=== PATIENT | female | born 1975 | race Caucasian/White ===

== ENCOUNTER 2021-08-24 11:58 | Emergency (ER) | payer SELFPAY ==
[2021-08-24 12:13] VITALS: PULSE 106; RESP 20; TEMP 36.4; O2SAT 98; BMI 31.3
--- NOTE | 2021-08-24 14:37 | XRR_ITS ---
PROCEDURE INFORMATION: Exam: XR Right Foot Exam date and time: 08/24/2021 3:10 PM Age: 45 years old Clinical indication: Pain; Foot; Right; Additional info: Eval for osteomyelitis TECHNIQUE: Imaging protocol: XR Right foot. Views: 1 or 2 views. COMPARISON: No relevant prior studies available. FINDINGS: Bones/joints: Negative for acute bony abnormality. Minimal distal Achilles tendon degenerative calcification. Small calcified heel spur. Soft tissues: Lateral view demonstrates an apparent soft tissue ulceration in the region of the metatarsal heads plantar surface perhaps the 1st digit, please correlate clinically. XR/XR foot RT 2V [id number] IMPRESSION: 1. Negative for acute bony abnormality 2. Lateral view demonstrates an apparent soft tissue ulceration in the region of the metatarsal heads plantar surface perhaps the 1st digit, please correlate clinically. 3. Minimal distal Achilles tendon degenerative calcification. 4. Small calcified heel spur.
--- NOTE | 2021-08-24 15:09 | ED_ITS ---
HPI - Extremity Problem General: Chief complaint: Extremity Injury, Lower Stated complaint: foot injury/diabetic Time Seen by Provider: 08/24/21 15:07 Source: patient Mode of arrival: ambulatory Limitations: no limitations History of Present Illness: Patient is a 45-year-old female who presents to ED today with a complaint of a right foot wound/ulcer that she has had for several weeks. Patient states she recently moved from [place] and was undergoing wound care management while there. She states she has yet to establish with a PCP or epic cadence specialists since moving to the area. Patient states she is a diabetic and states her sugars have been running in the 120s. She has noticed some mild swelling to the foot but states the ulcer itself seems to be like normal . She does not complain of any discharge, foul odor, increased pain, redness or warmth to the foot. No fevers MD Complaint: other (R foot ulcer) Onset (ago): week(s) Location: right and lower extremity (foot) Associated symptoms: Reports no associated symptoms; Deny fever(s) Review of Systems Const: Denies: fever(s), chills, body aches, fatigue or malaise Musc: Reports: extremity swelling (R foot); Denies: joint pain, joint swelling, joint redness or joint warmth Skin/Breast: Reports: other (R foot ulcer) Neuro: Denies: headache(s) or difficulty walking Physical Exam Const: COMMON NORMALS: no acute distress, patient oriented x3, no limitations and alert GENERAL APPEARANCE: cooperative NUTRITIONAL APPEARANCE: overweight ORIENTATION/CONSCIOUSNESS: Yes awake, Yes oriented to person, Yes oriented to place and Yes oriented to time Resp: COMMON NORMALS: normal respiratory effort and clear to auscultation bilaterally AUSCULTATION: clear to auscultation bilaterally Cardio: COMMON NORMALS: regular rate and regular rhythm RATE: regular rate RHYTHM: regular rhythm Extremity: COMMON NORMALS: full ROM, capillary refill normal and no calf tenderness GENERAL: Yes normal exam except as noted RIGHT LOWER EXTREMITY: Yes foot & digits OTHER: pt has some mild swelling to dorsal R foot w/o erythema/warmth; no lymphangitic streaking; she has a 1cm stage III proximal plantar surface ulcer present w/o odor, discharge, or surrounding redness Neuro: JOE COMA SCALE: document GCS findings Joe coma scale eye opening: Spontaneous Joe coma scale verbal response: Orientated [place] coma scale motor response: Obey commands Joe coma scale total score: 15 COMMON NORMALS: patient oriented x3, moves all extremities, no focal motor deficits and no sensory deficits noted SENSORIUM/ORIENTATION: Yes alert, Yes oriented to person, Yes oriented to place and Yes oriented to time Skin: NARRATIVE SKIN EXAM: see extremity assessment for pertinent skin findings Course Vital Signs: Vital signs: Vital Signs Temperature 97.6 F 08/24/21 12:13 Pulse Rate 106 H 08/24/21 12:13 Respiratory Rate 20 H 08/24/21 12:13 Pulse Oximetry 98 08/24/21 12:13 MDM - Extremity (Nontraumatic) Medical Decision Making Patient here with a right plantar foot ulcer that she has had for several weeks now. She states she was receiving wound care in [place] but recently moved to the area. Referral will be placed for her to get set up with a PCP as well a s a referral to wound care. Patient clinically appears in no acute distress. The ulcer itself does not have any drainage, surrounding redness, or odor. She states the ulcer appears at its baseline. She does have some mild concern regarding some swelling in her right foot. Extremity is not red or warm to the touch. She has a normal white count. Inflammatory markers are scantly elevated. Patient initially slightly tachycardic upon arrival but this resolved by my examination. XR showing soft tissue ulceration but no osteo/gas formation/etc. At this time we will go ahead and place patient on oral antibiotics and get her set up with wound care for further management. Strict return to ED precautions given. Lab Data : 08/24/21 15:25 08/24/21 15:25 Radiology Impressions Foot X-Ray 08/24/21 14:37 IMPRESSION: 1. Negative for acute bony abnormality 2. Lateral view demonstrates an apparent soft tissue ulceration in the region of the metatarsal heads plantar surface perhaps the 1st digit, please correlate clinically. 3. Minimal distal Achilles tendon degenerative calcification. 4. Small calcified heel spur. Laboratory Results WBC 7.4 10^3/uL (4.0-10.0) 08/24/21 15:25 RBC 5.22 10^6/uL (4.1-5.3) 08/24/21 15:25 Hgb 15.2 g/dL (11.5-15.3) 08/24/21 15:25 Hct 41.2 % (37.0-47.0) 08/24/21 15:25 MCV 78.9 fl (81-99) L 08/24/21 15:25 MCH 29.1 pg (28.0-34.0) 08/24/21 15:25 MCHC 36.9 g/dL (30.0-36.0) H 08/24/21 15:25 RDW 13.3 % (12.1-15.1) 08/24/21 15:25 Plt Count 243 10^3/cmm (130-400) 08/24/21 15:25 MPV 8.6 fL (7.4-10.4) 08/24/21 15:25 Neut % (Auto) 58.3 % 08/24/21 15:25 Lymph % (Auto) 29.9 % 08/24/21 15:25 [place] % (Auto) 9.8 % 08/24/21 15:25 Eos % (Auto) 0.8 % 08/24/21 15:25 Baso % (Auto) 0.8 % 08/24/21 15:25 Neut # (Auto) 4.30 10^3/uL (1.8-7.7) 08/24/21 15:25 Lymph # (Auto) 2.2 10^3/uL (0.8-4.8) 08/24/21 15:25 [place] # (Auto) 0.7 10^3/uL (0.2-0.9) 08/24/21 15:25 Eos # (Auto) 0.1 10^3/uL (0.0-0.8) 08/24/21 15:25 Baso # (Auto) 0.1 10^3/uL (0.0-0.1) 08/24/21 15:25 Nucleated RBC % (auto) 0 % 08/24/21 15: Nucleated RBCs # 0.0 /100WBC 08/24/21 15:25 ESR 16 mm/hr (0-15) H 08/24/21 15:25 Sodium 129 mmol/L (136-145) L 08/24/21 15:25 Potassium 3.6 mmol/L (3.5-5.1) 08/24/21 15:25 Chloride 90 mmol/L (98-107) L 08/24/21 15:25 Carbon Dioxide 25 mmol/L (22-29) 08/24/21 15:25 Anion Gap 17.6 (5-19) 08/24/21 15:25 BUN 11 mg/dL (6-20) 08/24/21 15:25 Creatinine 0.4 mg/dL (0.5-0.9) L 08/24/21 15:25 GFR Calculation 172.6 mL/min (90-130) H 08/24/21 15:25 Glucose 286 mg/dL (65-115) H 08/24/21 15:25 Calculated Osmolality 278 mOsm/kg (285-295) L 08/24/21 15:25 Calcium 10.6 mg/dL (8.5-10.5) H 08/24/21 15:25 C-Reactive Protein 7.6 mg/L (0.0-4.9) H 08/24/21 15:25 Discharge Plan Discharge Patient Disposition: Home Clinical Impression: Right foot ulcer Qualifiers: Non-pressure ulcer stage: with fat layer exposed Qualified Code(s): L97.512 - Non-pressure chronic ulcer of other part of right foot with fat layer exposed Condition: Stable Prescriptions: New cephalexin 500 mg capsule 500 mg PO Q6H 7 Days Qty: 28 0RF Discharge Orders: Discharge ED (Routine); Ordered 08/24/21 Ordered By: Remedios Castle Coding Level of Care Code ED Product Safety Technical Assistant for Chg Fwd Exam Detailed
[2021-08-24 15:40] LABS: Basophils # 0.1 10^3/uL (0.0-0.1); Basophils % 0.8 %; Eosinophils # 0.1 10^3/uL (0.0-0.8); Eosinophils % 0.8 %; Hematocrit 41.2 % (37.0-47.0); Hemoglobin 15.2 g/dL (11.5-15.3); Lymphocytes # 2.2 10^3/uL (0.8-4.8); Lymphocytes % 29.9 %; Mean Corpuscular HGB Conc 36.9 g/dL (30.0-36.0); Mean Corpuscular Hemoglobin 29.1 pg (28.0-34.0); Mean Corpuscular Volume 78.9 fl (81-99); Mean Platelet Volume 8.6 fL (7.4-10.4); Monocytes # 0.7 10^3/uL (0.2-0.9); Monocytes % 9.8 %; Neutrophils % 58.3 %; Nucleated Red Blood Cells % 0 %; Platelet Count 243 10^3/cmm (130-400); Red Blood Count 5.22 10^6/uL (4.1-5.3); Red Cell Distribution Width 13.3 % (12.1-15.1); White Blood Count 7.4 10^3/uL (4.0-10.0)
[2021-08-24 16:02] LABS: Anion Gap 17.6 (5-19); Blood Urea Nitrogen 11 mg/dL (6-20); C Reactive Protein 7.6 mg/L (0.0-4.9); Calcium 10.6 mg/dL (8.5-10.5); Carbon Dioxide 25 mmol/L (22-29); Chloride 90 mmol/L (98-107); Glomerular Filtration Rate 172.6 mL/min (90-130); Glucose 286 mg/dL (65-115); Osmolality Calculated 278 mOsm/kg (285-295); Potassium 3.6 mmol/L (3.5-5.1); Sodium 129 mmol/L (136-145)
[2021-08-24 16:12] LABS: Erythrocyte Sedimentation Rate 16 mm/hr (0-15)
--- NOTE | 2021-08-26 14:51 | DCPLANNER ---
Addendum entered by Flori Brown 09/06/21 09:14: Patient had a follow up appointment scheduled with wound care - patient did not attend appointment. Addendum entered by Flori Brown 08/27/21 15:12: Patient called case assistant back, case assistant gave patient the appointment information. Original Note: strategic marketing manager had message to speak with patient about getting a primary care physician and a referral to Wound Care. strategic marketing manager called patient, she stated that she did not want a primary care physician at this time, but would like the referral to Wound Care. strategic marketing manager called Wound Care, spoke with [place], gave clinic patients information. A follow up appointment was scheduled for Thursday, August 28, 2020 at 8:[address] Hickey. strategic marketing manager called phone number [phone] and [phone], was unable to speak with patient at time, to give her appointment information. strategic marketing manager left a voicemail for patient to return case assistant phone call.
== END 2021-08-24 16:30 | disposition home or self-care (01) ==
PROVIDERS: Emergency Medicine; Emergency Provider Physician Assistant
DX: L97.512 Non-pressure chronic ulcer of other part of right foot with fat layer exposed (principal)
CPT/HCPCS: 73620; 80048; 85025; 85651; 86140; 99282

== ENCOUNTER 2021-09-01 19:13 | Emergency (ER) | payer OTHER, SELFPAY ==
--- NOTE | 2021-09-01 19:14 | ED_ITS ---
Documented by User: Mundo Swann MD 09/08/21 01:20 HPI - Chest Pain General: Chief Complaint: Chest Pain Stated Complaint: cp Time Seen by Provider: 09/01/21 19:14 Physical Exam Neuro: JOE COMA SCALE: document GCS findings Joe coma scale total score: 15 Course Vital Signs: Vital signs: Vital Signs Temperature 98.0 F 09/01/21 19:18 Pulse Rate 104 H 09/01/21 23:25 Respiratory Rate 21 H 09/01/21 23:25 Blood Pressure 131/64 09/01/21 23:25 Pulse Oximetry 98 09/01/21 23:25 MDM - Chest Pain Lab Data : 09/01/21 18:55 09/01/21 18:55 Radiology Impressions Chest X-Ray 09/01/21 19:25 IMPRESSION: No acute infiltrate. Chest CTA 09/01/21 21:05 IMPRESSION: No evidence of pulmonary embolism. Laboratory Results WBC 6.6 10^3/uL (4.0-10.0) 09/01/21 18:55 RBC 4.95 10^6/uL (4.1-5.3) 09/01/21 18:55 Hgb 14.3 g/dL (11.5-15.3) 09/01/21 18:55 Hct 40.2 % (37.0-47.0) 09/01/21 18:55 MCV 81.2 fl (81-99) 09/01/21 18:55 MCH 28.9 pg (28.0-34.0) 09/01/21 18:55 MCHC 35.6 g/dL (30.0-36.0) 09/01/21 18:55 RDW 13.3 % (12.1-15.1) 09/01/21 18:55 Plt Count 168 10^3/cmm (130-400) 09/01/21 18:55 MPV 8.5 fL (7.4-10.4) 09/01/21 18:55 Neut % (Auto) 45.7 % 09/01/21 18:55 Lymph % (Auto) 42.0 % 09/01/21 18:55 [place] % (Auto) 8.2 % 09/01/21 18:55 Eos % (Auto) 1.5 % 09/01/21 18:55 Baso % (Auto) 1.1 % 04/03/22 18:55 Neut # (Auto) 3.01 10^3/uL (1.8-7.7) 09/01/21 18:55 Lymph # (Auto) 2.8 10^3/uL (0.8-4.8) 09/01/21 18:55 [place] # (Auto) 0.5 10^3/uL (0.2-0.9) 09/01/21 18:55 Eos # (Auto) 0.1 10^3/uL (0.0-0.8) 09/01/21 18:55 Baso # (Auto) 0.1 10^3/uL (0.0-0.1) 09/01/21 18:55 Nucleated RBC % (auto) 0 % 09/01/21 18:55 Nucleated RBCs # 0.0 /100WBC 09/01/21 18:55 D-Dimer 9.36 ug/mIFEU (0-0.59) H 09/01/21 18:55 Sodium 131 mmol/L (136-145) L 09/01/21 18:55 Potassium 3.8 mmol/L (3.5-5.1) 09/01/21 18:55 Chloride 94 mmol/L (98-107) L 09/01/21 18:55 Carbon Dioxide 25 mmol/L (22-29) 09/01/21 18:55 Anion Gap 15.8 (5-19) 09/01/21 18:55 BUN 7 mg/dL (6-20) 09/01/21 18:55 Creatinine 0.5 mg/dL (0.5-0.9) 09/01/21 18:55 GFR Calculation 133.4 mL/min (90-130) H 09/01/21 18:55 Glucose 268 mg/dL (65-115) H 09/01/21 18:55 Calculated Osmolality 279 mOsm/kg (285-295) L 09/01/21 18:55 Calcium 9.9 mg/dL (8.5-10.5) 09/01/21 18:55 Total Bilirubin 0.7 mg/dL (0.15-1.2) 09/01/21 18:55 AST 36 U/L (0-32) H 09/01/21 18:55 ALT 47 U/L (0-33) H 09/01/21 18:55 Alkaline Phosphatase 132 IU/L (35-105) H 09/01/21 18:55 Creatine Kinase 70 U/L (26-192) 09/01/21 18:55 Troponin T Baseline 25 ng/L (0-10) H 09/01/21 18:55 Troponin T 120 Minute 23.04 ng/L (0-10) H 09/01/21 20:55 Delta Troponin T -1.96 ABS# (0-10) L 09/01/21 20:55 NT-Pro-B Natriuret Pep 463 pg/mL (0-125) H 09/01/21 18:55 Total Protein 6.8 g/dL (6.6-8.7) 09/01/21 18:55 Albumin 4.3 g/dL (3.5-5.2) 09/01/21 18:55 Globulin 2.5 g/dL (1.3-4.6) 09/01/21 18:55 Coronavirus 229E (PCR) Not detected (NOT DETECT) 09/01/21 23:20 SARS-CoV-2 (PCR) Not detected (NOT DETECT) 09/01/21 23:20 Discharge Plan Discharge Patient Disposition: Home Clinical Impression: Chest pain Condition: Stable Discharge Orders: Discharge ED (Routine); Ordered 09/01/21 Ordered By: Jonatan Voss Discharge Diet: Advance as tolerated Discharge Activity: Increase activity as tolerated Patient Instructions: Chest Pain (ED) Activity Restrictions/Additional Instructions: Return immediately to the emergency department for return of chest pain, shortness of breath, cough, sputum production, fever greater than 100, any other concerning symptoms. A case management order has been placed for a referral to a primary care physician. You should get a call from them this week. Coding Level of Care Code ED Lay Midwife for Chg Fwd Exam Comprehensive Documented by User: Jonatan Voss DO 09/02/21 03:22 HPI - Chest Pain General: Chief Complaint: Chest Pain Stated Complaint: cp Time Seen by Provider: 09/01/21 19:14 Source: patient History of Present Illness: 45-year-old female who tells me she had a heart attack in May in [facility]. No stent was placed. She was put on lisinopril, furosemide, and nitroglycerin. She presents with chest pain radiating to both arms and her back. This started at rest. She is short of breath. Nitroglycerin both at home and in the ambulance helped to some degree, the pain has started to return. She has had aspirin in route as well. MD complaint: chest pain Pertinent past history: prior [place] Timing of current episode: constant Prior episodes: Yes Onset: during rest Pain location: substernal Pain radiation: right arm, left arm and back Severity: moderate Pain scale (0-10): 4 Quality: heaviness Relieving factors: nitroglycerin Exacerbating factors: nothing Associated symptoms: Reports dyspnea and nausea; Deny abdominal pain, diaphoresis, fever(s), leg edema, palpitations or vomiting Treatment prior to arrival: aspirin and nitroglycerin Review of Systems Const: Denies: fever(s) or diaphoresis Eyes: Denies: change in vision ENMT: Denies: throat pain Card: Reports: chest pain; Denies: palpitations Resp: Reports: dyspnea; Denies: productive cough or non-productive cough GI: Reports: nausea; Denies: abdominal pain or vomiting Musc: Reports: back pain Skin/Breast: Denies: rash Neuro: Reports: headache(s) Physical Exam Const: GENERAL APPEARANCE: cooperative HENMT: COMMON NORMALS: normocephalic, atraumatic and Normal external nose present HEAD & SCALP: normocephalic and atraumatic NOSE: Normal external nose present Eye: COMMON NORMALS: Equal, round and reactive pupils present and EOMs intact bilaterally PUPIL: Yes Equal, round and reactive pupils present Chest: COMMONS NORMALS: normal inspection of the chest Resp: COMMON NORMALS: normal respiratory effort, No use of accessory muscles and clear to auscultation bilaterally AUSCULTATION: clear to auscultation bilaterally Cardio: COMMON NORMALS: regular rate and regular rhythm RATE: regular rate RHYTHM: regular rhythm GI: COMMON NORMALS: Normal to inspection, nondistended, normoactive bowel sounds present, Soft to palpation and non-tender PALPATION: Yes Soft to palpation Extremity: COMMON NORMALS: normal to inspection Neuro: JOE COMA SCALE: document GCS findings [place] coma scale eye opening: Spontaneous [place] coma scale verbal response: Orientated [place] coma scale motor response: Obey commands Joe coma scale total score: 15 Course Vital Signs: Vital signs: Vital Signs Temperature 98.0 F 09/01/21 19:18 Pulse Rate 104 H 09/01/21 23:25 Respiratory Rate 21 H 09/01/21 23:25 Blood Pressure 131/64 09/01/21 23:25 Pulse Oximetry 98 09/01/21 23:25 [facility] - Chest Pain Medical Decision Making 45-year-old female with chest pain. CBC is normal. Sodium is 131, blood gluc ose is 268. BUN and creatinine are normal, potassium is normal. First troponin is 25 with a 2-hour of 23. EKG shows sinus tachycardia at a rate of 110. Left axis. Right fascicular block. No acute ST changes. BNP is minimally elevated. Chest x-ray is negative. Her D-dimer is quite high. CTA was ordered. It shows no evidence of pulmonary embolism, no infiltrate, no dissection. Her heart rate is somewhat improved. Her chest pain is resolved. She will be allowed home. Viral swabs will be sent on discharge. Outpatient follow-up. Case management has been consulted to find this patient a PCP. Lab Data : 09/01/21 18:55 09/01/21 18:55 Radiology Impressions Chest X-Ray 09/01/21 19:25 IMPRESSION: No acute infiltrate. Chest CTA 09/01/21 21:05 IMPRESSION: No evidence of pulmonary embolism. Laboratory Results WBC 6.6 10^3/uL (4.0-10.0) 09/01/21 18:55 RBC 4.95 10^6/uL (4.1-5.3) 09/01/21 18:55 Hgb 14.3 g/dL (11.5-15.3) 09/01/21 18:55 Hct 40.2 % (37.0-47.0) 09/01/21 18:55 MCV 81.2 fl (81-99) 09/01/21 18:55 MCH 28.9 pg (28.0-34.0) 09/01/21 18:55 MCHC 35.6 g/dL (30.0-36.0) 09/01/21 18:55 RDW 13.3 % (12.1-15.1) 09/01/21 18:55 Plt Count 168 10^3/cmm (130-400) 09/01/21 18:55 MPV 8.5 fL (7.4-10.4) 09/01/21 18:55 Neut % (Auto) 45.7 % 09/01/21 18:55 Lymph % (Auto) 42.0 % 09/01/21 18:55 [place] % (Auto) 8.2 % 09/01/21 18:55 Eos % (Auto) 1.5 % 09/01/21 18:55 Baso % (Auto) 1.1 % 09/01/21 18: Neut # (Auto) 3.01 10^3/uL (1.8-7.7) 09/01/21 18: Lymph # (Auto) 2.8 10^3/uL (0.8-4.8) 09/01/21 18:55 [place] # (Auto) 0.5 10^3/uL (0.2-0.9) 09/01/21 18:55 Eos # (Auto) 0.1 10^3/uL (0.0-0.8) 09/01/21 18:55 Baso # (Auto) 0.1 10^3/uL (0.0-0.1) 09/01/21 18: Nucleated RBC % (auto) 0 % 09/01/21 18: Nucleated RBCs # 0.0 /100WBC 09/01/21 18: D-Dimer 9.36 ug/mIFEU (0-0.59) H 09/01/21 18:55 Sodium 131 mmol/L (136-145) L 09/01/21 18:55 Potassium 3.8 mmol/L (3.5-5.1) 09/01/21 18: Chloride 94 mmol/L (98-107) L 09/01/21 18:55 Carbon Dioxide 25 mmol/L (22-29) 09/01/21 18:55 Anion Gap 15.8 (5-19) 09/01/21 18:55 BUN 7 mg/dL (6-20) 09/01/21 18:55 Creatinine 0.5 mg/dL (0.5-0.9) 09/01/21 18:55 GFR Calculation 133.4 mL/min (90-130) H 09/01/21 18:55 Glucose 268 mg/dL (65-115) H 09/01/21 18:55 Calculated Osmolality 279 mOsm/kg (285-295) L 09/01/21 18:55 Calcium 9.9 mg/dL (8.5-10.5) 09/01/21 18:55 Total Bilirubin 0.7 mg/dL (0.15-1.2) 09/01/21 18:55 AST 36 U/L (0-32) H 09/01/21 18:55 ALT 47 U/L (0-33) H 09/01/21 18:55 Alkaline Phosphatase 132 IU/L (35-105) H 09/01/21 18:55 Creatine Kinase 70 U/L (26-192) 09/01/21 18:55 Troponin T Baseline 25 ng/L (0-10) H 09/01/21 18:55 Troponin T 120 Minute 23.04 ng/L (0-10) H 09/01/21 20:55 Delta Troponin T -1.96 ABS# (0-10) L 09/01/21 20:55 NT-Pro-B Natriuret Pep 463 pg/mL (0-125) H 09/01/21 18:55 Total Protein 6.8 g/dL (6.6-8.7) 09/01/21 18:55 Albumin 4.3 g/dL (3.5-5.2) 09/01/21 18:55 Globulin 2.5 g/dL (1.3-4.6) 09/01/21 18:55 Coronavirus 229E (PCR) Not detected (NOT DETECT) 09/01/21 23:20 SARS-CoV-2 (PCR) Not detected (NOT DETECT) 09/01/21 23:20 Discharge Plan Discharge Patient Disposition: Home Clinical Impression: Chest pain Condition: Stable Discharge Orders: Discharge ED (Routine); Ordered 09/01/21 Ordered By: Jonatan Voss Discharge Diet: Advance as tolerated Discharge Activity: Increase activity as tolerated Patient Instructions: Chest Pain (ED) Activity Restrictions/Additional Instructions: Return immediately to the emergency department for return of chest pain, shortness of breath, cough, sputum production, fever greater than 100, any other concerning symptoms. A case management order has been placed for a referral to a primary care physician. You should get a call from them this week. Coding Level of Care Code ED Lay Midwife for Chg Fwd Exam Comprehensive
[2021-09-01 19:18] VITALS: BP 133/102; PULSE 114; RESP 20; TEMP 36.7; O2SAT 95; BMI 31.3
--- NOTE | 2021-09-01 19:25 | XRR_ITS ---
PROCEDURE INFORMATION: Exam: XR Chest Exam date and time: 09/01/2021 7:54 PM Age: 45 years old Clinical indication: Pain; Chest pressure; Prior surgery; Surgery date: 6+ months; Additional info: Chest pain TECHNIQUE: Imaging protocol: XR of the chest. Views: 1 view. COMPARISON: No relevant prior studies available. FINDINGS: Tubes, catheters and devices: There is an electronic device projected over the left chest. Lungs: Visualized portions of the lungs are clear. There is no pulmonary vascular congestion. Pleural spaces: Unremarkable. No pleural effusion. No pneumothorax. Heart/Mediastinum: Heart is within normal limits of size. Bones/joints: Unremarkable. XR/XR chest 1V portable [id number] IMPRESSION: No acute infiltrate.
--- NOTE | 2021-09-01 19:25 | ECG_ITS ---
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 Measurements Intervals [place]yer Rate: 111 P: 14 GA: 147 QRS: -19 QRSD: 104 T: 32 QT: 357 QTc: 487 Interpretive Statements SINUS TACHYCARDIA WITH OCCASIONAL SUPRAVENTRICULAR PREMATURE COMPLEXES POSSIBLE LEFT ATRIAL ENLARGEMENT [-0.1mV P-WAVE IN V1/V2] INCOMPLETE RIGHT BUNDLE BRANCH BLOCK [90+ ms QRS DURATION, TERMINAL R IN V1/V2, 40+ ms S IN I/aVL/V4/V5/V6] NONSPECIFIC T-WAVE ABNORMALITY ABNORMAL RHYTHM ECG No previous ECG available for comparison Electronically Signed On 09-03-2021 9:13:15 CDT by Malik Gr M.D. [id number] f
[2021-09-01 19:29] VITALS: BP 140/101; PULSE 120; RESP 22; O2SAT 96
[2021-09-01 19:32] LABS: Basophils # 0.1 10^3/uL (0.0-0.1); Basophils % 1.1 %; Eosinophils # 0.1 10^3/uL (0.0-0.8); Eosinophils % 1.5 %; Hematocrit 40.2 % (37.0-47.0); Hemoglobin 14.3 g/dL (11.5-15.3); Lymphocytes # 2.8 10^3/uL (0.8-4.8); Mean Corpuscular HGB Conc 35.6 g/dL (30.0-36.0); Mean Corpuscular Hemoglobin 28.9 pg (28.0-34.0); Mean Corpuscular Volume 81.2 fl (81-99); Mean Platelet Volume 8.5 fL (7.4-10.4); Monocytes # 0.5 10^3/uL (0.2-0.9); Monocytes % 8.2 %; Neutrophils # 3.01 10^3/uL (1.8-7.7); Neutrophils % 45.7 %; Nucleated Red Blood Cells % 0 %; Platelet Count 168 10^3/cmm (130-400); Red Blood Count 4.95 10^6/uL (4.1-5.3); Red Cell Distribution Width 13.3 % (12.1-15.1); White Blood Count 6.6 10^3/uL (4.0-10.0)
[2021-09-01] MEDS: nitroglycerin 0.4 mg sublingual Tablet SUBLINGUAL (19:50)
[2021-09-01 19:52] LABS: Troponin(5th) Baseline 25 ng/L (0-10)
[2021-09-01] MEDS: ondansetron 2 mg/ML SDV 2 mL 4 MG IVP (19:52)
[2021-09-01 19:54] VITALS: RESP 20; O2SAT 95
[2021-09-01 19:54] LABS: Slide Review Slide Review Perform
[2021-09-01] MEDS: morphine 4 mg/mL SDV 1 mL IVP (19:54)
[2021-09-01 19:55] VITALS: BP 124/84; PULSE 115; RESP 18; O2SAT 94
[2021-09-01 19:56] LABS: D Dimer 9.36 ug/mIFEU (0-0.59)
[2021-09-01 19:59] LABS: Alanine Aminotransferase 47 U/L (0-33); Albumin Level 4.3 g/dL (3.5-5.2); Alkaline Phosphatase 132 IU/L (35-105); Anion Gap 15.8 (5-19); Aspartate Amino Transferase 36 U/L (0-32); Blood Urea Nitrogen 7 mg/dL (6-20); Calcium 9.9 mg/dL (8.5-10.5); Carbon Dioxide 25 mmol/L (22-29); Chloride 94 mmol/L (98-107); Creatine Phosphokinase 70 U/L (26-192); Globulin 2.5 g/dL (1.3-4.6); Glomerular Filtration Rate 133.4 mL/min (90-130); Glucose 268 mg/dL (65-115); NT Pro B Type Natriuretic Pept 463 pg/mL (0-125); Osmolality Calculated 279 mOsm/kg (285-295); Potassium 3.8 mmol/L (3.5-5.1); Sodium 131 mmol/L (136-145); Total Bilirubin 0.7 mg/dL (0.15-1.2); Total Protein 6.8 g/dL (6.6-8.7)
[2021-09-01 20:05] VITALS: BP 150/93; PULSE 120; RESP 20; O2SAT 94
--- NOTE | 2021-09-01 21:05 | CTR_ITS ---
PROCEDURE INFORMATION: Exam: CTA Chest With Contrast Exam date and time: 09/01/2021 9:29 PM Age: 45 years old Clinical indication: Pain; Left-sided; Prior surgery; Surgery date: 1-6 months; Surgery type: Loop recorder; Patient HX: C/O cp radiating to back w elev d-dimer; Additional info: Chest pain TECHNIQUE: Imaging protocol: Computed tomographic angiography of the chest with contrast. 3D rendering (Not supervised by radiologist): MIP and/or 3D reconstructed images were created by the technologist. Radiation optimization: All CT scans at this facility use at least one of these dose optimization techniques: automated exposure control; mA and/or kV adjustment per patient size (includes targeted exams where dose is matched to clinical indication); or iterative reconstruction. Contrast material: OMNI 350; Contrast volume: 69 ml; Contrast route: INTRAVENOUS (IV); COMPARISON: CR (CHEST, ) 09/01/2021 7:54 PM RADIATION DOSE METRICS: Total DLP (mGy-cm): 542.69 FINDINGS: Tubes, catheters and devices: There is a loop recorder in the soft tissues of the left breast. Pulmonary arteries: There is no evidence of filling defects within the pulmonary arterial circulation to suggest pulmonary embolism. Aorta: There is no thoracic aortic aneurysm or dissection. Lungs: Unremarkable. No consolidation. No masses. Pleural spaces: Unremarkable. No pneumothorax. No pleural effusion. Heart: Mild cardiomegaly. No pericardial effusion. Lymph nodes: There are small prevascular and paratracheal lymph nodes but no adenopathy. Bones/joints: There are degenerative changes in the thoracic spine. Soft tissues: Unremarkable. CT/CT angio chest PE protcl [id number] IMPRESSION: No evidence of pulmonary embolism.
[2021-09-01 21:29] LABS: Troponin 5 2HR 23.04 ng/L (0-10)
[2021-09-01 21:30] LABS: Troponin 5 2HR Delta -1.96 ABS# (0-10)
[2021-09-01] MEDS: iohexol 350 mg/mL 100 mL Btl IV (21:36)
[2021-09-01 23:25] VITALS: BP 131/64; PULSE 104; RESP 21; O2SAT 98
[2021-09-02 01:12] LABS: Adenovirus Not Detected (NOT DETECT); Chlamydia Pneumoniae Not Detected (NOT DETECT); Coronavirus 229E,HKU1,NL63,OC4 Not Detected (NOT DETECT); Human Metapneumovirus Not Detected (NOT DETECT); Human Rhinovirus/Enterovirus Not Detected (NOT DETECT); Influenza A Not Detected (NOT DETECT); Influenza A H1 Not Detected (NOT DETECT); Influenza A H1-2009 Not Detected (NOT DETECT); Influenza A H3 Not Detected (NOT DETECT); Influenza B Not Detected (NOT DETECT); Mycoplasma Pneumoniae Not Detected (NOT DETECT); Parainfluenza Virus Type 1 Not Detected (NOT DETECT); Parainfluenza Virus Type 2 Not Detected (NOT DETECT); Parainfluenza Virus Type 3 Not Detected (NOT DETECT); Parainfluenza Virus Type 4 Not Detected (NOT DETECT); Respiratory Syncytial Virus A Not Detected (NOT DETECT); Respiratory Syncytial Virus B Not Detected (NOT DETECT); SARS-COV-2 Not Detected (NOT DETECT)
--- NOTE | 2021-09-03 14:16 | DCPLANNER ---
manager wind had message to speak with patient about getting established with a primary care physician. manager wind unable to speak with patient at this time.
== END 2021-09-01 23:27 | disposition home or self-care (01) ==
PROVIDERS: Emergency Provider Emergency Medicine
DX: R07.9 Chest pain, unspecified (principal); R00.0 Tachycardia, unspecified; R79.1 Abnormal coagulation profile; I25.2 Old myocardial infarction
CPT/HCPCS: 71045; 71275; 80053; 82550; 83880; 84484; 85025; 85378; 87635; 93005; 96374; 96375; 99284; J2270; J2405; Q9967

== ENCOUNTER 2021-10-07 14:35 | Emergency (ER) | payer MEDICAID, SELFPAY ==
[2021-10-07 14:47] VITALS: BP 146/73; PULSE 98; RESP 15; TEMP 36.4; O2SAT 96; BMI 31.3
--- NOTE | 2021-10-07 15:03 | W.ED.EXTPRO ---
HPI - Extremity Problem General: Chief complaint: Extremity Problem,Nontraumatic Stated complaint: right foot sore/diabetic Time Seen by Provider: 10/07/21 14:55 Source: patient Mode of arrival: ambulatory Limitations: no limitations History of Present Illness: Patient is a 45-year-old female presents to ED today with a complaint of a chronic right diabetic foot ulcer. Patient was seen here 2 months ago for same complaint and referred to wound care. Patient states she just moved to the area and was busy and never showed up for her appointments. Patient tells me the ulcer has not changed much since the last visit. She states she is having a little bit of swelling to the foot. She has not noticed any drainage or odor. No fevers or chills. Patient moved here from [place] several months ago-she states she was receiving wound care while there. Sugars running in the 120s. Complaint: other (diabetic foot ulcer) Onset (ago): month(s) Location: right Relieving factors: nothing Exacerbating factors: nothing Associated symptoms: Reports no associated symptoms; Deny chest pain or fever(s) Review of Systems Const: Denies: fever(s), chills, body aches, fatigue or malaise Card: Denies: chest pain Resp: Denies: dyspnea Musc: Reports: extremity swelling; Denies: neck pain, back pain, extremity pain, joint pain, joint swelling, joint redness, joint warmth or limited range of motion Skin/Breast: Reports: other (R foot ulcer) Neuro: Reports: sensory changes (chronic bilateral LE neuropathy) Physical Exam Const: COMMON NORMALS: no acute distress, patient oriented x3, no limitations and alert NUTRITIONAL APPEARANCE: overweight ORIENTATION/CONSCIOUSNESS: Yes awake, Yes oriented to person, Yes oriented to place and Yes oriented to time Resp: COMMON NORMALS: normal respiratory effort and clear to auscultation bilaterally AUSCULTATION: clear to auscultation bilaterally Cardio: COMMON NORMALS: regular rate and regular rhythm RATE: regular rate RHYTHM: regular rhythm Extremity: COMMON NORMALS: full ROM, capillary refill normal and no calf tenderness GENERAL: Yes normal exam except as noted RIGHT LOWER EXTREMITY: Yes foot & digits OTHER: pt has a 1cm stage III-IV ulcer to the proximal plantar aspect of R foot; wound probed and I do not probe bone at this time; I personally saw patient on her last visit two months ago and I do not distinguish any significant changes since that last visit; she has no redness surrounding ulcer site, no drainage or foul odor; she has some mild non-specific swelling to her R foot-maybe some scant erythema/warmth present but extremely minimal Neuro: COMMON NORMALS: patient oriented x3 SENSORIUM/ORIENTATION: Yes alert, Yes oriented to person, Yes oriented to place and Yes oriented to time Course Vital Signs: Vital signs: Vital Signs Temperature 97.6 F 10/07/21 14:47 Pulse Rate 98 10/07/21 14:47 Respiratory Rate 15 10/07/21 14:47 Blood Pressure 146/73 10/07/21 14:47 Pulse Oximetry 96 10/07/21 14:47 MDM - Extremity (Nontraumatic) Medical Decision Making Patient here for chronic right foot diabetic ulcer. I personally saw patient 2 months ago and I do not appreciate any significant changes to her ulcer today. Her vital signs are stable. She has no systemic complaints. Ulcer is not draining or odorous. XR today looks stable from 2 months ago. No osteomyelitis noted. At this time I do not think emergent labs and further work-up from our end is necessary as it would be unlikely to overall military exchange wireless manager. Patient needs a referral back to wound care. Discussed the importance of following up with them. We will go ahead and place on Clindamycin. Return to ED precautions were verbally discussed with patient. Discharge Plan Discharge Patient Disposition: Home Clinical Impression: Chronic ulcer of right foot Qualifiers: Non-pressure ulcer stage: with fat layer exposed Qualified Code(s): L97.512 - Non-pressure chronic ulcer of other part of right foot with fat layer exposed Condition: Stable Prescriptions: New clindamycin HCl 300 mg capsule 300 mg PO Q6H 7 Days Qty: 28 0RF Discharge Orders: Discharge ED (Routine); Ordered 10/07/21 Ordered By: Remedios Castle Coding Level of Care Code ED Toolroom Machinist for Ramírez Rausch
--- NOTE | 2021-10-07 15:14 | XR_ITS ---
WS: [id number] RIGHT FOOT: 3 VIEW(S) TECHNIQUE: AP, oblique and lateral. HISTORY: diabetic plantar sore COMPARISON: 08/24/2021 No acute fracture or dislocation. Normal tarsal/metatarsal alignment. Soft tissue ulceration measures 1.5 cm along the plantar surface of the foot at the level of the meta tarsals. On the PA projection this appears to be associated with the fourth metatarsal head. There is a large amount of adjacent soft tissue edema. No osteomyelitis. XR/XR foot RT min 3V* [id number] IMPRESSION: 1. Plantar surface soft tissue ulceration measures 1.5 cm. 2. No osteomyelitis.
--- NOTE | 2021-10-09 19:24 | DCPLANNER ---
agile project manager had message to schedule a follow up appointment for patient with Wound Care. agile project manager sent patients information to the front office staff at Wound Care. Patients information will be printed and reviewed. Clinic will call patient with appointment information.
== END 2021-10-07 16:03 | disposition home or self-care (01) ==
PROVIDERS: Emergency Provider Physician Assistant
DX: E11.621 Type 2 diabetes mellitus with foot ulcer (principal); L97.512 Non-pressure chronic ulcer of other part of right foot with fat layer exposed
CPT/HCPCS: 73630; 99283

== ENCOUNTER 2021-10-10 00:54 | Emergency (ER) | payer OTHER, SELFPAY ==
[2021-10-10] VITALS (10 sets, daily range): BP systolic 107–138; BP diastolic 69–89; PULSE 83–117; RESP 16–20; TEMP 36.9; O2SAT 91–97; BMI 29.2
--- NOTE | 2021-10-10 01:19 | XRR_ITS ---
PROCEDURE INFORMATION: Exam: XR Right Foot Exam date and time: 10/10/2021 1:25 AM Age: 46 years old Clinical indication: Right; Patient HX: C/O worsening pain to RT foot. Diabetic ulcer to plantar surface at distal metatarsal level. ; Additional info: Foot ulcer TECHNIQUE: Imaging protocol: XR Right foot. Views: 3 or more views. COMPARISON: No relevant prior studies available. FINDINGS: Bones/joints: Normal. Soft tissues: 1.7 x 0.9 cm aerated ulcer in the plantar soft tissues well seen only on the lateral view at the level of the metatarsal heads. Possibly over the 4th metatarsal head on image 1001. XR/XR foot RT min 3V* [id number] IMPRESSION: 1.7 x 0.9 cm aerated ulcer in the plantar soft tissues well seen only on the lateral view at the level of the metatarsal heads. Possibly over the 4th metatarsal head on image 1001.
--- NOTE | 2021-10-10 01:26 | ED_ITS ---
HPI - Extremity Problem General: Chief complaint: Extremity Injury, Lower Stated complaint: R foot pain Time Seen by Provider: 10/10/21 01:00 History of Present Illness: Patient is a 46-year-old female comes to the ED with right foot ulcer. Patient was seen here in the ED on October 07 for same complaint. She was discharged from the ED on October 07 and given a prescription for clindamycin. She has not gotten prescription filled and has not been taking any antibiotics recently. She has a chronic ulcer on the bottom of her right foot now for the past 2 months and it started after she steeped on a staple. She states the ulcer has gotten worse over the past couple days. She is having increased redness warmth and swelling in her right foot. Pain has gotten worse as well and she rates pain a 8 out of 10. She has been rinsing out the ulcer with hydrogen peroxide daily. Patient was supposed to be referred to wound care clinic but says she has not received a call to get appointment set up yet. Associated symptoms: Deny chest pain, fever(s) or rash Review of Systems Const: Denies: fever(s), chills or fatigue Eyes: Denies: change in vision or eye discomfort ENMT: Denies: throat pain, odynophagia, nasal discharge or nasal congestion Card: Denies: chest pain, palpitations, edema, swelling of feet/ankles, dyspnea on exertion or orthopnea Resp: Denies: dyspnea, productive cough or non-productive cough GI: Denies: abdominal pain, nausea, vomiting, diarrhea, constipation or hematochezia : Denies: flank pain, dysuria or hematuria Musc: Denies: neck pain, back pain or extremity swelling Skin/Breast: Reports: non-healing lesions (Diabetic foot ulcer on pad of right foot.); Denies: rash or new lesions Neuro: Denies: headache(s), numbness in extremities or weakness in extremities PFS ED PFSH: Medical History Chronic ulcer of right foot Diabetes Hypertension No pertinent family history Physical Exam Const: COMMON NORMALS: patient oriented x3 and alert GENERAL APPEARANCE: cooperative HENMT: COMMON NORMALS: normocephalic HEAD & SCALP: normocephalic MOUTH: Normal oral and palatal mucosa present THROAT: posterior oropharynx normal and uvula midline Neck/C-Spine: COMMON NORMALS: supple GENERAL: Yes normal visual inspection Resp: COMMON NORMALS: normal respiratory effort, No retractions, No use of accessory muscles and clear to auscultation bilaterally AUSCULTATION: clear to auscultation bilaterally Cardio: COMMON NORMALS: regular rate, regular rhythm, S1 normal heart sound present, S2 normal heart sound present, No gallops present (Cardio), No clicks present (Cardio), No murmurs present (Cardio) and Peripheral pulses 2+ throughout RATE: regular rate RHYTHM: regular rhythm HEART SOUNDS: S1 normal heart sound present and S2 normal heart sound present PERIPHERAL PULSES: Peripheral pulses 2+ throughout GI: COMMON NORMALS: Normal to inspection, nondistended, normoactive bowel sounds present, Soft to palpation, non-tender and no masses PALPATION: Yes Soft to palpation : COMMON NORMALS: Yes no CVA tenderness BLADDER/KIDNEY EXAM: Yes no CVA tenderness Back/Pelvis: COMMON NORMALS: no CVA tenderness Extremity: NARRATIVE EXTREMITY EXAM: 1 cm stage III-IV ulcer to the proximal plantar aspect of right foot. No visible drainage noted. right foot now has swelling, tenderness, erythema and warmth to palpation. GENERAL: Yes normal exam except as noted Neuro: COMMON NORMALS: patient oriented x3 and moves all extremities SENSORIUM/ORIENTATION: Yes alert Skin: GENERAL SKIN EXAM: dry skin Course Vital Signs: Vital signs: Vital Signs Temperature 98.4 F 10/10/21 01:13 Pulse Rate 117 H 10/10/21 01:13 Respiratory Rate 20 H 10/10/21 01:43 Blood Pressure 110/73 10/10/21 01:13 Pulse Oximetry 97 10/10/21 01:43 MDM - Extremity (Nontraumatic) Medical Decision Making Patient is a 46-year-old female comes to the ED with right foot ulcer. Past medical history of diabetes and hypertension. She has had this ulcer now for over 2 months. She was seen here in the ED for right foot ulcer a couple days ago on October 06 and was discharged home with a prescription for clindamycin which she did not get filled due to not having money. She states over the last couple days the pain swelling and redness of her foot have gotten worse. Vitals are stable. 1 cm stage III-IV ulcer to the proximal plantar aspect of right foot. No visible drainage noted. Right foot now has swelling, tenderness, erythema and warmth to palpation. Wound culture and blood cultures pending. CBC unremarkable. Glucose 312 and sodium 127. Corrected sodium level for hyperglycemia is anywhere from 130-132. ESR 12. CRP 19.5. X-ray of right foot showed no signs of osteomyelitis but it did note ulcerated soft tissue over fourth metatarsal region. pt was given IV 1 L of fluids and vancomycin while here in the ED. I placed an order with case management for patient be referred to wound care clinic for follow-up. She was instructed to get her prescription for clindamycin filled tomorrow to make sure she starts taking it. I told her to follow-up with her PCP in the next week and that case management will call her to set up an appoint with wound care clinic for further management of foot ulcer. Return to ED precautions given. Patient understood and agreed with plan. Lab Data I reviewed the patient's lab results. : 10/10/21 01:35 10/10/21 01:35 Radiology Impressions Foot X-Ray 10/10/21 01:19 IMPRESSION: 1.7 x 0.9 cm aerated ulcer in the plantar soft tissues well seen only on the lateral view at the level of the metatarsal heads. Possibly over the 4th metatarsal head on image 1001. Laboratory Results WBC 7.1 10^3/uL (4.0-10.0) 10/10/21 01:35 RBC 4.22 10^6/uL (4.1-5.3) 10/10/21 01:35 Hgb 12.1 g/dL (11.5-15.3) 10/10/21 01:35 Hct 34.3 % (37.0-47.0) L 10/10/21 01:35 MCV 81.3 fl (81-99) 10/10/21 01:35 MCH 28.7 pg (28.0-34.0) 10/10/21 01:35 MCHC 35.3 g/dL (30.0-36.0) 10/10/21 01:35 RDW 14.7 % (12.1-15.1) 10/10/21 01:35 Plt Count 230 10^3/cmm (130-400) 10/10/21 01:35 MPV 7.7 fL (7.4-10.4) 10/10/21 01:35 Neut % (Auto) 58.9 % 10/10/21 01:35 Lymph % (Auto) 31.4 % 10/10/21 01:35 [place] % (Auto) 7.1 % 10/10/21 01:35 Eos % (Auto) 1.4 % 10/10/21 01:35 Baso % (Auto) 0.8 % 10/10/21 01:35 Neut # (Auto) 4.17 10^3/uL (1.8-7.7) 10/10/21 01:35 Lymph # (Auto) 2.2 10^3/uL (0.8-4.8) 10/10/21 01:35 [place] # (Auto) 0.5 10^3/uL (0.2-0.9) 10/10/21 01:35 Eos # (Auto) 0.1 10^3/uL (0.0-0.8) 10/10/21 01:35 Baso # (Auto) 0.1 10^3/uL (0.0-0.1) 10/10/21 01:35 Nucleated RBC % (auto) 0 % 10/10/21 01:35 Nucleated RBCs # 0.0 /100WBC 10/10/21 01:35 ESR 12 mm/hr (0-15) 10/10/21 01:35 Sodium 127 mmol/L (136-145) L 10/10/21 01:35 Potassium 3.8 mmol/L (3.5-5.1) 10/10/21 01:35 Chloride 91 mmol/L (98-107) L 10/10/21 01:35 Carbon Dioxide 24 mmol/L (22-29) 10/10/21 01:35 Anion Gap 15.8 (5-19) 10/10/21 01:35 BUN 8 mg/dL (6-20) 10/10/21 01:35 Creatinine 0.5 mg/dL (0.5-0.9) 10/10/21 01:35 GFR Calculation 132.8 mL/min (90-130) H 10/10/21 01:35 Glucose 312 mg/dL (65-115) H 10/10/21 01:35 Calculated Osmolality 274 mOsm/kg (285-295) L 10/10/21 01:35 Calcium 8.8 mg/dL (8.5-10.5) 10/10/21 01:35 Total Bilirubin 0.5 mg/dL (0.15-1.2) 10/10/21 01:35 AST 13 U/L (0-32) 10/10/21 01:35 ALT 12 U/L (0-33) 10/10/21 01:35 Alkaline Phosphatase 96 IU/L (35-105) 10/10/21 01:35 C-Reactive Protein 19.5 mg/L (0.0-4.9) H 10/10/21 01:35 Total Protein 7.1 g/dL (6.6-8.7) 10/10/21 01:35 Albumin 3.8 g/dL (3.5-5.2) 10/10/21 01:35 Globulin 3.3 g/dL (1.3-4.6) 10/10/21 01:35 Discharge Plan Discharge Patient Disposition: Home Clinical Impression: Chronic ulcer of right foot, Cellulitis of right foot, Hyperglycemia Condition: Stable Prescriptions: No Action clindamycin HCl 300 mg capsule 300 mg PO Q6H 7 Days Qty: 28 0RF Discharge Orders: Discharge ED (Routine); Ordered 10/10/21 Ordered By: Finn King Discharge Diet: Regular Discharge Activity: Increase activity as tolerated Activity Restrictions/Additional Instructions: Follow-up with medical provider as directed. Case management should be contacting you next several days set up an appointment with wound care clinic. Take medications as prescribed. Return to the ER or your medical provider if condition worsens. Please read and understand discharge instructions. Thank you for choosing [facility] for your healthcare needs today. Please realize this is an emergency room and that we are providing you with a medical screening exam and this may not be complete and all inclusive of all the testing and or work up that you may need to determine your ailment or severity of your illness. It is very important that you follow up as instructed or that you return to the Emergency Department should you have concerns or if your condition changes or worsens in any way. Coding Level of Care Code ED Teletype Installer for Ramírez Rausch Exam Comprehensive
[2021-10-10] MEDS: ondansetron 2 mg/ML SDV 2 mL 4 MG IVP (01:43)
[2021-10-10] MEDS: morphine 4 mg/mL SDV 1 mL IVP (01:43)
[2021-10-10] MEDS: vancomycin 1,500 MG/300 ML PIGGYBACK 200 MG IV (01:45)
[2021-10-10 01:54] LABS: Basophils # 0.1 10^3/uL (0.0-0.1); Basophils % 0.8 %; Eosinophils # 0.1 10^3/uL (0.0-0.8); Eosinophils % 1.4 %; Hematocrit 34.3 % (37.0-47.0); Hemoglobin 12.1 g/dL (11.5-15.3); Lymphocytes # 2.2 10^3/uL (0.8-4.8); Lymphocytes % 31.4 %; Mean Corpuscular HGB Conc 35.3 g/dL (30.0-36.0); Mean Corpuscular Hemoglobin 28.7 pg (28.0-34.0); Mean Corpuscular Volume 81.3 fl (81-99); Mean Platelet Volume 7.7 fL (7.4-10.4); Monocytes # 0.5 10^3/uL (0.2-0.9); Monocytes % 7.1 %; Neutrophils # 4.17 10^3/uL (1.8-7.7); Neutrophils % 58.9 %; Nucleated Red Blood Cells % 0 %; Platelet Count 230 10^3/cmm (130-400); Red Blood Count 4.22 10^6/uL (4.1-5.3); Red Cell Distribution Width 14.7 % (12.1-15.1); White Blood Count 7.1 10^3/uL (4.0-10.0)
[2021-10-10 02:02] LABS: Erythrocyte Sedimentation Rate 12 mm/hr (0-15)
[2021-10-10 02:17] LABS: Alanine Aminotransferase 12 U/L (0-33); Albumin Level 3.8 g/dL (3.5-5.2); Alkaline Phosphatase 96 IU/L (35-105); Anion Gap 15.8 (5-19); Aspartate Amino Transferase 13 U/L (0-32); Blood Urea Nitrogen 8 mg/dL (6-20); C Reactive Protein 19.5 mg/L (0.0-4.9); Calcium 8.8 mg/dL (8.5-10.5); Carbon Dioxide 24 mmol/L (22-29); Chloride 91 mmol/L (98-107); Globulin 3.3 g/dL (1.3-4.6); Glomerular Filtration Rate 132.8 mL/min (90-130); Glucose 312 mg/dL (65-115); Osmolality Calculated 274 mOsm/kg (285-295); Potassium 3.8 mmol/L (3.5-5.1); Sodium 127 mmol/L (136-145); Total Bilirubin 0.5 mg/dL (0.15-1.2); Total Protein 7.1 g/dL (6.6-8.7)
[2021-10-10] MEDS: sodium chloride 0.9% 1,000 ML 999 ML IV (03:24)
[2021-10-10] MEDS: insulin regular-human 100 units/1 mL 5 UNIT IVP (03:25)
[2021-10-10] MEDS: HYDROcodone-acetaminophen 5-325 mg Tablet 1 TAB PO (04:25)
--- NOTE | 2021-10-10 05:37 | PC.NURSE ---
0510 Dressing applied to right foot planter aspect
--- NOTE | 2021-10-10 15:33 | DCPLANNER ---
Addendum entered by Flori Brown 10/17/21 14:49: Patient had a follow up appointment scheduled for 10.15.21 with Wound Care - patient did attend appointment. Original Note: manager non profit had message to schedule a follow up appointment for patient with Wound Care. manager non profit sent patients information to the front office staff at [facility]. Patients information will be printed and reviewed. Clinic will call patient with appointment information.
== END 2021-10-10 05:16 | disposition home or self-care (01) ==
PROVIDERS: Emergency Provider Physician Assistant
DX: E11.621 Type 2 diabetes mellitus with foot ulcer (principal); L97.518 Non-pressure chronic ulcer of other part of right foot with other specified severity; L03.115 Cellulitis of right lower limb; E11.65 Type 2 diabetes mellitus with hyperglycemia
CPT/HCPCS: 73630; 80053; 85025; 85651; 86140; 87040; 87070; 87075; 87077; 87186; 87205; 96365; 96366; 96375; 99284; J1815; J2270; J2405; J3370; J7030

== ENCOUNTER → 2021-10-15 09:35 | Outpatient (BNVA) | payer OTHER, SELFPAY | PROVIDERS: Visit Provider Emergency Medicine | DX: E11.621 Type 2 diabetes mellitus with foot ulcer (principal); L97.509 Non-pressure chronic ulcer of other part of unspecified foot with unspecified severity; M79.671 Pain in right foot | CPT/HCPCS: 87070; 87077; 87176; 87186; 87205 ==

== ENCOUNTER 2021-10-17 14:42 | Outpatient (CLI) | payer OTHER, SELFPAY | END 2021-10-17 14:43 | disposition home or self-care (01) | LOC: SPT 14:42 | PROVIDERS: Visit Provider Emergency Medicine | DX: Z46.89 Encounter for fitting and adjustment of other specified devices (principal); R26.89 Other abnormalities of gait and mobility | CPT/HCPCS: 80048; 80061; 81003; 82043; 83036; 83721; 97760 ==

== ENCOUNTER 2021-10-22 16:05 | Emergency (ER) | payer MEDICAID, SELFPAY ==
[2021-10-22 16:10] VITALS: BP 165/99; PULSE 116; RESP 18; TEMP 36.4; O2SAT 99; BMI 28.5
--- NOTE | 2021-10-22 16:34 | USR_ITS ---
PROCEDURE INFORMATION: Exam: US Pelvis, Transvaginal Exam date and time: 10/22/2021 5:04 PM Age: 46 years old Clinical indication: Other: Bleeding; Prior surgery; Surgery date: 6+ months; Surgery type: C sections, tubal ligation; Additional info: Pelvic pain/bleeding, HX fibroid, uterine ablation TECHNIQUE: Imaging protocol: Real-time transvaginal pelvic ultrasound with image documentation. Transvaginal imaging was used for better evaluation of the endometrium, adnexa, and/or cervix. COMPARISON: No relevant prior studies available. FINDINGS: Uterus: Uterus measures 8.4 x 5.0 x 4.8 cm. There is fibroid in the fundus of the uterus measuring 2.5 x 3.2 x 2.1 cm. There is a scar seen in the anterior aspect of the uterus. Endometrium is 3 mm in thickness. Right ovary/adnexa: Right ovary measures 3.3 x 3.4 x 1.9 cm. There are some calcifications within the right ovary of uncertain significance. These could be incidental benign calcifications or could represent neoplasia such as a mature teratoma or mucinous cystadenoma. Further evaluation such as with non urgent CT scan, or follow-up suggested. There is normal Doppler flow in the right ovary. Left ovary/adnexa: Left ovary measures 3.3 x 1.4 x 3.1 cm. There is a small simple cyst or follicle in the left ovary. There is normal Doppler flow in the left ovary. Intraperitoneal space: No free fluid. US/US transvaginal [id number] IMPRESSION: 1. Right ovarian calcifications of uncertain significance. 2. Uterus with fibroid and Cesarian section scar.
--- NOTE | 2021-10-22 16:35 | W.ED.FEMALGU ---
Documented by User: JIGAR Dickinson 10/23/21 07:05 HPI - Female Genitourinary General: Chief complaint: Vaginal Bleeding Stated complaint: abnormal heavy vaginal bleeding Time Seen by Provider: 10/22/21 16:06 Source: patient Mode of arrival: ambulatory Limitations: no limitations History of Present Illness: Patient is a 46-year-old female presents to ED today for evaluation of vaginal bleeding. Patient tells me she has had intermittent spotting over the past 2 to 3 weeks but began bleeding heavily approximately 3 hours ago. She states she has soaked 3 pads in that time period. She is complaining of some lower cramping. Patient states she had a uterine ablation 6 years ago and has not had any vaginal bleeding or a period over the past 6 years. She was told at one point she had a large uterine fibroid. Patient is not having any vaginal discharge or odor. She monogamous with her boyfriend of 5 years. Denies painful intercourse. She has no urinary symptoms. Last Pap unknown. MD elicited complaint: vaginal bleeding Onset (ago): day(s) Quality of pain: cramping Vaginal discharge: none Vaginal bleeding: moderate and # pads per hour (3 pads in the last 3 hours) Exacerbating factors: none Relieving factors: none Associated symptoms: Reports abdominal pain (pelvic cramping ); Deny headache(s), nausea or vaginal discharge Treatment prior to arrival: none Sexual activity: Yes (monogamous with boyfriend of 5 years) Patient : No Review of Systems Const: Denies: fever(s), chills, body aches, fatigue or malaise Card: Denies: chest pain Resp: Denies: dyspnea GI: Reports: abdominal pain (pelvic cramping ); Denies: nausea, vomiting or diarrhea : Reports: vaginal bleeding, amenorrhea and pelvic pain; Denies: flank pain, difficulty voiding, dysuria, urinary frequency, urinary urgency, hematuria, genital lesions, genital pruritis, vaginal odor, vaginal discharge or dyspareunia Musc: Denies: back pain Skin/Breast: Denies: rash Neuro: Denies: headache(s), numbness in extremities, weakness in extremities, sensory changes or dizziness [facility] PFSH: Medical History Chronic ulcer of right foot Diabetes Hypertension No pertinent family history Social History Smoking and tobacco status: never smoked Alcohol intake: current Alcohol intake frequency: holidays/special occasions only Physical Exam Const: COMMON NORMALS: no acute distress, patient oriented x3, no limitations and alert GENERAL APPEARANCE: cooperative NUTRITIONAL APPEARANCE: overweight ORIENTATION/CONSCIOUSNESS: Yes awake, Yes oriented to person, Yes oriented to place and Yes oriented to time Resp: COMMON NORMALS: normal respiratory effort and clear to auscultation bilaterally AUSCULTATION: clear to auscultation bilaterally Cardio: COMMON NORMALS: regular rate and regular rhythm RATE: regular rate RHYTHM: regular rhythm GI: COMMON NORMALS: Normal to inspection, nondistended, normoactive bowel sounds present, Soft to palpation, No hepatosplenomegaly present and no masses INSPECTION: Yes normal to inspection AUSCULTATION: Yes normoactive bowel sounds PALPATION: Yes Soft to palpation, Yes Tenderness to palpation present (GI) (lower abdomen/pelvis) and Yes No hepatosplenomegaly present : COMMON NORMALS: Yes no CVA tenderness, Yes normal external appearance, Yes normal appearance of the vagina, Yes normal bimanual exam and Yes no masses BLADDER/KIDNEY EXAM: Yes no CVA tenderness EXTERNAL FEMALE EXAM: Yes normal appearance of the urethra SPECULUM EXAM - VAGINA: Yes other (small amount of brown mucous/old blood appearing discharge) SPECULUM EXAM - CERVIX: Yes Cervical os closed and Yes Cervical lesion present (at 12 oclock position; lesion is not bleeding) BIMANUAL EXAM - VAGINA & UTERUS: Yes normal bimanual exam BIMANUAL EXAM - ADNEXA, OTHER: Yes normal adnexae OTHER: no brisk bleeding Back/Pelvis: COMMON NORMALS: no CVA tenderness Neuro: COMMON NORMALS: patient oriented x3 SENSORIUM/ORIENTATION: Yes alert, Yes oriented to person, Yes oriented to place and Yes oriented to time Course ED course: Care transferred to CLAUDIA Amor pending labs/urine/US. Pelvic performed by myself prior to shift change and showed minimal/old blood. She does have a cervical lesion present. G/C/wet prep obtained. Referral will be made to [facility] for further evaluation. She states her last PAP is unknown. Vital Signs: Vital signs: Vital Signs Temperature 98.4 F 10/22/21 18:09 Pulse Rate 81 10/22/21 18:09 Respiratory Rate 18 10/22/21 18:09 Blood Pressure 151/79 10/22/21 18:09 Pulse Oximetry 99 10/22/21 18:09 MDM - Female Lab Data : 10/22/21 16:40 10/22/21 16:40 Radiology Impressions Transvaginal US 10/22/21 16:34 IMPRESSION: 1. Right ovarian calcifications of uncertain significance. 2. Uterus with fibroid and Cesarian section scar. Laboratory Results WBC 6.0 10^3/uL (4.0-10.0) 10/22/21 16:40 RBC 5.12 10^6/uL (4.1-5.3) 10/22/21 16:40 Hgb 14.3 g/dL (11.5-15.3) 10/22/21 16:40 Hct 42.0 % (37.0-47.0) 10/22/21 16:40 MCV 82.0 fl (81-99) 10/22/21 16:40 MCH 27.9 pg (28.0-34.0) L 10/22/21 16:40 MCHC 34.0 g/dL (30.0-36.0) 10/22/21 16:40 RDW 13.9 % (12.1-15.1) 10/22/21 16:40 Plt Count 304 10^3/cmm (130-400) 10/22/21 16:40 MPV 8.2 fL (7.4-10.4) 10/22/21 16:40 Neut % (Auto) 52.1 % 10/22/21 16:40 Lymph % (Auto) 38.8 % 10/22/21 16:40 Jennings % (Auto) 5.9 % 10/22/21 16:40 Eos % (Auto) 1.7 % 10/22/21 16:40 Baso % (Auto) 1.0 % 10/22/21 16:40 Neut # (Auto) 3.11 10^3/uL (1.8-7.7) 10/22/21 16:40 Lymph # (Auto) 2.3 10^3/uL (0.8-4.8) 10/22/21 16:40 Jennings # (Auto) 0.4 10^3/uL (0.2-0.9) 10/22/21 16:40 Eos # (Auto) 0.1 10^3/uL (0.0-0.8) 10/22/21 16:40 Baso # (Auto) 0.1 10^3/uL (0.0-0.1) 10/22/21 16:40 Nucleated RBC % (auto) 0 % 10/22/21 16:40 Nucleated RBCs # 0.0 /100WBC 10/22/21 16:40 PT 14.20 SECONDS (12.1-14.9) 10/22/21 17:20 INR 1.06 (0.8-1.2) 10/22/21 17:20 APTT 28.8 SECONDS (23.9-36.7) 10/22/21 17:20 Sodium 136 mmol/L (136-145) 10/22/21 16:40 Potassium 3.8 mmol/L (3.5-5.1) 10/22/21 16:40 Chloride 98 mmol/L (98-107) 10/22/21 16:40 Carbon Dioxide 23 mmol/L (22-29) 10/22/21 16:40 Anion Gap 18.8 (5-19) 10/22/21 16:40 BUN 10 mg/dL (6-20) 10/22/21 16:40 Creatinine 0.4 mg/dL (0.5-0.9) L 10/22/21 16:40 GFR Calculation 171.8 mL/min (90-130) H 10/22/21 16:40 Glucose 292 mg/dL (65-115) H 10/22/21 16:40 Calculated Osmolality 292 mOsm/kg (285-295) 10/22/21 16:40 Calcium 9.5 mg/dL (8.5-10.5) 10/22/21 16:40 Total Bilirubin 0.4 mg/dL (0.15-1.2) 10/22/21 16:40 AST 18 U/L (0-32) 10/22/21 16:40 ALT 19 U/L (0-33) 10/22/21 16:40 Alkaline Phosphatase 111 IU/L (35-105) H 10/22/21 16:40 Total Protein 7.7 g/dL (6.6-8.7) 10/22/21 16:40 Albumin 4.5 g/dL (3.5-5.2) 10/22/21 16:40 Globulin 3.2 g/dL (1.3-4.6) 10/22/21 16:40 HCG, Qual Negative (Negative) 10/22/21 17:20 Discharge Plan Discharge Patient Disposition: Home Clinical Impression: Lesion of cervix, Abnormal uterine bleeding Uterine fibroid Qualifiers: Uterine leiomyoma location: unspecified location Qualified Code(s): D25.9 - Leiomyoma of uterus, unspecified Condition: Stable Prescriptions: No Action metformin 1,000 mg tablet 1,000 mg PO BID 0RF atorvastatin 10 mg tablet 10 mg PO DAILY 0RF levofloxacin 750 mg tablet 750 mg PO DAILY 10 Days Qty: 10 0RF Discharge Orders: Discharge ED (Routine); Ordered 10/22/21 Ordered By: Lincoln Benitez Discharge Diet: Usual diet Discharge Activity: Increase activity as tolerated Patient Instructions: Abnormal (Dysfunctional) Uterine Bleeding (ED) Activity Restrictions/Additional Instructions: Home and rest. Drink plenty of fluids. Healthy diet and activity. Follow-up with [facility] for further treatment and evaluation. Return to ER for worsening symptoms. Sign Out Sign Out Data: Patient Sign Out occurred on 10/22/21 at 17:07. Patient's care was discussed, and care was transferred from to Lincoln Benitez. Coding Level of Care Code ED Eating Disorder Specialist for Chg Fwd Exam Detailed Documented by User: CLAUDIA Ortez 10/22/21 18:00 HPI - Female Genitourinary General: Chief complaint: Vaginal Bleeding Stated complaint: abnormal heavy vaginal bleeding Time Seen by Provider: 10/22/21 16:06 [facility] PFSH: Medical History Chronic ulcer of right foot Diabetes Hypertension No pertinent family history Social History Smoking and tobacco status: never smoked Alcohol intake: current Alcohol intake frequency: holidays/special occasions only Course Vital Signs: Vital signs: Vital Signs Temperature 98.4 F 10/22/21 18:09 Pulse Rate 81 10/22/21 18:09 Respiratory Rate 18 10/22/21 18:09 Blood Pressure 151/79 10/22/21 18:09 Pulse Oximetry 99 10/22/21 18:09 MDM - Female Medical Decision Making 46-year-old female comes in for some abnormal uterine bleeding. Patient reported intermittent bleeding for the last 2 to 3 weeks with worsening bleeding today. Patient has a history of prior dysfunctional uterine bleeding in which she had a ablation. Patient reports that occurred about 6 years ago and had not had significant vaginal bleeding up until the last month or 2. Patient appears well. Pelvic exam did not note any brisk bleeding. Respirations were even lungs were clear to auscultation. Vital signs were normal except for some mild increase in pulse rate of 116. Differential diagnosis includes ovarian cyst, dysfunctional uterine bleeding, uterine cancer, uterine fibroid, premenopause dysfunctional bleeding. CBC and CMP were unremarkable. Ultrasound noted a fibroid but no other significant abnormalities. Patient was given 500 mL for concerns of volume deficit. Patient had no significant bleeding in the emergency department. Reviewed exam with patient with recommendations for follow-up with [facility] for further evaluation and treatment. Patient reported understanding and agreed. Case management referral was placed for assistance with follow-up appointment. Lab Data : 10/22/21 16:40 10/22/21 16:40 Radiology Impressions Transvaginal US 10/22/21 16:34 IMPRESSION: 1. Right ovarian calcifications of uncertain significance. 2. Uterus with fibroid and Cesarian section scar. Laboratory Results WBC 6.0 10^3/uL (4.0-10.0) 10/22/21 16:40 RBC 5.12 10^6/uL (4.1-5.3) 10/22/21 16:40 Hgb 14.3 g/dL (11.5-15.3) 10/22/21 16:40 Hct 42.0 % (37.0-47.0) 10/22/21 16:40 MCV 82.0 fl (81-99) 10/22/21 16:40 MCH 27.9 pg (28.0-34.0) L 10/22/21 16:40 MCHC 34.0 g/dL (30.0-36.0) 10/22/21 16:40 RDW 13.9 % (12.1-15.1) 10/22/21 16:40 Plt Count 304 10^3/cmm (130-400) 10/22/21 16:40 MPV 8.2 fL (7.4-10.4) 10/22/21 16:40 Neut % (Auto) 52.1 % 10/22/21 16:40 Lymph % (Auto) 38.8 % 10/22/21 16:40 Jennings % (Auto) 5.9 % 10/22/21 16:40 Eos % (Auto) 1.7 % 10/22/21 16:40 Baso % (Auto) 1.0 % 10/22/21 16:40 Neut # (Auto) 3.11 10^3/uL (1.8-7.7) 10/22/21 16:40 Lymph # (Auto) 2.3 10^3/uL (0.8-4.8) 10/22/21 16:40 Jennings # (Auto) 0.4 10^3/uL (0.2-0.9) 10/22/21 16:40 Eos # (Auto) 0.1 10^3/uL (0.0-0.8) 10/22/21 16:40 Baso # (Auto) 0.1 10^3/uL (0.0-0.1) 10/22/21 16:40 Nucleated RBC % (auto) 0 % 10/22/21 16:40 Nucleated RBCs # 0.0 /100WBC 10/22/21 16:40 PT 14.20 SECONDS (12.1-14.9) 10/22/21 17:20 INR 1.06 (0.8-1.2) 10/22/21 17:20 APTT 28.8 SECONDS (23.9-36.7) 10/22/21 17:20 Sodium 136 mmol/L (136-145) 10/22/21 16:40 Potassium 3.8 mmol/L (3.5-5.1) 10/22/21 16:40 Chloride 98 mmol/L (98-107) 10/22/21 16:40 Carbon Dioxide 23 mmol/L (22-29) 10/22/21 16:40 Anion Gap 18.8 (5-19) 10/22/21 16:40 BUN 10 mg/dL (6-20) 10/22/21 16:40 Creatinine 0.4 mg/dL (0.5-0.9) L 10/22/21 16:40 GFR Calculation 171.8 mL/min (90-130) H 10/22/21 16:40 Glucose 292 mg/dL (65-115) H 10/22/21 16:40 Calculated Osmolality 292 mOsm/kg (285-295) 10/22/21 16:40 Calcium 9.5 mg/dL (8.5-10.5) 10/22/21 16:40 Total Bilirubin 0.4 mg/dL (0.15-1.2) 10/22/21 16:40 AST 18 U/L (0-32) 10/22/21 16:40 ALT 19 U/L (0-33) 10/22/21 16:40 Alkaline Phosphatase 111 IU/L (35-105) H 10/22/21 16:40 Total Protein 7.7 g/dL (6.6-8.7) 10/22/21 16:40 Albumin 4.5 g/dL (3.5-5.2) 10/22/21 16:40 Globulin 3.2 g/dL (1.3-4.6) 10/22/21 16:40 HCG, Qual Negative (Negative) 10/22/21 17:20 Discharge Plan Discharge Patient Disposition: Home Clinical Impression: Lesion of cervix, Abnormal uterine bleeding Uterine fibroid Qualifiers: Uterine leiomyoma location: unspecified location Qualified Code(s): D25.9 - Leiomyoma of uterus, unspecified Condition: Stable Prescriptions: No Action metformin 1,000 mg tablet 1,000 mg PO BID 0RF atorvastatin 10 mg tablet 10 mg PO DAILY 0RF levofloxacin 750 mg tablet 750 mg PO DAILY 10 Days Qty: 10 0RF Discharge Orders: Discharge ED (Routine); Ordered 10/22/21 Ordered By: Lincoln Benitez Discharge Diet: Usual diet Discharge Activity: Increase activity as tolerated Patient Instructions: Abnormal (Dysfunctional) Uterine Bleeding (ED) Activity Restrictions/Additional Instructions: Home and rest. Drink plenty of fluids. Healthy diet and activity. Follow-up with [facility] for further treatment and evaluation. Return to ER for worsening symptoms. Sign Out Sign Out Data: Patient Sign Out occurred on 10/22/21 at 17:07. Patient's care was discussed, and care was transferred from to Lincoln Benitez. Coding Level of Care Code ED Eating Disorder Specialist for Ramírez Fwd Exam Detailed
[2021-10-22] MEDS: sodium chloride 0.9% 1,000 ML 999 ML IV (16:41)
[2021-10-22 16:44] VITALS: BP 161/69; PULSE 81; RESP 18; O2SAT 98
[2021-10-22 17:14] VITALS: BP 159/61; PULSE 88; RESP 18; TEMP 36.7; O2SAT 98
[2021-10-22 17:20] LABS: Basophils # 0.1 10^3/uL (0.0-0.1); Eosinophils # 0.1 10^3/uL (0.0-0.8); Eosinophils % 1.7 %; Hemoglobin 14.3 g/dL (11.5-15.3); Lymphocytes # 2.3 10^3/uL (0.8-4.8); Lymphocytes % 38.8 %; Mean Corpuscular Hemoglobin 27.9 pg (28.0-34.0); Mean Platelet Volume 8.2 fL (7.4-10.4); Monocytes # 0.4 10^3/uL (0.2-0.9); Monocytes % 5.9 %; Neutrophils # 3.11 10^3/uL (1.8-7.7); Neutrophils % 52.1 %; Nucleated Red Blood Cells % 0 %; Platelet Count 304 10^3/cmm (130-400); Red Blood Count 5.12 10^6/uL (4.1-5.3); Red Cell Distribution Width 13.9 % (12.1-15.1)
[2021-10-22 17:41] LABS: INR 1.06 (0.8-1.2)
[2021-10-22 17:42] LABS: Partial Thromboplastin Time 28.8 SECONDS (23.9-36.7)
[2021-10-22 17:43] LABS: HCG, Serum Qual Negative (Negative)
[2021-10-22 17:48] LABS: Alanine Aminotransferase 19 U/L (0-33); Albumin Level 4.5 g/dL (3.5-5.2); Alkaline Phosphatase 111 IU/L (35-105); Anion Gap 18.8 (5-19); Aspartate Amino Transferase 18 U/L (0-32); Blood Urea Nitrogen 10 mg/dL (6-20); Calcium 9.5 mg/dL (8.5-10.5); Carbon Dioxide 23 mmol/L (22-29); Chloride 98 mmol/L (98-107); Globulin 3.2 g/dL (1.3-4.6); Glomerular Filtration Rate 171.8 mL/min (90-130); Glucose 292 mg/dL (65-115); Osmolality Calculated 292 mOsm/kg (285-295); Potassium 3.8 mmol/L (3.5-5.1); Sodium 136 mmol/L (136-145); Total Bilirubin 0.4 mg/dL (0.15-1.2); Total Protein 7.7 g/dL (6.6-8.7)
[2021-10-22 17:50] VITALS: BP 151/69; PULSE 79; RESP 18; O2SAT 99
[2021-10-22 18:00] LABS: Creatinine Clr Calc Pharmacy 194.1503
[2021-10-22 18:09] VITALS: BP 151/79; PULSE 81; RESP 18; TEMP 36.9; O2SAT 99
--- NOTE | 2021-10-24 09:51 | DCPLANNER ---
Addendum entered by Flori Brown 01/02/22 09:58: Patient had a follow up appointment scheduled with [facility] - patient did not attend appointment. Addendum entered by Flori Brown 10/27/21 10:08: Patient has a follow up appointment scheduled for Thursday, November 29, 2021 at 3:[address] Painter at [facility]. Clinic will call patient with appointment information. Original Note: player development manager had message to schedule a follow up appointment for patient with [facility]. player development manager sent patients information to the front office staff at [facility]. Patients information will be printed and reviewed. Clinic will call patient with appointment information.
== END 2021-10-22 18:10 | disposition home or self-care (01) ==
PROVIDERS: Physician Assistant; Emergency Provider Nurse Practitioner Family
DX: D25.9 Leiomyoma of uterus, unspecified (principal); N93.9 Abnormal uterine and vaginal bleeding, unspecified
CPT/HCPCS: 76830; 80053; 84703; 85025; 85610; 85730; 87210; 87491; 87591; 96360; 99284; E0352; J7030

== ENCOUNTER → 2021-11-05 08:27 | Outpatient (BNVA) | payer MEDICAID, SELFPAY | PROVIDERS: Visit Provider Nurse Practitioner Family | DX: E11.621 Type 2 diabetes mellitus with foot ulcer (principal); L97.512 Non-pressure chronic ulcer of other part of right foot with fat layer exposed | CPT/HCPCS: 87070; 87176; 87205 ==

== ENCOUNTER 2021-11-11 22:33 | Emergency (ER) | payer MEDICAID, SELFPAY ==
[2021-11-11 22:41] VITALS: BP 116/83; PULSE 97; RESP 17; TEMP 36.9; O2SAT 96; BMI 28.1
--- NOTE | 2021-11-12 00:33 | XRR_ITS ---
PROCEDURE INFORMATION: Exam: XR Thoracic Spine Exam date and time: 11/12/2021 1:24 AM Age: 46 years old Clinical indication: Injury or trauma; Fall; Blunt trauma (contusions or hematomas) TECHNIQUE: Imaging protocol: XR of the thoracic spine. Views: 3 views. COMPARISON: CR (CHEST, ) 09/01/2021 7:54 PM FINDINGS: Bones/joints: The pedicles are intact. There is normal vertebral body alignment. There are normal vertebral body heights. No fracture. Soft tissues: Unremarkable. Heart/Mediastinum: Event recorder overlies the heart. XR/XR thoracic spine 3V* [id number] IMPRESSION: No fracture.
--- NOTE | 2021-11-12 00:33 | XRR_ITS ---
PROCEDURE INFORMATION: Exam: XR Lumbosacral Spine Exam date and time: 11/12/2021 1:24 AM Age: 46 years old Clinical indication: Injury or trauma; Fall; Blunt trauma (contusions or hematomas) TECHNIQUE: Imaging protocol: XR of the lumbosacral spine. Views: 2 or 3 views. COMPARISON: US transvaginal [id number] 10/22/2021 5:04 PM FINDINGS: Bones/joints: There is normal vertebral body alignment. There are normal vertebral body heights. The pedicles are intact. No fracture. Soft tissues: Unremarkable. XR/XR lumbar spine 2-3V* [id number] IMPRESSION: No fracture.
--- NOTE | 2021-11-12 01:13 | W.ED.BACK ---
HPI - Back Pain/Injury General: Chief Complaint: Back Pain/Injury Stated Complaint: Fall/back pain Time Seen by Provider: 11/12/21 00:33 Source: patient Mode of arrival: ambulatory Limitations: no limitations History of Present Illness: 46-year-old female states that she is walking upstairs yesterday morning and her dog ran around her and she tripped on the leash and fell backwards and hit her back. States that since then she has been having some mid and low back pain states that was not too bad at first but is progressively worsened since yesterday states pain is currently 6 out of 10 and she is having difficulty sleeping due to her pain. She denies head injury denies any neck pain. Associated symptoms: Deny abdominal pain, chills, dysuria, fever(s), nausea or vomiting Review of Systems Const: Denies: fever(s), chills, body aches or change in appetite Eyes: Denies: blurry vision or eye discomfort ENMT: Denies: throat pain or dental pain Card: Denies: chest pain Resp: Denies: dyspnea GI: Denies: abdominal pain, nausea, vomiting or diarrhea : Denies: dysuria Musc: Reports: back pain Skin/Breast: Denies: rash Neuro: Denies: headache(s) Psych: Denies: depression Paul/Lymph: Denies: easy bruising All/Imm: Denies: urticaria PFSH ED PFSH: Medical History Chronic ulcer of right foot Diabetes Hypertension No pertinent family history Social History Smoking and tobacco status: never smoked Alcohol intake: current Alcohol intake frequency: holidays/special occasions only Physical Exam Const: COMMON NORMALS: no acute distress, patient oriented x3 and healthy appearing HENMT: COMMON NORMALS: normocephalic and atraumatic HEAD & SCALP: normocephalic and atraumatic Eye: COMMON NORMALS: EOMs intact bilaterally Neck/C-Spine: COMMON NORMALS: full ROM and supple Chest: COMMONS NORMALS: normal inspection of the chest Resp: COMMON NORMALS: normal respiratory effort Cardio: COMMON NORMALS: regular rate and No murmurs present (Cardio) RATE: regular rate GI: COMMON NORMALS: Normal to inspection, nondistended, normoactive bowel sounds present, Soft to palpation, non-tender and no masses PALPATION: Yes Soft to palpation Back/Pelvis: OTHER: Some tenderness along thoracic and lumbar spine mainly paraspinal no midline tenderness. Extremity: COMMON NORMALS: normal to inspection and full ROM Neuro: COMMON NORMALS: patient oriented x3, moves all extremities and no focal motor deficits Psych: COMMON NORMALS: mental status grossly normal, Normal thought process present and cooperative THOUGHT PROCESS: Normal thought process present Skin: COMMON NORMALS: no rashes or lesions noted and no wounds GENERAL SKIN EXAM: no rashes or lesions noted Course Vital Signs: Vital signs: Vital Signs Temperature 98.5 F 11/11/21 22:41 Pulse Rate 97 11/11/21 22:41 Respiratory Rate 17 11/11/21 22:41 Blood Pressure 116/83 11/11/21 22:41 Pulse Oximetry 96 11/11/21 22:41 MDM - Back Pain/Injury Medical Decision Making Patient presents here with low back contusion from a fall her x-ray here shows no fracture she is well-appearing we will place her on Naprosyn she is stable for discharge she is to follow-up with PCP and return if worsening she understands and agrees to plan. Discharge Plan Discharge Patient Disposition: Home Clinical Impression: Lumbar contusion Qualifiers: Encounter type: initial encounter Qualified Code(s): S30.0XXA - Contusion of lower back and pelvis, initial encounter Fall Qualifiers: Encounter type: initial encounter Qualified Code(s): W19.XXXA - Unspecified fall, initial encounter Condition: Stable Prescriptions: New Naprosyn 500 mg tablet 500 mg PO BID PRN (Reason: pain) Qty: 20 0RF No Action atorvastatin 40 mg tablet 40 mg PO DAILY Qty: 30 2RF glipizide 10 mg tablet 10 mg PO BID Qty: 60 2RF Rx Instructions: Start 5mg two times a day x 2 weeks, then increase to 10mg two times a day. lisinopril 20 mg tablet 20 mg PO DAILY Qty: 30 2RF metformin 1,000 mg tablet 1,000 mg PO BID Qty: 60 2RF Discharge Orders: Discharge ED (Routine); Ordered 11/12/21 Ordered By: Rajani Chacon Discharge Diet: Advance as tolerated Discharge Activity: Resume usual activity Patient Instructions: Back Pain (ED) Coding Level of Care Code ED Caisson Worker for Chg Fwd Exam Comprehensive
[2021-11-12] MEDS: HYDROcodone-acetaminophen 5-325 mg Tablet 1 TAB PO (01:19)
[2021-11-12 01:53] VITALS: BP 148/88; PULSE 80; RESP 18; O2SAT 98
== END 2021-11-12 01:54 | disposition home or self-care (01) ==
PROVIDERS: Emergency Provider Emergency Medicine
DX: S30.0XXA Contusion of lower back and pelvis, initial encounter (principal); W01.10XA Fall on same level from slipping, tripping and stumbling with subsequent striking against unspecified object, initial encounter
CPT/HCPCS: 72072; 72100; 99283

== ENCOUNTER → 2021-11-12 08:05 | Outpatient (BNVA) | payer MEDICAID, SELFPAY | PROVIDERS: Visit Provider Nurse Practitioner Family | DX: E11.621 Type 2 diabetes mellitus with foot ulcer (principal); L97.512 Non-pressure chronic ulcer of other part of right foot with fat layer exposed; I96 Gangrene, not elsewhere classified | CPT/HCPCS: 11042; A6197 ==

== ENCOUNTER 2021-11-12 08:55 | Outpatient (CLI) | payer MEDICAID, SELFPAY ==
--- NOTE | 2021-11-12 09:01 | XRR_ITS ---
PROCEDURE INFORMATION: Exam: XR Right Foot Exam date and time: 11/12/2021 9:01 AM Age: 46 years old Clinical indication: Pain and condition or disease; Patient HX: Non-healing sore on right foot, wears a brace, possible migration of great toe due to brace; Additional info: R foot pain TECHNIQUE: Imaging protocol: XR Right foot. Views: 3 or more views. COMPARISON: CR (LOW EXM, ) 10/10/2021 1:25 AM FINDINGS: Bones/joints: Small plantar calcaneal spur. No acute fracture dislocation. Soft tissues: Normal. Other findings: Three nonweightbearing views submitted. XR/XR foot RT min 3V* [id number] IMPRESSION: No acute findings. If there is a strong clinical concern for osteomyelitis, follow-up exam or MRI correlation may also be considered.
== END 2021-11-12 08:56 | disposition home or self-care (01) ==
LOC: RAD 08:56
PROVIDERS: Visit Provider Nurse Practitioner Family
DX: M79.671 Pain in right foot (principal)
CPT/HCPCS: 11042; 73630

== ENCOUNTER → 2021-12-05 09:13 | Outpatient (BNVA) | payer MEDICAID, SELFPAY | PROVIDERS: Visit Provider Emergency Medicine | DX: E11.621 Type 2 diabetes mellitus with foot ulcer (principal); L97.512 Non-pressure chronic ulcer of other part of right foot with fat layer exposed; I96 Gangrene, not elsewhere classified | CPT/HCPCS: 11043 ==

== ENCOUNTER 2021-12-05 12:35 | Outpatient (CLI) | payer MEDICAID, SELFPAY ==
--- NOTE | 2021-12-05 12:46 | XR_ITS ---
WS: [id number] Right foot, 3 views, 12/05/2021 Clinical Data: E11.621 - Type 2 diabetes mellitus with foot ulcer Comparison: Right foot, 11/12/2021. Findings: No fractures or dislocations are seen. No bone destruction or erosion is noted. The joint spaces are normal. There is soft tissue swelling over the plantar surface and dorsum of the distal foot. There is no evidence of osteomyelitis. There is a small plantar spur and Achilles spur. XR/XR foot RT min 3V* [id number] Impression: 1. No bony changes of osteomyelitis. 2. Soft tissue swelling over the plantar and dorsal surfaces of the distal righ t foot.
== END 2021-12-05 12:36 | disposition home or self-care (01) ==
PROVIDERS: Visit Provider Emergency Medicine
DX: E11.621 Type 2 diabetes mellitus with foot ulcer (principal); L97.509 Non-pressure chronic ulcer of other part of unspecified foot with unspecified severity
CPT/HCPCS: 11043; 73630; 87070; 87077; 87176; 87186; 87205

== ENCOUNTER → 2021-12-10 08:57 | Outpatient (BNVA) | payer MEDICAID, SELFPAY | PROVIDERS: Visit Provider Nurse Practitioner Family | DX: E11.621 Type 2 diabetes mellitus with foot ulcer (principal); L97.512 Non-pressure chronic ulcer of other part of right foot with fat layer exposed; I96 Gangrene, not elsewhere classified | CPT/HCPCS: 11042 ==

== ENCOUNTER 2021-12-16 08:14 | Outpatient (CLI) | payer MEDICAID, SELFPAY ==
--- NOTE | 2021-12-16 08:00 | MR_ITS ---
WS: [id number] MRI RIGHT FOOT with and without CONTRAST. COMPARISON: RIGHT foot radiograph 12/05/2021 Multiplanar, multisequence imaging is performed with and without contrast. Sagittal and axial T1 fat sat sequences post-MultiHance 18 cc IV. Large amount of signal abnormality involving the lateral RIGHT foot centered around the fourth and fi fth metatarsal heads. Low signal on the T1 sequences begins between the soft tissues of the third and fourth metatarsals and extends distally to the proximal phalanges. This abnormal signal extends late rally encasing the mid to distal metatarsals and the toes. This signal abnormality does enhance on th e postcontrast images consistent with cellulitis. Soft tissue edema without enhancement along the mary kate ntar surface of the fifth metatarsal head. There is enhancement involving the fourth metatarsal head measuring 9 x 10 mm. There is significant s oft tissue enhancement encasing the fifth metatarsal head and proximal fifth toe. Suspicious for very small focal area of osteomyelitis involving the lateral fifth metatarsal head. Signal changes noted most significant on the axial T1 sequence without contrast of the fifth metatarsal head. Additional f ocal area of enhancement measures 10 x 5 mm is probably a small subcutaneous abscess extending to the dorsal surface between the fourth and fifth metatarsal heads. Focal ulceration along the plantar jordan face of foot extends over a width of 19 mm. MR/MR foot RT wo/w con [id number] IMPRESSION: 1. Significant cellulitis involving the soft tissues of the RIGHT foot centere d around the fourth metatarsal head. Cellulitis extends to the dorsal and plant ar surface of foot and extends to the intertarsal region between the third and fourth metatarsals and lateral to the fifth metatarsal and including the proxim al fourth and fifth toes. 2. Osteomyelitis measuring 9 x 10 mm involving the fourth metatarsal head with additional 4 mm area of osteomyelitis suspected involving the lateral fifth me tatarsal head. 3. 10 x 5 mm suggest abscess along the dorsal surface of the foot between the fourth and fifth metatarsal heads.
[2021-12-16] MEDS: gadobenate dimeglumine 20 mL vial IV (09:18)
== END 2021-12-16 08:15 | disposition home or self-care (01) ==
LOC: RAD 08:15
PROVIDERS: PCP Family Medicine; Visit Provider Emergency Medicine
DX: M79.671 Pain in right foot (principal); E11.621 Type 2 diabetes mellitus with foot ulcer; L97.509 Non-pressure chronic ulcer of other part of unspecified foot with unspecified severity
CPT/HCPCS: 73720

== ENCOUNTER → 2021-12-17 08:15 | Outpatient (BNVA) | payer MEDICAID, SELFPAY | PROVIDERS: PCP Family Medicine; Visit Provider Nurse Practitioner Family | DX: E11.621 Type 2 diabetes mellitus with foot ulcer (principal); L97.513 Non-pressure chronic ulcer of other part of right foot with necrosis of muscle; I96 Gangrene, not elsewhere classified | CPT/HCPCS: 11042 ==

== ENCOUNTER 2021-12-17 09:52 | Outpatient (CLI) | payer MEDICAID, SELFPAY ==
--- NOTE | 2021-12-17 10:05 | XR_ITS ---
WS: [id number] XR chest 2V* [id number] REASON FOR EXAM: I10 - Essential (primary) hypertension FINDINGS: Chest is unchanged compared to 09/01/2021. Small implanted monumental stonemason left chest wall. Mild tortuosity the thoracic aorta. Heart at the upper limits of normal. Calcified granulomatous disease in both hemithoraces. No acute pulmonary parenchymal or pleural abnormality. Moderate degenerative spondylosis in the mid and lower thoracic spine. XR/XR chest 2V* [id number] IMPRESSION: No acute chest abnormality.
[2021-12-17 10:46] LABS: Basophils # 0.1 10^3/uL (0.0-0.1); Basophils % 0.9 %; Eosinophils # 0.1 10^3/uL (0.0-0.8); Eosinophils % 1.1 %; Hematocrit 40.2 % (37.0-47.0); Hemoglobin 14.3 g/dL (11.5-15.3); Lymphocytes # 1.9 10^3/uL (0.8-4.8); Lymphocytes % 34.3 %; Mean Corpuscular HGB Conc 35.6 g/dL (30.0-36.0); Mean Corpuscular Hemoglobin 27.9 pg (28.0-34.0); Mean Corpuscular Volume 78.4 fl (81-99); Mean Platelet Volume 8.1 fL (7.4-10.4); Monocytes # 0.3 10^3/uL (0.2-0.9); Monocytes % 6.1 %; Neutrophils # 3.08 10^3/uL (1.8-7.7); Neutrophils % 57.2 %; Nucleated Red Blood Cells % 0 %; Platelet Count 227 10^3/cmm (130-400); Red Blood Count 5.13 10^6/uL (4.1-5.3); Red Cell Distribution Width 14.7 % (12.1-15.1); White Blood Count 5.4 10^3/uL (4.0-10.0)
[2021-12-17 10:52] LABS: Erythrocyte Sedimentation Rate 2 mm/hr (0-15)
--- NOTE | 2021-12-17 10:55 | ECG_ITS ---
[facility] Test Date: 2021-12-17 Pat Name: Carolyn Alaniz Department: Room: Gender: Female Stamping Operator: : 1975 Requested By: Emre Dhaliwal Order Number: [id number] Salvador MD: Khadijah Schaffer M.D. Measurements Intervals [place] Rate: P: OR: QRS: QRSD: T: QT: QTc: Interpretive Statements Multifocal atrial rhythm Nonspecific T wave changes WARNING: DATA QUALITY MAY AFFECT INTERPRETATION Compared to ECG 09/01/2021 19:22:38 Sinus tachycardia no longer present Incomplete right bundle-branch block no longer present T-wave abnormality no longer present Electronically Signed On 12-17-2021 21:03:10 CDT by Khadijah Schaffer M.D. [id number] f
[2021-12-17 10:58] LABS: Estmated Average Glucose 214; Hemoglobin A1C 9.1 % (4.0-6.0)
[2021-12-17 11:11] LABS: Alanine Aminotransferase 15 U/L (0-33); Albumin Level 4.4 g/dL (3.5-5.2); Alkaline Phosphatase 97 IU/L (35-105); Anion Gap 15.5 (5-19); Aspartate Amino Transferase 13 U/L (0-32); Blood Urea Nitrogen 8 mg/dL (6-20); C Reactive Protein 5.5 mg/L (0.0-4.9); Calcium 9.1 mg/dL (8.5-10.5); Carbon Dioxide 28 mmol/L (22-29); Chloride 93 mmol/L (98-107); Globulin 2.7 g/dL (1.3-4.6); Glomerular Filtration Rate 132.8 mL/min (90-130); Glucose 321 mg/dL (65-115); Osmolality Calculated 285 mOsm/kg (285-295); Potassium 4.5 mmol/L (3.5-5.1); Prealbumin 24.5 mg/dL (20-40); Sodium 132 mmol/L (136-145); Total Bilirubin 0.5 mg/dL (0.15-1.2); Total Protein 7.1 g/dL (6.6-8.7)
== END 2021-12-17 09:53 | disposition home or self-care (01) ==
LOC: LAB 09:55
PROVIDERS: PCP Family Medicine; Visit Provider Nurse Practitioner Family
DX: E11.621 Type 2 diabetes mellitus with foot ulcer (principal); L97.509 Non-pressure chronic ulcer of other part of unspecified foot with unspecified severity; I10 Essential (primary) hypertension
CPT/HCPCS: 36415; 71046; 80053; 83036; 84134; 85025; 85651; 86140; 93005

== ENCOUNTER → 2021-12-24 08:01 | Outpatient (BNVA) | payer MEDICAID, SELFPAY | PROVIDERS: PCP Family Medicine; Visit Provider Nurse Practitioner Family | DX: E11.621 Type 2 diabetes mellitus with foot ulcer (principal); L97.513 Non-pressure chronic ulcer of other part of right foot with necrosis of muscle; I96 Gangrene, not elsewhere classified | CPT/HCPCS: 11042 ==

== ENCOUNTER → 2021-12-31 08:00 | Outpatient (BNVA) | payer MEDICAID, SELFPAY | PROVIDERS: PCP Family Medicine; Visit Provider Nurse Practitioner Family | DX: E11.621 Type 2 diabetes mellitus with foot ulcer (principal); L97.513 Non-pressure chronic ulcer of other part of right foot with necrosis of muscle; I96 Gangrene, not elsewhere classified | CPT/HCPCS: 11042; 15271; A6206 ==

== ENCOUNTER 2022-01-06 15:45 | Outpatient (CLI) | payer MEDICAID, SELFPAY ==
[2022-01-06 16:26] LABS: Basophils # 0.1 10^3/uL (0.0-0.1); Basophils % 0.8 %; Eosinophils # 0.1 10^3/uL (0.0-0.8); Eosinophils % 0.9 %; Hematocrit 40.5 % (37.0-47.0); Hemoglobin 14.2 g/dL (11.5-15.3); Lymphocytes # 2.6 10^3/uL (0.8-4.8); Lymphocytes % 39.8 %; Mean Corpuscular HGB Conc 35.1 g/dL (30.0-36.0); Mean Corpuscular Volume 82.7 fl (81-99); Mean Platelet Volume 8.2 fL (7.4-10.4); Monocytes # 0.4 10^3/uL (0.2-0.9); Monocytes % 6.5 %; Neutrophils # 3.38 10^3/uL (1.8-7.7); Neutrophils % 51.4 %; Nucleated Red Blood Cells % 0 %; Platelet Count 181 10^3/cmm (130-400); Red Cell Distribution Width 14.7 % (12.1-15.1); White Blood Count 6.6 10^3/uL (4.0-10.0)
[2022-01-06 16:39] LABS: Erythrocyte Sedimentation Rate 3 mm/hr (0-15)
[2022-01-06 17:37] LABS: Alanine Aminotransferase 17 U/L (0-33); Albumin Level 3.8 g/dL (3.5-5.2); Alkaline Phosphatase 101 IU/L (35-105); Aspartate Amino Transferase 16 U/L (0-32); Blood Urea Nitrogen 13 mg/dL (6-20); Calcium 9.3 mg/dL (8.5-10.5); Carbon Dioxide 22 mmol/L (22-29); Chloride 99 mmol/L (98-107); Globulin 2.6 g/dL (1.3-4.6); Glomerular Filtration Rate 132.8 mL/min (90-130); Glucose 268 mg/dL (65-115); Osmolality Calculated 296 mOsm/kg (285-295); Sodium 138 mmol/L (136-145); Total Bilirubin 0.2 mg/dL (0.15-1.2); Total Protein 6.4 g/dL (6.6-8.7)
[2022-01-06 17:45] LABS: Anion Gap 20.8 (5-19)
[2022-01-06 17:46] LABS: Potassium 3.8 mmol/L (3.5-5.1)
== END 2022-01-06 15:46 | disposition home or self-care (01) ==
PROVIDERS: PCP Family Medicine; Visit Provider Nurse Practitioner Family
DX: L97.519 Non-pressure chronic ulcer of other part of right foot with unspecified severity (principal); E11.621 Type 2 diabetes mellitus with foot ulcer; L97.513 Non-pressure chronic ulcer of other part of right foot with necrosis of muscle; I96 Gangrene, not elsewhere classified
CPT/HCPCS: 11042; 36415; 80053; 85025; 85651; 86140

== ENCOUNTER 2022-01-07 05:46 | Day surgery (SDC) | payer MEDICAID, SELFPAY ==
[2022-01-07] VITALS (7 sets, daily range): BP systolic 120–166; BP diastolic 73–96; PULSE 86–97; RESP 14–18; TEMP 36.2–36.8; O2SAT 93–97
--- NOTE | 2022-01-07 06:18 | ANES.PREANE2 ---
Pre-Anesthetic Assessment Height/Weight: Height 1.7 m Weight 87.09 kg O2 Del Method 01/07/22 06:04 Preop Diagnosis: Loop recorder removal Operation Date: 01/07/22 07:00 Proposed Procedures p Loop Recorder Removal(Not Applicable) - Lincoln Alex MD Familial anesthetic complications: none Was Beta Brian taken within 24 hours: N/A Was Clonidine taken within 24 hours: N/A Last intake: Intake Last Liquid Date 01/06/22 Last Liquid Time 20:30 Last Solid Date 01/06/22 Last Solid Time 19:00 Social No alcohol and No tobacco Exam alert, oriented x 3, clear to auscultation bilaterally and regular rate & rhythm Airway Submandibular: within normal limits Cervical ROM: within normal limits Mallampati: Class II Dentition: chipped Pulmonary Asthma and Chronic Obstructive Pulmonary Disease CV/HEM Arrythmia (Multifocal arrythmia ) and Hypertension Hx of NSTEMI due to stress, denies CAD/Stents Denies hx of syncope, stroke, LOC, pre syncope None reported Hepatic None reported GI None reported Metabolic Diabetes Mellitus [facility] [place] Lower Back Pain Neuropsych Neuropathy Anesthetic Plan ASA status: 3 Anesthesia: Anesthesia Evaluation, General and MAC Other: We discussed risk and benefits of general anesthesia including PONV, sore throat (sometimes severe), corneal abrasion, positioning and peripheral nerve injuries, life threatening allergic reaction, post operative ICU admission requiring prolonged intubation, aspiration, stroke, heart attack, , and rare incidences of recall. I discussed with the patient risks, goals, and benefits of MAC and general anesthesia. We discussed spectrum of MAC anesthesia including conversion to general as well as possibility of recall of intraoperative stimuli including discomfort/pain. Patient consents to MAC or General pending further discussion with surgeon. Risk of > 500 ml blood loss (7ml/kg in children): No Medications/Allergies Home Medications Medication Instructions Recorded Confirmed Last Taken Type atorvastatin 40 mg tablet 40 mg PO DAILY #30 tabs 11/05/21 01/07/22 01/05/22 Rx lisinopril 20 mg tablet 20 mg PO DAILY #30 tabs 11/05/21 01/07/22 01/05/22 Rx metformin 1,000 mg tablet 1,000 mg PO BID #60 tabs 11/05/21 01/07/22 01/05/22 Rx levofloxacin 750 mg tablet 750 mg PO DAILY 7 days #7 tabs 12/09/21 01/07/22 01/06/22 Rx linezolid 600 mg tablet (Zyvox) 600 mg PO BID #42 tabs 12/17/21 01/07/22 01/06/22 Rx tramadol 50 mg tablet 50 mg PO Q8H PRN pain #20 tabs 01/02/22 01/07/22 01/05/22 Rx Allergies Allergy/AdvReac Type Severity Reaction Status Date / Time bee venom protein (honey bee) Allergy Unknown Verified 01/07/22 06:00 clindamycin Allergy ADR-Nausea Verified 01/07/22 06:00 diphenhydramine Allergy Unknown Verified 01/07/22 06:00 [From Benadryl] erythromycin base Allergy Unknown Verified 01/07/22 06:00 nitroglycerin Allergy Unknown Verified 01/07/22 06:00 [From Nitro-Bid] Penicillins Allergy Unknown Verified 01/07/22 06:00 Sulfa (Sulfonamide Allergy Unknown Verified 01/07/22 06:00 Antibiotics) PFSH Anesthesia Medical History Chronic ulcer of right foot Diabetes Hypertension No pertinent family history Social History Smoking and tobacco status: former smoker Alcohol intake: current Alcohol intake frequency: holidays/special occasions only Data Anesthesia Cardiac Studies: No Data to Display
--- NOTE | 2022-01-07 06:24 | W.PM.OPSUD ---
Surgery/Procedure H&P Update DATE OF PROCEDURE: January 07, 2022 DATE H&P PERFORMED: 01/06/22 H&P UPDATE INFORMATION: I have reviewed H&P completed within last 30 days, I have examined patient prior to procedure and No changes to prior documentation PREOP DIAGNOSIS: Loop recorder removal PRIMARY INDICATION FOR PROCEDURE: Preparation for HBO therapy PLANNED PROCEDURE: Operation Date: 01/07/22 07:00 Proposed Procedures p Loop Recorder Removal(Not Applicable) - Lincoln Alex MD
[2022-01-07 06:31] LABS: OR HCG Qualitative Urine Negative (Negative)
[2022-01-07 06:50] LABS: Glucose Point of Care 204 mg/dL (70-110)
[2022-01-07] MEDS: sodium chloride 0.9% 1,000 ML 30 ML IV (06:51)
[2022-01-07] MEDS: vancomycin 1,500 MG/300 ML PIGGYBACK 200 MG IV (06:52)
[2022-01-07] MEDS: midazolam 1 mg/mL INJ 2 mL 2 MG IVP (06:55)
[2022-01-07] MEDS: lidocaine 2% INJ 20 mL 4 ML INJECTION (07:11)
--- NOTE | 2022-01-07 07:32 | P.OP_ITS ---
Operative Report Date of procedure: January 07, 2022 Pre-op diagnosis: Preop Diagnosis Loop recorder removal Post-op diagnosis: same Procedure done: Removal of Biotronik's loop recorder Specimens removed/disposition: Loop recorder removed intact Pathology: none sent Surgeon: Lincoln Alex Anesthesia: MAC and Local (4 cc of 2% lidocaine infiltrated locally) Complications: None Findings: Loop recorder removed intact Condition: stable Disposition: same day Brief History: Ms. Alaniz is a 46-year-old female with osteomyelitis involving the fourth metatarsal of her right foot. She has been cared for in wound care services and is currently being prepared for hyperbaric therapy. She has a Biotronik loop recorder in place which was implanted in [place] due to concerns for arrhythmia,, though she states no substantial protracted arrhythmias were identified. Her current device is not compatible with HBO, therefore explantation has been recommended. Details of risk the procedure were carefully discussed. Appropriate consents have been reviewed and signed. Procedure: Ms. Alaniz was taken to the operating room theater And positioned on the OR table over protective padding and secured. She underwent IV conscious sedation anesthesia monitoring. Her entire upper chest was sterilely prepped and draped. The loop recorder could be palpated beneath her skin. 1% lidocaine was infiltrated over the medial aspect of this recorder. #15 scalpel blade was utilized to incise the skin and then with blunt dissection utilizing a small hemostat we were able to reach the recorder which was secured with a hemostat and then removed through this incision and intact. There was no appreciable bleeding. Wound was irrigated and closed with 3-0 Vicryl suture the subcutaneous layer and skin was reapproximated in a subcuticular manner with 4-0 Monocryl suture. Sterile dressings were applied. Ms. Alaniz tolerated procedur e well and was awakened from IV conscious sedation. She is transported back to the Outpatient Surgery department in stable condition.
--- NOTE | 2022-01-07 09:10 | ANE.PACU2 ---
Inpatient post-anesthesia follow up: Airway intact: Yes Vital signs: Temperature 98.2 F Pulse Rate 88 Respiratory Rate 16 Blood Pressure 132/76 Pulse Oximetry 96 Oxygen Delivery Me thod Room Air Oxygen Flow Rate Fraction of Inspir ed Oxygen Hydration adequate: Yes Nausea and vomiting: No Pain level: 1 Mental status: Baseline
== END 2022-01-07 08:45 | disposition home or self-care (01) ==
PROVIDERS: Anesthesiology; PCP Family Medicine; Visit Provider Thoracic Surgery (Cardiothoracic Vascular Surgery)
PROC: (CPT 33285; principal; 2022-01-07 07:00)
DX: Z45.09 Encounter for adjustment and management of other cardiac device (principal); I10 Essential (primary) hypertension; I25.10 Atherosclerotic heart disease of native coronary artery without angina pectoris; Z95.5 Presence of coronary angioplasty implant and graft; E11.9 Type 2 diabetes mellitus without complications; Z79.84 Long term (current) use of oral hypoglycemic drugs; Z87.891 Personal history of nicotine dependence; E11.21 Type 2 diabetes mellitus with diabetic nephropathy; E78.2 Mixed hyperlipidemia; M54.9 Dorsalgia, unspecified
CPT/HCPCS: 33286; 36416; 81025; 82962; 84703; 99204; J2250; J2704; J3370; J7030

== ENCOUNTER 2022-01-07 21:30 | Emergency (ER) | payer MEDICAID, SELFPAY ==
[2022-01-07 21:31] VITALS: BP 175/99; PULSE 100; RESP 18; TEMP 36.6; O2SAT 97; BMI 29.7
--- NOTE | 2022-01-07 21:43 | W.ED.BACK ---
HPI - Back Pain/Injury General: Chief Complaint: Back Pain/Injury Stated Complaint: Lower Back Pain Time Seen by Provider: 01/07/22 21:43 History of Present Illness: 46-year-old female comes in today with complaints of low back pain. Patient routinely wears a walking boot to the right foot for protection of a chronic diabetic foot ulcer. On Thursday she reported slipping on a rock causing her to strain her low back. Patient has a history of chronic back problems. Since then patient has had increased difficulty with her low back pain. Patient denies fever or loss of bowel or bladder control. Patient appears nontoxic. Patient appears in mild to moderate pain. Review of Systems Musc: Reports: back pain PFSH ED PFSH: Medical History Chronic ulcer of right foot Diabetes Hypertension No pertinent family history Social History Smoking and tobacco status: former smoker Alcohol intake: current Alcohol intake frequency: holidays/special occasions only Physical Exam Const: COMMON NORMALS: alert HENMT: COMMON NORMALS: normocephalic HEAD & SCALP: normocephalic Neck/C-Spine: COMMON NORMALS: full ROM Resp: COMMON NORMALS: normal respiratory effort Cardio: COMMON NORMALS: regular rate RATE: regular rate Back/Pelvis: THORACIC SPINE/UPPER BACK: No thoracic spinal tenderness LUMBAR SPINE/LOWER BACK: Yes lumbar spinal tenderness and Yes paraspinal muscle tenderness Extremity: COMMON NORMALS: full ROM Neuro: SENSORIUM/ORIENTATION: Yes alert Skin: COMMON NORMALS: no rashes or lesions noted GENERAL SKIN EXAM: no rashes or lesions noted Course Vital Signs: Vital signs: Vital Signs Temperature 97.9 F 01/07/22 21:31 Pulse Rate 100 01/07/22 21:31 Respiratory Rate 18 01/07/22 21:31 Blood Pressure 175/99 01/07/22 21:31 Pulse Oximetry 97 01/07/22 21:31 Oxygen Delivery Me thod 01/07/22 21:31 MDM - Back Pain/Injury Medical Decision Making 46-year-old female comes in today for complaints of low back pain. Patient reports slipping on the gravel causing her to aggravate her chronic back pain. On exam patient has muscle tenderness There are some spinal tenderness of the lumbar spine. Vital signs are unremarkable except for some elevated blood pressure of 175 systolic. Differential diagnosis includes but not limited to lumbar strain, intervertebral disc disease, facet arthropathy. Exam indicated no cauda equina syndrome. Patient was given 1 hydrocodone tablet for her acute pain. Patient is not a good candidate for NSAIDs due to her diabetes and coronary artery disease. Patient will be given a short course of hydrocodone with acetaminophen 1 tablet 3 times a day as needed for severe pain. Patient was otherwise was recommended to use ice/heat and acetaminophen to control pain. Patient reports understanding of care plan need for follow-up or return to the ER. Discharge Plan Discharge Patient Disposition: Home Clinical Impression: Back pain Qualifiers: Back pain location: low back pain Chronicity: unspecified Back pain laterality: unspecified Sciatica presence: without sciatica Qualified Code(s): M54.50 - Low back pain, unspecified Condition: Stable Prescriptions: New hydrocodone-acetaminophen 5-325 mg tablet 1 tab PO Q8H PRN (Reason: pain) Qty: 10 0RF No Action metformin 1,000 mg tablet 1,000 mg PO BID Qty: 60 2RF lisinopril 20 mg tablet 20 mg PO DAILY PRN atorvastatin 40 mg tablet 40 mg PO DAILY PRN multivitamin Tablet 1 tab PO DAILY levofloxacin 750 mg tablet 750 mg PO DAILY 7 Days Qty: 7 0RF Discharge Orders: Discharge ED (Routine); Ordered 01/07/22 Ordered By: Lincoln Benitez Referrals: Jorge Prakash DO [Primary Care Provider] - Discharge Diet: Usual diet Discharge Activity: Increase activity as tolerated Patient Instructions: Back Pain (ED), Opioid Safety Activity Restrictions/Additional Instructions: Activity as tolerated. Use ice or heat to help control pain. Use Tylenol for further pain relief. Take hydrocodone for severe pain. Follow-up with primary care for further instruction. Return to ER for new concerns or worsening symptoms like loss of bowel or bladder control, fever greater than 100.4. Coding Level of Care Code ED Power Systems Engineer for Ramírez Rausch
[2022-01-07] MEDS: HYDROcodone-acetaminophen 5-325 mg Tablet 1 TAB PO (21:57)
== END 2022-01-07 22:00 | disposition home or self-care (01) ==
PROVIDERS: Emergency Provider Nurse Practitioner Family; PCP Family Medicine
DX: M54.50 Low back pain, unspecified (principal); Z79.84 Long term (current) use of oral hypoglycemic drugs; E11.9 Type 2 diabetes mellitus without complications; I10 Essential (primary) hypertension; Z87.891 Personal history of nicotine dependence
CPT/HCPCS: 99283

== ENCOUNTER → 2022-01-13 08:02 | Outpatient (BNVA) | payer MEDICAID, SELFPAY | PROVIDERS: PCP Family Medicine; Visit Provider Thoracic Surgery (Cardiothoracic Vascular Surgery) | DX: E11.622 Type 2 diabetes mellitus with other skin ulcer (principal); L97.906 Non-pressure chronic ulcer of unspecified part of unspecified lower leg with bone involvement without evidence of necrosis | CPT/HCPCS: G0277 ==

== ENCOUNTER → 2022-01-14 08:32 | Outpatient (BNVA) | payer MEDICAID, SELFPAY | PROVIDERS: PCP Family Medicine; Visit Provider Nurse Practitioner Family | DX: E11.621 Type 2 diabetes mellitus with foot ulcer (principal); L97.513 Non-pressure chronic ulcer of other part of right foot with necrosis of muscle; I96 Gangrene, not elsewhere classified; L97.806 Non-pressure chronic ulcer of other part of unspecified lower leg with bone involvement without evidence of necrosis | CPT/HCPCS: 11042; G0277 ==

== ENCOUNTER → 2022-01-15 07:53 | Outpatient (BNVA) | payer MEDICAID, SELFPAY | PROVIDERS: PCP Family Medicine; Visit Provider Thoracic Surgery (Cardiothoracic Vascular Surgery) | DX: L97.806 Non-pressure chronic ulcer of other part of unspecified lower leg with bone involvement without evidence of necrosis (principal) | CPT/HCPCS: G0277 ==

== ENCOUNTER → 2022-01-16 08:08 | Outpatient (BNVA) | payer MEDICAID, SELFPAY | PROVIDERS: PCP Family Medicine; Visit Provider Nurse Practitioner Family | DX: E11.622 Type 2 diabetes mellitus with other skin ulcer (principal); L97.809 Non-pressure chronic ulcer of other part of unspecified lower leg with unspecified severity | CPT/HCPCS: G0277 ==

== ENCOUNTER → 2022-01-20 07:58 | Outpatient (BNVA) | payer MEDICAID, SELFPAY | PROVIDERS: PCP Family Medicine; Visit Provider Thoracic Surgery (Cardiothoracic Vascular Surgery) | DX: E11.621 Type 2 diabetes mellitus with foot ulcer (principal); L97.516 Non-pressure chronic ulcer of other part of right foot with bone involvement without evidence of necrosis | CPT/HCPCS: G0277 ==

== ENCOUNTER → 2022-01-21 10:17 | Outpatient (BNVA) | payer MEDICAID, SELFPAY | PROVIDERS: PCP Family Medicine; Visit Provider Nurse Practitioner Family | DX: I96 Gangrene, not elsewhere classified (principal); L97.513 Non-pressure chronic ulcer of other part of right foot with necrosis of muscle; E11.621 Type 2 diabetes mellitus with foot ulcer; L97.516 Non-pressure chronic ulcer of other part of right foot with bone involvement without evidence of necrosis | CPT/HCPCS: 11042; G0277 ==

== ENCOUNTER → 2022-01-22 13:11 | Outpatient (BNVA) | payer MEDICAID, SELFPAY | PROVIDERS: PCP Family Medicine; Visit Provider Thoracic Surgery (Cardiothoracic Vascular Surgery) | DX: E11.621 Type 2 diabetes mellitus with foot ulcer (principal); L97.516 Non-pressure chronic ulcer of other part of right foot with bone involvement without evidence of necrosis | CPT/HCPCS: G0277 ==

== ENCOUNTER → 2022-01-23 08:15 | Outpatient (BNVA) | payer MEDICAID, SELFPAY | PROVIDERS: PCP Family Medicine; Visit Provider Nurse Practitioner Family | DX: E11.621 Type 2 diabetes mellitus with foot ulcer (principal); L97.516 Non-pressure chronic ulcer of other part of right foot with bone involvement without evidence of necrosis | CPT/HCPCS: G0277 ==

== ENCOUNTER 2022-01-24 01:20 | Emergency (ER) | payer MEDICAID, SELFPAY ==
[2022-01-24 01:21] VITALS: BP 154/76; PULSE 101; RESP 18; TEMP 36.9; O2SAT 96; BMI 30.5
--- NOTE | 2022-01-24 01:30 | ECG_ITS ---
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 Measurements Intervals [place] Rate: 99 P: 73 HI: 141 QRS: 23 QRSD: 117 T: 75 QT: 371 QTc: 477 Interpretive Statements SINUS RHYTHM WITH OCCASIONAL SUPRAVENTRICULAR PREMATURE COMPLEXES INCOMPLETE RIGHT BUNDLE BRANCH BLOCK [90+ ms QRS DURATION, TERMINAL R IN V1/V2, 40+ ms S IN I/aVL/V4/V5/V6] Compared to ECG 12/17/2021 10:33:05 Incomplete right bundle-branch block now present T-wave abnormality no longer present Electronically Signed On 01-25-2022 9:18:22 CDT by Malik Gr M.D. [id number]
--- NOTE | 2022-01-24 01:30 | ED_ITS ---
HPI - Chest Pain General: Chief Complaint: Chest Pain Stated Complaint: N/V Time Seen by Provider: 01/24/22 01:22 History of Present Illness: 46-year-old female comes in today for complaints of nausea vomiting diarrhea after eating some dirty rice. Patient also reports some epigastric discomfort. Patient appears mildly unwell but not toxic. Patient appears in no pain. Patient appears anxious. Patient does have a history of diabetes type 2, arrhythmia, and history of myocardial infarction. Associated symptoms: Reports nausea and vomiting; Deny dyspnea or fever(s) Review of Systems Const: Denies: fever(s) Card: Denies: chest pain Resp: Denies: dyspnea GI: Reports: nausea, vomiting and diarrhea PFS ED PFSH: Medical History (Updated 01/24/22 @ 02:30 by CLAUDIA Ortez) Chronic ulcer of right foot Diabetes Hypertension No pertinent family history Surgical History (Updated 01/11/22 @ 15:48 by Daina Arellano MD) S/P section S/P coronary angiogram S/P tubal ligation Social History Smoking and tobacco status: former smoker Alcohol intake: current Alcohol intake frequency: holidays/special occasions only Physical Exam Const: COMMON NORMALS: alert HENMT: COMMON NORMALS: atraumatic HEAD & SCALP: atraumatic Neck/C-Spine: COMMON NORMALS: full ROM Resp: COMMON NORMALS: normal respiratory effort and clear to auscultation bilaterally AUSCULTATION: clear to auscultation bilaterally Cardio: COMMON NORMALS: regular rate RATE: regular rate RHYTHM: abnormal rhythm irregularly irregular GI: COMMON NORMALS: Soft to palpation AUSCULTATION: Yes Hyperactive bowel sounds present PALPATION: Yes Soft to palpation : COMMON NORMALS: Yes no CVA tenderness BLADDER/KIDNEY EXAM: Yes no CVA tenderness Back/Pelvis: COMMON NORMALS: no CVA tenderness Extremity: COMMON NORMALS: normal to inspection Neuro: SENSORIUM/ORIENTATION: Yes alert Skin: COMMON NORMALS: turgor normal GENERAL SKIN EXAM: turgor normal Course Vital Signs: Vital signs: Vital Signs Temperature 98.4 F 01/24/22 01:21 Pulse Rate 94 01/24/22 01:42 Respiratory Rate 22 H 01/24/22 01:42 Blood Pressure 125/83 01/24/22 01:42 Pulse Oximetry 96 01/24/22 01:42 Oxygen Delivery Me thod 01/24/22 01:42 MDM - Chest Pain Medical Decision Making [id number] female comes in today for complaints of diarrhea. Patient reports feeling ill and not like her normal bout of irritable bowel syndrome. On exam abdomen soft with some mild epigastric tenderness. Bowel sounds are hyperactive. Vital signs are normal except for some elevation of blood pressure. Differential diagnosis includes ACS, cholecystitis, pancreatitis, gastroenteritis, irritable bowel syndrome. Troponin was negative. EKG showed no ST P elevations but occasional PACs. Patient was given 4 mg of Zofran and 0.5 mg of Ativan with relief of symptoms along with 1 L of IV fluids. Remainder of lab work was unremarkable. Recommended patient follow-up with primary care for further instruction. Continue with routine medications as directed. Patient was written for a short prescription of what Zofran tablets to help with any breakthrough nausea. Lab Data : 01/24/22 01:40 01/24/22 01:40 Laboratory Results WBC 6.8 10^3/uL (4.0-10.0) 01/24/22 01:40 RBC 4.81 10^6/uL (4.1-5.3) 01/24/22 01:40 Hgb 13.8 g/dL (11.5-15.3) 01/24/22 01:40 Hct 39.0 % (37.0-47.0) 01/24/22 01:40 MCV 81.1 fl (81-99) 01/24/22 01:40 MCH 28.7 pg (28.0-34.0) 01/24/22 01:40 MCHC 35.4 g/dL (30.0-36.0) 01/24/22 01:40 RDW 13.3 % (12.1-15.1) 01/24/22 01:40 Plt Count 191 10^3/cmm (130-400) 01/24/22 01:40 MPV 8.0 fL (7.4-10.4) 01/24/22 01:40 Neut % (Auto) 49.1 % 01/24/22 01:40 Lymph % (Auto) 41.8 % 01/24/22 01:40 [place] % (Auto) 7.1 % 01/24/22 01:40 Eos % (Auto) 0.9 % 01/24/22 01:40 Baso % (Auto) 0.7 % 01/24/22 01:40 Neut # (Auto) 3.34 10^3/uL (1.8-7.7) 01/24/22 01:40 Lymph # (Auto) 2.8 10^3/uL (0.8-4.8) 01/24/22 01:40 [place] # (Auto) 0.5 10^3/uL (0.2-0.9) 01/24/22 01:40 Eos # (Auto) 0.1 10^3/uL (0.0-0.8) 01/24/22 01:40 Baso # (Auto) 0.1 10^3/uL (0.0-0.1) 01/24/22 01:40 Nucleated RBC % (auto) 0 % 01/24/22 01:40 Nucleated RBCs # 0.0 /100WBC 01/24/22 01:40 Sodium 136 mmol/L (136-145) 01/24/22 01:40 Potassium 3.8 mmol/L (3.5-5.1) 01/24/22 01:40 Chloride 99 mmol/L (98-107) 01/24/22 01:40 Carbon Dioxide 23 mmol/L (22-29) 01/24/22 01:40 Anion Gap 17.8 (5-19) 01/24/22 01:40 BUN 11 mg/dL (6-20) 01/24/22 01:40 Creatinine 0.5 mg/dL (0.5-0.9) 01/24/22 01:40 GFR Calculation 132.8 mL/min (90-130) H 01/24/22 01:40 Glucose 190 mg/dL (65-115) H 01/24/22 01:40 Calculated Osmolality 286 mOsm/kg (285-295) 01/24/22 01:40 Calcium 8.6 mg/dL (8.5-10.5) 01/24/22 01:40 Total Bilirubin 0.5 mg/dL (0.15-1.2) 01/24/22 01:40 AST 27 U/L (0-32) 01/24/22 01:40 ALT 37 U/L (0-33) H 01/24/22 01:40 Alkaline Phosphatase 92 U/L (35-105) 01/24/22 01:40 Troponin T Gen 5 ng/L 10 ng/L (0-10) 01/24/22 01:40 Total Protein 6.8 g/dL (6.6-8.7) 01/24/22 01:40 Albumin 4.0 g/dL (3.5-5.2) 01/24/22 01:40 Globulin 2.8 g/dL (1.3-4.6) 01/24/22 01:40 Lipase 29 U/L (13-60) 01/24/22 01:40 Urine Color Yellow (Yellow) 01/24/22 01:48 Urine Appearance Clear (CLEAR) 01/24/22 01:48 Urine pH 5 (5-7) 01/24/22 01:48 Ur Specific [place] 1.020 (1.005-1.030) 01/24/22 01:48 Urine Protein Neg (Negative) 01/24/22 01:48 Urine Glucose (UA) 2+ (Normal) H 01/24/22 01:48 Urine Ketones 1+ (Negative) H 01/24/22 01:48 Urine Blood 2+ (Negative) H 01/24/22 01:48 Urine Nitrate Negative (Negative) 01/24/22 01:48 Urine Bilirubin Neg (Negative) 01/24/22 01:48 Urine Urobilinogen Norm mg/dL (Negative) 01/24/22 01:48 Ur Leukocyte Esterase Negative (Negative) 01/24/22 01:48 Urine HCG, Qual Negative (Negative) 01/24/22 01:48 EKG Data EKG 1: EKG interpretation date: 01/24/22 EKG interpretation time: 01:38 Interpretation: EKG shows a sinus rhythm with occasional PACs. No ST elevation or ectopy is not ed. Patient has a rate of 99 bpm and slightly irregular due to the PACs. No prior exam was available for comparison at this time. Discharge Plan Discharge Patient Disposition: Home Clinical Impression: Gastroenteritis Condition: Stable Prescriptions: New ondansetron 4 mg tablet,disintegrating 4 mg PO Q8H PRN (Reason: nausea and vomiting) Qty: 7 0RF No Action metformin 1,000 mg tablet 1,000 mg PO BID Qty: 60 2RF lisinopril 20 mg tablet 20 mg PO DAILY PRN atorvastatin 40 mg tablet 40 mg PO DAILY PRN multivitamin Tablet 1 tab PO DAILY levofloxacin 750 mg tablet 750 mg PO DAILY 7 Days Qty: 7 0RF hydrocodone-acetaminophen 5-325 mg tablet 1 tab PO Q8H PRN (Reason: pain) Qty: 10 0RF Discharge Orders: Discharge ED (Routine); Ordered 01/24/22 Ordered By: Lincoln Benitez Referrals: Jorge Prakash DO [Primary Care Provider] - Discharge Diet: Advance as tolerated Discharge Activity: Increase activity as tolerated Patient Instructions: Gastroenteritis (ED) Activity Restrictions/Additional Instructions: Home and rest. Drink plenty of fluids. Start with sips of water until you can tolerate a bland diet. Follow-up with primary care for further instruction. Return to ER for fever greater than 100.4, continued inability to hold fluids down, blood in vomit or stool. Coding Level of Care Code ED Parts And Service Manager for Chg Fwd Exam Comprehensive
[2022-01-24] MEDS: sodium chloride 0.9% 1,000 ML 999 ML IV (01:40)
[2022-01-24] MEDS: LORazepam 0.5 mg Tablet PO (01:40)
[2022-01-24 01:42] VITALS: BP 125/83; PULSE 94; RESP 22; O2SAT 96
[2022-01-24 01:45] LABS: Basophils # 0.1 10^3/uL (0.0-0.1); Basophils % 0.7 %; Eosinophils # 0.1 10^3/uL (0.0-0.8); Eosinophils % 0.9 %; Hemoglobin 13.8 g/dL (11.5-15.3); Lymphocytes # 2.8 10^3/uL (0.8-4.8); Lymphocytes % 41.8 %; Mean Corpuscular HGB Conc 35.4 g/dL (30.0-36.0); Mean Corpuscular Hemoglobin 28.7 pg (28.0-34.0); Mean Corpuscular Volume 81.1 fl (81-99); Monocytes # 0.5 10^3/uL (0.2-0.9); Monocytes % 7.1 %; Neutrophils # 3.34 10^3/uL (1.8-7.7); Neutrophils % 49.1 %; Nucleated Red Blood Cells % 0 %; Platelet Count 191 10^3/cmm (130-400); Red Blood Count 4.81 10^6/uL (4.1-5.3); Red Cell Distribution Width 13.3 % (12.1-15.1); White Blood Count 6.8 10^3/uL (4.0-10.0)
[2022-01-24 02:03] LABS: Alanine Aminotransferase 37 U/L (0-33); Alkaline Phosphatase 92 U/L (35-105); Anion Gap 17.8 (5-19); Aspartate Amino Transferase 27 U/L (0-32); Blood Urea Nitrogen 11 mg/dL (6-20); Calcium 8.6 mg/dL (8.5-10.5); Carbon Dioxide 23 mmol/L (22-29); Chloride 99 mmol/L (98-107); Globulin 2.8 g/dL (1.3-4.6); Glomerular Filtration Rate 132.8 mL/min (90-130); Glucose 190 mg/dL (65-115); Lipase 29 U/L (13-60); Osmolality Calculated 286 mOsm/kg (285-295); Potassium 3.8 mmol/L (3.5-5.1); Sodium 136 mmol/L (136-145); Total Bilirubin 0.5 mg/dL (0.15-1.2); Total Protein 6.8 g/dL (6.6-8.7)
[2022-01-24] MEDS: ondansetron 2 mg/ML SDV 2 mL 4 MG IVP (02:03)
[2022-01-24 02:04] LABS: Troponin T (5th) Once 10 ng/L (0-10)
[2022-01-24 02:27] LABS: Add Urine Microscopic? YES; Bilirubin Urine Neg (Negative); Blood Urine 2+ (Negative); Glucose Urine UA 2+ (Normal); Ketones Urine 1+ (Negative); Leukocyte Esterase Urine Negative (Negative); Nitrate Urine Negative (Negative); Protein Urine Neg (Negative); Urine Appearance Clear (CLEAR); Urine Color Yellow (Yellow); Urobilinogen Urine Norm (Negative); pH Urine 5 (5-7)
[2022-01-24 02:31] LABS: Bacteria Urine 1+ /hpf; Squamous Epithelial Cell Urine 15-25 /hpf (0-5); WBC Urine 0-4 /hpf (0-5)
[2022-01-24 02:32] LABS: Add Urine Culture? Yes; Calcium Oxalate Crystals Urine 15-25 /hpf
[2022-01-24 02:42] VITALS: BP 140/82; PULSE 91; RESP 14
[2022-01-24 02:46] VITALS: BP 140/82; PULSE 91; RESP 14
== END 2022-01-24 02:49 | disposition home or self-care (01) ==
PROVIDERS: Emergency Provider Nurse Practitioner Family; PCP Family Medicine
DX: K52.9 Noninfective gastroenteritis and colitis, unspecified (principal); Z79.84 Long term (current) use of oral hypoglycemic drugs; E11.9 Type 2 diabetes mellitus without complications; I10 Essential (primary) hypertension
CPT/HCPCS: 80053; 81001; 81025; 83690; 84484; 85025; 87086; 93005; 96374; 99284; J2405; J7030

== ENCOUNTER → 2022-01-27 07:58 | Outpatient (BNVA) | payer MEDICAID, SELFPAY | PROVIDERS: PCP Family Medicine; Visit Provider Thoracic Surgery (Cardiothoracic Vascular Surgery) | DX: E11.621 Type 2 diabetes mellitus with foot ulcer (principal); L97.516 Non-pressure chronic ulcer of other part of right foot with bone involvement without evidence of necrosis | CPT/HCPCS: G0277 ==

== ENCOUNTER → 2022-01-28 08:00 | Outpatient (BNVA) | payer MEDICAID, SELFPAY | PROVIDERS: PCP Family Medicine; Visit Provider Thoracic Surgery (Cardiothoracic Vascular Surgery) | DX: E11.621 Type 2 diabetes mellitus with foot ulcer (principal); L97.516 Non-pressure chronic ulcer of other part of right foot with bone involvement without evidence of necrosis; L97.513 Non-pressure chronic ulcer of other part of right foot with necrosis of muscle; I96 Gangrene, not elsewhere classified | CPT/HCPCS: 15275; A6206; A6250; G0277 ==

== ENCOUNTER → 2022-01-29 08:25 | Outpatient (BNVA) | payer MEDICAID, SELFPAY | PROVIDERS: PCP Family Medicine; Visit Provider Nurse Practitioner Family | DX: E11.621 Type 2 diabetes mellitus with foot ulcer (principal); L97.516 Non-pressure chronic ulcer of other part of right foot with bone involvement without evidence of necrosis | CPT/HCPCS: G0277 ==

== ENCOUNTER → 2022-01-31 07:46 | Outpatient (BNVA) | payer MEDICAID, SELFPAY | PROVIDERS: PCP Family Medicine; Visit Provider Surgery | DX: E11.621 Type 2 diabetes mellitus with foot ulcer (principal); L97.512 Non-pressure chronic ulcer of other part of right foot with fat layer exposed | CPT/HCPCS: G0277 ==

== ENCOUNTER 2022-02-17 15:35 | Emergency (ER) | payer MEDICAID, SELFPAY ==
--- NOTE | 2022-02-17 | XRR_ITS ---
PROCEDURE INFORMATION: Exam: XR Right Hand Exam date and time: 02/17/2022 7:49 PM Age: 46 years old Clinical indication: Injury or trauma; Other: Punched a wall; Blunt trauma (contusions or hematomas); Hand; Right; Additional info: Pain TECHNIQUE: Imaging protocol: Radiologic exam of the Right hand. Views: 3 or more views. COMPARISON: No relevant prior studies available. FINDINGS: Bones/joints: Normal. Soft tissues: Normal. XR/XR hand RT min 3V* [id number] IMPRESSION: No acute findings.
[2022-02-17 15:57] VITALS: BP 166/84; PULSE 89; RESP 16; TEMP 36.7; O2SAT 97
--- NOTE | 2022-02-17 16:27 | XRR_ITS ---
PROCEDURE INFORMATION: Exam: XR Chest Exam date and time: 02/17/2022 4:56 PM Age: 46 years old Clinical indication: Shortness of breath; Additional info: SOB TECHNIQUE: Imaging protocol: Radiologic exam of the chest. Views: 1 view. COMPARISON: CR XR chest 2V* [id number] 12/17/2021 10:11 AM FINDINGS: Lungs: Unremarkable. No consolidation. Pleural spaces: Unremarkable. No pleural effusion. No pneumothorax. Heart/Mediastinum: Unremarkable. No cardiomegaly. Bones/joints: Unremarkable. XR/XR chest 1V portable [id number] IMPRESSION: No acute findings.
[2022-02-17 17:48] LABS: Basophils % 0.7 %; Eosinophils # 0.1 10^3/uL (0.0-0.8); Eosinophils % 0.9 %; Hematocrit 40.4 % (37.0-47.0); Hemoglobin 14.5 g/dL (11.5-15.3); Lymphocytes # 2.7 10^3/uL (0.8-4.8); Lymphocytes % 46.8 %; Mean Corpuscular HGB Conc 35.9 g/dL (30.0-36.0); Mean Corpuscular Hemoglobin 30.1 pg (28.0-34.0); Mean Corpuscular Volume 83.8 fl (81-99); Mean Platelet Volume 8.3 fL (7.4-10.4); Monocytes # 0.5 10^3/uL (0.2-0.9); Monocytes % 7.8 %; Neutrophils # 2.47 10^3/uL (1.8-7.7); Neutrophils % 42.9 %; Nucleated Red Blood Cells % 0 %; Platelet Count 205 10^3/cmm (130-400); Red Blood Count 4.82 10^6/uL (4.1-5.3); Red Cell Distribution Width 14.9 % (12.1-15.1); White Blood Count 5.8 10^3/uL (4.0-10.0)
--- NOTE | 2022-02-17 18:09 | ECG_ITS ---
[facility] Test Date: 2022-02-17 Pat Name: Carolyn Alaniz Department: Room: Gender: Female Core Sucker: : 1975 Requested By: Rajani Chacon Order Number: [id number] Salvador MD: Allen Lopez M.D. Measurements Intervals [place] Rate: 86 P: 55 NH: 143 QRS: -16 QRSD: 118 T: 4 QT: 391 QTc: 468 Interpretive Statements SINUS RHYTHM WITH OCCASIONAL SUPRAVENTRICULAR PREMATURE COMPLEXES POSSIBLE LEFT ATRIAL ENLARGEMENT [-0.1mV P-WAVE IN V1/V2] INCOMPLETE RIGHT BUNDLE BRANCH BLOCK [90+ ms QRS DURATION, TERMINAL R IN V1/V2, 40+ ms S IN I/aVL/V4/V5/V6] Compared to ECG 01/24/2022 01:31:53 No significant changes Electronically Signed On 02-17-2022 18:32:56 CDT by Allen Lopez M.D. [id number]
[2022-02-17 18:23] LABS: Alanine Aminotransferase 26 U/L (0-33); Albumin Level 3.9 g/dL (3.5-5.2); Alkaline Phosphatase 103 U/L (35-105); Anion Gap 16.1 (5-19); Aspartate Amino Transferase 22 U/L (0-32); Blood Urea Nitrogen 12 mg/dL (6-20); Calcium 9.2 mg/dL (8.5-10.5); Carbon Dioxide 25 mmol/L (22-29); Chloride 94 mmol/L (98-107); Globulin 2.9 g/dL (1.3-4.6); Glomerular Filtration Rate 171.8 mL/min (90-130); Glucose 321 mg/dL (65-115); NT Pro B Type Natriuretic Pept 522 pg/mL (0-125); Osmolality Calculated 284 mOsm/kg (285-295); Potassium 4.1 mmol/L (3.5-5.1); Sodium 131 mmol/L (136-145); Total Bilirubin 0.5 mg/dL (0.15-1.2); Total Protein 6.8 g/dL (6.6-8.7)
[2022-02-17 18:44] VITALS: BP 175/91; PULSE 91; RESP 17; TEMP 36.7
[2022-02-17 19:02] LABS: D Dimer 0.29 ug/mIFEU (0-0.59)
--- NOTE | 2022-02-17 19:42 | XRR_ITS ---
PROCEDURE INFORMATION: Exam: XR Right Wrist Exam date and time: 02/17/2022 7:57 PM Age: 46 years old Clinical indication: Pain; Wrist; Right; Patient HX: PT punched wall TECHNIQUE: Imaging protocol: Radiologic exam of the Right wrist. Views: 1 or 2 views. COMPARISON: No relevant prior studies available. FINDINGS: Bones/joints: Normal. Soft tissues: Normal. XR/XR wrist RT 2V [id number] IMPRESSION: No acute findings.
--- NOTE | 2022-02-17 20:28 | ED_ITS ---
HPI - SOB/Dyspnea General: Chief Complaint: Shortness of Breath/Dyspnea Stated Complaint: SOB Time Seen by Provider: 02/17/22 18:16 History of Present Illness: HPI Narrative: 46-year-old female presents because she has CHF and feels like she is more short of breath. Patient reports that she just thinks has been getting worse. Patient states has been over the last few days that she feels like it is a little worse and thinks that she is having a CHF flare. Patient also complains of pain in her right wrist because she got mad and punched a wall because she was upset at her fianc?. Has full range of motion no obvious deformity to the wrist. She would however like it x-rayed to be checked out. Patient denies any chest pain, nausea, vomiting or other systemic complaints. Associated symptoms: Deny abdominal pain, chest pain, dizziness, fever(s), nausea, palpitations or vomiting Review of Systems Const: Denies: fever(s), chills or body aches Card: Reports: dyspnea on exertion; Denies: chest pain or palpitations Resp: Reports: dyspnea; Denies: productive cough, non-productive cough or wheezing GI: Denies: abdominal pain, nausea or vomiting : Denies: dysuria or urinary urgency Musc: Reports: joint pain (Right wrist) Skin/Breast: Denies: rash or pruritus Neuro: Denies: headache(s) or dizziness PFS ED PFSH: Medical History (Updated 02/17/22 @ 20:29 by Donny Oliveira DO) Chronic ulcer of right foot Diabetes Hypertension No pertinent family history Surgical History (Updated 01/11/22 @ 15:48 by Daina Arellano MD) S/P section S/P coronary angiogram S/P tubal ligation Social History Smoking and tobacco status: former smoker Alcohol intake: current Alcohol intake frequency: holidays/special occasions only Physical Exam Const: COMMON NORMALS: no acute distress, patient oriented x3 and alert HENMT: COMMON NORMALS: normocephalic, hearing grossly normal bilaterally and moist oral mucous membranes HEAD & SCALP: normocephalic Resp: COMMON NORMALS: normal respiratory effort, No use of accessory muscles and clear to auscultation bilaterally AUSCULTATION: clear to auscultation bilaterally Cardio: COMMON NORMALS: regular rate and regular rhythm RATE: regular rate RHYTHM: regular rhythm GI: COMMON NORMALS: Soft to palpation and non-tender PALPATION: Yes Soft to palpation Extremity: COMMON NORMALS: full ROM and capillary refill normal RIGHT UPPER EXTREMITY: Yes wrist (Complains of tenderness on palpation) Right wrist: Yes ROM (Normal) OTHER: Walking boot right lower leg Neuro: COMMON NORMALS: patient oriented x3, moves all extremities and no focal motor deficits SENSORIUM/ORIENTATION: Yes alert Psych: COMMON NORMALS: mental status grossly normal, cooperative and speech no rmal SPEECH: Yes normal speech Course Vital Signs: Vital signs: Vital Signs Temperature 98.1 F 02/17/22 18:44 Pulse Rate 91 02/17/22 18:44 Respiratory Rate 17 02/17/22 18:44 Blood Pressure 175/91 02/17/22 18:44 Pulse Oximetry 97 02/17/22 15:57 Oxygen Delivery Me thod 02/17/22 18:44 MDM - SOB/Dyspnea Medical Decision Making Patient O2 saturations are in the upper 90s. Patient with no acute findings on chest x-ray. Patient with negative D-dimer. Discussed with patient that she would need to follow with her primary care provider and recommend she gets a repeat echo and further testing outpatient. Patient also has no acute findings on her wrist on x-ray. She is stable and discharged home Lab Data : 02/17/22 17:25 02/17/22 17:25 Labs/Radiology: Radiology Impressions Chest X-Ray 02/17/22 16:27 IMPRESSION: No acute findings. Wrist X-Ray 02/17/22 19:42 IMPRESSION: No acute findings. Laboratory Results WBC 5.8 10^3/uL (4.0-10.0) 02/17/22 17:25 RBC 4.82 10^6/uL (4.1-5.3) 02/17/22 17:25 Hgb 14.5 g/dL (11.5-15.3) 02/17/22 17:25 Hct 40.4 % (37.0-47.0) 02/17/22 17:25 MCV 83.8 fl (81-99) 02/17/22 17:25 MCH 30.1 pg (28.0-34.0) 02/17/22 17:25 MCHC 35.9 g/dL (30.0-36.0) 02/17/22 17:25 RDW 14.9 % (12.1-15.1) 02/17/22 17:25 Plt Count 205 10^3/cmm (130-400) 02/17/22 17:25 MPV 8.3 fL (7.4-10.4) 02/17/22 17:25 Neut % (Auto) 42.9 % 02/17/22 17:25 Lymph % (Auto) 46.8 % 02/17/22 17:25 [place] % (Auto) 7.8 % 02/17/22 17:25 Eos % (Auto) 0.9 % 02/17/22 17:25 Baso % (Auto) 0.7 % 02/17/22 17:25 Neut # (Auto) 2.47 10^3/uL (1.8-7.7) 02/17/22 17:25 Lymph # (Auto) 2.7 10^3/uL (0.8-4.8) 02/17/22 17:25 [place] # (Auto) 0.5 10^3/uL (0.2-0.9) 02/17/22 17:25 Eos # (Auto) 0.1 10^3/uL (0.0-0.8) 02/17/22 17:25 Baso # (Auto) 0.0 10^3/uL (0.0-0.1) 02/17/22 17:25 Nucleated RBC % (auto) 0 % 02/17/22 17: Nucleated RBCs # 0.0 /100WBC 02/17/22 17:25 D-Dimer 0.29 ug/mIFEU (0-0.59) 02/17/22 17:25 Sodium 131 mmol/L (136-145) L 02/17/22 17:25 Potassium 4.1 mmol/L (3.5-5.1) 02/17/22 17:25 Chloride 94 mmol/L (98-107) L 02/17/22 17:25 Carbon Dioxide 25 mmol/L (22-29) 02/17/22 17:25 Anion Gap 16.1 (5-19) 02/17/22 17:25 BUN 12 mg/dL (6-20) 02/17/22 17:25 Creatinine 0.4 mg/dL (0.5-0.9) L 02/17/22 17:25 GFR Calculation 171.8 mL/min (90-130) H 02/17/22 17:25 Glucose 321 mg/dL (65-115) H 02/17/22 17:25 Calculated Osmolality 284 mOsm/kg (285-295) L 02/17/22 17:25 Calcium 9.2 mg/dL (8.5-10.5) 02/17/22 17:25 Total Bilirubin 0.5 mg/dL (0.15-1.2) 02/17/22 17:25 AST 22 U/L (0-32) 02/17/22 17:25 ALT 26 U/L (0-33) 02/17/22 17:25 Alkaline Phosphatase 103 U/L (35-105) 02/17/22 17:25 NT-Pro-B Natriuret Pep 522 pg/mL (0-125) H 02/17/22 17:25 Total Protein 6.8 g/dL (6.6-8.7) 02/17/22 17:25 Albumin 3.9 g/dL (3.5-5.2) 02/17/22 17:25 Globulin 2.9 g/dL (1.3-4.6) 02/17/22 17:25 EKG Data EKG 1: I personally reviewed and interpreted this EKG as follows: EKG Interpretation Date: 02/17/22 EKG interpretation time: 18:09 Interpretation: Heart rate 86, sinus rhythm, occasional PVC. No acute ST elevation or T wave changes. [place] 143 QRS 118 Discharge Plan Discharge Patient Disposition: Home Clinical Impression: Chronic dyspnea, Pain in right wrist Condition: Stable Prescriptions: No Action metformin 1,000 mg tablet 1,000 mg PO BID Qty: 60 2RF atorvastatin 40 mg tablet 40 mg PO DAILY multivitamin Tablet 1 tab PO DAILY hydrocodone-acetaminophen 5-325 mg tablet 1 tab PO Q8H PRN (Reason: pain) Qty: 10 0RF lisinopril 10 mg tablet 10 mg PO DAILY Discharge Orders: Discharge ED (Routine); Ordered 02/17/22 Ordered By: Donny Oliveira Referrals: Jorge Prakash DO [Primary Care Provider] - Discharge Diet: Advance as tolerated Discharge Activity: Resume usual activity Patient Instructions: Heart Failure (ED), Dyspnea (ED), Wrist Sprain (ED), Opioid Safety, Pain Management Activity Restrictions/Additional Instructions: Follow-up with your primary care provider to arrange for further outpatient evaluation and work-up for your shortness of breath Coding Level of Care Code ED Hacksaw Inspector for Ramírez Fwd Exam Comprehensive
[2022-02-17 20:42] VITALS: BP 149/96; PULSE 94; RESP 18; O2SAT 98
[2022-02-17 20:51] VITALS: BP 149/96; PULSE 94; RESP 18; O2SAT 98
== END 2022-02-17 20:53 | disposition home or self-care (01) ==
PROVIDERS: Emergency Medicine; Emergency Provider Student in an Organized Health Care Education/Training Program; PCP Family Medicine
DX: R06.09 Other forms of dyspnea (principal); M25.531 Pain in right wrist; Z79.84 Long term (current) use of oral hypoglycemic drugs; E11.9 Type 2 diabetes mellitus without complications; I10 Essential (primary) hypertension; Z87.891 Personal history of nicotine dependence
CPT/HCPCS: 36415; 71045; 73100; 73130; 80053; 83880; 85025; 85378; 93005; 99285

== ENCOUNTER → 2022-02-18 15:17 | Outpatient (BNVA) | payer MEDICAID, SELFPAY | PROVIDERS: PCP Family Medicine; Visit Provider Nurse Practitioner Family | DX: Z09 Encounter for follow-up examination after completed treatment for conditions other than malignant neoplasm (principal) | CPT/HCPCS: 99212 ==

== ENCOUNTER 2022-02-23 14:19 | Emergency (ER) | payer MEDICAID, SELFPAY ==
[2022-02-23 14:21] VITALS: BP 160/77; PULSE 87; RESP 16; TEMP 36.4; O2SAT 96; BMI 30.8
--- NOTE | 2022-02-23 14:33 | ED_ITS ---
HPI - SOB/Dyspnea General: Chief Complaint: Shortness of Breath/Dyspnea Stated Complaint: Hard to breath Time Seen by Provider: 02/23/22 14:32 History of Present Illness: HPI Narrative: Ms. Alaniz is a 46-year-old lady with history of chronic dyspnea, diabetes, degenerative disc disease presenting to the emergency department due to back pain. Onset of symptoms was approximately 5 days ago without known specific provoking event or trauma. Since that time she has sharp pain in her back without other associated neurologic symptoms. Symptoms are worse with movement including deep inspiration. No anterior chest pain. Intensity is moderate to severe not relieved by OTC medications at home. No other specific changes in health, exacerbating, or alleviating factors identified. Onset (ago): day(s) Timing: constant Severity: severe Exacerbating factors: movement and inspiration Review of Systems General: Reports: 10 or more systems reviewed and unremarkable except in HPI and below PFSH ED PFSH: Medical History Chronic ulcer of right foot Diabetes Hypertension No pertinent family history Surgical History S/P section S/P coronary angiogram S/P tubal ligation Social History Smoking and tobacco status: never smoked Alcohol intake: current Alcohol intake frequency: holidays/special occasions only Physical Exam Const: COMMON NORMALS: alert GENERAL APPEARANCE: cooperative and well developed HENMT: COMMON NORMALS: normocephalic and atraumatic HEAD & SCALP: normocephalic and atraumatic Eye: COMMON NORMALS: conjunctivae normal CONJUNCTIVA: Yes conjunctivae normal SCLERA: sclerae normal Neck/C-Spine: COMMON NORMALS: supple GENERAL: Yes trachea midline Resp: EFFORT & INSPECTION: Yes able to speak in complete sentences AUSCULTATION: diminished lung sounds Cardio: COMMON NORMALS: regular rate and regular rhythm RATE: regular rate RHYTHM: regular rhythm GI: COMMON NORMALS: Soft to palpation PALPATION: Yes Soft to palpation and No Tenderness to palpation present (GI) Extremity: GENERAL: Yes normal exam except as noted and No edema Neuro: COMMON NORMALS: moves all extremities SENSORIUM/ORIENTATION: Yes alert and No Orientation impaired Psych: COMMON NORMALS: mental status grossly normal and Normal thought process present THOUGHT PROCESS: Normal thought process present Course Vital Signs: Vital signs: Vital Signs Temperature 97.5 F L 02/23/22 14:21 Pulse Rate 88 02/23/22 16:26 Respiratory Rate 18 02/23/22 16:26 Blood Pressure 160/91 02/23/22 16:26 Pulse Oximetry 97 02/23/22 16:26 Oxygen Delivery Me thod 02/23/22 16:08 MDM - SOB/Dyspnea Medical Decision Making 46-year-old lady presenting with back pain and shortness of breath. Exam as above. EKG shows sinus rhythm with occasional PACs, nonspecific ST segment abnormalities. No STEMI. CT without acute finding. Upon clarification of history pain is the cause of shortness of breath and patient does not have associated other respiratory symptoms. Prior imaging reviewed. Patient markedly improved with symptom treatment. Satisfactory for outpatient management with return precautions given. Medical Records I reviewed the patient's medical records. Lab Data I reviewed the patient's lab results. Labs/Radiology: Radiology Impressions Thoracic Spine CT 02/23/22 14:46 IMPRESSION: No acute findings. Discharge Plan Discharge Patient Disposition: Home Clinical Impression: Thoracic back pain Condition: Stable Prescriptions: New ondansetron 4 mg tablet,disintegrating 4 mg PO Q8H PRN (Reason: nausea and vomiting) Qty: 15 0RF oxycodone 5 mg tablet 5 mg PO Q4H PRN (Reason: pain) Qty: 10 0RF No Action multivitamin Tablet 1 tab PO DAILY Jardiance 25 mg tablet 25 mg PO DAILY Qty: 90 0RF metformin 1,000 mg tablet 1,000 mg PO BID Qty: 60 2RF (DME) blood-glucose meter [FreeStyle Lite Meter] Kit See Rx Instructions .Route Qty: 1 0RF Rx Instructions: As directed (DME) FreeStyle Lite Strips Strip See Rx Instructions .Route Qty: 100 3RF Rx Instructions: once daily check lisinopril 10 mg tablet 10 mg PO DAILY Qty: 90 1RF atorvastatin 40 mg tablet 40 mg PO DAILY Qty: 90 1RF hydrocodone-acetaminophen 5-325 mg tablet 1 tab PO Q8H PRN (Reason: pain) Qty: 10 0RF Discharge Orders: Discharge ED (Routine); Ordered 02/23/22 Ordered By: Mundo Swann Referrals: [place],Jorge W, DO [Primary Care Provider] - Discharge Diet: Usual diet Discharge Activity: Increase activity as tolerated Patient Instructions: Back Pain (ED), Opioid Safety, Pain Management Activity Restrictions/Additional Instructions: Thank you for visiting the emergency department. You were seen evaluated for back pain. The exact cause of your symptoms is unclear though does not appear to need hospitalization or further ED evaluation at this time. Please follow-up with your primary care provider. Return to the emergency department for uncontrolled symptoms, new weakness or sensory changes in 1 extremity, numbness in the groin area, loss of control of bowel or bladder, or anything else that you are concerned about and feel needs emergency department evaluation. Print Language: Polish Coding Level of Care Code ED Motor Teacher for Ramírez Rausch
--- NOTE | 2022-02-23 14:46 | CTR_ITS ---
PROCEDURE INFORMATION: Exam: CT Thoracic Spine Without Contrast Exam date and time: 02/23/2022 2:56 PM Age: 46 years old Clinical indication: Pain in thoracic spine; Additional info: Back pain, nontraumatic TECHNIQUE: Imaging protocol: Computed tomography of the thoracic spine without contrast. Radiation optimization: All CT scans at this facility use at least one of these dose optimization techniques: automated exposure control; mA and/or kV adjustment per patient size (includes targeted exams where dose is matched to clinical indication); or iterative reconstruction. COMPARISON: CR XR thoracic spine 3V* [id number] 11/12/2021 1:24 AM RADIATION DOSE METRICS: Total DLP (mGy-cm): 840.21 FINDINGS: Bones/joints: No acute fracture. Normal alignment. No significant disc protrusion. No severe spinal canal stenosis. Multilevel prominent anterior endplate osteophytes of the mid and lower thoracic spine. Soft tissues: Unremarkable. CT/CT thoracic spin wo con* [id number] IMPRESSION: No acute findings.
[2022-02-23] MEDS: lidocaine 5% Patch 1 PATCH TOPICAL (14:51)
[2022-02-23] MEDS: ketorolac 30 mg/mL INJ IM (14:51)
[2022-02-23] MEDS: oxyCODONE 5 mg IR Tab/Cap PO (14:52)
[2022-02-23] MEDS: acetaminophen 500 mg Tablet 1000 MG PO (14:52)
--- NOTE | 2022-02-23 16:05 | ECG_ITS ---
[facility] Test Date: 2022-02-23 Pat Name: Carolyn Alaniz Department: Room: Gender: Female Ham Clerk: : 1975 Requested By: Mundo Swann Order Number: [id number] Reading MD: Measurements Intervals [place] Rate: 91 P: 47 FL: 145 QRS: -21 QRSD: 117 T: 12 QT: 394 QTc: 487 Interpretive Statements SINUS RHYTHM WITH OCCASIONAL SUPRAVENTRICULAR PREMATURE COMPLEXES POSSIBLE LEFT ATRIAL ENLARGEMENT [-0.1mV P-WAVE IN V1/V2] BORDERLINE LEFT AXIS DEVIATION [QRS AXIS < -20] INCOMPLETE RIGHT BUNDLE BRANCH BLOCK [90+ ms QRS DURATION, TERMINAL R IN V1/V2, 40+ ms S IN I/aVL/V4/V5/V6] Compared to ECG 02/17/2022 18:09:12 No significant changes [email or web address]
[2022-02-23 16:08] VITALS: PULSE 90; RESP 18; O2SAT 98
[2022-02-23 16:26] VITALS: BP 160/91; PULSE 88; RESP 18; O2SAT 97
== END 2022-02-23 16:27 | disposition home or self-care (01) ==
PROVIDERS: Emergency Provider Emergency Medicine; PCP Family Medicine
DX: M54.6 Pain in thoracic spine (principal); Z79.84 Long term (current) use of oral hypoglycemic drugs; E11.9 Type 2 diabetes mellitus without complications; I10 Essential (primary) hypertension
CPT/HCPCS: 72128; 93005; 96372; 99284; J1885

== ENCOUNTER → 2022-02-24 07:44 | Outpatient (BNVA) | payer MEDICAID, SELFPAY | PROVIDERS: PCP Family Medicine; Referring Provider Nurse Practitioner Family; Visit Provider Internal Medicine | DX: E11.40 Type 2 diabetes mellitus with diabetic neuropathy, unspecified (principal); E11.59 Type 2 diabetes mellitus with other circulatory complications; E78.2 Mixed hyperlipidemia; I11.0 Hypertensive heart disease with heart failure; I50.9 Heart failure, unspecified; Z79.84 Long term (current) use of oral hypoglycemic drugs; Z87.891 Personal history of nicotine dependence | CPT/HCPCS: 99204 ==

== ENCOUNTER → 2022-03-25 09:52 | Outpatient (BNVA) | payer MEDICAID, SELFPAY | PROVIDERS: PCP Family Medicine; Visit Provider Nurse Practitioner Family | DX: E11.621 Type 2 diabetes mellitus with foot ulcer (principal); L89.892 Pressure ulcer of other site, stage 2; E11.40 Type 2 diabetes mellitus with diabetic neuropathy, unspecified; Z79.84 Long term (current) use of oral hypoglycemic drugs | CPT/HCPCS: 11042; 99213; A6212; A6252 ==

== ENCOUNTER → 2022-04-01 09:30 | Outpatient (BNVA) | payer MEDICAID, SELFPAY | PROVIDERS: PCP Family Medicine; Visit Provider Nurse Practitioner Family | DX: I96 Gangrene, not elsewhere classified (principal); E11.621 Type 2 diabetes mellitus with foot ulcer; L97.412 Non-pressure chronic ulcer of right heel and midfoot with fat layer exposed | CPT/HCPCS: 11042; A6250; A6251 ==

== ENCOUNTER 2022-04-05 22:15 | Emergency (ER) | payer MEDICAID, SELFPAY ==
[2022-04-05 22:20] VITALS: BP 157/100; PULSE 100; RESP 18; TEMP 36.6; O2SAT 98; BMI 31.1
--- NOTE | 2022-04-05 22:30 | ED_ITS ---
HPI - Dental/Oral General: Chief complaint: Dental/Oral Stated complaint: dental pain Time Seen by Provider: 04/05/22 22:23 History of Present Illness: 46 old female who presents with a 3 to 4-day history of pain in her right lower first molar. She has a feeling that it fallen out. She denies swelling in this area or foul tasting discharge. She has tried [id number] pain medications without improvement. No difficulty opening or closing her jaw or difficulty swallowing. She does have a history of diabetes. MD Complaint: tooth pain Onset (ago): day(s) Review of Systems General: Reports: Other (Negative except for HPI) PFS ED PFSH: Medical History Chronic ulcer of right foot Diabetes Hypertension No pertinent family history Surgical History S/P section S/P coronary angiogram S/P tubal ligation Social History (Updated 03/17/22 @ 08:45 by Svetlana Broussard LPN) Smoking and tobacco status: never smoked Alcohol intake: current Alcohol intake frequency: holidays/special occasions only Female Reproductive History: Spontaneous abortions: No Physical Exam Narrative: EXAM NARRATIVE: Well-developed well-nourished female no acute distress. Const: COMMON NORMALS: no acute distress and patient oriented x3 HENMT: TEETH & GINGIVA: Yes poor dentition and Yes other (Broken off tooth in the right lower first molar with a portion of the filli) Neck/C-Spine: COMMON NORMALS: full ROM and no lymphadenopathy Resp: COMMON NORMALS: normal respiratory effort Cardio: COMMON NORMALS: regular rate RATE: regular rate Extremity: COMMON NORMALS: normal to inspection Neuro: COMMON NORMALS: patient oriented x3 Course Vital Signs: Vital signs: Vital Signs Temperature 97.9 F 04/05/22 22:20 Pulse Rate 100 04/05/22 22:20 Respiratory Rate 18 04/05/22 22:20 Blood Pressure 157/100 04/05/22 22:20 Pulse Oximetry 98 04/05/22 22:20 Oxygen Delivery Me thod 04/05/22 22:20 MDM - Dental/Oral Medical Decision Making Patient presents with a tooth in the right lower mandible. There is no associated periapical abscess. We will treat her with doxycycline twice daily x10 days. Have also given her tramadol to take every 4-6 hours as needed for pain. She is stable for discharge home Discharge Plan Discharge Patient Disposition: Home Clinical Impression: Toothache, Dental caries Condition: Stable Prescriptions: New tramadol 50 mg tablet 25 mg PO Q4H PRN (Reason: pain) Qty: 14 0RF doxycycline hyclate 100 mg tablet 100 mg PO BID 10 Days Qty: 20 0RF No Action multivitamin Tablet 1 tab PO DAILY Jardiance 25 mg tablet 25 mg PO DAILY Qty: 90 0RF metformin 1,000 mg tablet 1,000 mg PO BID Qty: 60 2RF (DME) blood-glucose meter [FreeStyle Lite Meter] Kit See Rx Instructions .Route Qty: 1 0RF Rx Instructions: As directed (DME) FreeStyle Lite Strips Strip See Rx Instructions .Route Qty: 100 3RF Rx Instructions: once daily check lisinopril 10 mg tablet 10 mg PO DAILY Qty: 90 1RF atorvastatin 40 mg tablet 40 mg PO DAILY Qty: 90 1RF doxycycline hyclate 100 mg tablet 100 mg PO BID 5 Days Qty: 10 0RF cefdinir 300 mg capsule 300 mg PO BID 5 Days Qty: 10 0RF miscellaneous medical supply Misc See Rx Instructions .ROUTE .COMPLEX Qty: 1 2RF Rx Instructions: Evaluation for diabetic foot wear with possible orthotics for off-loading on the insole. ondansetron 4 mg tablet,disintegrating 4 mg PO Q8H PRN (Reason: nausea and vomiting) Qty: 15 0RF Discharge Orders: Discharge ED (Routine); Ordered 04/05/22 Ordered By: Paola Jones Referrals: Jorge Prakash DO [Primary Care Provider] - Patient Instructions: Opioid Safety, Pain Management, Dental Caries (Cavities) Activity Restrictions/Additional Instructions: soft diet; cover the broken tooth with dental wax. He can take the tramadol kena ry 4-6 hours as needed for pain. Take the doxycycline twice daily until gone. Call your primary care doctor Thursday to get referred to a dentist. Coding Level of Care Code ED Warehouse Record Clerk for Ramírez Rausch History Problem Focused Exam Problem Focused Medical Decision Making Low Complexity
[2022-04-05] MEDS: TRAMadol 50 mg Tablet PO (22:35)
[2022-04-05] MEDS: doxycycline 100 mg Tablet PO (22:35)
== END 2022-04-05 22:46 | disposition home or self-care (01) ==
PROVIDERS: Emergency Provider Emergency Medicine; PCP Family Medicine
DX: K02.9 Dental caries, unspecified (principal)
CPT/HCPCS: 99283

== ENCOUNTER → 2022-04-22 08:16 | Outpatient (BNVA) | payer MEDICAID, SELFPAY | PROVIDERS: PCP Family Medicine; Visit Provider Nurse Practitioner Family | DX: I96 Gangrene, not elsewhere classified (principal); E11.621 Type 2 diabetes mellitus with foot ulcer; L89.892 Pressure ulcer of other site, stage 2 | CPT/HCPCS: 97597; A6252 ==

== ENCOUNTER 2022-04-26 22:44 | Emergency (ER) | payer MEDICAID, SELFPAY ==
[2022-04-26 22:49] VITALS: BP 163/98; PULSE 105; RESP 18; TEMP 37.1; O2SAT 98; BMI 31.3
--- NOTE | 2022-04-26 23:44 | W.ED.GENADLT ---
Documented by User: AILYN Verma 04/27/22 01:05 HPI - General Adult General: Chief complaint: General Medical Stated complaint: possible allergic rxn Time Seen by Provider: 04/26/22 23:07 History of Present Illness: Patient is a 46-year-old female that presents to the emergency department with complaints of hive-like rash. Onset of symptoms today. Patient was started on Zyvox on Thursday. Patient reports sensation of feeling scratchy in her mouth this evening. Patient has not taken any [id number] remedies. She reports allergies to Benadryl. Associated symptoms: Deny chest pain, confusion, dyspnea, headache(s), malaise, nausea, rash, palpitations or vomiting Review of Systems General: Reports: 10 or more systems reviewed and unremarkable except in HPI and below Const: Denies: fever(s), chills, change in appetite, change in weight, fatigue or malaise Eyes: Denies: change in vision, eye discomfort, eye discharge or eye redness ENMT: Denies: throat pain, enlarged tonsils, odynophagia, hoarseness, ear or mastoid pain, ear discharge, change in hearing, tinnitus, nasal discharge, nasal congestion, post nasal drip or sinus pain Card: Denies: chest pain, palpitations, irregular heart rhythm, edema, dyspnea on exertion, orthopnea or leg pain with exertion Resp: Denies: dyspnea, productive cough, non-productive cough, wheezing, stridor or chest congestion GI: Denies: abdominal pain, nausea, vomiting, dysphagia, diarrhea, constipation, bloating, GI cramping or hematochezia : Denies: flank pain, difficulty voiding, dysuria, urinary frequency, urinary urgency, urinary hesitancy, oliguria or hematuria Musc: Denies: neck pain, back pain, extremity pain, joint pain, joint swelling, joint redness, joint warmth or muscle weakness Skin/Breast: Denies: rash, pruritus, erythema, photosensitivity or new lesions Neuro: Denies: headache(s), numbness in extremities, weakness in extremities, sensory changes, lack of coordination, difficulty walking, frequent falls, dizziness, confusion, Slurred speech present, difficulty communicating thoughts, seizure-like activity or involuntary movements Endo: Denies: polyuria, polydipsia or tired all the time Paul/Lymph: Denies: easy bruising or easy bleeding All/Imm: Reports: urticaria PFSH ED PFSH: Medical History Chronic ulcer of right foot Diabetes Hypertension No pertinent family history Surgical History S/P section S/P coronary angiogram S/P tubal ligation Social History Smoking and tobacco status: never smoked Alcohol intake: current Alcohol intake frequency: holidays/special occasions only Female Reproductive History: Spontaneous abortions: No Physical Exam Const: COMMON NORMALS: no acute distress, average body habitus, patient oriented x3, no limitations, healthy appearing, alert and well nourished GENERAL APPEARANCE: cooperative, comfortable and well developed; not in distress and not anxious ORIENTATION/CONSCIOUSNESS: Yes awake, Yes oriented to person, Yes oriented to place and Yes oriented to time HENMT: COMMON NORMALS: normocephalic, atraumatic, hearing grossly normal bilaterally, external ears normal, EAC's normal, TM's normal bilaterally, Normal external nose present and Normal nasal mucous membranes and turbinates present HEAD & SCALP: normal to inspection, normocephalic and atraumatic FACE & SINUS: normal facial exam and face symmetric NOSE: Normal external nose present, Normal nares present and Normal nasal mucous membranes and turbinates present GENERAL EAR: hearing not grossly impaired EXTERNAL EAR: Yes external ears normal and Yes no periauricular adenopathy EXTERNAL AUDITORY CANAL: EAC's normal TYMPANIC MEMBRANE: TM's normal bilaterally MOUTH: Normal oral and palatal mucosa present, lip normal, tongue normal and Normal salivary glands and ducts present THROAT: posterior oropharynx normal, tonsils normal and uvula midline Eye: COMMON NORMALS: Equal, round and reactive pupils present, EOMs intact bilaterally, conjunctivae normal, no scleral icterus and no papilledema GENERAL EYE: appearance normal, both eyes and all related structures ALIGNMENT: Yes alignment normal PERIORBITAL: periorbital findings normal EYELID: eyelids normal CONJUNCTIVA: Yes conjunctivae normal PUPIL: Yes Equal, round and reactive pupils present DIRECT OPHTHALMOSCOPY: Yes no papilledema Neck/C-Spine: COMMON NORMALS: full ROM, supple, no meningeal signs and no JVD GENERAL: Yes normal visual inspection CERVICAL SPINE: Yes cervical ROM normal Lymph: LYMPHATIC: no lymphadenopathy noted Chest: COMMONS NORMALS: normal inspection of the chest Breast/axilla inspection: Yes no chest deformity, asymmetry, normal contours, no nodules, masses, tenderness Resp: COMMON NORMALS: normal respiratory effort, No retractions, No use of accessory muscles and clear to auscultation bilaterally EFFORT & INSPECTION: Yes able to speak in complete sentences, Yes symmetric chest movement, No abnormal respiratory pattern, No tachypneic and No respiratory distress AUSCULTATION: clear to auscultation bilaterally Cardio: COMMON NORMALS: no JVD, regular rate, regular rhythm and Peripheral pulses 2+ throughout RATE: regular rate RHYTHM: regular rhythm PERIPHERAL PULSES: Peripheral pulses 2+ throughout GI: COMMON NORMALS: Normal to inspection, nondistended, normoactive bowel sounds present, Soft to palpation and non-tender INSPECTION: Yes normal to inspection PALPATION: Yes Soft to palpation : COMMON NORMALS: Yes no CVA tenderness BLADDER/KIDNEY EXAM: Yes no CVA tenderness and Yes CVA tenderness Back/Pelvis: COMMON NORMALS: no CVA tenderness, thoracic and lumbar spine normal to inspection, no thoracic nor lumbar tenderness, thoraco-lumbar ROM normal and straight leg raise negative bilaterally GENERAL BACK: Yes CVA tenderness and No ecchymosis THORACIC SPINE/UPPER BACK: Yes normal to inspection LUMBAR SPINE/LOWER BACK: Yes normal to inspection and Yes straight leg raise negative bilaterally Extremity: COMMON NORMALS: normal to inspection, full ROM and capillary refill normal GENERAL: Yes normal exam except as noted Neuro: COMMON NORMALS: patient oriented x3 SENSORIUM/ORIENTATION: Yes alert, Yes oriented to person, Yes oriented to place and Yes oriented to time MENINGEAL SIGNS: Yes no meningeal signs Psych: COMMON NORMALS: mental status grossly normal, Normal thought process present, cooperative, normal affect, speech normal and activity/motor behavior normal SPEECH: Yes normal speech THOUGHT PROCESS: Normal thought process present Skin: COMMON NORMALS: no wounds, turgor normal, no jaundice, no petechiae and no mottling; negative for no rashes or lesions noted (Urticarial lesions to abdomen, extremities, face) GENERAL SKIN EXAM: rashes and/or lesions noted (Urticarial lesions to abdomen, extremities, face) and turgor normal Course ED course: Patient was evaluated in the emergency department for possible allergic reaction to Zyvox. Patient was started on Zyvox due to a diabetic foot ulcer. In the emergency department she was treated with methylprednisolone and Pepcid. She has an allergy to Benadryl. Patient I discussed expected responses from these medications. She does have a history of diabetes and is concerned about her blood sugars. We advised the patient to monitor closely. Going to advised that she withhold any further Zyvox and follow-up with her wound care management provider on Thursday. Reevaluation(s): Reevaluation #1: Patient was reevaluated. She reports that she has had improvement in her symptoms. Time: 00:59 Vital Signs: Vital signs: Vital Signs Temperature 98.8 F 04/26/22 22:49 Pulse Rate 105 H 04/26/22 22:49 Respiratory Rate 18 04/26/22 22:49 Blood Pressure 163/98 04/26/22 22:49 Pulse Oximetry 98 04/26/22 22:49 Oxygen Delivery Me thod 04/26/22 22:49 MDM - General Adult Medical Decision Making Allergic reaction, urticaria Patient was evaluated for allergy type response that may be secondary to Zyvox administration. It was a drug that was started on Thursday. I treated her in the emergency department with Pepcid and methylprednisolone Patient had improvement in her symptoms. I have advised her to discontinue Zyvox use until she follows up with her wound management provider and discusses her symptoms this weekend. At this time no further diagnostics are warranted. Discharge Plan Discharge Patient Disposition: Home Clinical Impression: Allergy, Urticaria Condition: Stable Prescriptions: New Pepcid 40 mg tablet 40 mg PO DAILY 7 Days Qty: 7 0RF No Action multivitamin Tablet 1 tab PO DAILY Jardiance 25 mg tablet 25 mg PO DAILY Qty: 90 0RF metformin 1,000 mg tablet 1,000 mg PO BID Qty: 60 2RF (DME) blood-glucose meter [FreeStyle Lite Meter] Kit See Rx Instructions .Route Qty: 1 0RF Rx Instructions: As directed (DME) FreeStyle Lite Strips Strip See Rx Instructions .Route Qty: 100 3RF Rx Instructions: once daily check lisinopril 10 mg tablet 10 mg PO DAILY Qty: 90 1RF atorvastatin 40 mg tablet 40 mg PO DAILY Qty: 90 1RF doxycycline hyclate 100 mg tablet 100 mg PO BID 5 Days Qty: 10 0RF cefdinir 300 mg capsule 300 mg PO BID 5 Days Qty: 10 0RF miscellaneous medical supply Misc See Rx Instructions .ROUTE .COMPLEX Qty: 1 2RF Rx Instructions: Evaluation for diabetic foot wear with possible orthotics for off-loading on the insole. ondansetron 4 mg tablet,disintegrating 4 mg PO Q8H PRN (Reason: nausea and vomiting) Qty: 15 0RF tramadol 50 mg tablet 25 mg PO Q4H PRN (Reason: pain) Qty: 14 0RF Discharge Orders: Discharge ED (Routine); Ordered 04/27/22 Ordered By: Joe Pierre Referrals: Jorge Prakash DO [Primary Care Provider] - Discharge Diet: Advance as tolerated Discharge Activity: Resume usual activity Patient Instructions: Anaphylaxis (ED), Antibiotic Medication Allergy (ED), Opioid Safety, Pain Management Coding Level of Care Code ED Microstrategy Architect Developer for Chg Fwd Exam Comprehensive Medical Decision Making Straight Forward Documented by User: Lamine Hannah DO 04/27/22 06:21 HPI - General Adult General: Chief complaint: General Medical Stated complaint: possible allergic rxn Time Seen by Provider: 04/26/22 23:07 PFSH ED PFSH: Medical History Chronic ulcer of right foot Diabetes Hypertension No pertinent family history Surgical History S/P section S/P coronary angiogram S/P tubal ligation Social History Smoking and tobacco status: never smoked Alcohol intake: current Alcohol intake frequency: holidays/special occasions only Course Vital Signs: Vital signs: Vital Signs Temperature 98.8 F 04/26/22 22:49 Pulse Rate 105 H 04/26/22 22:49 Respiratory Rate 18 04/26/22 22:49 Blood Pressure 163/98 04/26/22 22:49 Pulse Oximetry 98 04/26/22 22:49 Oxygen Delivery Me thod 04/26/22 22:49 MDM - General Adult Medical Decision Making Allergic reaction, urticaria Patient was evaluated for allergy type response that may be secondary to Zyvox administration. It was a drug that was started on Thursday. I treated her in the emergency department with Pepcid and methylprednisolone Patient had improvement in her symptoms. I have advised her to discontinue Zyvox use until she follows up with her wound management provider and discusses her symptoms this weekend. At this time no further diagnostics are warranted. Chart reviewed and patient discussed with midlevel. Agree with assessment and plan. Discharge Plan Discharge Patient Disposition: Home Clinical Impression: Allergy, Urticaria Condition: Stable Prescriptions: New Pepcid 40 mg tablet 40 mg PO DAILY 7 Days Qty: 7 0RF No Action multivitamin Tablet 1 tab PO DAILY Jardiance 25 mg tablet 25 mg PO DAILY Qty: 90 0RF metformin 1,000 mg tablet 1,000 mg PO BID Qty: 60 2RF (DME) blood-glucose meter [FreeStyle Lite Meter] Kit See Rx Instructions .Route Qty: 1 0RF Rx Instructions: As directed (DME) FreeStyle Lite Strips Strip See Rx Instructions .Route Qty: 100 3RF Rx Instructions: once daily check lisinopril 10 mg tablet 10 mg PO DAILY Qty: 90 1RF atorvastatin 40 mg tablet 40 mg PO DAILY Qty: 90 1RF doxycycline hyclate 100 mg tablet 100 mg PO BID 5 Days Qty: 10 0RF cefdinir 300 mg capsule 300 mg PO BID 5 Days Qty: 10 0RF miscellaneous medical supply Misc See Rx Instructions .ROUTE .COMPLEX Qty: 1 2RF Rx Instructions: Evaluation for diabetic foot wear with possible orthotics for off-loading on the insole. ondansetron 4 mg tablet,disintegrating 4 mg PO Q8H PRN (Reason: nausea and vomiting) Qty: 15 0RF tramadol 50 mg tablet 25 mg PO Q4H PRN (Reason: pain) Qty: 14 0RF Discharge Orders: Discharge ED (Routine); Ordered 04/27/22 Ordered By: Joe Pierre Referrals: Jorge Prakash, [Primary Care Provider] - Discharge Diet: Advance as tolerated Discharge Activity: Resume usual activity Patient Instructions: Anaphylaxis (ED), Antibiotic Medication Allergy (ED), Opioid Safety, Pain Management Coding Level of Care Code ED Microstrategy Architect Developer for Chg Fwd Exam Comprehensive Medical Decision Making Straight Forward
[2022-04-27] MEDS: famotidine 20 mg Tablet 40 MG PO (00:13)
[2022-04-27] MEDS: methylPREDNISolone (DEPO) 80 MG/ML INJ 1 mL IM (00:13)
== END 2022-04-27 01:09 | disposition home or self-care (01) ==
PROVIDERS: Emergency Provider Nurse Practitioner; PCP Family Medicine
DX: L50.0 Allergic urticaria (principal); Z79.84 Long term (current) use of oral hypoglycemic drugs; E11.9 Type 2 diabetes mellitus without complications; I10 Essential (primary) hypertension
CPT/HCPCS: 96372; 99284; J1040

== ENCOUNTER → 2022-04-29 08:39 | Outpatient (BNVA) | payer MEDICAID, SELFPAY | PROVIDERS: PCP Family Medicine; Visit Provider Nurse Practitioner Family | DX: I96 Gangrene, not elsewhere classified (principal); E11.621 Type 2 diabetes mellitus with foot ulcer; L89.892 Pressure ulcer of other site, stage 2 | CPT/HCPCS: 11042; A6252 ==

== ENCOUNTER → 2022-04-30 15:07 | Outpatient (BNVA) | payer MEDICAID, SELFPAY | PROVIDERS: PCP Family Medicine; Visit Provider Family Medicine | DX: E11.21 Type 2 diabetes mellitus with diabetic nephropathy (principal); E78.2 Mixed hyperlipidemia; I10 Essential (primary) hypertension | CPT/HCPCS: 80053; 80061; 83036; 83721 ==

== ENCOUNTER → 2022-05-06 08:34 | Outpatient (BNVA) | payer MEDICAID, SELFPAY | PROVIDERS: PCP Family Medicine; Visit Provider Nurse Practitioner Family | DX: I96 Gangrene, not elsewhere classified (principal); E11.621 Type 2 diabetes mellitus with foot ulcer; L89.892 Pressure ulcer of other site, stage 2; L97.511 Non-pressure chronic ulcer of other part of right foot limited to breakdown of skin; L08.9 Local infection of the skin and subcutaneous tissue, unspecified; E11.21 Type 2 diabetes mellitus with diabetic nephropathy; M86.9 Osteomyelitis, unspecified; Z79.84 Long term (current) use of oral hypoglycemic drugs | CPT/HCPCS: 11042; 87070; 87075; 87077; 87186; 87205; 99204; A6219 ==

== ENCOUNTER → 2022-05-13 12:48 | Outpatient (BNVA) | payer MEDICAID, SELFPAY | PROVIDERS: PCP Family Medicine; Visit Provider Podiatrist Foot & Ankle Surgery | DX: E11.621 Type 2 diabetes mellitus with foot ulcer (principal); L97.511 Non-pressure chronic ulcer of other part of right foot limited to breakdown of skin; M86.9 Osteomyelitis, unspecified; L02.611 Cutaneous abscess of right foot; L03.115 Cellulitis of right lower limb; E11.628 Type 2 diabetes mellitus with other skin complications; L08.9 Local infection of the skin and subcutaneous tissue, unspecified; E11.21 Type 2 diabetes mellitus with diabetic nephropathy; Z79.84 Long term (current) use of oral hypoglycemic drugs | CPT/HCPCS: 99214 ==

== ENCOUNTER 2022-05-15 13:35 | Day surgery (SDC) | payer MEDICAID, SELFPAY ==
[2022-05-14 15:41] VITALS: BMI 29.7
[2022-05-15 13:42] VITALS: BP 127/99; PULSE 99; RESP 16; TEMP 36.9; O2SAT 94
[2022-05-15] MEDS: sodium chloride 0.9% 1,000 ML 30 ML IV (14:15)
[2022-05-15 14:17] LABS: Glucose Point of Care 153 mg/dL (70-110)
[2022-05-15] MEDS: gabapentin 300 mg Capsule PO (14:32)
[2022-05-15] MEDS: acetaminophen 1,000 MG/100 ML PIGGYBACK 400 MG IV (14:32)
--- NOTE | 2022-05-15 14:51 | W.PM.OPSUD ---
Surgery/Procedure H&P Update DATE OF PROCEDURE: May 15, 2022 DATE H&P PERFORMED: 05/13/22 CHANGES TO PREVIOUS DOCUMENTATION: no changes PREOP DIAGNOSIS: Right foot osteomyelitis PLANNED PROCEDURE: Operation Date: 05/15/22 15:40 Proposed Procedures p Right foot 4th metatarsal head resection CPT 83487,M86.9(Right) - Fredi Goldman DPM
--- NOTE | 2022-05-15 14:52 | ANES.PREANE2 ---
Pre-Anesthetic Assessment Height/Weight: Height 1.7 m Weight 86.183 kg Temp Pulse Resp BP Pulse Ox O2 Del Method 98.4 F 99 16 127/99 94 05/15/22 13:42 05/15/22 13:42 05/15/22 13:42 05/15/22 13:42 05/15/22 13:42 05/15/22 14:06 Preop Diagnosis: Right foot osteomyelitis Operation Date: 05/15/22 15:40 Proposed Procedures p Right foot 4th metatarsal head resection CPT 32764,M86.9(Right) - Fredi Goldman DPM Familial anesthetic complications: None Was Beta Brian taken within 24 hours: N/A Was Clonidine taken within 24 hours: N/A Last intake: Intake Last Liquid Date 05/15/22 Last Liquid Time 09:00 Last Solid Date 05/14/22 Last Solid Time 20:00 Social No alcohol and No tobacco Exam alert, oriented x 3, clear to auscultation bilaterally and regular rate & rhythm Airway Mallampati: Class II Dentition: full CV/HEM Coronary Artery Disease, Congestive Heart Failure, Hypertension and Myocardial Infarction Metabolic Diabetes Mellitus Anesthetic Plan ASA status: 3 Anesthesia: MAC Risk of > 500 ml blood loss (7ml/kg in children): No Medications/Allergies Home Medications Medication Instructions Recorded Confirmed Last Taken Type multivitamin 1 tab PO DAILY 01/07/22 05/14/22 05/13/22 History ondansetron 4 mg disintegrating 4 mg PO Q8H PRN nausea and 02/23/22 05/14/22 Unknown Rx tablet vomiting #15 tabs blood sugar diagnostic (FreeStyle #100 ea 02/24/22 05/06/22 Unknown Rx Lite Strips) blood-glucose meter (FreeStyle #1 ea 02/24/22 05/06/22 Unknown Rx Lite Meter kit) empagliflozin 25 mg tablet 25 mg PO DAILY #90 tabs 02/24/22 05/14/22 Unknown Rx (Jardiance) metformin 1,000 mg tablet 1,000 mg PO BID #60 tabs 02/24/22 05/14/22 05/01/22 Rx atorvastatin 40 mg tablet 40 mg PO DAILY #90 tabs 02/25/22 05/15/22 05/01/22 Rx lisinopril 10 mg tablet 10 mg PO DAILY #90 tabs 0905/15/22 05/01/22 Rx miscellaneous medical supply See Rx Instructions .Route 03/17/22 05/14/22 Unknown Rx .COMPLEX #1 ea ciprofloxacin HCl 500 mg tablet 500 mg PO Q12H #20 tabs 05/09/22 05/14/22 05/15/22 Rx ibuprofen 800 mg tablet 800 mg PO TID PRN pain 7 days #21 05/09/22 05/14/22 05/14/22 Rx tabs hydrocodone 5 mg-acetaminophen 325 1 tab PO Q6H PRN pain 3 days #12 05/15/22 Unknown Rx mg tablet tabs Allergies Allergy/AdvReac Type Severity Reaction Status Date / Time clindamycin Allergy Severe ADR-Nausea Verified 05/15/22 13:55 diphenhydramine Allergy Severe Unknown Verified 05/15/22 13:55 [From Benadryl] linezolid [From Zyvox] Allergy Severe ALGY-Anaphy Verified 05/15/22 13:45 laxis nitrofurantoin Allergy Severe ALGY-Rash Verified 05/15/22 13:55 [From Macrobid] Penicillins Allergy Severe Unknown Verified 05/15/22 13:55 Sulfa (Sulfonamide Allergy Severe Unknown Verified 05/15/22 13:55 Antibiotics) sulfamethoxazole Allergy Severe ALGY-Anaphy Verified 05/15/22 13:55 [From Bactrim] laxis bee venom protein (honey bee) Allergy Unknown Verified 05/14/22 15:37 erythromycin base Allergy Unknown Verified 05/14/22 15:37 trimethoprim [From Bactrim] Allergy ALGY-Anaphy Verified 05/14/22 15:37 laxis Current Medications Generic Name Dose Route Start Last Admin Trade Name Freq PRN Reason Stop Dose Admin Sodium Chloride 1,000 mls @ 30 mls/hr 05/15/22 14:00 05/15/22 14:15 Sodium Chloride 0.9% IV 05/16/22 13:59 30 mls/hr .Q24H KATHLEEN Administration PFSH Anesthesia Medical History Chronic ulcer of right foot Diabetes Hypertension No pertinent family history Surgical History S/P section S/P coronary angiogram S/P tubal ligation Social History Smoking and tobacco status: never smoked Alcohol intake: current Alcohol intake frequency: holidays/special occasions only Female Reproductive History Date of last menstrual period: 05/11/22 Spontaneous abortions: No Data Anesthesia Cardiac Studies: No Data to Display
[2022-05-15] MEDS: vancomycin 1,000 MG in sodium chloride 0.9% 250 ML 250 MG IV (14:54)
[2022-05-15 16:05] VITALS: BP 136/76; PULSE 80; RESP 12; TEMP 36.9; O2SAT 100
[2022-05-15 16:11] VITALS: BP 122/70; PULSE 77; RESP 14; TEMP 36.9; O2SAT 96
[2022-05-15 16:15] VITALS: BP 113/69; PULSE 84; RESP 16; TEMP 36.9; O2SAT 94
[2022-05-15 16:30] VITALS: BP 118/73; PULSE 79; RESP 16; TEMP 36.8; O2SAT 96
--- NOTE | 2022-05-16 06:23 | P.OP_ITS ---
Operative Report Date of procedure: May 16, 2022 Pre-op diagnosis: Preop Diagnosis Right foot osteomyelitis Post-op diagnosis: Same Post-op findings: Osteomyelitis of fourth metatarsal head and base of proximal phalanx of fourth digit with septic fourth MTPJ. Abscess present at the level of the fourth MTPJ. Procedure done: Right foot partial fourth ray resection CPT 85687 Specimens removed/disposition: -Right foot fourth digit and right foot fourth metatarsal head and neck sent to pathology -Aerobic and anaerobic swabs sent to micro for ID and sensitivity Pathology: -Right foot fourth digit -Right foot fourth metatarsal head and neck Surgeon: Dr. Fredi Goldman, D.P.M. 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 The patient has had the aforementioned chief complaint for some time. Conservative treatment measures have been attempted. The patient has failed antibiotics and the infection has progressed to the point that surgical intervention is emergent to preserve limb and ultimately life. Without the procedure to clear the infection the patient is at risk of losing her limb. A lengthy discussion regarding the procedure, including risks and complications has been had with the patient and is noted in the recent clinic note. Written and verbal consent have been obtained. All patient questions have been answered to the patient?s satisfaction. No written or verbal guarantees have been given or implied. The patient has been NPO since midnight. The history has been reviewed and the history and physical is current. The signed consent was confirmed and placed in the patient chart. Patient imaging has been reviewed and is consistent with the diagnosis. Under mild sedation, the patient was brought into the operating room and placed on the table in the supine position. IV antibiotics were given by the anesthesia team as preoperative surgical prophylaxis. IV sedation was then performed by the anesthesiateam. A local field block using 0.5% Marcaine plain was then performed. A pneumatic tourniquet was then placed about the right ankle. The operative extremity was then prepped and draped in the usual fashion. The extremity was then elevated and exsanguinated before the tourniquet was inflated to 250 mmHg. After inflation, the following procedure was then performed. Attention was directed to the right foot where a full-thickness ulceration was noted to the plantar aspect of the right foot with positive probe to bone with active serous drainage. A #15 blade was used to make a 6 cm incision over the fourth metatarsal phalangeal joint. Dissection was carried down to the level of the fourth metatarsal phalangeal joint to examine the base the proximal phalanx and head of the fourth metatarsal. Upon incising the capsule there was immediate extravasation of purulence from the joint. Both aerobic and anaerobic cultures were taken of the purulence at this level. The base the proximal phalanx was noted to be completely eroded with discoloration and loss of integrity of bone. The fourth metatarsal head showed similar signs of cortical erosion and destructive changes secondary to infection. The surrounding tissues were noted to be torres and discolored. At this point it was decided that the fourth digit as well as the fourth metatarsal head would need to be resected. A penetrating towel clamp was used to puncture the fourth digit before a circumferential incision was made around the fourth digit. Dissection was carried down to the level of the fourth metatarsal phalangeal joint and the digit was disarticulated and passed from the operative field to be sent to pathology as specimen. Dissection was carried out around the fourth metatarsal head to expose the shaft of the fourth metatarsal. Next a sagittal bone saw was used to perform a bone resection of the distal aspect of the fourth metatarsal. This was then grasped with pickups and shelled out using a 15 blade and passed from the operative field. The bone was noted to be soft and discolored in nature. The remaining metatarsal appeared hard and viable. A rongeur was used to remove surrounding devitalized tissue. The foot was expressed for any further purulence which there was none. The site was irrigated with 3 L of ster ile saline via cystoscopy tubing. The tourniquet was let down at this point and any bleeders were cauterized as necessary. The remaining tissues appeared healthy in nature. Attention was then directed to closure. The amputation site and dorsal incision were closed with commendation of 2-0 and 3-0 Prolene in simple interrupted fashion. The plantar right foot wound was then packed with Betadine soaked 4 x 4 gauze. The incision was covered with Betadine soaked Adaptic. Foot was then wrapped with 4 x 4 gauze Kerlix and Jayy wrap. The patient tolerated the procedure and anesthesia well and without complication. The patient was transported from the operating room to the recovery room with vital signs stable and vascular status intact to all digits of the right foot. The patient was given both written and verbal instructions to remain minimally weightbearing to the operative extremity, to keep dressings/splint clean, dry and intact and to take pain medication as directed. The patient will follow-up in the outpatient setting at their scheduled appointment. The patient was discharged with my personal number and was instructed to call if any questions or issues should arise. They were discharged home once anesthesia criteria was met.
== END 2022-05-15 16:50 | disposition home or self-care (01) ==
PROVIDERS: PCP Family Medicine; Visit Provider Podiatrist Foot & Ankle Surgery
PROC: (CPT 28820; principal; 2022-05-15 15:30)
DX: M86.8X7 Other osteomyelitis, ankle and foot (principal); I25.10 Atherosclerotic heart disease of native coronary artery without angina pectoris; I11.0 Hypertensive heart disease with heart failure; I50.9 Heart failure, unspecified; I25.2 Old myocardial infarction; E11.9 Type 2 diabetes mellitus without complications; Z79.84 Long term (current) use of oral hypoglycemic drugs
CPT/HCPCS: 28820; 36416; 82962; 87070; 88305; 88311; J0131; J2250; J2704; J3010; J3370; J3490; J7030; J7050

== ENCOUNTER → 2022-05-21 09:31 | Outpatient (BNVA) | payer MEDICAID, SELFPAY | PROVIDERS: PCP Family Medicine; Visit Provider Podiatrist Foot & Ankle Surgery | DX: M86.9 Osteomyelitis, unspecified (principal); L02.611 Cutaneous abscess of right foot; L03.115 Cellulitis of right lower limb; L97.511 Non-pressure chronic ulcer of other part of right foot limited to breakdown of skin; E11.628 Type 2 diabetes mellitus with other skin complications; L08.9 Local infection of the skin and subcutaneous tissue, unspecified; E11.21 Type 2 diabetes mellitus with diabetic nephropathy; E11.621 Type 2 diabetes mellitus with foot ulcer; Z79.84 Long term (current) use of oral hypoglycemic drugs | CPT/HCPCS: 99024 ==

== ENCOUNTER 2022-05-29 20:23 | Emergency (ER) | payer MEDICAID, SELFPAY ==
[2022-05-29 20:52] VITALS: BP 162/92; PULSE 104; RESP 18; TEMP 35.6; O2SAT 97; BMI 30.5
--- NOTE | 2022-05-29 21:35 | W.ED.WOUNDLC ---
HPI - Wound/Laceration General: Chief Complaint: Wound/Laceration Stated Complaint: right toe amputation sent by DR Lal Seen by Provider: 05/29/22 21:04 History of Present Illness: Patient is a 46-year-old female comes to the ED for a dressing change. Patient had her right 4th toe surgically amputated 2 weeks ago and was told if her bandage gets wet she needs to have dressing change. Today she took a shower and her bandage got wet. She came here to the ED to have dressing removed and to have new dressing applied. She denies any other complaints. Denies fevers or any purulent drainage. She has an appointment with doctor tomorrow to evaluate surgical wound. Associated symptoms: Denies chills, fever(s), nausea or vomiting Review of Systems Const: Denies: fever(s), chills or fatigue Eyes: Denies: change in vision or eye discomfort ENMT: Denies: throat pain, odynophagia, nasal discharge or nasal congestion Card: Denies: chest pain, palpitations, edema, swelling of feet/ankles, dyspnea on exertion or orthopnea Resp: Denies: dyspnea, productive cough or non-productive cough GI: Denies: abdominal pain, nausea, vomiting, diarrhea, constipation or hematochezia : Denies: flank pain, dysuria or hematuria Musc: Denies: neck pain, back pain or extremity swelling Skin/Breast: Reports: surgical incision (Surgical wound-amputation of right fourth toe); Denies: rash or new lesions Neuro: Denies: headache(s), numbness in extremities or weakness in extremities [facility] ED PFSH: Medical History Chronic ulcer of right foot Diabetes Hypertension No pertinent family history Surgical History S/P section S/P coronary angiogram S/P tubal ligation Social History Smoking and tobacco status: never smoked Alcohol intake: current Alcohol intake frequency: holidays/special occasions only Female Reproductive History: Date of last menstrual period: 05/11/22 Spontaneous abortions: No Physical Exam Const: COMMON NORMALS: no acute distress, patient oriented x3 and alert GENERAL APPEARANCE: cooperative and comfortable HENMT: COMMON NORMALS: normocephalic HEAD & SCALP: normocephalic MOUTH: Normal oral and palatal mucosa present THROAT: posterior oropharynx normal and uvula midline Neck/C-Spine: COMMON NORMALS: supple GENERAL: Yes normal visual inspection Resp: COMMON NORMALS: normal respiratory effort, No retractions, No use of accessory muscles and clear to auscultation bilaterally AUSCULTATION: clear to auscultation bilaterally Cardio: COMMON NORMALS: regular rate, regular rhythm, S1 normal heart sound present, S2 normal heart sound present, No gallops present (Cardio), No clicks present (Cardio), No murmurs present (Cardio) and Peripheral pulses 2+ throughout RATE: regular rate RHYTHM: regular rhythm HEART SOUNDS: S1 normal heart sound present and S2 normal heart sound present PERIPHERAL PULSES: Peripheral pulses 2+ throughout GI: COMMON NORMALS: Normal to inspection, nondistended, normoactive bowel sounds present, Soft to palpation, non-tender and no masses PALPATION: Yes Soft to palpation : COMMON NORMALS: Yes no CVA tenderness BLADDER/KIDNEY EXAM: Yes no CVA tenderness Back/Pelvis: COMMON NORMALS: no CVA tenderness Extremity: NARRATIVE EXTREMITY EXAM: Right foot fourth toe?surgical amputation site is healing well. No purulent drainage noted. No erythema or warmth noted as well. Bandage was wet when I removed it. Neuro: COMMON NORMALS: patient oriented x3 SENSORIUM/ORIENTATION: Yes alert GAIT: Yes Normal gait present Skin: GENERAL SKIN EXAM: dry skin Course Vital Signs: Vital signs: Vital Signs Temperature 96.0 F L 05/29/22 20:52 Pulse Rate 104 H 05/29/22 20:52 Respiratory Rate 18 05/29/22 20:52 Blood Pressure 162/92 05/29/22 20:52 Pulse Oximetry 97 05/29/22 20:52 Oxygen Delivery Me thod 05/29/22 20:52 MDM - Wound/Laceration Medical Decision Making Patient is a 46-year-old female who comes the ED for dressing change. Patient had her fourth toe on right foot surgically amputated 2 weeks ago. She had surgical bandage applied and was told to have bandage changed if she gets wet. Tonight she was taking a shower and got wet. She denies any other complaints and says she is not having any purulent drainage or fevers. Vitals are stable. Exam shows surgical amputation of her right foot fourth toe that is healing well and no signs of any infection noted. When bandage was removed and nurse applied a bandage. She has a follow-up appointment with her doctor tomorrow to evaluate surgical wound. Return ED precautions given. Patient understood agree with plan. Discharge Plan Discharge Patient Disposition: Home Clinical Impression: Encounter for surgical wound dressing change Condition: Stable Prescriptions: No Action multivitamin Tablet 1 tab PO DAILY Jardiance 25 mg tablet 25 mg PO DAILY Qty: 90 0RF metformin 1,000 mg tablet 1,000 mg PO BID Qty: 60 2RF (DME) blood-glucose meter [FreeStyle Lite Meter] Kit See Rx Instructions .Route Qty: 1 0RF Rx Instructions: As directed (DME) FreeStyle Lite Strips Strip See Rx Instructions .Route Qty: 100 3RF Rx Instructions: once daily check lisinopril 10 mg tablet 10 mg PO DAILY Qty: 90 1RF atorvastatin 40 mg tablet 40 mg PO DAILY Qty: 90 1RF ciprofloxacin HCl 500 mg tablet 500 mg PO Q12H Qty: 20 0RF Rx Instructions: Take one tablet by mouth every 12 hours until gone tramadol 50 mg tablet 50 mg PO Q8H PRN (Reason: pain) Qty: 15 0RF Rx Instructions: Take one tablet by mouth every 8 hours as needed for pain miscellaneous medical supply Misc See Rx Instructions .ROUTE .COMPLEX Qty: 1 2RF Rx Instructions: Evaluation for diabetic foot wear with possible orthotics for off-loading on the insole. ibuprofen 800 mg tablet 800 mg PO TID PRN (Reason: pain) 7 Days Qty: 21 0RF Rx Instructions: Take one tablet by mouth every 8 hours as needed for pain ondansetron 4 mg tablet,disintegrating 4 mg PO Q8H PRN (Reason: nausea and vomiting) Qty: 15 0RF Discharge Orders: Discharge ED (Routine); Ordered 05/29/22 Ordered By: Finn King Referrals: Jorge Prakash DO [Primary Care Provider] - Discharge Diet: Regular Discharge Activity: Increase activity as tolerated Activity Restrictions/Additional Instructions: Follow-up with doctor at your scheduled appointment tomorrow. Continue taking all home medications as previously prescribed. Return to the ER or your medical provider if condition worsens. Please read and understand discharge instructions. Thank you for choosing [facility] for your healthcare needs today. Please realize this is an emergency room and that we are providing you with a medical screening exam and this may not be complete and all inclusive of all the testing and or work up that you may need to determine your ailment or severity of your illness. It is very important that you follow up as instructed or that you return to the Emergency Department should you have concerns or if your condition changes or worsens in any way. 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
[2022-05-29 22:29] VITALS: BP 139/64; PULSE 93; RESP 18; O2SAT 95
== END 2022-05-29 22:30 | disposition home or self-care (01) ==
PROVIDERS: Emergency Provider Physician Assistant; PCP Family Medicine
DX: Z48.01 Encounter for change or removal of surgical wound dressing (principal); Z79.84 Long term (current) use of oral hypoglycemic drugs; E11.9 Type 2 diabetes mellitus without complications; I10 Essential (primary) hypertension
CPT/HCPCS: 99283

== ENCOUNTER → 2022-05-30 09:01 | Outpatient (BNVA) | payer MEDICAID, SELFPAY | PROVIDERS: PCP Family Medicine; Visit Provider Podiatrist Foot & Ankle Surgery | DX: E11.621 Type 2 diabetes mellitus with foot ulcer (principal); L97.512 Non-pressure chronic ulcer of other part of right foot with fat layer exposed; Z98.890 Other specified postprocedural states; L03.115 Cellulitis of right lower limb; L08.9 Local infection of the skin and subcutaneous tissue, unspecified; E11.21 Type 2 diabetes mellitus with diabetic nephropathy; Z79.84 Long term (current) use of oral hypoglycemic drugs; M86.9 Osteomyelitis, unspecified; L02.611 Cutaneous abscess of right foot | CPT/HCPCS: 11042; 73630 ==

== ENCOUNTER → 2022-06-06 12:48 | Outpatient (BNVA) | payer MEDICAID, SELFPAY | PROVIDERS: PCP Family Medicine; Visit Provider Podiatrist Foot & Ankle Surgery | DX: E11.621 Type 2 diabetes mellitus with foot ulcer (principal); Z79.84 Long term (current) use of oral hypoglycemic drugs; Z98.890 Other specified postprocedural states; L97.511 Non-pressure chronic ulcer of other part of right foot limited to breakdown of skin; L03.115 Cellulitis of right lower limb; M86.9 Osteomyelitis, unspecified; L02.611 Cutaneous abscess of right foot; L08.9 Local infection of the skin and subcutaneous tissue, unspecified; E11.21 Type 2 diabetes mellitus with diabetic nephropathy | CPT/HCPCS: 11042 ==

== ENCOUNTER 2022-06-09 14:52 | Emergency (ER) | payer MEDICAID, SELFPAY ==
[2022-06-09 15:32] VITALS: BP 144/84; PULSE 98; RESP 16; TEMP 36.1; O2SAT 98
--- NOTE | 2022-06-09 15:32 | XRR_ITS ---
PROCEDURE INFORMATION: Exam: XR Cervical Spine Exam date and time: 06/09/2022 3:34 PM Age: 46 years old Clinical indication: Injury or trauma; Fall; Blunt trauma; Additional info: Fall, neck pain TECHNIQUE: Imaging protocol: Radiologic exam of the cervical spine. Views: 2 or 3 views. COMPARISON: CT thoracic spin wo con* [id number] 02/23/2022 2:56 PM FINDINGS: Bones/joints: No acute finding. No acute fracture. Normal alignment. C3-6 osteophytes are seen anteriorly with slight DDD. Soft tissues: Unremarkable. XR/XR cervical spine 3V* [id number] IMPRESSION: 1. No acute findings. 2. Mild C3-6 degenerative change. This is age-appropriate.
--- NOTE | 2022-06-09 15:32 | XRR_ITS ---
PROCEDURE INFORMATION: Exam: XR Lumbosacral Spine Exam date and time: 06/09/2022 3:34 PM Age: 46 years old Clinical indication: Pain and injury or trauma; Fall; Blunt trauma (contusions or hematomas); Low back pain; Additional info: Fall, back pain TECHNIQUE: Imaging protocol: Radiologic exam of the lumbosacral spine. Views: 2 or 3 views. COMPARISON: CR XR lumbar spine 2-3V* [id number] 11/12/2021 1:24 AM FINDINGS: Bones/joints: Mild age-appropriate L3-S1 degenerative change. No acute fracture. Normal alignment. Soft tissues: Unremarkable. XR/XR lumbar spine 2-3V* [id number] IMPRESSION: No acute findings.
--- NOTE | 2022-06-09 15:32 | XRR_ITS ---
PROCEDURE INFORMATION: Exam: XR Thoracic Spine Exam date and time: 06/09/2022 3:34 PM Age: 46 years old Clinical indication: Pain and injury or trauma; Fall; Blunt trauma (contusions or hematomas); Other: Neck pain; Additional info: Fall, back pain TECHNIQUE: Imaging protocol: Radiologic exam of the thoracic spine. Views: 3 views. COMPARISON: CT thoracic spin wo con* [id number] 02/23/2022 2:56 PM FINDINGS: Bones/joints: No acute fracture or subluxation. 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 Soft tissues: Unremarkable. XR/XR thoracic spine 3V* [id number] IMPRESSION: 1. No acute findings. 2. Pronounced lower thoracic degenerative change. No significant change from 02/23/2022 CT.
--- NOTE | 2022-06-09 15:32 | W.ED.FALL ---
HPI - Fall General: Chief Complaint: Back Pain/Injury Stated Complaint: back pain Time Seen by Provider: 06/09/22 15:00 Source: patient Mode of arrival: ambulatory Limitations: no limitations History of Present Illness: Patient is a 46-year-old female who presents to ED today with a complaint of diffuse back pain after she stepped out of a travel trailer wrong and fell. She tells me she thinks she yimi her back and is complaining of neck pain, mid back pain, and lower back pain. She does have a longstanding history of back pains. Patient is ambulatory without difficulty. She apparently was seen at urgent care and referred to the ED for evaluation. After review of this note patient mentioned 2 episodes of fecal incontinence following the fall however patient declines this to me. She does not endorse numbness, tingling, loss of sensation to her lower legs or pelvis. She is not having any urinary/bowel retention and/or incontinence. Denies any other injury sustained during the fall. MD complaint: fall Onset (ago): day(s) (yesterday) Fall witnessed: no Place fall occurred: home Loss of consciousness: None Prolonged down time: no Symptoms prior to fall: none Location of injury: neck and back Associated symptoms-after fall: Reports no associated symptoms and neck pain; Denies abdominal pain, chest pain, difficulty walking or headache(s) Review of Systems Const: Denies: fever(s), chills, body aches, fatigue or malaise Card: Denies: chest pain Resp: Denies: dyspnea GI: Denies: abdominal pain Musc: Reports: neck pain and back pain; Denies: extremity pain or joint pain Skin/Breast: Denies: rash Neuro: Denies: headache(s), numbness in extremities, weakness in extremities, sensory changes or difficulty walking [facility] ED PFSH: Medical History Chronic ulcer of right foot Diabetes Hypertension No pertinent family history Surgical History S/P section S/P coronary angiogram S/P tubal ligation Social History Smoking and tobacco status: never smoked Alcohol intake: current Alcohol intake frequency: holidays/special occasions only Female Reproductive History: Date of last menstrual period: 05/11/22 Spontaneous abortions: No Physical Exam Const: COMMON NORMALS: no acute distress, patient oriented x3, no limitations, alert and well nourished GENERAL APPEARANCE: cooperative ORIENTATION/CONSCIOUSNESS: Yes awake, Yes oriented to person, Yes oriented to place and Yes oriented to time OTHER: ambulatory without difficulty HENMT: COMMON NORMALS: normocephalic and atraumatic HEAD & SCALP: normal to inspection, normocephalic and atraumatic Neck/C-Spine: COMMON NORMALS: full ROM GENERAL: Yes normal visual inspection CERVICAL SPINE: Yes pain with cervical ROM, Yes Cervical spine tenderness (mild diffusely), No step off deformity and No Paracervical muscle tenderness Chest: COMMONS NORMALS: normal inspection of the chest and normal palpation of entire chest wall Resp: COMMON NORMALS: normal respiratory effort and clear to auscultation bilaterally AUSCULTATION: clear to auscultation bilaterally Cardio: COMMON NORMALS: regular rate and regular rhythm RATE: regular rate RHYTHM: regular rhythm GI: COMMON NORMALS: Normal to inspection, nondistended, normoactive bowel sounds present, Soft to palpation and no masses PALPATION: Yes Soft to palpation Back/Pelvis: THORACIC SPINE/UPPER BACK: Yes normal to inspection, Yes thoracic ROM normal, Yes thoracic spinal tenderness (diffusely-mild), No paraspinal muscle tenderness and No paraspinal muscle spasm LUMBAR SPINE/LOWER BACK: Yes normal to inspection, Yes lumbar ROM normal, Yes lumbar spinal tenderness (diffusely-mild), No paraspinal muscle tenderness, No paraspinal muscle spasm and Yes straight leg raise negative bilaterally PELVIS: Yes buttocks normal SACROILIAC JOINTS: Yes SI joints normal SACRUM: no tenderness COCCYX: no tenderness Extremity: COMMON NORMALS: normal to inspection GENERAL: Yes normal exam except as noted Neuro: VI COMA SCALE: document [facility] findings [place] coma scale eye opening: Spontaneous Vi coma scale verbal response: Orientated Vi coma scale motor response: Obey commands Vi coma scale total score: 15 COMMON NORMALS: patient oriented x3, moves all extremities, no focal motor deficits, no sensory deficits noted and gait normal SENSORIUM/ORIENTATION: Yes alert, Yes oriented to person, Yes oriented to place and Yes oriented to time GAIT: Yes Normal gait present MOTOR EXAM: 5/5 motor strength present throughout DEEP TENDON REFLEXES: Right patellar reflex intensity grade: 2+ and Left patellar reflex intensity grade: 2+ Skin: TRAUMA: no lacerations or abrasions Course Vital Signs: Vital signs: Vital Signs Temperature 97.0 F L 06/09/22 15:32 Pulse Rate 98 06/09/22 15:32 Respiratory Rate 16 06/09/22 15:32 Blood Pressure 144/84 06/09/22 15:32 Pulse Oximetry 98 06/09/22 15:32 Oxygen Delivery Me thod 06/09/22 15:32 MDM - Fall Medical Decision Making XRs negative. Patient has no red flags on her history or physical examination today. Recommend conservative therapies at home. She can follow-up with primary care later this week or early next week for continued discomfort. Return ED precautions given. Lab Data Radiology Impressions Cervical Spine X-Ray 06/09/22 15:32 IMPRESSION: 1. No acute findings. 2. Mild C3-6 degenerative change. This is age-appropriate. Lumbar Spine X-Ray 06/09/22 15:32 IMPRESSION: No acute findings. Thoracic Spine X-Ray 06/09/22 15:32 IMPRESSION: 1. No acute findings. 2. Pronounced lower thoracic degenerative change. No significant change from 02/23/2022 CT. Discharge Plan Discharge Patient Disposition: Home Clinical Impression: Back complaints Condition: Stable Prescriptions: No Action multivitamin Tablet 1 tab PO DAILY Jardiance 25 mg tablet 25 mg PO DAILY Qty: 90 0RF metformin 1,000 mg tablet 1,000 mg PO BID Qty: 60 2RF (DME) blood-glucose meter [FreeStyle Lite Meter] Kit See Rx Instructions .Route Qty: 1 0RF Rx Instructions: As directed (DME) FreeStyle Lite Strips Strip See Rx Instructions .Route Qty: 100 3RF Rx Instructions: once daily check lisinopril 10 mg tablet 10 mg PO DAILY Qty: 90 1RF atorvastatin 40 mg tablet 40 mg PO DAILY Qty: 90 1RF tramadol 50 mg tablet 50 mg PO Q8H PRN (Reason: pain) Qty: 15 0RF Rx Instructions: Take one tablet by mouth every 8 hours as needed for pain levofloxacin 500 mg tablet 500 mg PO DAILY Qty: 10 0RF Rx Instructions: Take one tablet by mouth once daily with food lidocaine HCl [Lidocaine Viscous] 2 % solution 1 applic topical ONCE Qty: 1 0RF cyclobenzaprine 10 mg tablet 10 mg PO TID PRN (Reason: muscle spasm) Qty: 21 0RF Rx Instructions: Take one tablet by mouth every 8 hours as needed for spasms (DME) Diabetic shoes See Rx Instructions .Route .MEDSUPPLY Qty: 1 0RF Rx Instructions: As directed HOME (DME) 3 Inserts See Rx Instructions .Route .MEDSUPPLY Qty: 1 0RF Rx Instructions: As directed HOME miscellaneous medical supply Misc See Rx Instructions .ROUTE .COMPLEX Qty: 1 2RF Rx Instructions: Evaluation for diabetic foot wear with possible orthotics for off-loading on the insole. ibuprofen 800 mg tablet 800 mg PO TID PRN (Reason: pain) 7 Days Qty: 21 0RF Rx Instructions: Take one tablet by mouth every 8 hours as needed for pain ondansetron 4 mg tablet,disintegrating 4 mg PO Q8H PRN (Reason: nausea and vomiting) Qty: 15 0RF Discharge Orders: Discharge ED (Routine); Ordered 06/09/22 Ordered By: Remedios Castle Referrals: Jorge Prakash DO [Primary Care Provider] - Coding Level of Care Code ED Switch Technician for Chg Fwd Exam Comprehensive
== END 2022-06-09 16:58 | disposition home or self-care (01) ==
PROVIDERS: Emergency Provider Physician Assistant; PCP Family Medicine
DX: M54.9 Dorsalgia, unspecified (principal); Z79.84 Long term (current) use of oral hypoglycemic drugs; E11.9 Type 2 diabetes mellitus without complications; I10 Essential (primary) hypertension
CPT/HCPCS: 72040; 72072; 72100; 99283

== ENCOUNTER → 2022-06-13 11:19 | Outpatient (BNVA) | payer MEDICAID, SELFPAY | PROVIDERS: PCP Family Medicine; Visit Provider Podiatrist Foot & Ankle Surgery | DX: Z98.890 Other specified postprocedural states (principal); M86.9 Osteomyelitis, unspecified; L02.611 Cutaneous abscess of right foot; L03.115 Cellulitis of right lower limb; E11.621 Type 2 diabetes mellitus with foot ulcer; Z79.84 Long term (current) use of oral hypoglycemic drugs; L97.511 Non-pressure chronic ulcer of other part of right foot limited to breakdown of skin; L08.9 Local infection of the skin and subcutaneous tissue, unspecified; E11.21 Type 2 diabetes mellitus with diabetic nephropathy | CPT/HCPCS: 99213 ==

== ENCOUNTER 2022-06-25 20:22 | Emergency (ER) | payer MEDICAID, SELFPAY ==
[2022-06-25 20:35] VITALS: BP 133/91; PULSE 113; RESP 16; TEMP 36.7; O2SAT 96
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
[2022-06-25] MEDS: pregabalin 25 mg Capsule PO (21:55)
== END 2022-06-25 22:09 | disposition home or self-care (01) ==
PROVIDERS: Emergency Provider Nurse Practitioner Family; PCP Family Medicine
DX: E11.40 Type 2 diabetes mellitus with diabetic neuropathy, unspecified (principal); Z79.84 Long term (current) use of oral hypoglycemic drugs; I10 Essential (primary) hypertension
CPT/HCPCS: 99283

== ENCOUNTER 2022-07-05 21:25 | Emergency (ER) | payer MEDICAID, SELFPAY ==
[2022-07-05 21:26] VITALS: BP 138/61; PULSE 107; RESP 19; TEMP 37.2; O2SAT 96
--- NOTE | 2022-07-05 23:52 | XRR_ITS ---
PROCEDURE INFORMATION: Exam: XR Thoracic Spine Exam date and time: 07/06/2022 12:01 AM Age: 46 years old Clinical indication: Injury or trauma; Fall; Blunt trauma (contusions or hematomas); Additional info: Fall mid back pain TECHNIQUE: Imaging protocol: Radiologic exam of the thoracic spine. Views: 3 views. COMPARISON: CR XR thoracic spine 3V* [id number] 06/09/2022 3:34 PM FINDINGS: Bones/joints: There are degenerative changes in the lower lumbar spine with anterior and right lateral osteophytes. No thoracic spine fracture is identified. Soft tissues: Soft tissues are unremarkable. XR/XR thoracic spine 2V [id number] IMPRESSION: Degenerative changes. No fracture is identified. No change compared with 06/09/2022.
--- NOTE | 2022-07-05 23:52 | XRR_ITS ---
PROCEDURE INFORMATION: Exam: XR Chest Exam date and time: 07/06/2022 12:00 AM Age: 46 years old Clinical indication: Cough and wheezing; Additional info: Cough, wheezing TECHNIQUE: Imaging protocol: Radiologic exam of the chest. Views: 1 view. COMPARISON: CR XR chest 1V portable [id number] 02/17/2022 4:56 PM FINDINGS: Lungs: Unremarkable. No consolidation. Pleural spaces: Unremarkable. No pleural effusion. No pneumothorax. Heart/Mediastinum: Unremarkable. No cardiomegaly. Bones/joints: Unremarkable. XR/XR chest 1V portable [id number] IMPRESSION: No acute findings.
[2022-07-06 00:03] VITALS: RESP 16
[2022-07-06] MEDS: oxyCODONE-APAP 5-325 mg Tablet 1 TAB PO (00:03)
[2022-07-06 00:34] LABS: Influenza A by IFA negative (Negative); Influenza B by IFA negative (Negative); SARS Covid-2 Antigen negative (Negative)
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
== END 2022-07-06 01:33 | disposition home or self-care (01) ==
PROVIDERS: Emergency Provider Emergency Medicine; PCP Family Medicine
DX: M47.814 Spondylosis without myelopathy or radiculopathy, thoracic region (principal); J20.9 Acute bronchitis, unspecified; Z79.84 Long term (current) use of oral hypoglycemic drugs; Z20.822 Contact with and (suspected) exposure to COVID-19; E11.9 Type 2 diabetes mellitus without complications; I10 Essential (primary) hypertension
CPT/HCPCS: 71045; 72070; 87426; 87804; 99283

== ENCOUNTER → 2022-07-08 13:54 | Outpatient (BNVA) | payer MEDICAID, SELFPAY | PROVIDERS: PCP Family Medicine; Visit Provider Internal Medicine Cardiovascular Disease | DX: R07.9 Chest pain, unspecified (principal); I10 Essential (primary) hypertension | CPT/HCPCS: 99214; Q3014 ==

== ENCOUNTER → 2022-07-18 13:02 | Outpatient (BNVA) | payer MEDICAID, SELFPAY | PROVIDERS: PCP Family Medicine; Visit Provider Podiatrist Foot & Ankle Surgery | DX: E11.621 Type 2 diabetes mellitus with foot ulcer (principal); M86.9 Osteomyelitis, unspecified; L02.611 Cutaneous abscess of right foot; E11.21 Type 2 diabetes mellitus with diabetic nephropathy; L03.115 Cellulitis of right lower limb; L08.9 Local infection of the skin and subcutaneous tissue, unspecified; L97.511 Non-pressure chronic ulcer of other part of right foot limited to breakdown of skin; Z79.84 Long term (current) use of oral hypoglycemic drugs | CPT/HCPCS: 99213 ==

== ENCOUNTER 2022-08-03 07:32 | Emergency (ER) | payer BC, MEDICAID, SELFPAY ==
--- NOTE | 2022-08-03 07:34 | W.ED.CHESTPA ---
HPI - Chest Pain General: Chief Complaint: Chest Pain Stated Complaint: chest pressure Time Seen by Provider: 08/03/22 07:34 History of Present Illness: Patient left prior to my evaluation. [facility] ED PFSH: Medical History Chronic ulcer of right foot Diabetes Hypertension No pertinent family history Surgical History S/P section S/P coronary angiogram S/P tubal ligation Social History Smoking and tobacco status: never smoked Alcohol intake: current Alcohol intake frequency: holidays/special occasions only Female Reproductive History: Spontaneous abortions: No Course Vital Signs: Vital signs: Vital Signs Temperature 97.6 F 08/03/22 07:40 Pulse Rate 95 08/03/22 07:40 Respiratory Rate 14 08/03/22 07:40 Blood Pressure 117/80 08/03/22 07:40 Pulse Oximetry 95 08/03/22 07:40 Oxygen Delivery Ar thod 08/03/22 07:40 MDM - Chest Pain Medical Decision Making Patient left prior to my evaluation. Lab Data 08/03/22 08:27 08/03/22 08:27 Radiology Impressions Chest X-Ray 08/03/22 07:42 IMPRESSION: No acute findings. Laboratory Results WBC 7.0 10^3/uL (4.0-10.0) 08/03/22 08:27 RBC 4.62 10^6/uL (4.1-5.3) 08/03/22 08:27 Hgb 13.4 g/dL (11.5-15.3) 08/03/22 08:27 Hct 38.6 % (37.0-47.0) 08/03/22 08:27 MCV 83.5 fl (81-99) 08/03/22 08:27 MCH 29.0 pg (28.0-34.0) 08/03/22 08:27 MCHC 34.7 g/dL (30.0-36.0) 08/03/22 08:27 RDW 14.6 % (12.1-15.1) 08/03/22 08:27 Plt Count 208 10^3/cmm (130-400) 08/03/22 08: MPV 8.3 fL (7.4-10.4) 08/03/22 08:27 Neut % (Auto) 63.0 % 08/03/22 08: Lymph % (Auto) 29.8 % 08/03/22 08:27 [place] % (Auto) 5.1 % 08/03/22 08:27 Eos % (Auto) 0.9 % 08/03/22 08:27 Baso % (Auto) 0.6 % 08/03/22 08:27 Neut # (Auto) 4.44 10^3/uL (1.8-7.7) 08/03/22 08: Lymph # (Auto) 2.1 10^3/uL (0.8-4.8) 08/03/22 08: [place] # (Auto) 0.4 10^3/uL (0.2-0.9) 08/03/22 08: Eos # (Auto) 0.1 10^3/uL (0.0-0.8) 08/03/22 08: Baso # (Auto) 0.0 10^3/uL (0.0-0.1) 08/03/22 08: Nucleated RBC % (auto) 0 % 08/03/22 08: Nucleated RBCs # 0.0 /100WBC 08/03/22 08:27 Sodium 135 mmol/L (136-145) L 08/03/22 08:27 Potassium 3.7 mmol/L (3.5-5.1) 08/03/22 08:27 Chloride 100 mmol/L (98-107) 08/03/22 08:27 Carbon Dioxide 21 mmol/L (22-29) L 08/03/22 08:27 Anion Gap 17.7 (5-19) 08/03/22 08:27 BUN 13 mg/dL (6-20) 08/03/22 08:27 Creatinine 0.6 mg/dL (0.5-0.9) 08/03/22 08:27 GFR Calculation 107.6 mL/min (90-130) 08/03/22 08:27 Glucose 305 mg/dL (65-115) H 08/03/22 08:27 Calculated Osmolality 292 mOsm/kg (285-295) 08/03/22 08:27 Calcium 8.1 mg/dL (8.5-10.5) L 08/03/22 08:27 Total Bilirubin 0.5 mg/dL (0.15-1.2) 08/03/22 08:27 AST 16 U/L (0-32) 08/03/22 08:27 ALT 16 U/L (0-33) 08/03/22 08:27 Alkaline Phosphatase 77 U/L (35-105) 08/03/22 08:27 Troponin T Baseline 14 ng/L (0-10) H 08/03/22 08:27 NT-Pro-B Natriuret Pep 87 pg/mL (0-125) 08/03/22 08:27 Total Protein 6.3 g/dL (6.6-8.7) L 08/03/22 08:27 Albumin 3.7 g/dL (3.5-5.2) 08/03/22 08:27 Globulin 2.6 g/dL (1.3-4.6) 08/03/22 08:27 Lipase 30 U/L (13-60) 08/03/22 08:27 Discharge Plan Discharge Patient Disposition: Left Without Being Seen Condition: Stable Coding Level of Care Code 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
--- NOTE | 2022-08-03 07:38 | ECG_ITS ---
[facility] Test Date: 2022-08-03 Pat Name: Carolyn Alaniz Department: Room: Gender: Female Padder Cushion: : 1975 Requested By: Mundo Swann Order Number: [id number] [place] MD: Allen Lopez M.D. Measurements Intervals [place] Rate: 108 P: 66 VT: 116 QRS: 49 QRSD: 108 T: 75 QT: 354 QTc: 475 Interpretive Statements SINUS TACHYCARDIA WITH SHORT VT INTERVAL WITH OCCASIONAL SUPRAVENTRICULAR PREMATURE COMPLEXES POSSIBLE RIGHT VENTRICULAR CONDUCTION DELAY [RSR (QR) IN V1/V2] NONSPECIFIC T-WAVE ABNORMALITY Compared to ECG 02/23/2022 16:05:12 Short VT interval now present T-wave abnormality now present Sinus rhythm no longer present Incomplete right bundle-branch block no longer present Electronically Signed On 08-03-2022 11:38:39 FLOORPERSON by Allen Lopez M.D. [id number]
[2022-08-03 07:40] VITALS: BP 117/80; PULSE 95; RESP 14; TEMP 36.4; O2SAT 95; BMI 31.6
--- NOTE | 2022-08-03 07:42 | XRR_ITS ---
PROCEDURE INFORMATION: Exam: XR Chest Exam date and time: 08/03/2022 8:20 AM Age: 46 years old Clinical indication: Shortness of breath; Additional info: Cp/sob TECHNIQUE: Imaging protocol: Radiologic exam of the chest. Views: 1 view. COMPARISON: CR (CHEST, ) 07/06/2022 12:00 AM FINDINGS: Lungs: Unremarkable. No consolidation. Pleural spaces: Unremarkable. No pleural effusion. No pneumothorax. Heart/Mediastinum: Unremarkable. No cardiomegaly. Bones/joints: Unremarkable. XR/XR chest 1V portable [id number] IMPRESSION: No acute findings.
[2022-08-03 08:50] LABS: Basophils % 0.6 %; Eosinophils # 0.1 10^3/uL (0.0-0.8); Eosinophils % 0.9 %; Hematocrit 38.6 % (37.0-47.0); Hemoglobin 13.4 g/dL (11.5-15.3); Lymphocytes # 2.1 10^3/uL (0.8-4.8); Lymphocytes % 29.8 %; Mean Corpuscular HGB Conc 34.7 g/dL (30.0-36.0); Mean Corpuscular Volume 83.5 fl (81-99); Mean Platelet Volume 8.3 fL (7.4-10.4); Monocytes # 0.4 10^3/uL (0.2-0.9); Monocytes % 5.1 %; Neutrophils # 4.44 10^3/uL (1.8-7.7); Nucleated Red Blood Cells % 0 %; Platelet Count 208 10^3/cmm (130-400); Red Blood Count 4.62 10^6/uL (4.1-5.3); Red Cell Distribution Width 14.6 % (12.1-15.1)
[2022-08-03 09:20] LABS: Troponin(5th) Baseline 14 ng/L (0-10)
[2022-08-03 09:26] LABS: Alanine Aminotransferase 16 U/L (0-33); Albumin Level 3.7 g/dL (3.5-5.2); Alkaline Phosphatase 77 U/L (35-105); Anion Gap 17.7 (5-19); Aspartate Amino Transferase 16 U/L (0-32); Blood Urea Nitrogen 13 mg/dL (6-20); Calcium 8.1 mg/dL (8.5-10.5); Carbon Dioxide 21 mmol/L (22-29); Chloride 100 mmol/L (98-107); Globulin 2.6 g/dL (1.3-4.6); Glomerular Filtration Rate 107.6 mL/min (90-130); Glucose 305 mg/dL (65-115); Lipase 30 U/L (13-60); NT Pro B Type Natriuretic Pept 87 pg/mL (0-125); Osmolality Calculated 292 mOsm/kg (285-295); Potassium 3.7 mmol/L (3.5-5.1); Sodium 135 mmol/L (136-145); Total Bilirubin 0.5 mg/dL (0.15-1.2); Total Protein 6.3 g/dL (6.6-8.7)
== END 2022-08-03 09:17 | disposition left against medical advice (07) ==
PROVIDERS: Emergency Provider Emergency Medicine; PCP Family Medicine
DX: R07.9 Chest pain, unspecified (principal); Z53.21 Procedure and treatment not carried out due to patient leaving prior to being seen by health care provider; E11.9 Type 2 diabetes mellitus without complications; I10 Essential (primary) hypertension
CPT/HCPCS: 36415; 71045; 80053; 83690; 83880; 84484; 85025; 93005; 99285

== ENCOUNTER 2022-08-05 17:30 | Inpatient (IN) | payer BC, SELFPAY ==
[2022-08-05 17:31] VITALS: BP 154/92; PULSE 100; RESP 14; TEMP 36.9; O2SAT 97; BMI 31.6
--- NOTE | 2022-08-05 17:33 | W.ED.CHESTPA ---
HPI - Chest Pain General: Chief Complaint: Chest Pain Stated Complaint: CHEST PAIN Time Seen by Provider: 08/05/22 17:33 History of Present Illness: Ms. Alaniz is a 46-year-old lady with significant past medical history of diabetes, STEMI presenting to the emergency department for 3-day history of chest pain. She reports intermittent episodes in the past 3 days and more constant over the past hour. She endorses left anterior pain with radiation of the neck. Heaviness in character. Moderate to severe in intensity. No other specific changes in health, exacerbating, or alleviating factors identified. Onset (ago): day(s) Timing of current episode: episodic and increasing Prior episodes: Yes Onset: during exertion Pain location: substernal and left chest Pain radiation: back Severity: moderate Quality: heaviness Exacerbating factors: exertion Review of Systems General: Reports: 10 or more systems reviewed and unremarkable except in HPI and below PFSH ED PFSH: Medical History Chronic ulcer of right foot Diabetes History of myocardial infarction Hypertension No pertinent family history Positive cardiac stress test Surgical History S/P section S/P coronary angiogram S/P tubal ligation Status post amputation of toe Social History Smoking and tobacco status: never smoked Alcohol intake: current Alcohol intake frequency: holidays/special occasions only Female Reproductive History: Spontaneous abortions: No Physical Exam Const: COMMON NORMALS: alert GENERAL APPEARANCE: cooperative and well developed HENMT: COMMON NORMALS: normocephalic and atraumatic HEAD & SCALP: normocephalic and atraumatic Eye: COMMON NORMALS: conjunctivae normal CONJUNCTIVA: Yes conjunctivae normal SCLERA: sclerae normal Neck/C-Spine: COMMON NORMALS: supple GENERAL: Yes trachea midline Resp: COMMON NORMALS: normal respiratory effort and clear to auscultation bilaterally EFFORT & INSPECTION: Yes able to speak in complete sentences AUSCULTATION: clear to auscultation bilaterally Cardio: COMMON NORMALS: regular rate and regular rhythm RATE: regular rate RHYTHM: regular rhythm GI: COMMON NORMALS: Soft to palpation PALPATION: Yes Soft to palpation and No Tenderness to palpation present (GI) Extremity: GENERAL: Yes normal exam except as noted and No edema Neuro: COMMON NORMALS: moves all extremities SENSORIUM/ORIENTATION: Yes alert and No Orientation impaired Psych: COMMON NORMALS: mental status grossly normal and Normal thought process present THOUGHT PROCESS: Normal thought process present Course Vital Signs: Vital signs: Vital Signs Temperature 98.0 F 08/08/22 04:00 Pulse Rate 93 08/08/22 11:13 Respiratory Rate 25 H 08/08/22 11:13 Blood Pressure 158/61 08/08/22 11:13 Pulse Oximetry 98 08/08/22 08:00 Oxygen Delivery Me thod 08/08/22 04:00 MDM - Chest Pain Medical Decision Making 46-year-old lady with complex history including cardiac history presenting due to chest pain. EMS noted diaphoresis. Improvement with nitro. EKG notable for sinus rhythm with normal axis and intervals, no STEMI, similar on repeat. Labs with no significant hematologic abnormality, glucose is elevated with no evidence of DKA. Mid range increase at 2 hours of troponin. Chest x-ray with no lobar consolidation or pneumothorax. During ED course patient treated with analgesia. She received prehospital aspirin and nitroglycerin. On reassessment mild pain persists. She is not low risk by heart score and requires inpatient cardiac evaluation. The results of ED evaluation were discussed with the patient including plan for admission due to requirement for level of care not available if discharged to prevent significant worsening/deterioration. Patient agreeable with plan. Discussed with hospitalist service who was agreeable to admit patient. Medical Records I reviewed the patient's medical records. Lab Data I reviewed the patient's lab results. 08/05/22 17:34 08/05/22 17:34 Radiology Impressions Chest X-Ray 08/05/22 17:36 IMPRESSION: No acute findings. Laboratory Results WBC 6.9 10^3/uL (4.0-10.0) 08/06/22 02:57 RBC 4.13 10^6/uL (4.1-5.3) 08/06/22 02:57 Hgb 12.2 g/dL (11.5-15.3) 08/06/22 02:57 Hct 35.1 % (37.0-47.0) L 08/06/22 02:57 MCV 85.0 fl (81-99) 08/06/22 02:57 MCH 29.5 pg (28.0-34.0) 08/06/22 02:57 MCHC 34.8 g/dL (30.0-36.0) 08/06/22 02:57 RDW 14.8 % (12.1-15.1) 08/06/22 02:57 Plt Count 203 10^3/cmm (130-400) 08/06/22 02:57 MPV 8.2 fL (7.4-10.4) 08/06/22 02:57 Neut % (Auto) 44.3 % 08/06/22 02:57 Lymph % (Auto) 46.2 % 08/06/22 02:57 Arroyo % (Auto) 6.6 % 08/06/22 02:57 Eos % (Auto) 1.3 % 08/06/22 02:57 Baso % (Auto) 0.9 % 08/06/22 02:57 Neut # (Auto) 3.07 10^3/uL (1.8-7.7) 08/06/22 02:57 Lymph # (Auto) 3.2 10^3/uL (0.8-4.8) 08/06/22 02:57 Arroyo # (Auto) 0.5 10^3/uL (0.2-0.9) 08/06/22 02:57 Eos # (Auto) 0.1 10^3/uL (0.0-0.8) 08/06/22 02:57 Baso # (Auto) 0.1 10^3/uL (0.0-0.1) 08/06/22 02:57 Nucleated RBC % (auto) 0 % 08/06/22 02:57 Nucleated RBCs # 0.0 /100WBC 08/06/22 02:57 Sodium 136 mmol/L (136-145) 08/06/22 02:57 Potassium 3.9 mmol/L (3.5-5.1) 08/06/22 02:57 Chloride 104 mmol/L (98-107) 08/06/22 02:57 Carbon Dioxide 21 mmol/L (22-29) L 08/06/22 02:57 Anion Gap 14.9 (5-19) 08/06/22 02:57 BUN 9 mg/dL (6-20) 08/06/22 02:57 Creatinine 0.4 mg/dL (0.5-0.9) L 08/06/22 02:57 GFR Calculation 171.8 mL/min (90-130) H 08/06/22 02:57 Glucose 205 mg/dL (65-115) H 08/06/22 02:57 POC Glucose 285 mg/dL (70-110) H 08/06/22 10:51 Estimat Average Glucose 186 08/06/22 02:57 Hemoglobin A1c 8.1 % (4.0-6.0) H 08/06/22 02:57 Calculated Osmolality 287 mOsm/kg (285-295) 08/06/22 02:57 Calcium 7.9 mg/dL (8.5-10.5) L 08/06/22 02:57 Magnesium 1.5 mg/dL (1.7-2.3) L 08/06/22 02:57 Iron 86 ug/dL (37-145) 08/06/22 02:57 TIBC 283 mcg/dl 08/06/22 02:57 % Saturation 30.3 % (20-50) 08/06/22 02:57 Unsat Iron Binding 197 ug/dL (112-347) 08/06/22 02:57 Total Bilirubin 0.3 mg/dL (0.15-1.2) 08/06/22 02:57 AST 15 U/L (0-32) 08/06/22 02:57 ALT 16 U/L (0-33) 08/06/22 02:57 Alkaline Phosphatase 67 U/L (35-105) 08/06/22 02:57 Troponin T Baseline 20 ng/L (0-10) H 08/05/22 17:34 Troponin T 120 Minute 25.14 ng/L (0-10) H 08/05/22 19:30 Delta Troponin T 5.14 ABS# (0-10) 08/05/22 19:30 Troponin T Hi Sens 6Hr 24.69 ng/L (0-10) H 08/05/22 23:23 Troponin T Hi Sens 6Hr Delta 4.69 ng/L (0-12) 08/05/22 23:23 NT-Pro-B Natriuret Pep 948 pg/mL (0-125) H 08/05/22 17:34 Total Protein 5.7 g/dL (6.6-8.7) L 08/06/22 02:57 Albumin 3.3 g/dL (3.5-5.2) L 08/06/22 02:57 Globulin 2.4 g/dL (1.3-4.6) 08/06/22 02:57 Triglycerides 236 mg/dL (0-150) H 08/06/22 02:57 Cholesterol 102 mg/dL (0-200) 08/06/22 02:57 LDL Cholesterol, Calc 25 mg/dL (50-129) L 08/06/22 02:57 Total VLDL Cholesterol 47 mg/dL (0-30) H 08/06/22 02:57 HDL Cholesterol 30 mg/dL (60-100) L 08/06/22 02:57 Cholesterol/HDL Ratio 3.40 mg/dL (0.0-4.40) 08/06/22 02:57 Lipase 35 U/L (13-60) 08/05/22 17:34 Vitamin B12 397 pg/mL (232-1245) 08/06/22 02:57 Folate 16.2 ng/mL (4.8-37.3) 08/06/22 02:57 TSH 2.28 uIU/mL (0.27-4.20) 08/06/22 02:57 HCG, Qual Negative (Negative) 08/05/22 18:16 Discharge Plan Discharge Patient Disposition: Placed in Observation Admit Provider: Devi Bustillo Clinical Impression: Chest pain Discharge Diet: Cardiac and Diabetic Discharge Activity: Resume usual activity and Increase activity as tolerated Coding Level of Care Code ED Administrative Assistant Data Entry for Chg Shalom
--- NOTE | 2022-08-05 17:36 | XRR_ITS ---
PROCEDURE INFORMATION: Exam: XR Chest Exam date and time: 08/05/2022 5:51 PM Age: 46 years old Clinical indication: Shortness of breath; Additional info: SLADE Garcia TECHNIQUE: Imaging protocol: Radiologic exam of the chest. Views: 1 view. COMPARISON: CR (CHEST, ) 08/03/2022 8:20 AM FINDINGS: Lungs: Mild atelectasis in the left lung base. The lungs are otherwise clear. Pleural spaces: Unremarkable. No pleural effusion. No pneumothorax. Heart/Mediastinum: Unremarkable. No cardiomegaly. Bones/joints: Unremarkable. XR/XR chest 1V portable [id number] IMPRESSION: No acute findings.
--- NOTE | 2022-08-05 17:46 | PC.NURSE ---
PT PLACED ON CONTINUOUS SPO2, NIBP, AND CM.
[2022-08-05 17:53] LABS: Basophils # 0.1 10^3/uL (0.0-0.1); Basophils % 0.8 %; Eosinophils # 0.1 10^3/uL (0.0-0.8); Eosinophils % 0.7 %; Hematocrit 38.3 % (37.0-47.0); Hemoglobin 13.6 g/dL (11.5-15.3); Lymphocytes # 3.3 10^3/uL (0.8-4.8); Lymphocytes % 45.5 %; Mean Corpuscular HGB Conc 35.5 g/dL (30.0-36.0); Mean Corpuscular Hemoglobin 29.6 pg (28.0-34.0); Mean Corpuscular Volume 83.3 fl (81-99); Mean Platelet Volume 8.5 fL (7.4-10.4); Monocytes # 0.5 10^3/uL (0.2-0.9); Monocytes % 6.8 %; Neutrophils # 3.26 10^3/uL (1.8-7.7); Neutrophils % 45.6 %; Nucleated Red Blood Cells % 0 %; Platelet Count 238 10^3/cmm (130-400); Red Cell Distribution Width 14.6 % (12.1-15.1); White Blood Count 7.2 10^3/uL (4.0-10.0)
--- NOTE | 2022-08-05 18:01 | ECG_ITS ---
[facility] Test Date: 2022-08-05 Pat Name: Carolyn Alaniz Department: Room: Gender: Female Counter Sales Person: : 1975 Requested By: Mundo Swann Order Number: [id number] Salvador MD: Malik Gr M.D. Measurements Intervals [place] Rate: 98 P: 61 DC: 151 QRS: 27 QRSD: 109 T: 62 QT: 368 QTc: 471 Interpretive Statements SINUS RHYTHM WITH OCCASIONAL SUPRAVENTRICULAR PREMATURE COMPLEXES NONSPECIFIC T-WAVE ABNORMALITY Compared to ECG 08/03/2022 07:38:20 Sinus tachycardia no longer present Short DC interval no longer present T-wave abnormality still present Electronically Signed On 08-05-2022 18:19:47 MERCHANDISE FLOW ASSOCIATE by Malik Gr M.D. [id number]
[2022-08-05 18:11] LABS: Troponin(5th) Baseline 20 ng/L (0-10)
[2022-08-05 18:19] LABS: Alanine Aminotransferase 17 U/L (0-33); Albumin Level 4.1 g/dL (3.5-5.2); Alkaline Phosphatase 115 U/L (35-105); Anion Gap 18.2 (5-19); Aspartate Amino Transferase 17 U/L (0-32); Blood Urea Nitrogen 13 mg/dL (6-20); Calcium 8.9 mg/dL (8.5-10.5); Carbon Dioxide 23 mmol/L (22-29); Chloride 99 mmol/L (98-107); Globulin 2.4 g/dL (1.3-4.6); Glomerular Filtration Rate 132.8 mL/min (90-130); Glucose 403 mg/dL (65-115); Lipase 35 U/L (13-60); NT Pro B Type Natriuretic Pept 948 pg/mL (0-125); Osmolality Calculated 299 mOsm/kg (285-295); Potassium 4.2 mmol/L (3.5-5.1); Sodium 136 mmol/L (136-145); Total Bilirubin 0.3 mg/dL (0.15-1.2); Total Protein 6.5 g/dL (6.6-8.7)
[2022-08-05 18:21] VITALS: RESP 16
[2022-08-05] MEDS: morphine 4 mg/mL SDV 1 mL IVP (18:21)
--- NOTE | 2022-08-05 19:36 | ECG_ITS ---
[facility] Test Date: 2022-08-05 Pat Name: Carolyn Alaniz Department: Room: Gender: Female Marketing Operations Consultant: : 1975 Requested By: Mundo Swann Order Number: [id number] Salvador MD: Malik Gr M.D. Measurements Intervals [place] Rate: 96 P: 71 [place]: 156 QRS: 9 QRSD: 115 T: 44 QT: 372 QTc: 471 Interpretive Statements SINUS RHYTHM INCOMPLETE RIGHT BUNDLE BRANCH BLOCK [90+ ms QRS DURATION, TERMINAL R IN V1/V2, 40+ ms S IN I/aVL/V4/V5/V6] Compared to ECG 08/05/2022 18:01:31 Incomplete right bundle-branch block now present T-wave abnormality no longer present Electronically Signed On 08-06-2022 15:11:16 SUCTION DRUM DRIER OPERATOR by Malik Gr M.D. [id number]
[2022-08-05 20:02] LABS: Troponin 5 2HR 25.14 ng/L (0-10)
[2022-08-05 20:10] LABS: Troponin 5 2HR Delta 5.14 ABS# (0-10)
[2022-08-05 21:24] VITALS: BP 148/83; PULSE 88; RESP 15; O2SAT 95
[2022-08-05 21:33] VITALS: BP 134/81; PULSE 90; RESP 14; TEMP 36.6; O2SAT 96
[2022-08-05 22:00] VITALS: PULSE 87
--- NOTE | 2022-08-05 22:30 | PM.HP ---
Providers/Chief Complaint Admitting Physician: Devi Bustillo MD Primary Care Provider: Jorge Prakash DO Chief Complaint: CHEST PAIN History of Present Illness Carolyn Alaniz is a 46 year old female with a past medical history of CAD, dyslipidemia, hypertension who is presenting to the hospital with 3 days of chest pain. States that the pain is located in the middle of the chest, rates 10 out of 10 in maximum intensity. Radiating into the left arm. Relieved by rest. Was made worse by exertion. States she had an TN in 2020 which was a STEMI, however states no stents were placed at that time. No fever chills cough dyspnea palpitations or syncope Review of Systems General: Reports: 10 or more systems reviewed and unremarkable except in HPI and below Const: Denies: fever(s), chills or body aches Eyes: Denies: change in vision, blurry vision or photophobia ENMT: Reports: hoarseness; Denies: throat pain, enlarged tonsils, odynophagia or nasal congestion Card: Denies: chest pain, palpitations, irregular heart rhythm, edema, swelling of feet/ankles, lightheadedness, pre-syncope, dyspnea on exertion or orthopnea Resp: Denies: dyspnea, productive cough, non-productive cough, wheezing, stridor, pain on inspiration, change in phlegm color, hemoptysis or chest congestion GI: Denies: abdominal pain, nausea, vomiting, hematemesis, coffee ground emesis, dysphagia, heartburn, diarrhea, constipation, GI cramping, change in stool character, hematochezia or melena : Denies: flank pain, difficulty voiding, dysuria, urinary frequency, urinary urgency, urinary hesitancy or hematuria Musc: Denies: neck pain, back pain, extremity pain, joint swelling, joint warmth or deformity Neuro: Denies: headache(s), numbness in extremities, weakness in extremities, sensory changes, difficulty walking, frequent falls, dizziness, vertigo, behavioral changes, Slurred speech present or seizure-like activity Psych: Denies: anxiety, depression, suicidal ideation or homicidal ideation Endo: Denies: polyuria, polydipsia, tired all the time, cold intolerance or hot flashes Paul/Lymph: Denies: easy bruising or easy bleeding Medications/Allergies Home Medications Medication Instructions Recorded Confirmed Last Taken Type ondansetron 4 mg disintegrating 4 mg PO Q8H PRN nausea and 02/23/22 07/18/22 Unknown Rx tablet vomiting #15 tabs blood sugar diagnostic (FreeStyle #100 ea 02/24/22 07/18/22 Unknown Rx Lite Strips) blood-glucose meter (FreeStyle #1 ea 02/24/22 07/18/22 Unknown Rx Lite Meter kit) empagliflozin 25 mg tablet 25 mg PO DAILY #90 tabs 02/24/22 07/18/22 Unknown Rx (Jardiance) metformin 1,000 mg tablet 1,000 mg PO BID #60 tabs 02/24/22 07/18/22 05/01/22 Rx miscellaneous medical supply See Rx Instructions .Route 03/17/22 07/18/22 Unknown Rx .COMPLEX #1 ea 3 Inserts #1 ea 06/06/22 07/18/22 Unknown Rx atorvastatin 40 mg tablet 40 mg PO DAILY #90 tabs 06/19/22 07/18/22 Unknown Rx lisinopril 10 mg tablet 10 mg PO DAILY #90 tabs 06/19/22 07/18/22 Unknown Rx pregabalin 25 mg capsule (Lyrica) 25 mg PO BID #60 caps 06/19/22 07/18/22 Unknown Rx ketorolac 10 mg tablet 10 mg PO TID PRN pain #10 tabs 07/06/22 07/18/22 Unknown Rx tramadol 50 mg tablet 50 mg PO Q8H PRN pain #10 tabs 07/06/22 07/18/22 Unknown Rx CBC gummies PO 07/08/22 07/18/22 Unknown History acetaminophen 325 mg tablet 325 mg PO QID PRN 07/08/22 07/18/22 Unknown History metoprolol succinate 25 mg 25 mg PO DAILY #30 tabs 07/08/22 07/18/22 Unknown Rx tablet,extended release 24 hr cyclobenzaprine 10 mg tablet See Rx Instructions .Route 07/15/22 07/18/22 Unknown Rx .COMPLEX #30 tabs Diabetic shoes #1 ea 08/05/22 Unknown Rx Allergies Allergy/AdvReac Type Severity Reaction Status Date / Time clindamycin Allergy Severe ADR-Nausea Verified 07/18/22 13:19 diphenhydramine Allergy Severe Unknown Verified 07/18/22 13:19 [From Benadryl] linezolid [From Zyvox] Allergy Severe ALGY-Anaphy Verified 07/18/22 13:19 laxis nitrofurantoin Allergy Severe ALGY-Rash Verified 07/18/22 13:19 [From Macrobid] Penicillins Allergy Severe Unknown Verified 07/18/22 13:19 Sulfa (Sulfonamide Allergy Severe Unknown Verified 07/18/22 13:19 Antibiotics) sulfamethoxazole Allergy Severe ALGY-Anaphy Verified 07/18/22 13:19 [From Bactrim] laxis bee venom protein (honey bee) Allergy Unknown Verified 07/18/22 13:19 erythromycin base Allergy Unknown Verified 07/18/22 13:19 trimethoprim [From Bactrim] Allergy ALGY-Anaphy Verified 07/18/22 13:19 laxis PFSH Acute PFSH: Medical History Chronic ulcer of right foot Diabetes Hypertension No pertinent family history Surgical History S/P section S/P coronary angiogram S/P tubal ligation Social History Smoking and tobacco status: never smoked Alcohol intake: current Alcohol intake frequency: holidays/special occasions only Female Reproductive History: Spontaneous abortions: No Vitals/I&O/Wt Last Vital Signs Temp 98 F 08/06/22 03:15 Pulse 102 H 08/06/22 06:00 Resp 21 H 08/06/22 03:25 BP 156/86 08/06/22 03:15 Pulse Ox 95 08/06/22 03:15 O2 Del Method 08/05/22 22:13 08/05/22 08/05/22 08/06/22 14:59 22:59 06:59 Intake Total 0 / 0 Output Total 0 / 0 Balance 0 / 0 Weight last 48 hrs Weight 94.256 kg Weight 91.626 kg Physical Exam Narrative: General: No acute distress, AO x3 HEENT: PERRLA, pupils bilaterally equal and reactive, pallors not present Chest: Normal vesicular breath sounds, no added sounds, equal good air entry bilaterally CVS: S1-S2 regular, no murmurs, no tachycardia, no gallops, no rubs Abdomen: Soft, nontender, no organomegaly, bowel sounds present Neuro: No focal deficits, no facial deformity, AO x3, power 5/5 in all limbs Data 08/06/22 02:57 08/06/22 02:57 A&P Assessment and plan (1) Chest pain: Patient with multiple risk factors including hypertension, diabetes mellitus, past history of CAD, presenting today with chest pain for the past 3 days which is radiating into the arm. EKG without acute ST-T wave changes. Troponin mildly elevated in the 20s range with no significant delta at 2 hours. Pending the 6-hour level. We will arrange for a stress test in the morning due to concern for unstable angina. Patient is saturating 95% on room air, low concern for PE at this time. Continue aspirin, statins, lisinopril, metoprolol Attestations Medical Necessity Statement*: Anticipate less than 2 midnight stay for above defined care Coding Level of Care Code Acute Code for Chg Fwd Diagnoses Chest pain R07.9
[2022-08-05 23:31] VITALS: BP 119/84; PULSE 85; RESP 15; TEMP 36.6; O2SAT 96
--- NOTE | 2022-08-05 23:36 | ECG_ITS ---
[facility] Test Date: 2022-08-06 Pat Name: Carolyn Alaniz Department: Room: 104 Gender: Female Global Mobility Specialist: : 1975 Requested By: Mundo Swann Order Number: [id number] Salvador MD: Malik Gr M.D. Measurements Intervals [place] Rate: 95 P: 67 [place]: 151 QRS: -10 QRSD: 125 T: 8 QT: 376 QTc: 473 Interpretive Statements SINUS RHYTHM WITH FREQUENT VENTRICULAR PREMATURE COMPLEXES WITH OCCASIONAL SUPRAVENTRICULAR PREMATURE COMPLEXES POSSIBLE RIGHT VENTRICULAR CONDUCTION DELAY [RSR (QR) IN V1/V2] NONSPECIFIC T-WAVE ABNORMALITY ABNORMAL RHYTHM ECG Compared to ECG 08/05/2022 20:23:16 Ventricular premature complex(es) now present T-wave abnormality now present Incomplete right bundle-branch block no longer present Electronically Signed On 08-06-2022 15:11:38 MACHINE SILVER STRIPPER by Malik Gr M.D. [id number]
[2022-08-05 23:55] LABS: Troponin 5 6HR 24.69 ng/L (0-10)
[2022-08-06] VITALS (142 sets, daily range): BP systolic 111–160; BP diastolic 62–105; PULSE 74–115; RESP 13–27; TEMP 36.6; O2SAT 93–100
[2022-08-06 00:17] LABS: Troponin 5 6HR Delta 4.69 ng/L (0-12)
[2022-08-06] MEDS: morphine 4 mg/mL SDV 1 mL 2 MG IVP (03:25)
[2022-08-06 03:32] LABS: Basophils # 0.1 10^3/uL (0.0-0.1); Basophils % 0.9 %; Eosinophils # 0.1 10^3/uL (0.0-0.8); Eosinophils % 1.3 %; Hematocrit 35.1 % (37.0-47.0); Hemoglobin 12.2 g/dL (11.5-15.3); Lymphocytes # 3.2 10^3/uL (0.8-4.8); Lymphocytes % 46.2 %; Mean Corpuscular HGB Conc 34.8 g/dL (30.0-36.0); Mean Corpuscular Hemoglobin 29.5 pg (28.0-34.0); Mean Platelet Volume 8.2 fL (7.4-10.4); Monocytes # 0.5 10^3/uL (0.2-0.9); Monocytes % 6.6 %; Neutrophils # 3.07 10^3/uL (1.8-7.7); Neutrophils % 44.3 %; Nucleated Red Blood Cells % 0 %; Platelet Count 203 10^3/cmm (130-400); Red Blood Count 4.13 10^6/uL (4.1-5.3); Red Cell Distribution Width 14.8 % (12.1-15.1); White Blood Count 6.9 10^3/uL (4.0-10.0)
[2022-08-06 03:54] LABS: Alanine Aminotransferase 16 U/L (0-33); Albumin Level 3.3 g/dL (3.5-5.2); Alkaline Phosphatase 67 U/L (35-105); Anion Gap 14.9 (5-19); Aspartate Amino Transferase 15 U/L (0-32); Blood Urea Nitrogen 9 mg/dL (6-20); Calcium 7.9 mg/dL (8.5-10.5); Carbon Dioxide 21 mmol/L (22-29); Chloride 104 mmol/L (98-107); Globulin 2.4 g/dL (1.3-4.6); Glomerular Filtration Rate 171.8 mL/min (90-130); Glucose 205 mg/dL (65-115); Magnesium 1.5 mg/dL (1.7-2.3); Osmolality Calculated 287 mOsm/kg (285-295); Potassium 3.9 mmol/L (3.5-5.1); Sodium 136 mmol/L (136-145); Total Bilirubin 0.3 mg/dL (0.15-1.2); Total Protein 5.7 g/dL (6.6-8.7)
[2022-08-06 05:09] LABS: HCG, Serum Qual Negative (Negative)
--- NOTE | 2022-08-06 07:08 | ECG_ITS ---
[facility] Test Date: 2022-08-06 Pat Name: Carolyn Alaniz Department: Room: 104 Gender: Female Auto Motor Mechanic: Farzana Le : 1975 Requested By: Devi Bustillo Order Number: [id number] Salvador MD: Khadijah Schaffer M.D. Interpretive Statements NAME OF STUDY: LEXISCAN SESTAMIBI STRESS TEST INDICATION: Chest Pain PROCEDURE: At the baseline, the EKG revealed sinus tachycardia with a diffuse nonspecific T wave changes. The baseline heart was 101 bpm with a blood pressue of 129/65 mm of Hg Lexiscan was infused over a period of 20 seconds. A total of 0.4 milligrams of Lexiscan was infused. The stress phase was continued for a total of 5 minutes. Heart rate at the end of the stress phase was 110 bpm with a blood pressure 163/84 mm of Hg. The EKG at the peak infusion revealed no significant changes. Sestamibi was injected 20 seconds after the Lexiscan infusion. Heart rate at the end of the recovery phase was 107 bpm with a blood pressure of 150/88 mm of Hg. CONCLUSION: 1. No significant EKG changes with the LexiScan infusion 2. No LexiScan induced chest pain or cardiac arrhythmia 3. Normal blood pressure and heart rate response 4. Sestamibi/sestamibi perfusion scan pending; see separate report. Electronically Signed On 08-10-2022 23:38:49 CDT by Khadijah Schaffer M.D. [id number]
[2022-08-06] MEDS: regadenoson 0.4 Mg/5 ml Syringe IVP (07:20)
--- NOTE | 2022-08-06 08:28 | PC.CHAP ---
Pastoral Care Encounter/Spiritual Assessment Type of Contact [] Declined baker chef visit [] Patient/Family/Request visit [] Outpatient visit [] Follow-up visit [] Physician referral [] Code/Alert [x] Routine visit [] Staff referral [] Actively dying [] Patient sleeping [] Family support [] [x] Out of room [] Palliative care [] [] Receiving care in room [] Pre-surgical visit [] Trauma [] Long length of stay [] ICU visit [] Other: Relational/Emotional Strength [] Patient feels connected with others/family/visitors/staff [] Distress [] Loneliness/isolation [] Abandonment Spirituality of Patient [] Person of Yoon [] Attends Pentecostal of their Yoon [] Believes in Prayer [] Reads Bible or Adventism materials [] There are Spiritual issues to be addressed Maintenance Mechanic Interventions [] Prayer [] Active listening [] Non-anxious presence [] Spiritual/emotional support [] Crisis/trauma care [] Spiritual counseling [] Bereavement support [] Provided bereavement packet [] Provided Bible/devotional materials [] Provided toy/stuffed animal, coloring book to patient or family member [] Provided Communion [] Anointing/Erin [] Salvation [] Completed spiritual assessment [] Other: Impact on Illness or Injury [] Angry [] Fearful [] Anxious [] Often cries [] Exhaustion [] Unable to work [] Unable to attend synagogue [] Unable to walk/stand [] Unable to read [] Unable to drive [] Unable to eat/drink [] Unable to sleep [] Unable to be with family [] Patient intubated [] Other: Summary Time spent with patient
[2022-08-06 09:04] LABS: Glucose Point of Care 178 mg/dL (70-110)
[2022-08-06] MEDS: insulin lispro 100 unit/1 mL SUBCUT ×4 (09:08→21:01)
[2022-08-06] MEDS: pregabalin 25 mg Capsule PO ×2 (09:21→17:49)
[2022-08-06] MEDS: pantoprazole DR 40 mg Tablet PO (09:21)
[2022-08-06] MEDS: lisinopril 10 mg Tablet PO (09:22)
[2022-08-06] MEDS: atorvastatin 40 mg Tablet PO (09:22)
[2022-08-06] MEDS: metoprolol succinate ER (24 HR) 25 mg Tablet PO (09:24)
[2022-08-06] MEDS: acetaminophen 325 mg Tablet 650 MG PO (10:30)
[2022-08-06 11:16] LABS: Glucose Point of Care 285 mg/dL (70-110)
[2022-08-06 11:47] LABS: Estmated Average Glucose 186; Hemoglobin A1C 8.1 % (4.0-6.0)
--- NOTE | 2022-08-06 12:14 | USCV_ITS ---
Carolyn Alaniz Age: 46 Gender: F : 1975 Exam Date: 08/06/2022 15:16 Ordering Phys: Geoff Soliman MD Technologist: KIMBERLY Exam Location: [facility] [place] Indication: HYPERTENSION BP: 124 / 73 HR: 88 Rhythm: Sinus Technical Quality: Adequate MEASUREMENTS (Male / Female) Normal Values 2D ECHO LVOT Diameter 2.0 cm LV Ejection Fraction MOD 2C 45.7 % LV Ejection Fraction 2C AL 48.0 % LA Diameter 3.2 cm LA Width 3.6 cm LA Height 4.8 cm RA Width 2.4 cm RA Height 3.5 cm Aorta at Sinotubular Diameter 2.7 cm IVC Diameter 1.5 cm M-MODE Aortic Annulus Diameter 2.6 cm LA Ao Ratio MM 1.2 MV E Point Septal Separation 1.4 cm DOPPLER AV Peak Velocity 128.0 cm/s LVOT Peak Velocity 81.0 cm/s AV Area Cont Eq vti 2.1 cm squared AV Area Cont Eq pk 2.0 cm squared MV Peak Velocity 102.0 cm/s MV Area PHT 5.0 cm squared Mitral E to A Ratio 1.1 MV E' Velocity 54.5 cm/s Mitral E to MV E' Ratio 14.3 Mitral E to LV E' Lateral Ratio 15.2 Mitral E to LV E' Septal Ratio 13.8 TR Peak Velocity 146.3 cm/s TR Peak Gradient 8.6 mmHg TR Mean Velocity 118.8 cm/s TR Mean Gradient 5.9 mmHg TR Velocity Time Integral 45.5 cm TV Peak E Velocity 53.0 cm/s Right Atrial Pressure 3.0 mmHg Pulmonary Artery Systolic Pressu 11.6 mmHg PV Peak Velocity 92.0 cm/s RV Acceleration Time 0.2 s RV Ejection Time 0.3 s RV AcT/ET 0.5 FINDINGS Left Ventricle Diffuse hypokinesia of the left ventricular, more so of the septum, inferior wall and inferolateral wall segment overall LV ejection fraction around 45% Right Ventricle Normal right ventricular size and systolic function. Right Atrium The right atrium is normal in size. Left Atrium Mildly increased left atrial size. Mitral Valve Mild mitral valve regurgitation. Aortic Valve No gross abnormalities noted Tricuspid Valve No gross abnormalities noted Pulmonic Valve No gross abnormalities noted Pericardium Normal pericardium without effusion. Aorta Normal ascending aorta dimension. IVC Normal inferior vena cava. CONCLUSIONS Diffuse hypokinesia of the left ventricular, more so of the septum, inferior wall and inferolateral wall segment overall LV ejection fraction around 45%. Mildly increased left atrial size. Mild mitral valve regurgitation. There is no pericardial effusion. There are no intracardiac masses. No similar previous studies are available for comparison Dr Khadijah Schaffer MD [facility] (Electronically Signed) Final Date: 07 August 2022 14:05 S
[2022-08-06 12:15] LABS: Cholesterol 102 mg/dL (0-200); Folate Level 16.2 ng/mL (4.8-37.3); HDL Cholesterol 30 mg/dL (60-100); Iron 86 ug/dL (37-145); LDL Cholesterol Calculated 25 mg/dL (50-129); Percent Saturation 30.3 % (20-50); Thyroid Stimulating Hormone 2.28 uIU/mL (0.27-4.20); Total Iron Binding Capacity 283 mcg/dl; Triglycerides 236 mg/dL (0-150); Unsaturated Iron Binding 197 ug/dL (112-347); VLDL Cholestrol Calculation 47 mg/dL (0-30); Vitamin B12 397 pg/mL (232-1245)
--- NOTE | 2022-08-06 12:15 | PM.PN ---
Subjective Subjective: Hospital course, labs appreciated. No acute events overnight. Patient still complaining of occasional chest pain. Denies any nausea vomiting, headache. Underwent stress test today. Awaiting results. Appreciate telemetry. Vitals/I&O/Wt Last Vital Signs Temp 98 F 08/06/22 03:15 Pulse 100 08/06/22 09:25 Resp 18 08/06/22 09:25 BP 160/101 08/06/22 09:25 Pulse Ox 97 08/06/22 09:25 O2 Del Method 08/05/22 22:13 08/05/22 08/06/22 08/06/22 22:59 06:59 14:59 Intake Total 0 / 0 360 / 360 Output Total 0 / 0 Balance 0 / 0 360 / 360 Weight last 48 hrs Weight 94.256 kg Weight 91.626 kg Physical Exam Narrative: General: No acute distress, AO x3 HEENT: PERRLA, pupils bilaterally equal and reactive, pallors not present Chest: Normal vesicular breath sounds, no added sounds, equal good air entry bilaterally CVS: S1-S2 regular, no murmurs, no tachycardia, no gallops, no rubs Abdomen: Soft, nontender, no organomegaly, bowel sounds present Neuro: No focal deficits, no facial deformity, AO x3, power 5/5 in all limbs Data 08/06/22 02:57 08/06/22 02:57 A&P Assessment and plan (1) Chest pain: Significant risk factors including a possible history of CAD in the past, current history of hypertension and diabetes mellitus which seems to be uncontrolled. Troponin cycled negative. Post stress test. Awaiting results. Check echocardiogram. Check A1c, lipid panel. Continue with aspirin, statin, beta-gen. Discussed in detail with the patient regarding possibility of need for cardiac angiogram if stress test is positive versus discharge as an outpatient on lifestyle modification if the cardiac stress test is negative. (2) Essential hypertension: Goal blood pressure less than 140/90 mmHg. Uptitrate both metoprolol and switch from lisinopril to losartan. Switch to metoprolol succinate 50 mg daily, losartan 50 mg daily. Will uptitrate as per goal blood pressures. (3) Diabetes mellitus type 2, uncontrolled, with complications: Check A1c. For now continue with insulin sliding scale at moderate dose protocol before meals and at bedtime. Patient takes metformin and Jardiance as an outpatient. Plan Full code. Start on carb consistent cardiac diet. Protonix for PUD prophylaxis Lovenox for DVT prophylaxis Attestations Medical Necessity Statement*: Requires continued hospitalization for further evaluation of chest pain in a patient with significant risk factors for CAD. Diagnoses Chest pain R07.9 Essential hypertension I10 Diabetes mellitus type 2, uncontrolled, with complications
--- NOTE | 2022-08-06 17:18 | PM.CONSULT ---
Providers/Reason For Consult Consulting Physician/Specialty*: AMALIA Schaffer MD/cardiology Reason for Consult*: Patient with chest pain and abnormal Myocardial perfusion imaging Attending Physician: Geoff Soliman MD Primary Care Provider: Jorge Prakash DO History of Present Illness History of Present Illness Carolyn Alaniz is a 46 year old female with a history of hypertension, type 2 diabetes, dyslipidemia and previous myocardial infarction, is admitted to hospital with a prolonged episode of chest pain. She had a Myocardial perfusion imaging today which was found to be abnormal. Cardiology consult is requested for further cardiac evaluation recommendations. This patient apparently has been at her baseline state of health up until 3 days ago when she started having chest pains off and on. She was in the emergency room 3 days ago with the chest pain. Apparently after waiting 3 hours in the waiting room, she decided to go home. Yesterday evening, she had a prolonged episode of chest pain. The pain with a started around 6:00. It was in the mid substernal area which was radiating to the left shoulder, to the upper part of the left arm and to the back. The intensity of the pain was moderate to severe. She has no associated shortness of breath and nausea. Because of the pain persisting for more than half an hour, she called 911 and was brought to the hospital. She had the pain persisting up until 12 midnight. Even at that time, she had some discomfort but most of the pain was gone. Her troponin T was negative for micral injury. She had the Myocardial perfusion imaging this morning. She was found to have moderate to large area of decreased tracer uptake in the distribution of the left and descending artery and circumflex artery with significant reversibility. In 2020, while she was in [place], she had AN ST relation myocardial infarction. She was taken to the hospital and was discharged home on the following day?. According the patient, she did not have any angiogram. She apparently had an echocardiogram. She had a an angiogram prior to the myocardial infarction, a month or so ago and was told to have some plaque buildup but no major blockages. The patient was under a lot of stress at that time taking care of her sick mother and also handicapped child. It is not clear whether she had a Takotsubo syndrome or not. Apparently she has been doing okay since then up until few days ago. Currently at the time of my examination, patient is almost pain-free. He has no fever, chills or cough. No other specific complaints. Review of Systems Narrative: GENERAL: The patient is alert and oriented times three. Not in any acute distress. HEENT: No significant pallor, icterus or lymphadenopathy.Oral cavity: There are no mucous membrane lesions. NECK: Trachea appears to be central. No masses noted. No JVD or thyromegaly appreciated. RESPIRATORY: Chest is symmetrical. No intercostals muscle retraction or any accessory muscle activation. There is no chest wall tenderness. Breath sounds are heard bilaterally. No rales or rhonchi heard. No evidence of any consolidation. BREASTS: Deferred. HEART: The heart sounds are normal. No S3 or S4. No significant murmurs. No pericardial rub ABDOMEN: No vessel pulsations or distention. No tenderness. No organomegaly appreciated. Bowel sounds are normally heard. : Deferred. RECTAL: Deferred. LYMPHATIC: No lymphadenopathy noted in the neck. EXTREMITIES: The radial pulse is weak bilaterally MUSCULOSKELETAL: No acute joint deformities or swelling SKIN: There are no significant rashes or ecchymosis NEUROPSYCHIATRIC: The patient is alert and oriented x3. Appears to be in a good mood. No tremors or rigidity noted. Medications/Allergies Home Medications Medication Instructions Recorded Confirmed Last Taken Type blood sugar diagnostic (FreeStyle #100 ea 02/24/22 08/06/22 Unknown Rx Lite Strips) blood-glucose meter (FreeStyle #1 ea 02/24/22 08/06/22 Unknown Rx Lite Meter kit) metformin 1,000 mg tablet 1,000 mg PO BID #60 tabs 02/24/22 08/06/22 05/01/22 Rx miscellaneous medical supply See Rx Instructions .Route 03/17/22 08/06/22 Unknown Rx .COMPLEX #1 ea 3 Inserts #1 ea 06/06/22 08/06/22 Unknown Rx atorvastatin 40 mg tablet 40 mg PO DAILY #90 tabs 06/19/22 08/06/22 Unknown Rx pregabalin 25 mg capsule (Lyrica) 25 mg PO BID #60 caps 06/19/22 08/06/22 Unknown Rx acetaminophen 325 mg tablet 325 mg PO QID PRN Pain 07/08/22 08/06/22 Unknown History metoprolol succinate 25 mg 25 mg PO DAILY #30 tabs 07/08/22 08/06/22 Unknown Rx tablet,extended release 24 hr Diabetic shoes #1 ea 08/05/22 08/06/22 Unknown Rx cyclobenzaprine 10 mg tablet 10 mg PO TID PRN Muscle Spasm 08/06/22 08/06/22 Unknown History epinephrine 0.3 mg/0.3 mL See Rx Instructions .Route .COMPLEX 08/06/22 08/06/22 Unknown History injection, auto-injector (EpiPen 2-Jonel) ketorolac 10 mg tablet 10 mg PO Q6H PRN Pain 08/06/22 08/06/22 Unknown History lisinopril 10 mg tablet 10 mg PO BEDTIME 08/06/22 08/06/22 Unknown History naloxone 4 mg/actuation nasal 4 mg intranasal Q2M PRN overdose 08/06/22 08/06/22 Unknown History spray (Narcan) Allergies Allergy/AdvReac Type Severity Reaction Status Date / Time clindamycin Allergy Severe ADR-Nausea Verified 07/18/22 13:19 diphenhydramine Allergy Severe Unknown Verified 07/18/22 13:19 [From Benadryl] linezolid [From Zyvox] Allergy Severe ALGY-Anaphy Verified 07/18/22 13:19 laxis nitrofurantoin Allergy Severe ALGY-Rash Verified 07/18/22 13:19 [From Macrobid] Penicillins Allergy Severe Unknown Verified 07/18/22 13:19 Sulfa (Sulfonamide Allergy Severe Unknown Verified 07/18/22 13:19 Antibiotics) sulfamethoxazole Allergy Severe ALGY-Anaphy Verified 07/18/22 13:19 [From Bactrim] laxis bee venom protein (honey bee) Allergy Unknown Verified 07/18/22 13:19 egg Allergy Unknown Verified 08/06/22 09:15 erythromycin base Allergy Unknown Verified 07/18/22 13:19 trimethoprim [From Bactrim] Allergy ALGY-Anaphy Verified 07/18/22 13:19 laxis Current Medications Generic Name Dose Route Start Last Admin Trade Name Freq PRN Reason Stop Dose Admin Acetaminophen 650 mg 08/05/22 21:33 08/06/22 10:30 Acetaminophen 325 Mg Tablet PO 650 mg Q6H PRN Administration Mild/Mod Pain Or Temp >/= 101 Insulin Human Lispro 0 unit 08/06/22 08:00 08/06/22 12:01 Insulin Lispro 100 Unit/1 Ml SUBCUT 10 unit WM&BEDTIME KATHLEEN Administration Protocol Morphine Sulfate 2 mg 08/05/22 21:33 08/06/22 03:25 Morphine 4 Mg/Ml Sdv 1 Ml IVP 2 mg Q4H PRN Administration SEVERE PAIN Pantoprazole Sodium 40 mg 08/06/22 09:00 08/06/22 09:[address] 40 Mg Tablet PO 40 mg DAILY KATHLEEN Administration Pregabalin 25 mg 08/06/22 09:00 08/06/22 09:21 Pregabalin 25 Mg Capsule PO 25 mg BID KATHLEEN Administration PFSH Acute PFSH: Medical History (Updated 08/06/22 @ 18:23 by Khadijah Schaffer MD) Chronic ulcer of right foot Diabetes History of myocardial infarction Hypertension No pertinent family history Surgical History S/P section S/P coronary angiogram S/P tubal ligation Status post amputation of toe Social History Smoking and tobacco status: never smoked Alcohol intake: current Alcohol intake frequency: holidays/special occasions only Female Reproductive History: Spontaneous abortions: No Vitals/I&O/Wt Last Vital Signs Temp 98 F 08/06/22 03:15 Pulse 97 08/06/22 17:15 Resp 27 H 08/06/22 17:15 BP 131/87 08/06/22 17:15 Pulse Ox 100 08/06/22 17:15 O2 Del Method 08/05/22 22:13 08/06/22 08/06/22 08/06/22 06:59 14:59 22:59 Intake Total 0 / 0 840 / 840 Output Total 0 / 0 Balance 0 / 0 840 / 840 Weight last 48 hrs Weight 207 lb 12.8 oz Weight 202 lb Physical Exam Narrative: GENERAL: The patient is alert and oriented times three. Not in any acute distress. HEENT: No significant pallor, icterus or lymphadenopathy.Oral cavity: There are no mucous membrane lesions. NECK: Trachea appears to be central. No masses noted. No JVD or thyromegaly appreciated. RESPIRATORY: Chest is symmetrical. No intercostals muscle retraction or any accessory muscle activation. There is no chest wall tenderness. Breath sounds are heard bilaterally. No rales or rhonchi heard. No evidence of any consolidation. BREASTS: Deferred. HEART: The heart sounds are normal. No S3 or S4. No significant murmurs. No pericardial rub ABDOMEN: No vessel pulsations or distention. No tenderness. No organomegaly appreciated. Bowel sounds are normally heard. : Deferred. RECTAL: Deferred. LYMPHATIC: No lymphadenopathy noted in the neck. EXTREMITIES: No edema or cyanosis. No clubbing. MUSCULOSKELETAL: No acute joint deformities or swelling SKIN: There are no significant rashes or ecchymosis NEUROPSYCHIATRIC: The patient is alert and oriented x3. Appears to be in a good mood. No tremors or rigidity noted. Data 08/06/22 02:57 08/06/22 02:57 Other Labs: Laboratory Last Values WBC 6.9 10^3/uL (4.0-10.0) 08/06/22 02:57 RBC 4.13 10^6/uL (4.1-5.3) 08/06/22 02:57 Hgb 12.2 g/dL (11.5-15.3) 08/06/22 02:57 Hct 35.1 % (37.0-47.0) L 08/06/22 02:57 MCV 85.0 fl (81-99) 08/06/22 02:57 MCH 29.5 pg (28.0-34.0) 08/06/22 02:57 MCHC 34.8 g/dL (30.0-36.0) 08/06/22 02:57 RDW 14.8 % (12.1-15.1) 08/06/22 02:57 Plt Count 203 10^3/cmm (130-400) 08/06/22 02:57 MPV 8.2 fL (7.4-10.4) 08/06/22 02:57 Neut % (Auto) 44.3 % 08/06/22 02:57 Lymph % (Auto) 46.2 % 08/06/22 02:57 [place] % (Auto) 6.6 % 08/06/22 02:57 Eos % (Auto) 1.3 % 08/06/22 02:57 Baso % (Auto) 0.9 % 08/06/22 02:57 Neut # (Auto) 3.07 10^3/uL (1.8-7.7) 08/06/22 02:57 Lymph # (Auto) 3.2 10^3/uL (0.8-4.8) 08/06/22 02:57 [place] # (Auto) 0.5 10^3/uL (0.2-0.9) 08/06/22 02:57 Eos # (Auto) 0.1 10^3/uL (0.0-0.8) 08/06/22 02:57 Baso # (Auto) 0.1 10^3/uL (0.0-0.1) 08/06/22 02:57 Nucleated RBC % (auto) 0 % 08/06/22 02:57 Nucleated RBCs # 0.0 /100WBC 08/06/22 02:57 Sodium 136 mmol/L (136-145) 08/06/22 02:57 Potassium 3.9 mmol/L (3.5-5.1) 08/06/22 02:57 Chloride 104 mmol/L (98-107) 08/06/22 02:57 Carbon Dioxide 21 mmol/L (22-29) L 08/06/22 02:57 Anion Gap 14.9 (5-19) 08/06/22 02:57 BUN 9 mg/dL (6-20) 08/06/22 02:57 Creatinine 0.4 mg/dL (0.5-0.9) L 08/06/22 02:57 GFR Calculation 171.8 mL/min (90-130) H 08/06/22 02:57 Glucose 205 mg/dL (65-115) H 08/06/22 02:57 POC Glucose 149 mg/dL (70-110) H 08/06/22 17:07 Estimat Average Glucose 186 08/06/22 02:57 Hemoglobin A1c 8.1 % (4.0-6.0) H 08/06/22 02:57 Calculated Osmolality 287 mOsm/kg (285-295) 08/06/22 02:57 Calcium 7.9 mg/dL (8.5-10.5) L 08/06/22 02:57 Magnesium 1.5 mg/dL (1.7-2.3) L 08/06/22 02:57 Iron 86 ug/dL (37-145) 08/06/22 02:57 TIBC 283 mcg/dl 08/06/22 02:57 % Saturation 30.3 % (20-50) 08/06/22 02:57 Unsat Iron Binding 197 ug/dL (112-347) 08/06/22 02:57 Total Bilirubin 0.3 mg/dL (0.15-1.2) 08/06/22 02:57 AST 15 U/L (0-32) 08/06/22 02:57 ALT 16 U/L (0-33) 08/06/22 02:57 Alkaline Phosphatase 67 U/L (35-105) 08/06/22 02:57 Troponin T Baseline 20 ng/L (0-10) H 08/05/22 17:34 Troponin T 120 Minute 25.14 ng/L (0-10) H 08/05/22 19:30 Delta Troponin T 5.14 ABS# (0-10) 08/05/22 19:30 Troponin T Hi Sens 6Hr 24.69 ng/L (0-10) H 08/05/22 23:23 Troponin T Hi Sens 6Hr Delta 4.69 ng/L (0-12) 08/05/22 23:23 NT-Pro-B Natriuret Pep 948 pg/mL (0-125) H 08/05/22 17:34 Total Protein 5.7 g/dL (6.6-8.7) L 08/06/22 02:57 Albumin 3.3 g/dL (3.5-5.2) L 08/06/22 02:57 Globulin 2.4 g/dL (1.3-4.6) 08/06/22 02:57 Triglycerides 236 mg/dL (0-150) H 08/06/22 02:57 Cholesterol 102 mg/dL (0-200) 08/06/22 02:57 LDL Cholesterol, Calc 25 mg/dL (50-129) L 08/06/22 02:57 Total VLDL Cholesterol 47 mg/dL (0-30) H 08/06/22 02:57 HDL Cholesterol 30 mg/dL (60-100) L 08/06/22 02:57 Cholesterol/HDL Ratio 3.40 mg/dL (0.0-4.40) 08/06/22 02:57 Lipase 35 U/L (13-60) 08/05/22 17:34 Vitamin B12 397 pg/mL (232-1245) 08/06/22 02:57 Folate 16.2 ng/mL (4.8-37.3) 08/06/22 02:57 TSH 2.28 uIU/mL (0.27-4.20) 08/06/22 02:57 HCG, Qual Negative (Negative) 08/05/22 18:16 Myocardial perfusion imaging: My impression: 1.? Myocardial perfusion imaging revealing moderate to large areas of decreased ?tracer uptake in the anterior, anteroseptal, anterolateral, inferolateral and ?apical regions with a significant reversibility suggesting myocardial ischemia ? in the distribution of the left anterior descending artery and ?circumflex artery.? The slightly elevated transient ischemic dilatation ratio ?may suggest endocardial ischemia ?2.? Markedly diminished LV ejection fraction of 25%. ?3.? Multiple wall motion abnormalities as mentioned above. ?4.? Moderately dilated LV cavity. ?No similar previous studies are available for comparison EKG 1: My Interpretation: The EKG showed a normal sinus rhythm with frequent ventricular and supraventricular ectopics. Diffuse nonspecific T wave changes. Possible right ventricular conduction delay. A&P Assessment and plan (1) Coronary artery disease with unstable angina pectoris: Patient's clinical features are suggesting an unstable angina. Currently she is stable hemodynamically. In view of her multiple risk factors for coronary disease and the abnormal Myocardial perfusion imaging, for further evaluation of her coronary status, a cardiac catheterization would be appropriate. The risks and benefits were discussed with the patient. The risk of bleeding, hematoma, vascular injury, myocardial infarction, myocardial perforation, malignant cardiac arrhythmias ,CVA, renal failure and other concomitant complications were explained in detail. Patient understood this well and consented to proceed. We may go ahead and do schedule this as early as possible in the hospital. (2) Diabetes mellitus type 2, uncontrolled, with complications: Importance of aggressive management of the diabetes, cardiovascular complications of uncontrolled diabetes and the need for compliance to treatment were discussed. Patient seems to understand these well. We will have the follow-up evaluations as scheduled (3) Dyslipidemia: May continue on the current medications. Follow-up evaluation by the primary care provider. (4) Hypertension: Currently the blood pressure is within the normal range. Advised to continue the same. Plan Based on the results of the above tests and the patient's clinical progress, further recommendations will be made. Thank you for the opportunity to evaluate this patient and make these recommendations Coding Level of Care Code 40400 Diagnoses Coronary artery disease with unstable angina pectoris I25.110 Diabetes mellitus type 2, uncontrolled, with complications Dyslipidemia E78.5 Hypertension I10
[2022-08-06 17:21] LABS: Glucose Point of Care 149 mg/dL (70-110)
--- NOTE | 2022-08-06 18:36 | PC.NURSE ---
New Orders Received Dr. Schaffer called the unit and gave orders over the phone to admin Lovenox 90 mg subcut once.
[2022-08-06] MEDS: aspirin 325 mg Tablet PO (19:21)
[2022-08-06] MEDS: enoxaparin 100 mg/mL Syringe 90 MG SUBCUT (19:21)
[2022-08-06] MEDS: sodium chloride 0.9% 1,000 ML 50 ML IV (19:22)
[2022-08-06 20:24] LABS: Glucose Point of Care 266 mg/dL (70-110)
[2022-08-06] MEDS: TRAMadol 50 mg Tablet PO (21:02)
--- NOTE | 2022-08-06 21:36 | NMCV_ITS ---
NM dl perf SPECT r/s* [id number] Carolyn Alaniz Age: 46 Gender: F : 1975 Exam Date: 08/06/2022 21:36 Ordering Phys: Devi Bustillo MD Technologist: MARY Huang Exam Location: [facility] Indications: CHEST PAIN STRESS TEST [facility] IMAGE PROTOCOL Rest/Stress 1 Lexiscan Day Radiopharmaceutical Dose (mCi) Administration Site Administered by Rest: Tc-99m 10.8 IV MARY Ayala Sestamibi Stress:Tc-99m 32.9 IV MARY Ayala Sestamibi Rest: 06-Aug-2022 60 Discovery 630 Stress: 06-Aug-2022 30 Discovery 630 0.4mg Lexiscan. Images obtained in supine and prone position. SPECT RESULTS Technical Quality: Excellent Raw Data Analysis: Normal Image Corrections: No attenuation or motion correction applied Summed Stress Score: 19 Summed Rest Score: 8 Summed Difference Score: 11 PERFUSION FINDINGS Multiple areas of moderate to severely decreased tracer uptake in the basal and mid anterior, mid anterolateral, inferolateral, anteroseptal and apical segments. Significant reversibility was noted in these regions. FUNCTIONAL RESULTS (calculated via Gated SPECT) Stress Image LV EF (%): 25 Stress EDV (mL):196 TID: 1.14 Stress ESV (mL):147 FUNCTIONAL FINDINGS: Segmental wall motion analysis revealing severe diffuse hypokinesia of the septum, inferior wall and apical regions. Slightly increased transient ischemic dilatation ratio and moderately dilated LV cavity IMPRESSIONS 1. Myocardial perfusion imaging revealing moderate to large areas of decreased tracer uptake in the anterior, anteroseptal, anterolateral, inferolateral and apical regions with a significant reversibility suggesting myocardial ischemia in the distribution of the left anterior descending artery and circumflex artery. The slightly elevated transient ischemic dilatation ratio may suggest endocardial ischemia 2. Markedly diminished LV ejection fraction of 25%. 3. Multiple wall motion abnormalities as mentioned above. 4. Moderately dilated LV cavity. No similar previous studies are available for comparison Dr Khadijah Schaffer MD [facility] (Electronically Signed) Final Date: 06 August 2022 13:38 S
--- NOTE | 2022-08-06 23:05 | PC.NURSE ---
called regarding patients scheduled cath for tomorrow. The patient will be schedule for late afternoon or evening so patient can have a light breakfast and made NPO after that.
[2022-08-07] VITALS (64 sets, daily range): BP systolic 96–155; BP diastolic 60–125; PULSE 79–108; RESP 13–25; TEMP 36.7–37; O2SAT 90–100
[2022-08-07 05:05] LABS: Basophils % 0.7 %; Eosinophils # 0.1 10^3/uL (0.0-0.8); Eosinophils % 1.1 %; Hematocrit 35.3 % (37.0-47.0); Hemoglobin 12.2 g/dL (11.5-15.3); Lymphocytes # 3.1 10^3/uL (0.8-4.8); Lymphocytes % 50.2 %; Mean Corpuscular HGB Conc 34.6 g/dL (30.0-36.0); Mean Corpuscular Hemoglobin 29.5 pg (28.0-34.0); Mean Corpuscular Volume 85.3 fl (81-99); Mean Platelet Volume 8.3 fL (7.4-10.4); Monocytes # 0.4 10^3/uL (0.2-0.9); Monocytes % 6.9 %; Neutrophils # 2.44 10^3/uL (1.8-7.7); Neutrophils % 40.1 %; Nucleated Red Blood Cells % 0 %; Platelet Count 204 10^3/cmm (130-400); Red Blood Count 4.14 10^6/uL (4.1-5.3); Red Cell Distribution Width 14.9 % (12.1-15.1); White Blood Count 6.1 10^3/uL (4.0-10.0)
[2022-08-07 05:40] LABS: Alanine Aminotransferase 21 U/L (0-33); Albumin Level 3.3 g/dL (3.5-5.2); Alkaline Phosphatase 69 U/L (35-105); Anion Gap 13.9 (5-19); Aspartate Amino Transferase 17 U/L (0-32); Blood Urea Nitrogen 13 mg/dL (6-20); Calcium 8.4 mg/dL (8.5-10.5); Carbon Dioxide 23 mmol/L (22-29); Chloride 103 mmol/L (98-107); Globulin 2.3 g/dL (1.3-4.6); Glomerular Filtration Rate 132.8 mL/min (90-130); Glucose 197 mg/dL (65-115); Osmolality Calculated 288 mOsm/kg (285-295); Potassium 3.9 mmol/L (3.5-5.1); Sodium 136 mmol/L (136-145); Total Bilirubin 0.3 mg/dL (0.15-1.2); Total Protein 5.6 g/dL (6.6-8.7)
[2022-08-07 06:41] LABS: Glucose Point of Care 201 mg/dL (70-110)
[2022-08-07] MEDS: insulin lispro 100 unit/1 mL SUBCUT ×3 (08:16→21:11)
[2022-08-07] MEDS: pantoprazole DR 40 mg Tablet PO (08:18)
[2022-08-07] MEDS: pregabalin 25 mg Capsule PO ×2 (08:18→19:11)
[2022-08-07] MEDS: atorvastatin 40 mg Tablet 80 MG PO (08:18)
[2022-08-07] MEDS: losartan 50 mg Tablet PO (08:18)
[2022-08-07] MEDS: metoprolol succinate ER (24 HR) 50 mg Tablet PO (08:19)
[2022-08-07 11:42] LABS: Glucose Point of Care 244 mg/dL (70-110)
--- NOTE | 2022-08-07 12:10 | PM.PN ---
Subjective Subjective: No acute events overnight. Seen with family at bedside. No further chest pain. Patient is awaiting cardiac angiogram today given positive stress test. Complaining of occasional shortness of breath but not more than usual. Saturating well on room air. Vitals/I&O/Wt Last Vital Signs Temp 98.1 F 08/07/22 08:00 Pulse 87 08/07/22 08:00 Resp 18 08/07/22 08:00 BP 128/86 08/07/22 08:18 Pulse Ox 98 08/07/22 08:00 O2 Del Method 08/07/22 08:00 08/06/22 08/07/22 08/07/22 22:59 06:59 14:59 Intake Total 480 / 1320 120 / 1440 0 / 0 Balance 480 / 1320 120 / 1440 0 / 0 Weight last 48 hrs Weight 94.256 kg Weight 91.626 kg Physical Exam Narrative: General: No acute distress, AO x3 HEENT: PERRLA, pupils bilaterally equal and reactive Chest: Normal vesicular breath sounds, no added sounds, equal good air entry bilaterally CVS: S1-S2 regular, soft pansystolic murmur at apex, no tachycardia, no gallops, no rubs Abdomen: Soft, nontender, no organomegaly, bowel sounds present Neuro: No focal deficits, no facial deformity, AO x3, power 5/5 in all limbs Data 08/07/22 04:36 08/07/22 04:36 A&P Assessment and plan (1) Coronary artery disease with unstable angina pectoris: With a positive cardiac stress test. Cardiology consulted. Plan for cardiac angiogram today. Given full dose aspirin and full dose Lovenox 1 dose as per cardiology recommendations yesterday. Continue with aspirin, statin. Echocardiogram pending. Continue with metoprolol succinate 50 mg once daily. (2) Positive cardiac stress test: (3) Hypertension: Goal blood pressure less than 140/90 mmHg. Continue with losartan 50 mg, metoprolol succinate 50 mg daily for now. Uptitrate as of blood pressure goals. (4) Congestive heart failure: New diagnosis. Seen on Lexiscan stress test. Official echocardiogram pending. Monitor for fluid overload. (5) Ischemic cardiomyopathy: (6) Diabetes mellitus type 2, uncontrolled, with complications: A1c 8.1. Patient takes metformin and Jardiance at home. We will need to uptitrate the dose. Plan Full code. NPO. Cardiac carbohydrate consistent diet postcardiac angiogram. Lovenox for DVT prophylaxis. Attestations Medical Necessity Statement*: Requires further hospitalization for management of unstable angina with a positive cardiac stress test as patient requires cardiac angiogram, new diagnosis of congestive heart failure with ischemic cardiomyopathy Diagnoses Coronary artery disease with unstable angina pectoris I25.110 Positive cardiac stress test R94.39 Hypertension I10 Congestive heart failure I50.9 Ischemic cardiomyopathy I25.5 Diabetes mellitus type 2, uncontrolled, with complications
--- NOTE | 2022-08-07 14:39 | PM.PN ---
Subjective Subjective: Patient is feeling okay today. She has no chest pain. May have occasional heavy feeling in the chest. No unusual shortness of breath. No fever or chills Medications: Medication Review Details: Current Medications Acetaminophen (Acetaminophen 325 Mg Tablet) 650 mg PO Q6H PRN PRN Reason: Mild/Mod Pain Or Temp >/= 101 Last Admin: 08/06/22 10:30 Dose: 650 mg Aspirin (Aspirin 81 Mg Ec Tablet) 81 mg PO DAILY [facility] Atorvastatin Calcium (Atorvastatin 40 Mg Tablet) 80 mg PO DAILY [facility] Last Admin: 08/07/22 08:18 Dose: 80 mg Cyclobenzaprine HCl (Cyclobenzaprine 10 Mg Tablet) 10 mg PO TID PRN PRN Reason: MUSCLE SPASM Dextrose (Dextrose 50% Syringe 50 Ml) 25 ml IVP ONCE PRN; Protocol PRN Reason: hypoglycemia protocol Dextrose (Dextrose 50% Syringe 50 Ml) 50 ml IVP PRN PRN; Protocol PRN Reason: hypoglycemia protocol Enoxaparin Sodium (Enoxaparin 40 Mg/0.4 Ml Syringe) 40 mg SUBCUT Q24H [facility] Glucagon (Glucagon 1 Mg/Ml Inj 1 Ml) 1 mg IM ONCE PRN; Protocol PRN Reason: Adult Acute Hypoglycemia Prot. Dextrose (D5w) 500 mls @ 100 mls/hr IV ONCE PRN; Protocol PRN Reason: Adult Acute Hypoglycemia Prot Insulin Human Lispro (Insulin Lispro 100 Unit/1 Ml) 0 unit SUBCUT WM&BEDTIME [facility]; Protocol Last Admin: 08/07/22 11:47 Dose: 4 unit Losartan Potassium (Losartan 50 Mg Tablet) 50 mg PO DAILY [facility] Last Admin: 08/07/22 08:18 Dose: 50 mg Metoprolol Succinate (Metoprolol Succinate Er (24 Hr) 50 Mg Tablet) 50 mg PO DAILY [facility] Last Admin: 08/07/22 08:19 Dose: 50 mg Morphine Sulfate (Morphine 4 Mg/Ml Sdv 1 Ml) 2 mg IVP Q4H PRN PRN Reason: SEVERE PAIN Last Admin: 08/06/22 03:25 Dose: 2 mg Naloxone HCl (Naloxone 0.4 Mg/Ml Sdv) 0.1 mg IVP Q2M PRN PRN Reason: OPIATERV Ondansetron HCl (Ondansetron 2 Mg/Ml Sdv 2 Ml) 4 mg IVP Q8H PRN PRN Reason: vomiting, or N/V if npo Ondansetron HCl (Ondansetron 2 Mg/Ml Sdv 2 Ml) 4 mg IVP Q2M PRN PRN Reason: NAUSEA Pantoprazole Sodium (Pantoprazole Dr 40 Mg Tablet) 40 mg PO DAILY [facility] Last Admin: 08/07/22 08:18 Dose: 40 mg Pregabalin (Pregabalin 25 Mg Capsule) 25 mg PO BID KATHLEEN Last Admin: 08/07/22 08:18 Dose: 25 mg Tramadol HCl (Tramadol 50 Mg Tablet) 50 mg PO Q8H PRN PRN Reason: pain Last Admin: 08/06/22 21:02 Dose: 50 mg Vitals/I&O/Wt Last Vital Signs Temp 98.1 F 08/07/22 12:00 Pulse 85 08/07/22 12:00 Resp 21 H 08/07/22 12:00 BP 131/76 08/07/22 12:00 Pulse Ox 96 08/07/22 12:00 O2 Del Method 08/07/22 12:00 08/06/22 08/07/22 08/07/22 22:59 06:59 14:59 Intake Total 480 / 1320 120 / 1440 0 / 0 Balance 480 / 1320 120 / 1440 0 / 0 Weight last 48 hrs Weight 207 lb 12.8 oz Weight 202 lb Physical Exam Narrative: GENERAL: The patient is alert and oriented times three. Not in any acute distress. HEENT: No significant pallor, icterus or lymphadenopathy.Oral cavity: There are no mucous membrane lesions. NECK: Trachea appears to be central. No masses noted. No JVD or thyromegaly appreciated. RESPIRATORY: Chest is symmetrical. No intercostals muscle retraction or any accessory muscle activation. There is no chest wall tenderness. Breath sounds are heard bilaterally. No rales or rhonchi heard. No evidence of any consolidation. BREASTS: Deferred. HEART: The heart sounds are normal. No S3 or S4. No significant murmurs. No pericardial rub ABDOMEN: No vessel pulsations or distention. No tenderness. No organomegaly appreciated. Bowel sounds are normally heard. : Deferred. RECTAL: Deferred. LYMPHATIC: No lymphadenopathy noted in the neck. EXTREMITIES: No edema or cyanosis. No clubbing. MUSCULOSKELETAL: No acute joint deformities or swelling SKIN: There are no significant rashes or ecchymosis NEUROPSYCHIATRIC: The patient is alert and oriented x3. Appears to be in a good mood. No tremors or rigidity noted. Data 08/07/22 04:36 08/07/22 04:36 Other Labs: Laboratory Last Values WBC 6.1 10^3/uL (4.0-10.0) 08/07/22 04:36 RBC 4.14 10^6/uL (4.1-5.3) 08/07/22 04:36 Hgb 12.2 g/dL (11.5-15.3) 08/07/22 04:36 Hct 35.3 % (37.0-47.0) L 08/07/22 04:36 MCV 85.3 fl (81-99) 08/07/22 04:36 MCH 29.5 pg (28.0-34.0) 08/07/22 04:36 MCHC 34.6 g/dL (30.0-36.0) 08/07/22 04:36 RDW 14.9 % (12.1-15.1) 08/07/22 04:36 Plt Count 204 10^3/cmm (130-400) 08/07/22 04:36 MPV 8.3 fL (7.4-10.4) 08/07/22 04:36 Neut % (Auto) 40.1 % 08/07/22 04:36 Lymph % (Auto) 50.2 % 08/07/22 04:36 Moore % (Auto) 6.9 % 08/07/22 04:36 Eos % (Auto) 1.1 % 08/07/22 04:36 Baso % (Auto) 0.7 % 08/07/22 04:36 Neut # (Auto) 2.44 10^3/uL (1.8-7.7) 08/07/22 04:36 Lymph # (Auto) 3.1 10^3/uL (0.8-4.8) 08/07/22 04:36 Moore # (Auto) 0.4 10^3/uL (0.2-0.9) 08/07/22 04:36 Eos # (Auto) 0.1 10^3/uL (0.0-0.8) 08/07/22 04:36 Baso # (Auto) 0.0 10^3/uL (0.0-0.1) 08/07/22 04:36 Nucleated RBC % (auto) 0 % 08/07/22 04:36 Nucleated RBCs # 0.0 /100WBC 08/07/22 04:36 Sodium 136 mmol/L (136-145) 08/07/22 04:36 Potassium 3.9 mmol/L (3.5-5.1) 08/07/22 04:36 Chloride 103 mmol/L (98-107) 08/07/22 04:36 Carbon Dioxide 23 mmol/L (22-29) 08/07/22 04:36 Anion Gap 13.9 (5-19) 08/07/22 04:36 BUN 13 mg/dL (6-20) 08/07/22 04:36 Creatinine 0.5 mg/dL (0.5-0.9) 08/07/22 04:36 GFR Calculation 132.8 mL/min (90-130) H 08/07/22 04:36 Glucose 197 mg/dL (65-115) H 08/07/22 04:36 POC Glucose 244 mg/dL (70-110) H 08/07/22 11:33 Estimat Average Glucose 186 08/06/22 02:57 Hemoglobin A1c 8.1 % (4.0-6.0) H 08/06/22 02:57 Calculated Osmolality 288 mOsm/kg (285-295) 08/07/22 04:36 Calcium 8.4 mg/dL (8.5-10.5) L 08/07/22 04:36 Magnesium 1.5 mg/dL (1.7-2.3) L 08/06/22 02:57 Iron 86 ug/dL (37-145) 08/06/22 02:57 TIBC 283 mcg/dl 08/06/22 02:57 % Saturation 30.3 % (20-50) 08/06/22 02:57 Unsat Iron Binding 197 ug/dL (112-347) 08/06/22 02:57 Total Bilirubin 0.3 mg/dL (0.15-1.2) 08/07/22 04:36 AST 17 U/L (0-32) 08/07/22 04:36 ALT 21 U/L (0-33) 08/07/22 04:36 Alkaline Phosphatase 69 U/L (35-105) 08/07/22 04:36 Troponin T Baseline 20 ng/L (0-10) H 08/05/22 17:34 Troponin T 120 Minute 25.14 ng/L (0-10) H 08/05/22 19:30 Delta Troponin T 5.14 ABS# (0-10) 08/05/22 19:30 Troponin T Hi Sens 6Hr 24.69 ng/L (0-10) H 08/05/22 23:23 Troponin T Hi Sens 6Hr Delta 4.69 ng/L (0-12) 08/05/22 23:23 NT-Pro-B Natriuret Pep 948 pg/mL (0-125) H 08/05/22 17:34 Total Protein 5.6 g/dL (6.6-8.7) L 08/07/22 04:36 Albumin 3.3 g/dL (3.5-5.2) L 08/07/22 04:36 Globulin 2.3 g/dL (1.3-4.6) 08/07/22 04:36 Triglycerides 236 mg/dL (0-150) H 08/06/22 02:57 Cholesterol 102 mg/dL (0-200) 08/06/22 02:57 LDL Cholesterol, Calc 25 mg/dL (50-129) L 08/06/22 02:57 Total VLDL Cholesterol 47 mg/dL (0-30) H 08/06/22 02:57 HDL Cholesterol 30 mg/dL (60-100) L 08/06/22 02:57 Cholesterol/HDL Ratio 3.40 mg/dL (0.0-4.40) 08/06/22 02:57 Lipase 35 U/L (13-60) 08/05/22 17:34 Vitamin B12 397 pg/mL (232-1245) 08/06/22 02:57 Folate 16.2 ng/mL (4.8-37.3) 08/06/22 02:57 TSH 2.28 uIU/mL (0.27-4.20) 08/06/22 02:57 HCG, Qual Negative (Negative) 08/05/22 18:16 Other data: Echocardiogram from yesterday Diffuse hypokinesia of the left ventricular, more so of the ?septum, inferior wall and inferolateral wall segment overall LV ?ejection fraction around 45%. ?Mildly increased left atrial size. ?Mild mitral valve regurgitation. ?There is no pericardial effusion. ?There are no intracardiac masses. ?No similar previous studies are available for comparison A&P Assessment and plan (1) Coronary artery disease with unstable angina pectoris: Patient's clinical features are suggesting an unstable angina. Currently she is stable hemodynamically. In view of her multiple risk factors for coronary disease and the abnormal Myocardial perfusion imaging, for further evaluation of her coronary status, a cardiac catheterization would be appropriate. The risks and benefits were discussed with the patient. The risk of bleeding, hematoma, vascular injury, myocardial infarction, myocardial perforation, malignant cardiac arrhythmias ,CVA, renal failure and other concomitant complications were explained in detail. Patient understood this well and consented to proceed. We are planning to have the cardiac catheterization this evening (2) Diabetes mellitus type 2, uncontrolled, with complications: Importance of aggressive management of the diabetes, cardiovascular complications of uncontrolled diabetes and the need for compliance to treatment were discussed. Patient seems to understand these well. (3) Dyslipidemia: May continue on the current medications. (4) Hypertension: Currently the blood pressure is within the normal range. We will continue on the current medications. Plan Based on the results of the above tests and the patient's clinical progress, further recommendations will be made. Again the risk and benefits of the procedure were explained to the patient in detail. She did not have any further questions. Attestations Medical Necessity Statement*: Patient requires continued hospital stay for close monitoring and further management Coding Level of Care Code 46744 Diagnoses Coronary artery disease with unstable angina pectoris I25.110 Diabetes mellitus type 2, uncontrolled, with complications Dyslipidemia E78.5 Hypertension I10
--- NOTE | 2022-08-07 14:43 | W.PM.OPSUD ---
Surgery/Procedure H&P Update DATE OF PROCEDURE: August 07, 2022 DATE H&P PERFORMED: 08/06/22 H&P UPDATE INFORMATION: I have reviewed H&P completed within last 30 days, I have examined patient prior to procedure and No changes to prior documentation PREOP DIAGNOSIS: Atherosclerotic heart disease PRIMARY INDICATION FOR PROCEDURE: Chest pain, abnormal Myocardial perfusion imaging, LV dysfunction PLANNED PROCEDURE: Operation Date: 08/07/22 16:30 Proposed Procedures p Cardiac Catheterization(Left) - Khadijah Schaffer MD PATIENT REASSESSED PRIOR TO SEDATION, WITH NO CHANGE NOTED: Yes PHYSICAL EXAM: alert and regular rate & rhythm AIRWAY EVAL/ANESTHESIA PLAN: normal airway, see other exam findings, ASA III, Monitored Anesthesia, Local Anesthesia, Risks, benefits & alternatives of sedation and/or procedure discussed and Patient agrees to continue as planned
--- NOTE | 2022-08-07 17:34 | XACV_ITS ---
Exam Room: [facility] Ht: 170 cm Wt: 94 kg BSA: 2.14 m2 Gender: Female : 1975 Any Known Allergies: Other Exam Priority: Routine Procedure(s): Procedure Description: Diagnostic procedure Procedure Description: PCI procedure Procedure Description: Left Heart Catheterization Procedure Description: Left ventriculography Procedure Description: Drug Eluting Coronary Stent Procedure Description: Coronary Angiography Sarbjit CAAL; Diagnostic Cath Status: Urgent Diagnostic Findings * The left main is a medium caliber vessel with no significant stenotic lesion. * The left anterior descending artery is a medium caliber vessel which appears to wrap around the LV apex. There is a proximal high-grade tubular lesion of around 80 to 90%. No other significant stenotic lesions were seen. * The left circumflex artery is a medium caliber vessel with minimal plaques proximally. No significant stenotic lesions were noted. * The right coronary artery is a medium caliber dominant vessel with no significant stenotic lesions. PCI Status: Urgent PCI LVEF Assessed: Yes PCI Indication: NSTE - ACS Interventional Findings * 3.5 x 12 mm stent was primarily placed in the ostial LAD with an excellent angiographic result. Decision for PCI with Surgical Consult: No PCI for Multi-vessel Disease: No Conclusions 1. This is a 46-year-old white female with history of hypertension, dyslipidemia and type 2 diabetes, presents with 3-day history of increasing episodes of chest pain. She had a Myocardial perfusion imaging which revealed moderate area of reversibility in the anterior and anterolateral wall regions. For further evaluation of her coronary status, a cardiac catheterization was recommended. She has a previous history of myocardial infarction in 2020, while being in [place]. We did not have any records on this. Patient underwent left heart catheterization with left and right coronary angiogram and LV angiogram. The findings are as follows. 2. High-grade lesion in the proximal left artery descending artery, involving the ostium. Minimal plaque in the left circumflex artery. Left main on the right coronary artery where found to have no significant lesions. No other significant stenotic lesions. Diffuse hypokinesia of the left ventricular ejection fraction of 40%. More severe hypokinesis of the LV apex. Features of left-ventricular diastolic dysfunction with an LVEDP of 28 mmHg.. 3. Reviewed and discussed the cardiac catheterization data with the Dr. Gr. It was thought to be appropriate to consider PCI of the proximal LAD lesion. Dr. Gr took over further management this patient at this point. Diagnostic RX Recommendation: PCI w/o planned CABG Ventriculography Ejection Fraction: 40.0 % LV EDP: 28 mmHg Left Ventriculography Findings: * The LV gram was performed the LLOYD projection. The LV cavity appears to be mildly dilated. There was diffuse hypokinesia of the left-ventricular with a severe hypokinesia of the apex. No filling defects were noted. The LVEDP was 28 mmHg. Overall LV ejection fraction was around 40%. Pressures Phase:Rest AO : 141 / 76 ( 100 ) @ 2:07:15 AM 107 / 78 ( 92 ) @ 2:07:15 AM 110 / 83 ( 96 ) @ 2:07:15 AM 111 / 94 ( 103 ) @ 2:07:15 AM 139 / 76 ( 100 ) @ 2:07:15 AM 139 / 74 ( 100 ) @ 2:07:15 AM 129 / 80 ( 102 ) @ 2:07:15 AM 130 / 112 ( 114 ) @ 2:07:15 AM 112 / 99 ( 106 ) @ 2:07:15 AM LV : 142 / -9 / 28 @ 2:07:15 AM 140 / -6 / 32 @ 2:07:15 AM 139 / -6 / 32 @ 2:07:15 AM Valves Phase:DefaultPhase AV : 0.0 @ 8:07:15 AM 0.0 @ 8:07:15 AM AV Mean Gradient: 0.0 @ 8:07:15 AM 0.0 @ 8:07:15 AM Clinical Evaluation EBL: 5mL-10mL Procedural Details Pre-Procedure Time Out. Does the consent match the physician's order: Yes. Accurate & Complete Informed Consent: Yes. Inpatient/Outpatient History & Physical on Chart: Yes. If H&P is completed, is and addenduem needed: No; If yes, is the addendum complete: N/A. Visualize and Verify Site with Patient/Guarantor: N/A. Relevant Radiology Images available: Yes. Pre-op teaching completed and patient verbalized understanding. The risks, benefits, and alternatives of sedation and/or procedure were discussed by physician. The patient agrees to continue. Procedure started. Current Diagnosis : NSTEMI. Physician arrived. [facility] Clinical Fraility Score: 3: Managing Well. Dry Cleaning Attendant Indications: ACS > 24 hours. Chest Pain Symptom Assessment: Typical Angina Symptoms. Correct patient, site and procedure confirmed by cath team. Current diagnosis: NSTEMI. PERRLA. Strong, equal hand administrative representative bilaterally. Lungs clear x 5 lobes. IV Site on Arrival: 18 gauge in the left anticubital. IV Fluids: 0.9% NaCl at KVO. 0 mL infused prior to research laboratory specialist. Pre Procedural Pulses: bilateral dorsalis pedis was 3+. Pre Procedural Pulses: bilateral posterior tibial was 3+. Oxygen started at 2liters/min via nasal canula. bilateral groins was prepped with chloroprep then draped in the usual sterile fashion. Baseline sample Acquired. HR: 96 BPM. Physician scrubbed in. Immediate Pre-Procedure Time Out. Correct Patient: Yes; Correct Procedure: Yes; Correct Site: Yes; Correct Patient Position: Yes; Correct Supplies: Yes; Dried Flammable Prep: Yes; Blood Products Available: N/A;. Lidocaine 1% infiltrated to the right groin. Arterial access obtained with micropuncture set. A 5 vietnamese JL4 catheter in over wire. Multiple views taken of left coronary artery. Catheter removed over the standard wire. A 5 vietnamese JR4 catheter in over wire. Multiple views taken of right coronary artery. Catheter removed over the standard wire. A 5 vietnamese Angled Pig catheter in over wire. EDP Sample taken: LV 142/-10,28; HR: 92 BPM; SpO2: 99%. LV gram performed in LLOYD @ 10 mL/second for a total of 30 mL. EDP Sample taken: LV 140/-7,32; HR: 93 BPM; SpO2: 98%. Pullback taken: LV 139/-7,32; AO 139/76(100); Mean: 0mmHg, Peak to Peak: 0mmHg, SEP: 9sec/min; HR: 93 BPM; SpO2: 99%. Catheter removed over the standard wire. Sheath upsized to a [address] Schaffer scrubbed out. Dr. Gr scrubbed in. 6 vietnamese XB 3 guide catheter was inserted over the wire. [employer] guidewire was advanced through the guide catheter to lesion in the prox LAD. Inflation Number : 1 A GABRIELLE Layton ANSELMO 3.5X12 MARISABEL -Lot Number# [id number] EXP: 03/19/2024 was prepped and advanced across the Prox LAD. The stent was deployed at 12 SHAMEKA for 0:20 seconds. Results checked. Stent balloon out over wire. Wire out. Guide catheter out. A Suture was successful obtaining hemostatsis at the Right Femoral artery insertion site. Post Procedure: Pulses reassessed and unchanged. PERRLA. Strong, equal hand administrative representative bilaterally. No VTE prophylaxis required. Medication's Wasted: Heparin = 4000 units. Total IV fluids: 51 mL. Vital chart was stopped. Post-op diagnosis: CAD. Complications: None. Estimated blood loss: 5mL-10mL. Responsiveness - Normal response to verbal stimuli; alert and oriented, PERRLA. Airway - Unaffected, no intervention required; spontaneous ventilation. Circulation: W/N/L, pulses unchanged. Nausea/Vomiting: No. Procedure completed. Patient transferred by bed to 1st floor. Access Site Site: Right Femoral artery Sheath Size: 5 Fr Hemostasis Method: Suture Hemostasis Success: Successful Procedure Medications Start: 5:51 PM Stop: 5:51 PM Medication: Versed Amount: 1 mg Route: I.V. Start: 5:51 PM Stop: 5:51 PM Medication: Fentanyl Amount: 50 mcg Route: I.V. Start: 5:55 PM Stop: 5:55 PM Medication: Versed Amount: 1 mg Route: I.V. Start: 5:55 PM Stop: 5:55 PM Medication: Fentanyl Amount: 50 mcg Route: I.V. Start: 6:20 PM Stop: 6:20 PM Medication: Heparin Amount: 5000 units Route: I.V. Start: 6:27 PM Stop: 6:27 PM Medication: Plavix Amount: 600 mg Route: P.O. I, the attending physician, have reviewed and verified all procedure medications. Yes, all medications given per verbal order History/Risk Factors Hypertension: Yes Dyslipidemia: Yes Peripheral Arterial Disease (PAD): No Myocardial Infarction ([place]): No Obesity: No Renal Disease: No Tobacco Use: Never Prior Interventions PCI: No CABG: No Valve Surgery: No Report Signatures Diagnostic Workflow Finalized by Dr Khadijah Schaffer MD [facility] on 08/08/2022 10:24 AM Interventional Workflow Finalized by Dr. Malik Gr MD on 08/07/2022 06:36 PM
--- NOTE | 2022-08-07 17:54 | PC.NURSE ---
to refuse laborer at [phone].
[2022-08-07 18:50] LABS: Glucose Point of Care 111 mg/dL (70-110)
--- NOTE | 2022-08-07 19:17 | PC.NURSE ---
Received bedside report from AMY Moran from finishing lab technician. Patient is s/p cath with right femoral access. Sheath remains in place attached to pressure bag. Dressing remain c,d,i with no s/s of bleeding or hematoma formation observed. Instructed patient on site care and restrictions. Patient verbalized complete understanding. Family at bedside. Will continue to monitor.
[2022-08-07] MEDS: sodium chloride 0.9% 1,000 ML 100 ML IV (19:25)
[2022-08-07 21:02] LABS: Glucose Point of Care 161 mg/dL (70-110)
[2022-08-07] MEDS: TRAMadol 50 mg Tablet PO (21:17)
[2022-08-07] MEDS: cyclobenzaprine 10 mg Tablet PO (21:17)
--- NOTE | 2022-08-07 23:02 | PC.NURSE ---
PTT 28. Initiated sheath removal per protocol at 2247. Hemostasis achieved immediately. Maintained pressure for 20 min. No s/s of bleeding or hematoma formation observed. VS monitored and remained WNL. Covered site with 2x2 and bio-occlusive dressing. Instructed patient on site care and restrictions. Patient verbalized complete understanding. Will continue to monitor.
[2022-08-07] MEDS: calcium carbonate 500 mg Chew Tablet PO (23:38)
--- NOTE | 2022-08-07 23:39 | PC.NURSE ---
Right groin dressing remains c,d,i with no s/s of bleeding at this time. Patient denies pain to site. Will continue to monitor site. Patient c/o heart burn. Informed Dr Bustillo and doctor placed order.
[2022-08-08] VITALS (26 sets, daily range): BP systolic 131–158; BP diastolic 61–92; PULSE 75–97; RESP 13–29; TEMP 36.7–36.9; O2SAT 93–98
[2022-08-08 06:37] LABS: Glucose Point of Care 167 mg/dL (70-110)
[2022-08-08 08:25] LABS: Blood Urea Nitrogen 9 mg/dL (6-20); Calcium 8.5 mg/dL (8.5-10.5); Carbon Dioxide 23 mmol/L (22-29); Chloride 101 mmol/L (98-107); Glomerular Filtration Rate 171.8 mL/min (90-130); Glucose 156 mg/dL (65-115); Osmolality Calculated 282 mOsm/kg (285-295); Sodium 135 mmol/L (136-145)
[2022-08-08 08:26] LABS: Anion Gap 15.2 (5-19); Potassium 4.2 mmol/L (3.5-5.1)
[2022-08-08] MEDS: insulin lispro 100 unit/1 mL SUBCUT ×2 (09:36→12:14)
[2022-08-08] MEDS: pregabalin 25 mg Capsule PO (09:37)
[2022-08-08] MEDS: atorvastatin 40 mg Tablet 80 MG PO (09:37)
[2022-08-08] MEDS: losartan 50 mg Tablet PO (09:37)
[2022-08-08] MEDS: aspirin 81 mg EC Tablet PO (09:38)
[2022-08-08] MEDS: pantoprazole DR 40 mg Tablet PO (09:38)
[2022-08-08] MEDS: metoprolol succinate ER (24 HR) 50 mg Tablet PO (09:38)
[2022-08-08] MEDS: clopidogrel 75 mg Tablet PO (09:38)
--- NOTE | 2022-08-08 09:50 | P.DS_ITS ---
Discharge Providers Date of Admission: 08/06/22 12:15 Date of Discharge: August 08, 2022 Attending Provider at Admission: Devi Bustillo MD Attending Provider at Discharge: Geoff Soliman MD Consults: Cardiology: Dr. Schaffer Primary Care Provider: Jorge Prakash DO Diagnoses at Discharge Discharge Diagnosis (1) Coronary artery disease with unstable angina pectoris: Status: Acute (2) Diabetes mellitus type 2, uncontrolled, with complications: Status: Acute (3) Dyslipidemia: Status: Acute (4) Hypertension: Status: Acute Reason for Visit Reason for Visit: CHEST PAIN Hospital Course Hospital Course Carolyn Alaniz is a 46 year old female with a history of hypertension, type 2 d iabetes, dyslipidemia and previous myocardial infarction, is admitted to hospital with a prolonged episode of chest pain.? This patient apparently has been at her baseline state of health up until 3 days ago when she started having chest pains off and on.? She was in the emergency room 3 days ago with the chest pain.? Apparently after waiting 3 hours in the waiting room, she decided to go home.? Yesterday evening, she had a prolonged episode of chest pain.? The pain with a started around 6:00.? It was in the mid substernal area which was radiating to the left shoulder, to the upper part of the left arm and to the back.? The intensity of the pain was moderate to severe.? She has no associated shortness of breath and nausea.? Because of the pain persisting for more than half an hour, she called 911 and was brought to the hospital. She had the pain persisting up until 12 midnight.? Even at that time, she had some discomfort but most of the pain was gone.? Her troponin T was negative for micral injury.? She had the Myocardial perfusion imaging this morning.? She was found to have moderate to large area of decreased tracer uptake in the distribution of the left and descending artery and circumflex artery with significant reversibility. In 2020, while she was in [place], she had AN ST relation myocardial infarction.? She was taken to the hospital? and was discharged home on the following day?.? According the patient, she did not have any angiogram.? She apparently had an echocardiogram.? She had a an angiogram prior to the myocardial infarction, a month or so ago and was told to have some plaque buildup but no major blockages.? The patient was under a lot of stress at that time taking care of her sick mother and also handicapped child.? It is not clear whether she had a Takotsubo syndrome or not. Apparently she has been doing okay since then up until few days ago. Patient was admitted to the hospital further evaluation and management. She underwent cardiac stress test on 08/06 which was significantly positive for periinfarct ischemia along with ischemic cardiomyopathy patient underwent cardiac angiogram and she was found to have proximal high-grade tubular lesion of around 80 to 90% in LAD. Patient underwent PCI to ostial LAD. Her hospitalization was unremarkable. Formal echocardiogram was done which showed EF of 45% with diffuse hypokinesia of left ventricle most of septum, inferior wall inferior lateral wall, mildly dilated LA with mild MR. During hospitalization she was found to have elevated blood pressures for which her antihypertensives were adjusted. She is being discharged in medically stable condition with advised to check her blood pressures and blood sugars daily at home and maintain a diary. Her dose of metformin has been switched to Jardiance. Her medication of lisinopril has been changed to losartan. Dose of metoprolol has been increased. Medication changes were discussed in detail with the patient and she verbalized underst anding. Physical Exam Narrative: General: No acute distress, AO x3 HEENT: PERRLA, pupils bilaterally equal and reactive Chest: Normal vesicular breath sounds, no added sounds, equal good air entry bilaterally CVS: S1-S2 regular, soft pansystolic murmur at apex, no tachycardia, no gallops, no rubs Abdomen: Soft, nontender, no organomegaly, bowel sounds present Neuro: No focal deficits, no facial deformity, AO x3, power 5/5 in all limbs Discharge Data Studies Completed and Pending Completed Studies During Hospitalization Category Date Time Status Cardiac Stress Test MIBI [Sestamibi Stress Test Request Exams 08/06/22 07:08 Draft ] Routine XR chest 1V portable [id number] Stat Exams 08/05/22 17:36 Completed NM dl perf SPECT r/s* [id number] Routine Nuc Med 08/06/22 21:36 Completed CV. echo complete* [id number] Routine Ultrasound 08/06/22 12:14 Completed Pending at discharge Category Date Time Status MODEL ENGINE MECHANIC request for service Routine Exams 08/07/22 17:34 Taken Cardiac Stress Test MIBI [Sestamibi Stress Test Request Exams 08/05/22 21:33 Stop Req ] Routine Radiology Impressions Chest X-Ray 08/05/22 17:36 IMPRESSION: No acute findings. Echocardiogram: CONCLUSIONS ?Diffuse hypokinesia of the left ventricular, more so of the ?septum, inferior wall and inferolateral wall segment overall LV ?ejection fraction around 45%. ?Mildly increased left atrial size. ?Mild mitral valve regurgitation. ?There is no pericardial effusion. ?There are no intracardiac masses. ?No similar previous studies are available for comparison ?Dr Khadijah Schaffer MD [facility] ?(Electronically Signed) ?Final Date:? ? ? 07 August 2022 ? 14:05 S Laboratory Results WBC 6.1 10^3/uL (4.0-10.0) 08/07/22 04:36 RBC 4.14 10^6/uL (4.1-5.3) 08/07/22 04:36 Hgb 12.2 g/dL (11.5-15.3) 08/07/22 04:36 Hct 35.3 % (37.0-47.0) L 08/07/22 04:36 MCV 85.3 fl (81-99) 08/07/22 04:36 MCH 29.5 pg (28.0-34.0) 08/07/22 04:36 MCHC 34.6 g/dL (30.0-36.0) 08/07/22 04:36 RDW 14.9 % (12.1-15.1) 08/07/22 04:36 Plt Count 204 10^3/cmm (130-400) 08/07/22 04:36 MPV 8.3 fL (7.4-10.4) 08/07/22 04:36 Neut % (Auto) 40.1 % 08/07/22 04:36 Lymph % (Auto) 50.2 % 08/07/22 04:36 [place] % (Auto) 6.9 % 08/07/22 04:36 Eos % (Auto) 1.1 % 08/07/22 04:36 Baso % (Auto) 0.7 % 08/07/22 04:36 Neut # (Auto) 2.44 10^3/uL (1.8-7.7) 08/07/22 04:36 Lymph # (Auto) 3.1 10^3/uL (0.8-4.8) 08/07/22 04:36 [place] # (Auto) 0.4 10^3/uL (0.2-0.9) 08/07/22 04:36 Eos # (Auto) 0.1 10^3/uL (0.0-0.8) 08/07/22 04:36 Baso # (Auto) 0.0 10^3/uL (0.0-0.1) 08/07/22 04:36 Nucleated RBC % (auto) 0 % 08/07/22 04:36 Nucleated RBCs # 0.0 /100WBC 08/07/22 04:36 APTT 28.0 SECONDS (23.9-36.7) 08/07/22 21:14 Sodium 135 mmol/L (136-145) L 08/08/22 07:46 Potassium 4.2 mmol/L (3.5-5.1) 08/08/22 07:46 Chloride 101 mmol/L (98-107) 08/08/22 07:46 Carbon Dioxide 23 mmol/L (22-29) 08/08/22 07:46 Anion Gap 15.2 (5-19) 08/08/22 07:46 BUN 9 mg/dL (6-20) 08/08/22 07:46 Creatinine 0.4 mg/dL (0.5-0.9) L 08/08/22 07:46 GFR Calculation 171.8 mL/min (90-130) H 08/08/22 07:46 Glucose 156 mg/dL (65-115) H 08/08/22 07:46 POC Glucose 167 mg/dL (70-110) H 08/08/22 06:32 Estimat Average Glucose 186 08/06/22 02:57 Hemoglobin A1c 8.1 % (4.0-6.0) H 08/06/22 02:57 Calculated Osmolality 282 mOsm/kg (285-295) L 08/08/22 07:46 Calcium 8.5 mg/dL (8.5-10.5) 08/08/22 07:46 Magnesium 1.5 mg/dL (1.7-2.3) L 08/06/22 02:57 Iron 86 ug/dL (37-145) 08/06/22 02:57 TIBC 283 mcg/dl 08/06/22 02:57 % Saturation 30.3 % (20-50) 08/06/22 02:57 Unsat Iron Binding 197 ug/dL (112-347) 08/06/22 02:57 Total Bilirubin 0.3 mg/dL (0.15-1.2) 08/07/22 04:36 AST 17 U/L (0-32) 08/07/22 04:36 ALT 21 U/L (0-33) 08/07/22 04:36 Alkaline Phosphatase 69 U/L (35-105) 08/07/22 04:36 Troponin T Baseline 20 ng/L (0-10) H 08/05/22 17:34 Troponin T 120 Minute 25.14 ng/L (0-10) H 08/05/22 19:30 Delta Troponin T 5.14 ABS# (0-10) 08/05/22 19:30 Troponin T Hi Sens 6Hr 24.69 ng/L (0-10) H 08/05/22 23:23 Troponin T Hi Sens 6Hr Delta 4.69 ng/L (0-12) 08/05/22 23:23 NT-Pro-B Natriuret Pep 948 pg/mL (0-125) H 08/05/22 17:34 Total Protein 5.6 g/dL (6.6-8.7) L 08/07/22 04:36 Albumin 3.3 g/dL (3.5-5.2) L 08/07/22 04:36 Globulin 2.3 g/dL (1.3-4.6) 08/07/22 04:36 Triglycerides 236 mg/dL (0-150) H 08/06/22 02:57 Cholesterol 102 mg/dL (0-200) 08/06/22 02:57 LDL Cholesterol, Calc 25 mg/dL (50-129) L 08/06/22 02:57 Total VLDL Cholesterol 47 mg/dL (0-30) H 08/06/22 02:57 HDL Cholesterol 30 mg/dL (60-100) L 08/06/22 02:57 Cholesterol/HDL Ratio 3.40 mg/dL (0.0-4.40) 08/06/22 02:57 Lipase 35 U/L (13-60) 08/05/22 17:34 Vitamin B12 397 pg/mL (232-1245) 08/06/22 02:57 Folate 16.2 ng/mL (4.8-37.3) 08/06/22 02:57 TSH 2.28 uIU/mL (0.27-4.20) 08/06/22 02:57 HCG, Qual Negative (Negative) 08/05/22 18:16 Imaging Myocardial perfusion imaging: Radiologist's impression: PERFUSION FINDINGS ?Multiple areas of moderate to severely decreased tracer uptake in the basal and ?mid anterior, mid anterolateral, inferolateral, anteroseptal and apical ?segments.? Significant reversibility was noted in these regions. ?FUNCTIONAL RESULTS ? ? (calculated via Gated SPECT) ? Stress Image LV EF (%):? ? 25 ? Stress EDV (mL):196? TID:? 1.14 ? Stress ESV (mL):147 ?FUNCTIONAL FINDINGS: ?Segmental wall motion analysis revealing severe diffuse hypokinesia of the ?septum, inferior wall and apical regions.? Slightly increased transient ?ischemic dilatation ratio and moderately dilated LV cavity ?IMPRESSIONS ?1.? Myocardial perfusion imaging revealing moderate to large areas of decreased ?tracer uptake in the anterior, anteroseptal, anterolateral, inferolateral and ?apical regions with a significant reversibility suggesting myocardial ischemia ? in the distribution of the left anterior descending artery and ?circumflex artery.? The slightly elevated transient ischemic dilatation ratio ?may suggest endocardial ischemia ?2.? Markedly diminished LV ejection fraction of 25%. ?3.? Multiple wall motion abnormalities as mentioned above. ?4.? Moderately dilated LV cavity. ?No similar previous studies are available for comparison ?Dr Khadijah Schaffer MD [facility] ?(Electronically Signed) ?Final Date:? ? ? 06 August 2022 ? 13:38 Procedures Performed Supervisor [employer] procedure: Conclusions ? 1. This is a 46-year-old white female with history of hypertension, dyslipidemia and type 2 diabetes, presents with 3-day history of increasing episodes of chest pain.? She had a Myocardial perfusion imaging which revealed moderate area of reversibility in the anterior and anterolateral wall regions. For further evaluation of her coronary status, a cardiac catheterization was recommended.? She has a previous history of myocardial infarction in 2020, while being in [place].? We did not have any records on this.? Patient underwent left heart catheterization with left and right coronary angiogram and LV angiogram.? The findings are as follows. ? 2. High-grade lesion in the proximal left artery descending artery, involving the ostium.? Minimal plaque in the left circumflex artery.? Left main on the right coronary artery where found to have no significant lesions. No other significant stenotic lesions. Diffuse hypokinesia of the left ventricular ejection fraction of 40%. More severe hypokinesis of the LV apex. Features of left-ventricular diastolic dysfunction with an LVEDP of 28 mmHg.. ? 3. Reviewed and discussed the cardiac catheterization data with the Dr. Gr.? It was thought to be appropriate to consider PCI of the proximal LAD lesion.? Dr. Gr took over further management this patient at this point. Diagnostic RX Recommendation: ? ? PCI w/o planned CABG Ventriculography Ejection Fraction: ? ? 40.0 % LV EDP: ? ? 28 mmHg Left Ventriculography Findings: ? * The LV gram was performed the LLOYD projection.? The LV cavity appears to be mildly dilated.? There? was diffuse hypokinesia of the left-ventricular with a severe hypokinesia of the apex.? No filling defects were noted. The LVEDP was 28 mmHg. Overall LV ejection fraction was around 40%. Vitals Last Vital Signs Temp 98.0 F 08/08/22 04:00 Pulse 79 08/08/22 04:58 Resp 19 H 08/08/22 04:00 BP 158/61 08/08/22 09:37 Pulse Ox 96 08/08/22 04:00 O2 Del Method 08/08/22 04:00 Discharge Plan Discharge Patient Disposition: Home Condition: Stable Prescriptions: New losartan 50 mg Tablet 75 mg PO DAILY 30 Days Qty: 45 0RF metoprolol succinate 50 mg Tablet Extended Release 24 Hr 50 mg PO DAILY 30 Days Qty: 30 0RF clopidogrel 75 mg Tablet 75 mg PO DAILY Qty: 30 0RF aspirin 81 mg Tablet,Delayed Release (Dr/Ec) 81 mg PO DAILY Qty: 30 0RF pantoprazole 40 mg Tablet,Delayed Release (Dr/Ec) 40 mg PO DAILY Qty: 30 0RF Jardiance 25 mg tablet 25 mg PO DAILY Qty: 30 0RF Continued acetaminophen 325 mg tablet 325 mg PO QID PRN (Reason: Pain) (DME) blood-glucose meter [FreeStyle Lite Meter] Kit See Rx Instructions .Route Qty: 1 0RF Rx Instructions: As directed (DME) FreeStyle Lite Strips Strip See Rx Instructions .Route Qty: 100 3RF Rx Instructions: once daily check (DME) 3 Inserts See Rx Instructions .Route .MEDSUPPLY Qty: 1 0RF Rx Instructions: As directed HOME pregabalin [Lyrica] 25 mg capsule 25 mg PO BID Qty: 60 0RF miscellaneous medical supply Misc See Rx Instructions .ROUTE .COMPLEX Qty: 1 2RF Rx Instructions: Evaluation for diabetic foot wear with possible orthotics for off-loading on the insole. (DME) Diabetic shoes with 3 inserts See Rx Instructions .Route .MEDSUPPLY Qty: 1 0RF Rx Instructions: As directed J P & O cyclobenzaprine 10 mg Tablet 10 mg PO TID PRN (Reason: Muscle Spasm) ketorolac 10 mg tablet 10 mg PO Q6H PRN (Reason: Pain) EpiPen 2-Jonel 0.3 mg/0.3 mL Auto-Injector See Rx Instructions .ROUTE .COMPLEX Rx Instructions: as directed as needed Narcan 4 mg/actuation [place],Non-Aerosol 4 mg INTRANASAL Q2M PRN (Reason: overdose) Rx Instructions: spray 1 dose into ONE nostril; alternate nostrils w each dose until help arrives Changed atorvastatin 40 mg tablet 80 mg PO DAILY Qty: 90 1RF Discontinued metoprolol succinate 25 mg tablet extended release 24 hr 25 mg PO DAILY Qty: 30 6RF metformin 1,000 mg tablet 1,000 mg PO BID Qty: 60 2RF lisinopril 10 mg Tablet 10 mg PO BEDTIME Discharge Orders: Discharge Order (Routine); Ordered 08/08/22 Ordered By: Geoff Soliman Referrals: Jorge Prakash DO [Primary Care Provider] - 08/20/22 8:00 am ([facility] has scheduled a follow-up appointment for you with Dr. Prakash on 08/20/2022 at 8:00. If you have any questions, please call [phone].) Khadijah Schaffer MD [Physician] - 1 month Eckley,Svitlana, TOLL GATE TENDER [Nurse Practitioner] - 08/21/22 8:15 am ([facility] has scheduled a follow-up appointment for you with Svitlana Ward on 2022 at 8:15. If you have any questions, please call [phone].) Discharge Diet: Cardiac and Diabetic Discharge Activity: Resume usual activity and Increase activity as tolerated Patient Instructions: Aspirin/Codeine (By mouth), Metoprolol (By mouth) (Lopressor, Toprol XL), Losartan (By mouth) (Cozaar), Clopidogrel (By mouth) (Plavix), Pantoprazole (By mouth) (Protonix), Empagliflozin (By mouth) (Jardiance), Hypertension, Coronary Artery Disease (DC), Hypertension and Diabetes (DC), Chest Pain Stoplight, Opioid Safety, Post Angiogram Home Care Instructions Activity Restrictions/Additional Instructions: Please check your blood pressures and blood sugars daily at home and maintain a diary. Please follow-up with a primary care provider and nurse practitioner from cardiology within next [address] Schaffer in 1 month. Multiple medication changes have been done. Metformin has been changed to Jardiance. Dose of metoprolol has been increased. Lisinopril has been changed to losartan. Discharge Attestations Time Spent in Discharge Care*: greater than 30 min Specific Discharge Activities: educating patient, educating and/or supporting family/caregiver, discussing with pcp/other providers, discussing with caser in/social workers/dc planners, documenting/other paperwork and evaluating patient/reviewing data Status at Discharge: Cognitive status at discharge: cognitively intact , Behavioral status at discharge: cooperative , Functional status at discharge: independent ambulation , Overall status at discharge: patient is progressing back to baseline Quality Metrics Clinical Quality Measures [ No reported AMI, CVA or VTE this stay] Coding Level of Care Code 70517 Total time (in minutes) for Discharge: 50 Diagnoses Coronary artery disease with unstable angina pectoris I25.110 Diabetes mellitus type 2, uncontrolled, with complications Dyslipidemia E78.5 Hypertension I10
[2022-08-08 11:30] LABS: Glucose Point of Care 263 mg/dL (70-110)
--- NOTE | 2022-08-08 15:15 | P.PN_ITS ---
Subjective Subjective: The patient is feeling okay. She had the cardiac catheterization yesterday and was found to have high-grade lesion of the proximal LAD. She underwent a PCI of this lesion. Since the intervention, she has not had any recurrence of chest pain. Vital signs remained stable. Her blood pressure is of stage II. Vitals/I&O/Wt Last Vital Signs Temp 98.0 F 08/08/22 04:00 Pulse 93 08/08/22 11:13 Resp 25 H 08/08/22 11:13 BP 158/61 08/08/22 11:13 Pulse Ox 98 08/08/22 08:00 O2 Del Method 08/08/22 04:00 08/08/22 08/08/22 08/08/22 06:59 14:59 22:59 Intake Total 1600 / 2600 360 / 360 Output Total 0 / 800 Balance 1600 / 1800 360 / 360 Weight last 48 hrs Weight 207 lb 6.4 oz Physical Exam Narrative: GENERAL: The patient is alert and oriented times three. Not in any acute distress. HEENT: No significant pallor, icterus or lymphadenopathy.Oral cavity: There are no mucous membrane lesions. NECK: Trachea appears to be central. No masses noted. No JVD or thyromegaly appreciated. RESPIRATORY: Chest is symmetrical. No intercostals muscle retraction or any accessory muscle activation. There is no chest wall tenderness. Breath sounds are heard bilaterally. No rales or rhonchi heard. No evidence of any consolidation. BREASTS: Deferred. HEART: The heart sounds are normal. No S3 or S4. No significant murmurs. No pericardial rub ABDOMEN: No vessel pulsations or distention. No tenderness. No organomegaly appreciated. Bowel sounds are normally heard. : Deferred. RECTAL: Deferred. LYMPHATIC: No lymphadenopathy noted in the neck. EXTREMITIES: The right groin has no hematoma bleeding. MUSCULOSKELETAL: No acute joint deformities or swelling SKIN: There are no significant rashes or ecchymosis NEUROPSYCHIATRIC: The patient is alert and oriented x3. Appears to be in a good mood. No tremors or rigidity noted. Data 08/07/22 04:36 08/08/22 07:46 Other Labs: Laboratory Last Values WBC 6.1 10^3/uL (4.0-10.0) 08/07/22 04:36 RBC 4.14 10^6/uL (4.1-5.3) 08/07/22 04:36 Hgb 12.2 g/dL (11.5-15.3) 08/07/22 04:36 Hct 35.3 % (37.0-47.0) L 08/07/22 04:36 MCV 85.3 fl (81-99) 08/07/22 04:36 MCH 29.5 pg (28.0-34.0) 08/07/22 04:36 MCHC 34.6 g/dL (30.0-36.0) 08/07/22 04:36 RDW 14.9 % (12.1-15.1) 08/07/22 04:36 Plt Count 204 10^3/cmm (130-400) 08/07/22 04:36 MPV 8.3 fL (7.4-10.4) 08/07/22 04:36 Neut % (Auto) 40.1 % 08/07/22 04:36 Lymph % (Auto) 50.2 % 08/07/22 04:36 [place] % (Auto) 6.9 % 08/07/22 04:36 Eos % (Auto) 1.1 % 08/07/22 04:36 Baso % (Auto) 0.7 % 08/07/22 04:36 Neut # (Auto) 2.44 10^3/uL (1.8-7.7) 08/07/22 04:36 Lymph # (Auto) 3.1 10^3/uL (0.8-4.8) 08/07/22 04:36 [place] # (Auto) 0.4 10^3/uL (0.2-0.9) 08/07/22 04:36 Eos # (Auto) 0.1 10^3/uL (0.0-0.8) 08/07/22 04:36 Baso # (Auto) 0.0 10^3/uL (0.0-0.1) 08/07/22 04:36 Nucleated RBC % (auto) 0 % 08/07/22 04:36 Nucleated RBCs # 0.0 /100WBC 08/07/22 04:36 APTT 28.0 SECONDS (23.9-36.7) 08/07/22 21:14 Sodium 135 mmol/L (136-145) L 08/08/22 07:46 Potassium 4.2 mmol/L (3.5-5.1) 08/08/22 07:46 Chloride 101 mmol/L (98-107) 08/08/22 07:46 Carbon Dioxide 23 mmol/L (22-29) 08/08/22 07:46 Anion Gap 15.2 (5-19) 08/08/22 07:46 BUN 9 mg/dL (6-20) 08/08/22 07:46 Creatinine 0.4 mg/dL (0.5-0.9) L 08/08/22 07:46 GFR Calculation 171.8 mL/min (90-130) H 08/08/22 07:46 Glucose 156 mg/dL (65-115) H 08/08/22 07:46 POC Glucose 263 mg/dL (70-110) H 08/08/22 11:27 Estimat Average Glucose 186 08/06/22 02:57 Hemoglobin A1c 8.1 % (4.0-6.0) H 08/06/22 02:57 Calculated Osmolality 282 mOsm/kg (285-295) L 08/08/22 07:46 Calcium 8.5 mg/dL (8.5-10.5) 08/08/22 07:46 Magnesium 1.5 mg/dL (1.7-2.3) L 08/06/22 02:57 Iron 86 ug/dL (37-145) 08/06/22 02:57 TIBC 283 mcg/dl 08/06/22 02:57 % Saturation 30.3 % (20-50) 08/06/22 02:57 Unsat Iron Binding 197 ug/dL (112-347) 08/06/22 02:57 Total Bilirubin 0.3 mg/dL (0.15-1.2) 08/07/22 04:36 AST 17 U/L (0-32) 08/07/22 04:36 ALT 21 U/L (0-33) 08/07/22 04:36 Alkaline Phosphatase 69 U/L (35-105) 08/07/22 04:36 Troponin T Baseline 20 ng/L (0-10) H 08/05/22 17:34 Troponin T 120 Minute 25.14 ng/L (0-10) H 08/05/22 19:30 Delta Troponin T 5.14 ABS# (0-10) 08/05/22 19:30 Troponin T Hi Sens 6Hr 24.69 ng/L (0-10) H 08/05/22 23:23 Troponin T Hi Sens 6Hr Delta 4.69 ng/L (0-12) 08/05/22 23:23 NT-Pro-B Natriuret Pep 948 pg/mL (0-125) H 08/05/22 17:34 Total Protein 5.6 g/dL (6.6-8.7) L 08/07/22 04:36 Albumin 3.3 g/dL (3.5-5.2) L 08/07/22 04:36 Globulin 2.3 g/dL (1.3-4.6) 08/07/22 04:36 Triglycerides 236 mg/dL (0-150) H 08/06/22 02:57 Cholesterol 102 mg/dL (0-200) 08/06/22 02:57 LDL Cholesterol, Calc 25 mg/dL (50-129) L 08/06/22 02:57 Total VLDL Cholesterol 47 mg/dL (0-30) H 08/06/22 02:57 HDL Cholesterol 30 mg/dL (60-100) L 08/06/22 02:57 Cholesterol/HDL Ratio 3.40 mg/dL (0.0-4.40) 08/06/22 02:57 Lipase 35 U/L (13-60) 08/05/22 17:34 Vitamin B12 397 pg/mL (232-1245) 08/06/22 02:57 Folate 16.2 ng/mL (4.8-37.3) 08/06/22 02:57 TSH 2.28 uIU/mL (0.27-4.20) 08/06/22 02:57 HCG, Qual Negative (Negative) 08/05/22 18:16 A&P Assessment and plan (1) Coronary artery disease with unstable angina pectoris: Patient is currently remaining stable. She may continue on the Plavix, aspirin and the other current medications. If she continues remain stable, may be discharged home today. (2) Diabetes mellitus type 2, uncontrolled, with complications: Importance of aggressive management of the diabetes, cardiovascular complications of uncontrolled diabetes and the need for compliance to treatment were discussed. Patient seems to understand these well. (3) Dyslipidemia: May continue on the current medications. (4) Hypertension: Currently the blood pressure is within the normal range. We will continue on the current medications. Plan Please make an appointment to be [facility] at [facility] next week by the nurse practitioner. I may see her in the office in 1 month. Continue on the Plavix, aspirin and other current medications. Patient is advised to avoid any weight lifting or climbing stairs for the next 2 days In the event of few develop any unusual chest pain or shortness of breath, advised to contact us or come back to the hospital Blood pressure medication adjustments as per the primary attending Attestations Medical Necessity Statement*: Possible discharge home today Coding Level of Care Code 87542 Diagnoses Coronary artery disease with unstable angina pectoris I25.110 Diabetes mellitus type 2, uncontrolled, with complications Dyslipidemia E78.5 Hypertension I10
--- NOTE | 2022-08-08 15:22 | PC.NURSE ---
discharge instructions given and explained.pt verb understanding of instructions.discharged via w/c to exit at 1230.son to drive pt home
== END 2022-08-08 12:30 | disposition home or self-care (01) | DRG 246 ==
LOC: ER 20:23 → CSU 20:52
PROVIDERS: Internal Medicine Cardiovascular Disease; Admitting Provider Student in an Organized Health Care Education/Training Program; Emergency Provider Emergency Medicine; PCP Family Medicine; Visit Provider Student in an Organized Health Care Education/Training Program
PROC: B2111ZZ Fluoroscopy of Multiple Coronary Arteries using Low Osmolar Contrast (ICD-10-PCS; principal; 2022-08-07 16:30)
PROC: 027034Z Dilation of Coronary Artery, One Artery with Drug-eluting Intraluminal Device, Percutaneous Approach (ICD-10-PCS; 2022-08-07 16:30)
DX: I25.110 Atherosclerotic heart disease of native coronary artery with unstable angina pectoris (principal); I50.21 Acute systolic (congestive) heart failure; I11.0 Hypertensive heart disease with heart failure; I25.5 Ischemic cardiomyopathy; E11.65 Type 2 diabetes mellitus with hyperglycemia; E11.59 Type 2 diabetes mellitus with other circulatory complications; E78.5 Hyperlipidemia, unspecified; I25.2 Old myocardial infarction; Z79.84 Long term (current) use of oral hypoglycemic drugs; Z86.31 Personal history of diabetic foot ulcer; Z63.6 Dependent relative needing care at home
CPT/HCPCS: 36415; 36416; 71045; 78452; 80048; 80053; 80061; 82607; 82746; 82962; 83036; 83540; 83550; 83690; 83735; 83880; 84443; 84484; 84703; 85025; 85730; 93005; 93017; 93306; 93458; 96365; 96372; 96374; 96376; 99152; 99153; 99285; A9500; C1769; C1874; C1887; C1894; C9600; G0378; J1644; J1650; J1815; J2250; J2270; J2785; J3010; J7030; Q9967

== ENCOUNTER → 2022-08-21 08:13 | Outpatient (BNVA) | payer MEDICAID, SELFPAY | PROVIDERS: PCP Family Medicine; Visit Provider Nurse Practitioner Family | DX: I25.110 Atherosclerotic heart disease of native coronary artery with unstable angina pectoris (principal); I10 Essential (primary) hypertension; Z79.82 Long term (current) use of aspirin | CPT/HCPCS: 80048; 93005; 99214 ==

== ENCOUNTER 2022-08-26 13:01 | Emergency (ER) | payer MEDICAID, SELFPAY ==
[2022-08-26 13:37] VITALS: BP 139/75; PULSE 94; RESP 17; TEMP 36.8; O2SAT 98; BMI 31.8
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
== END 2022-08-26 15:30 | disposition home or self-care (01) ==
PROVIDERS: Emergency Provider Physician Assistant; PCP Family Medicine
DX: S16.1XXA Strain of muscle, fascia and tendon at neck level, initial encounter (principal); K02.9 Dental caries, unspecified; S39.012A Strain of muscle, fascia and tendon of lower back, initial encounter; Z79.82 Long term (current) use of aspirin; Z79.02 Long term (current) use of antithrombotics/antiplatelets; E11.9 Type 2 diabetes mellitus without complications; I25.2 Old myocardial infarction; I10 Essential (primary) hypertension; V89.2XXA Person injured in unspecified motor-vehicle accident, traffic, initial encounter
CPT/HCPCS: 72040; 72072; 72100; 99283

== ENCOUNTER → 2022-09-04 15:00 | Outpatient (BNVA) | payer MEDICAID, SELFPAY | PROVIDERS: PCP Family Medicine; Visit Provider Nurse Practitioner Women's Health | DX: R30.0 Dysuria (principal); R82.90 Unspecified abnormal findings in urine; Z01.419 Encounter for gynecological examination (general) (routine) without abnormal findings | CPT/HCPCS: 84315; 87086; 87624 ==

== ENCOUNTER 2022-09-15 11:27 | Outpatient (CLI) | payer MEDICAID, SELFPAY ==
--- NOTE | 2022-09-15 12:00 | USCV_ITS ---
Carolyn Alaniz Age: 46 Gender: F : 1975 Exam Date: 09/15/2022 12:59 Ordering Phys: Jorge Prakash DO Technologist: Exam Location: [facility] [place] Indication: Neuropathy, PVD Risk Factors: Previous Vascular Surgery: RIGHT LEFT BP: 140.0 / 85.00 BP: 140.0/ 85.00 0 0 Waveform Velocity (cm/s) Velocity (cm/s) Waveform Triphasic 120.6 Iliac Prox 142.9 Triphasic Triphasic 126.7 Iliac Mid 155.4 Triphasic Triphasic 144.8 Iliac Distal 144.5 Triphasic Triphasic 154.8 WASHER MEAT 150.7 Triphasic Triphasic 166.9 SFA Prox 181.8 Triphasic Triphasic 128.7 SFA Mid 141.4 Triphasic Triphasic SFA Dist Triphasic 162.9 142.9 Triphasic 67.3 POP 52.1 Triphasic Triphasic 60.5 FRAME STRIPPER 56.4 Biphasic Triphasic 74.3 DPA 76.0 Biphasic FINDINGS Noncompressible ABIs Normal/near normal arterial Doppler waveforms bilaterally. Normal/near normal arterial Doppler flow velocities CONCLUSIONS Features suggesting extensive arterial sclerosis with no significant arterial obstruction, bilaterally Dr Khadijah Schaffer MD [facility] (Electronically Signed) Final Date: 16 September 2022 09:14 S
== END 2022-09-15 11:28 | disposition home or self-care (01) ==
LOC: RAD 11:29
PROVIDERS: PCP Family Medicine; Visit Provider Family Medicine
DX: E11.42 Type 2 diabetes mellitus with diabetic polyneuropathy (principal); I73.9 Peripheral vascular disease, unspecified
CPT/HCPCS: 93925

== ENCOUNTER 2022-10-04 11:56 | Emergency (ER) | payer MEDICAID, SELFPAY ==
[2022-10-04 12:03] VITALS: BP 143/88; PULSE 65; RESP 15; TEMP 36.6; O2SAT 93; BMI 31.3
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
[2022-10-04 13:25] VITALS: RESP 14
[2022-10-04] MEDS: orphenadrine 30 mg/mL Inj 2 mL 60 MG IM (13:25)
[2022-10-04] MEDS: morphine 4 mg/mL SDV 1 mL IM (13:25)
[2022-10-04 13:37] LABS: Glucose Point of Care 298 mg/dL (70-110)
== END 2022-10-04 14:07 | disposition home or self-care (01) ==
PROVIDERS: Emergency Provider Physician Assistant; PCP Family Medicine
DX: S29.012A Strain of muscle and tendon of back wall of thorax, initial encounter (principal); Z79.82 Long term (current) use of aspirin; Z79.02 Long term (current) use of antithrombotics/antiplatelets; E11.9 Type 2 diabetes mellitus without complications; I25.2 Old myocardial infarction; I10 Essential (primary) hypertension; X50.9XXA Other and unspecified overexertion or strenuous movements or postures, initial encounter
CPT/HCPCS: 36416; 82962; 96372; 99284; J2270; J2360

== ENCOUNTER 2022-10-23 21:13 | Emergency (ER) | payer MEDICAID, SELFPAY ==
[2022-10-23 21:17] VITALS: BP 129/63; PULSE 62; RESP 18; O2SAT 97
--- NOTE | 2022-10-23 21:20 | ECG_ITS ---
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 Measurements Intervals [place] Rate: 90 P: 57 NE: 149 QRS: -23 QRSD: 130 T: 7 QT: 393 QTc: 483 Interpretive Statements SINUS RHYTHM WITH FREQUENT SUPRAVENTRICULAR PREMATURE COMPLEXES BORDERLINE LEFT AXIS DEVIATION [QRS AXIS < -20] POSSIBLE RIGHT VENTRICULAR CONDUCTION DELAY [RSR (QR) IN V1/V2] ABNORMAL RHYTHM ECG Compared to ECG 08/06/2022 00:59:21 Ventricular premature complex(es) no longer present T-wave abnormality no longer present Electronically Signed On 10-24-2022 9:15:55 CDT by Daina Arellano M.D. [id number]
[2022-10-23 21:49] LABS: Basophils # 0.1 10^3/uL (0.0-0.1); Basophils % 0.7 %; Eosinophils # 0.1 10^3/uL (0.0-0.8); Eosinophils % 0.8 %; Hematocrit 45.9 % (37.0-47.0); Hemoglobin 15.9 g/dL (11.5-15.3); Lymphocytes # 2.7 10^3/uL (0.8-4.8); Lymphocytes % 32.4 %; Mean Corpuscular HGB Conc 34.6 g/dL (30.0-36.0); Mean Corpuscular Hemoglobin 28.6 pg (28.0-34.0); Mean Corpuscular Volume 82.6 fl (81-99); Mean Platelet Volume 8.1 fL (7.4-10.4); Monocytes # 0.4 10^3/uL (0.2-0.9); Monocytes % 5.3 %; Neutrophils # 4.98 10^3/uL (1.8-7.7); Neutrophils % 60.2 %; Nucleated Red Blood Cells % 0 %; Platelet Count 251 10^3/cmm (130-400); Red Blood Count 5.56 10^6/uL (4.1-5.3); Red Cell Distribution Width 13.6 % (12.1-15.1); White Blood Count 8.3 10^3/uL (4.0-10.0)
[2022-10-23 22:07] LABS: Alanine Aminotransferase 20 U/L (0-33); Albumin Level 4.7 g/dL (3.5-5.2); Alkaline Phosphatase 113 U/L (35-105); Anion Gap 18.6 (5-19); Aspartate Amino Transferase 15 U/L (0-32); Blood Urea Nitrogen 17 mg/dL (6-20); Calcium 9.9 mg/dL (8.5-10.5); Carbon Dioxide 24 mmol/L (22-29); Chloride 94 mmol/L (98-107); Globulin 3.3 g/dL (1.3-4.6); Glomerular Filtration Rate 76.9 mL/min (90-130); Glucose 353 mg/dL (65-115); Osmolality Calculated 292 mOsm/kg (285-295); Potassium 3.6 mmol/L (3.5-5.1); Sodium 133 mmol/L (136-145); Total Bilirubin 0.5 mg/dL (0.15-1.2)
[2022-10-23 22:23] LABS: Troponin(5th) Baseline 11 ng/L (0-10)
[2022-10-23 23:30] VITALS: BP 136/83; PULSE 92; RESP 17; O2SAT 93
[2022-10-23 23:58] LABS: Troponin 5 2HR 11.19 ng/L (0-10)
--- NOTE | 2022-10-23 23:58 | ECG_ITS ---
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 Measurements Intervals [place] Rate: 95 P: 54 NV: 149 QRS: -23 QRSD: 121 T: 4 QT: 385 QTc: 485 Interpretive Statements SINUS RHYTHM BORDERLINE LEFT AXIS DEVIATION [QRS AXIS < -20] POSSIBLE RIGHT VENTRICULAR CONDUCTION DELAY [RSR (QR) IN V1/V2] Compared to ECG 10/23/2022 21:20:41 No significant changes Electronically Signed On 10-24-2022 9:17:08 CDT by Daina Arellano M.D. [id number]
[2022-10-24] LABS: Troponin 5 2HR Delta 0.19 ABS# (0-10)
--- NOTE | 2022-10-24 00:16 | ED_ITS ---
HPI - Dizziness General: Chief Complaint: Dizziness Stated Complaint: DIZZY Time Seen by Provider: 10/23/22 21:42 History of Present Illness: HPI Narrative: Patient is brought in by EMS for dizziness irregular heartbeat. Patient and daughter report the patient was swimming in the pool felt a little dizzy and daughter noted that she was blue-colored around her lips. Patient reports that the EMS told her she was in A-fib which she has had a history of in the past. Patient reports that she did have a brief episode of chest pain lasting less than 1 minute on the right anterior chest. She denied radiation of pain or shortness of breath. Patient denies any symptoms at this time. States that she had a recent cardiac stent a month or 2 ago. Associated symptoms: Reports chest pain; Denies chills, headache(s), nausea, palpitations, syncope or vomiting Associated neuro symptoms: Deny numbness in extremities Review of Systems Const: Denies: fever(s), chills or body aches Eyes: Denies: change in vision or blurry vision Card: Reports: chest pain and irregular heart rhythm; Denies: palpitations or syncope Resp: Denies: dyspnea, productive cough or non-productive cough GI: Denies: abdominal pain, nausea or vomiting : Denies: flank pain, difficulty voiding, dysuria, urinary frequency, urinary urgency or urinary hesitancy Musc: Denies: neck pain or back pain Neuro: Reports: dizziness; Denies: headache(s), numbness in extremities or weakness in extremities PFSH ED PFSH: Medical History Chronic ulcer of right foot Diabetes History of myocardial infarction Hypertension No pertinent family history Positive cardiac stress test Surgical History S/P section S/P coronary angiogram S/P tubal ligation Status post amputation of toe Social History Smoking and tobacco status: never smoked Alcohol intake: current Alcohol intake frequency: holidays/special occasions only Substance/Drug Use: never Female Reproductive History: Spontaneous abortions: No Physical Exam Const: COMMON NORMALS: no acute distress, patient oriented x3 and alert GENERAL APPEARANCE: cooperative ORIENTATION/CONSCIOUSNESS: Yes awake, Yes oriented to person, Yes oriented to place and Yes oriented to time Eye: COMMON NORMALS: Equal, round and reactive pupils present, EOMs intact bilaterally and conjunctivae normal GENERAL EYE: appearance normal, both eyes and all related structures ALIGNMENT: Yes alignment normal CONJUNCTIVA: Yes conjunctivae normal SCLERA: sclerae normal PUPIL: Yes Equal, round and reactive pupils present Neck/C-Spine: COMMON NORMALS: full ROM Resp: COMMON NORMALS: normal respiratory effort, No retractions, No use of accessory muscles and clear to auscultation bilaterally EFFORT & INSPECTION: Yes symmetric chest movement AUSCULTATION: clear to auscultation bilaterally Cardio: COMMON NORMALS: regular rate, regular rhythm (Mostly regular with episodes of frequent PAC), S1 normal heart sound present and S2 normal heart sound present RATE: regular rate RHYTHM: regular rhythm (Mostly regular with episodes of frequent PAC) HEART SOUNDS: S1 normal heart sound present and S2 normal heart sound present GI: COMMON NORMALS: Normal to inspection, nondistended, normoactive bowel sounds present, Soft to palpation, non-tender, No hepatosplenomegaly present, no masses and no bruits INSPECTION: Yes normal to inspection PALPATION: Yes Soft to palpation and Yes No hepatosplenomegaly present : COMMON NORMALS: Yes no CVA tenderness BLADDER/KIDNEY EXAM: Yes no CVA tenderness Back/Pelvis: COMMON NORMALS: no CVA tenderness Neuro: COMMON NORMALS: patient oriented x3 SENSORIUM/ORIENTATION: Yes alert, Yes oriented to person, Yes oriented to place and Yes oriented to time Psych: COMMON NORMALS: cooperative Course Vital Signs: Vital signs: Vital Signs Pulse Rate 62 10/23/22 21:17 Respiratory Rate 18 10/23/22 21:17 Blood Pressure 129/63 10/23/22 21:17 Pulse Oximetry 97 10/23/22 21:17 Oxygen Delivery Me thod Room Air 10/23/22 21:17 MDM - Dizziness Medical Decision Making Patient reported an episode of dizziness and brief episode of chest pain prior to arrival. Patient was brought in by EMS daughter reports that she was bluish discolored around her lips and she looks a bit pale. Upon my initial exam patient denied any symptoms and continued to deny any symptoms throughout her ER visit. EKGs do not show any acute ST changes. Frequent PACs are noted on EKG and transmission and coordination engineer. Initial troponin was 11 and 2-hour troponin was 11.19. Patient remained symptom-free. I discussed the case with Dr. Chacon who agrees with my plan to discharge patient to home at this time with follow-up with her desulfurizer operator next week. Strict return precautions given to return to the ER for any chest pain, new or worsening symptoms. Patient is agreeable and wishes to be discharged home at this time. Lab Data 10/23/22 21:10/23/22: Laboratory Results WBC 8.3 10^3/uL (4.0-10.0) 10/23/22 21: RBC 5.56 10^6/uL (4.1-5.3) H 10/23/22: Hgb 15.9 g/dL (11.5-15.3) H 10/23/22: Hct 45.9 % (37.0-47.0) 10/23/22: MCV 82.6 fl (81-99) 10/23/22: MCH 28.6 pg (28.0-34.0) 10/23/22 21: MCHC 34.6 g/dL (30.0-36.0) 10/23/22: RDW 13.6 % (12.1-15.1) 10/23/22: Plt Count 251 10^3/cmm (130-400) 10/23/22: MPV 8.1 fL (7.4-10.4) 10/23/22: Neut % (Auto) 60.2 % 10/23/22: Lymph % (Auto) 32.4 % 10/23/22 21: Hoke % (Auto) 5.3 % 10/23/22 21: Eos % (Auto) 0.8 % 10/23/22: Baso % (Auto) 0.7 % 10/23/22: Neut # (Auto) 4.98 10^3/uL (1.8-7.7) 10/23/22: Lymph # (Auto) 2.7 10^3/uL (0.8-4.8) 10/23/22: Hoke # (Auto) 0.4 10^3/uL (0.2-0.9) 10/23/22 21:32 Eos # (Auto) 0.1 10^3/uL (0.0-0.8) 10/23/22 21:32 Baso # (Auto) 0.1 10^3/uL (0.0-0.1) 10/23/22 21:32 Nucleated RBC % (auto) 0 % 10/23/22 21: Nucleated RBCs # 0.0 /100WBC 10/23/22 21:32 Sodium 133 mmol/L (136-145) L 10/23/22 21:32 Potassium 3.6 mmol/L (3.5-5.1) 10/23/22 21: Chloride 94 mmol/L (98-107) L 10/23/22 21: Carbon Dioxide 24 mmol/L (22-29) 10/23/22 21: Anion Gap 18.6 (5-19) 10/23/22 21:32 BUN 17 mg/dL (6-20) 10/23/22 21: Creatinine 0.8 mg/dL (0.5-0.9) 10/23/22 21:32 GFR Calculation 76.9 mL/min (90-130) L 10/23/22 21:32 Glucose 353 mg/dL (65-115) H 10/23/22 21:32 Calculated Osmolality 292 mOsm/kg (285-295) 10/23/22 21: Calcium 9.9 mg/dL (8.5-10.5) 10/23/22 21:32 Total Bilirubin 0.5 mg/dL (0.15-1.2) 10/23/22 21:32 AST 15 U/L (0-32) 10/23/22 21:32 ALT 20 U/L (0-33) 10/23/22 21:32 Alkaline Phosphatase 113 U/L (35-105) H 10/23/22 21:32 Troponin T Baseline 11 ng/L (0-10) H 10/23/22 21:36 Troponin T 120 Minute 11.19 ng/L (0-10) H 10/23/22 23:36 Delta Troponin T 0.19 ABS# (0-10) 10/23/22 23:36 Total Protein 8.0 g/dL (6.6-8.7) 10/23/22 21:32 Albumin 4.7 g/dL (3.5-5.2) 10/23/22 21:32 Globulin 3.3 g/dL (1.3-4.6) 10/23/22 21:32 Discharge Plan Discharge Patient Disposition: Home Clinical Impression: Irregular heart beat, Chest pain Condition: Stable Prescriptions: No Action acetaminophen 325 mg tablet 325 mg PO QID PRN (Reason: Pain) (DME) blood-glucose meter [FreeStyle Lite Meter] Kit See Rx Instructions .Route Qty: 1 0RF Rx Instructions: As directed (DME) FreeStyle Lite Strips Strip See Rx Instructions .Route Qty: 100 3RF Rx Instructions: once daily check (DME) 3 Inserts See Rx Instructions .Route .MEDSUPPLY Qty: 1 0RF Rx Instructions: As directed HOME miscellaneous medical supply Misc See Rx Instructions .ROUTE .COMPLEX Qty: 1 2RF Rx Instructions: Evaluation for diabetic foot wear with possible orthotics for off-loading on the insole. aspirin 81 mg tablet,delayed release (DR/EC) 81 mg PO DAILY Qty: 90 3RF atorvastatin 80 mg tablet 80 mg PO DAILY Qty: 90 3RF clopidogrel 75 mg tablet 75 mg PO DAILY Qty: 90 3RF cyclobenzaprine 10 mg tablet 10 mg PO TID PRN (Reason: Muscle Spasm) Qty: 30 2RF (DME) Diabetic shoes with 3 inserts See Rx Instructions .Route .MEDSUPPLY Qty: 1 0RF Rx Instructions: DIRECTED Jardiance 25 mg tablet 25 mg PO DAILY Qty: 90 3RF EpiPen 2-Jonel 0.3 mg/0.3 mL auto-injector See Rx Instructions .ROUTE .COMPLEX Qty: 2 2RF Rx Instructions: as directed as needed pantoprazole 40 mg tablet,delayed release (DR/EC) 40 mg PO DAILY Qty: 90 3RF pregabalin [Lyrica] 25 mg capsule 25 mg PO TID Qty: 90 5RF Narcan 4 mg/actuation spray,non-aerosol 4 mg INTRANASAL Q2M PRN (Reason: overdose) Qty: 2 0RF Rx Instructions: spray 1 dose into ONE nostril; alternate nostrils w each dose until help arrives methocarbamol 750 mg tablet 750 mg PO Q8H PRN (Reason: Back muscle spasms and pain) Qty: 20 0RF Discharge Orders: Discharge ED (Routine); Ordered 10/24/22 Ordered By: Shruti Smallwood Referrals: Jorge Prakash, [Primary Care Provider] - Discharge Diet: Usual diet Discharge Activity: Increase activity as tolerated Activity Restrictions/Additional Instructions: Your testing in the ER tonight did not indicate any acute cardiac abnormality. Your vital signs are stable and you have been symptom-free. I recommend taking it easy and follow-up next week with your desulfurizer operator. Return to the ER for any chest pain, new or worsening symptoms Coding Level of Care Code ED Planetarium Sky Show Technician for Ramírez Rausch
[2022-10-24 00:20] VITALS: BP 153/90; PULSE 95; RESP 22
== END 2022-10-24 00:25 | disposition home or self-care (01) ==
PROVIDERS: Emergency Medicine; Emergency Provider Nurse Practitioner Family; PCP Family Medicine
DX: R07.9 Chest pain, unspecified (principal); R00.9 Unspecified abnormalities of heart beat; E11.9 Type 2 diabetes mellitus without complications; I25.2 Old myocardial infarction; I10 Essential (primary) hypertension
CPT/HCPCS: 80053; 84484; 85025; 93005; 99284

== ENCOUNTER 2022-11-15 23:01 | Emergency (ER) | payer MEDICAID, SELFPAY ==
[2022-11-15 23:06] VITALS: BP 148/79; PULSE 101; RESP 16; TEMP 36.7; O2SAT 95
--- NOTE | 2022-11-15 23:30 | XRR_ITS ---
PROCEDURE INFORMATION: Exam: XR Right Toe(s) Exam date and time: 11/15/2022 11:46 PM Age: 47 years old Clinical indication: Injury or trauma; Fall; Blunt trauma; Toes; Right lesser toe(s); Additional info: Injury to right 5th toe TECHNIQUE: Imaging protocol: Radiologic exam of the right toes. Views: Minimum 2 views. COMPARISON: CR XR foot RT min 3V* [id number] 11/12/2021 9:01 AM FINDINGS: Bones/joints: Absent 4th toe with 4th distal metatarsal postop dystrophic calcification. No fracture is identified. No dislocation. Soft tissues: Fifth toe swelling. XR/XR toe RT min 2V [id number] IMPRESSION: No definite acute fracture, as above. If pain persists, recommend short-term follow-up.
--- NOTE | 2022-11-15 23:43 | ED_ITS ---
HPI - Extremity Problem General: Chief complaint: Extremity Problem,Nontraumatic Stated complaint: right foot redness, by post surgery Time Seen by Provider: 11/15/22 23:18 Source: patient Mode of arrival: ambulatory Limitations: no limitations History of Present Illness: Patient is a 47-year-old diabetic female here for concerns of a possible toe infection. She states yesterday she began noticing some redness surrounding the nail of her right fifth pinky toe. She feels like redness was worse today and she noticed a small amount of drainage thus prompting her emergency visit. She has had her right fourth toe ambulated secondary to diabetic infection. She is not running fevers. No foot swelling or streaking. MD Complaint: other (R toe redness/drainage) Onset (ago): day(s) Location: right and toe Radiation: none Relieving factors: nothing Exacerbating factors: nothing Associated symptoms: Reports no associated symptoms; Deny fever(s) Review of Systems Const: Denies: fever(s), chills or body aches Musc: Reports: other (R 5th toe redness/drainage) Neuro: Reports: sensory changes (chronic diabetic neuropathy) PFS ED PFSH: Medical History Chronic ulcer of right foot Diabetes History of myocardial infarction Hypertension No pertinent family history Positive cardiac stress test Surgical History S/P section S/P coronary angiogram S/P tubal ligation Status post amputation of toe Social History Smoking and tobacco status: never smoked Alcohol intake: current Alcohol intake frequency: holidays/special occasions only Substance/Drug Use: never Female Reproductive History: Spontaneous abortions: No Physical Exam Const: COMMON NORMALS: no acute distress, average body habitus, patient oriented x3, no limitations, alert and well nourished Resp: COMMON NORMALS: normal respiratory effort and clear to auscultation bilaterally AUSCULTATION: clear to auscultation bilaterally Cardio: COMMON NORMALS: regular rate and regular rhythm RATE: regular rate RHYTHM: regular rhythm Extremity: GENERAL: Yes normal exam except as noted RIGHT LOWER EXTREMITY: Yes foot & digits OTHER: patient has erythema affecting whole R 5th toe-erythema does not spread onto foot surface at all; no redness; she has some serosanguineous drainage starting from her toenail which seems to be sloughing off; no foul odor Neuro: COMMON NORMALS: patient oriented x3, moves all extremities, no focal motor deficits and no sensory deficits noted SENSORIUM/ORIENTATION: Yes alert Course Vital Signs: Vital signs: Vital Signs Temperature 98.0 F 11/15/22 23:06 Pulse Rate 99 11/16/22 00:52 Respiratory Rate 16 11/16/22 00:52 Blood Pressure 148/79 11/15/22 23:06 Pulse Oximetry 97 11/16/22 00:52 Oxygen Delivery Me thod Room Air 11/15/22 23:06 MDM - Extremity (Nontraumatic) Medical Decision Making Patient's vital signs are stable. XR showing no bony erosion or gaseous formation. Labs at this time are unlikely to roving changer. Patient will be placed on clindamycin and plan for prompt follow-up with her city council member Dr. Goldman this week. Case management referral has been placed. Strict return ED precautions given. Lab Data Radiology Impressions Toe X-Ray 11/15/22 23:30 IMPRESSION: No definite acute fracture, as above. If pain persists, recommend short-term follow-up. Discharge Plan Discharge Patient Disposition: Home Clinical Impression: Infection of toe Condition: Stable Prescriptions: New clindamycin HCl 300 mg capsule 300 mg PO Q6H 7 Days Qty: 28 0RF No Action acetaminophen 325 mg tablet 325 mg PO QID PRN (Reason: Pain) (DME) blood-glucose meter [FreeStyle Lite Meter] Kit See Rx Instructions .Route Qty: 1 0RF Rx Instructions: As directed (DME) FreeStyle Lite Strips Strip See Rx Instructions .Route Qty: 100 3RF Rx Instructions: once daily check (DME) 3 Inserts See Rx Instructions .Route .MEDSUPPLY Qty: 1 0RF Rx Instructions: As directed HOME miscellaneous medical supply Misc See Rx Instructions .ROUTE .COMPLEX Qty: 1 2RF Rx Instructions: Evaluation for diabetic foot wear with possible orthotics for off-loading on the insole. aspirin 81 mg tablet,delayed release (DR/EC) 81 mg PO DAILY Qty: 90 3RF atorvastatin 80 mg tablet 80 mg PO DAILY Qty: 90 3RF clopidogrel 75 mg tablet 75 mg PO DAILY Qty: 90 3RF cyclobenzaprine 10 mg tablet 10 mg PO TID PRN (Reason: Muscle Spasm) Qty: 30 2RF (DME) Diabetic shoes with 3 inserts See Rx Instructions .Route .MEDSUPPLY Qty: 1 0RF Rx Instructions: DIRECTED Jardiance 25 mg tablet 25 mg PO DAILY Qty: 90 3RF EpiPen 2-Jonel 0.3 mg/0.3 mL auto-injector See Rx Instructions .ROUTE .COMPLEX Qty: 2 2RF Rx Instructions: as directed as needed pantoprazole 40 mg tablet,delayed release (DR/EC) 40 mg PO DAILY Qty: 90 3RF pregabalin [Lyrica] 25 mg capsule 25 mg PO TID Qty: 90 5RF Narcan 4 mg/actuation spray,non-aerosol 4 mg INTRANASAL Q2M PRN (Reason: overdose) Qty: 2 0RF Rx Instructions: spray 1 dose into ONE nostril; alternate nostrils w each dose until help arrives methocarbamol 750 mg tablet 750 mg PO Q8H PRN (Reason: Back muscle spasms and pain) Qty: 20 0RF Discharge Orders: Discharge ED (Routine); Ordered 11/16/22 Ordered By: Remedios Castle Referrals: Jorge Prakash, DO [Primary Care Provider] - Activity Restrictions/Additional Instructions: Fill your antibiotics and start them immediately. As we discussed case management should contact you early this week to help set you up with a follow- up appointment with your city council member Dr. Goldman. Monitor for worsening infection such as redness, swelling, purulent drainage, foul odor, red streaking on your foot or leg, fevers, or any other concerns you may have-please seek medical reevaluation if these occur. Coding Level of Care Code ED Composite Science Teacher for Ramírez Rausch
[2022-11-16 00:52] VITALS: PULSE 99; RESP 16; O2SAT 97
[2022-11-16] MEDS: clindamycin 150 mg Capsule 300 MG PO (00:52)
--- NOTE | 2022-11-16 04:42 | DCPLANNER ---
Addendum entered by Flori Brown 11/21/22 15:17: Patient had a follow up appointment scheduled with ortho - patient did attend appointment. Original Note: manager sales support had message to schedule a follow up appointment for patient with podiatry. manager sales support sent patients information to the front office staff at podiatry. Patients information will be printed and reviewed. Clinic will call patient with appointment information.
== END 2022-11-16 00:53 | disposition home or self-care (01) ==
PROVIDERS: Emergency Provider Physician Assistant; PCP Family Medicine
DX: L08.9 Local infection of the skin and subcutaneous tissue, unspecified (principal); Z79.82 Long term (current) use of aspirin; Z79.02 Long term (current) use of antithrombotics/antiplatelets; E11.9 Type 2 diabetes mellitus without complications; I10 Essential (primary) hypertension
CPT/HCPCS: 73660; 99283

== ENCOUNTER → 2022-11-20 10:57 | Outpatient (BNVA) | payer MEDICAID, SELFPAY | PROVIDERS: PCP Family Medicine; Visit Provider Obstetrics & Gynecology | DX: N92.0 Excessive and frequent menstruation with regular cycle (principal); N94.89 Other specified conditions associated with female genital organs and menstrual cycle | CPT/HCPCS: 11730; 76830; 99213 ==

== ENCOUNTER 2022-12-06 12:17 | Emergency (ER) | payer MEDICAID, SELFPAY ==
[2022-12-06 12:23] VITALS: BP 132/84; PULSE 93; RESP 18; TEMP 36.8; O2SAT 96
--- NOTE | 2022-12-06 12:33 | ECG_ITS ---
[facility] Test Date: 2022-12-06 Pat Name: Carolyn Alaniz Department: Room: Gender: Female White Lead Grinder: : 1975 Requested By: Deidre Suresh Order Number: [id number] [place] MD: Malik Gr M.D. Measurements Intervals [place] Rate: 103 P: 63 [place]: 143 QRS: -16 QRSD: 110 T: 30 QT: 325 QTc: 426 Interpretive Statements SINUS TACHYCARDIA WITH FREQUENT SUPRAVENTRICULAR PREMATURE COMPLEXES LEFT ATRIAL ENLARGEMENT [-0.15mV P-WAVE IN V1/V2] INCOMPLETE RIGHT BUNDLE BRANCH BLOCK [90+ ms QRS DURATION, TERMINAL R IN V1/V2, 40+ ms S IN I/aVL/V4/V5/V6] NONSPECIFIC T-WAVE ABNORMALITY Compared to ECG 10/23/2022 23:58:51 Atrial abnormality now present Incomplete right bundle-branch block now present T-wave abnormality now present Sinus rhythm no longer present Electronically Signed On 12-07-2022 9:41:13 CDT by Malik Gr M.D. [id number]
--- NOTE | 2022-12-06 12:50 | XRR_ITS ---
PROCEDURE INFORMATION: Exam: XR Chest Exam date and time: 12/06/2022 12:55 PM Age: 47 years old Clinical indication: Pain; Chest pressure; Additional info: Chest pain TECHNIQUE: Imaging protocol: Radiologic exam of the chest. Views: 1 view. COMPARISON: CR XR chest 1V portable [id number] 08/05/2022 5:51 PM FINDINGS: Lungs: Unremarkable. No consolidation. Pleural spaces: Unremarkable. No pleural effusion. No pneumothorax. Heart/Mediastinum: Unremarkable. No cardiomegaly. Bones/joints: Unremarkable. XR/XR chest 1V portable [id number] IMPRESSION: No acute findings.
--- NOTE | 2022-12-06 12:52 | ED_ITS ---
HPI - Chest Pain General: Chief Complaint: Chest Pain Stated Complaint: RT side ear/neck/back/chest pain Time Seen by Provider: 12/06/22 12:39 History of Present Illness: This patient is a 47 year old presenting with chest pain that radiates to her right shoulder, right neck and right back. She says this started about 30 minutes before I met her, and she thinks that it feels just like the pain she has had with prior heart attacks. She says that her most recent heart attack was in July. She said that she had a stent placed in the ostia of the LAD. She also was noted to have some arrhythmia and had a loop recorder. Her first heart attack was in [place] and I did not find records of that. Other findings on the cath from July - Diffuse hypokinesia of the left ventricular ejection fraction of 40%. More severe hypokinesis of the LV apex. Features of left-ventricular diastolic dysfunction with an LVEDP of 28 mmHg. ? She takes aspirin and clopidogrel and says she is compliant. Her symptoms today started before she had gotten out of bed and she hasn't taken meds today. She doesn't have nitro at home. She has not had any recent illness or medication changes. PFSH ED PFSH: Medical History Chronic ulcer of right foot Diabetes History of myocardial infarction Hypertension No pertinent family history Positive cardiac stress test Surgical History S/P section S/P coronary angiogram S/P tubal ligation Status post amputation of toe Social History Smoking and tobacco status: never smoked Alcohol intake: current Alcohol intake frequency: holidays/special occasions only Substance/Drug Use: never Female Reproductive History: Spontaneous abortions: No Physical Exam Const: COMMON NORMALS: no acute distress, patient oriented x3, no limitations and alert GENERAL APPEARANCE: cooperative and comfortable HENMT: HEAD & SCALP: normal to inspection FACE & SINUS: normal facial exam Eye: GENERAL EYE: appearance normal, both eyes and all related structures Neck/C-Spine: COMMON NORMALS: supple, no meningeal signs and no JVD Chest: COMMONS NORMALS: normal inspection of the chest Resp: COMMON NORMALS: normal respiratory effort, No use of accessory muscles and clear to auscultation bilaterally AUSCULTATION: clear to auscultation bilaterally Cardio: COMMON NORMALS: no JVD, regular rate, regular rhythm and No murmurs present (Cardio) RATE: regular rate RHYTHM: regular rhythm GI: COMMON NORMALS: Normal to inspection, nondistended, normoactive bowel sounds present, Soft to palpation and non-tender INSPECTION: Yes normal to inspection AUSCULTATION: Yes normoactive bowel sounds PALPATION: Yes Soft to palpation Back/Pelvis: COMMON NORMALS: thoracic and lumbar spine normal to inspection Extremity: COMMON NORMALS: normal to inspection Neuro: COMMON NORMALS: patient oriented x3, moves all extremities, no focal motor deficits and no sensory deficits noted SENSORIUM/ORIENTATION: Yes alert MENINGEAL SIGNS: Yes no meningeal signs Psych: COMMON NORMALS: mental status grossly normal, cooperative and normal affect Skin: COMMON NORMALS: no rashes or lesions noted and turgor normal GENERAL SKIN EXAM: no rashes or lesions noted and turgor normal Course Vital Signs: Vital signs: Vital Signs Temperature 98.2 F 12/06/22 12:23 Pulse Rate 83 12/06/22 17:42 Respiratory Rate 20 H 12/06/22 17:42 Blood Pressure 131/87 12/06/22 17:42 Pulse Oximetry 95 12/06/22 17:42 Oxygen Delivery Me thod Room Air 12/06/22 12:23 MDM - Chest Pain Medical Decision Making Chest pain and back pain - patient concerned that this feels like her prior heart issues. She has a stent that was placed in July. She sees Dr. Gr and I spoke with him tonight to go over the results. EKG without ischemic changes, troponin and 2 hr troponin neg. Nitro helped some, but patient says she is still having pain. She appears comfortable on re-evaluation. Given the normal troponins, she is likely safe for outpatient follow up. Dr. Gr's office will contact her Thursday morning and she understands return precautions. Lab Data 12/06/22 12:52 12/06/22 12:52 Radiology Impressions Chest X-Ray 12/06/22 12:50 IMPRESSION: No acute findings. Laboratory Results WBC 8.1 10^3/uL (4.0-10.0) 12/06/22 12:52 RBC 5.46 10^6/uL (4.1-5.3) H 12/06/22 12:52 Hgb 15.7 g/dL (11.5-15.3) H 12/06/22 12:52 Hct 44.7 % (37.0-47.0) 12/06/22 12:52 MCV 81.9 fl (81-99) 12/06/22 12:52 MCH 28.8 pg (28.0-34.0) 12/06/22 12:52 MCHC 35.1 g/dL (30.0-36.0) 12/06/22 12:52 RDW 13.5 % (12.1-15.1) 12/06/22 12:52 Plt Count 229 10^3/cmm (130-400) 12/06/22 12:52 MPV 8.5 fL (7.4-10.4) 12/06/22 12:52 Neut % (Auto) 61.4 % 12/06/22 12:52 Lymph % (Auto) 31.5 % 12/06/22 12:52 [place] % (Auto) 5.4 % 12/06/22 12:52 Eos % (Auto) 0.9 % 12/06/22 12:52 Baso % (Auto) 0.6 % 12/06/22 12:52 Neut # (Auto) 4.97 10^3/uL (1.8-7.7) 12/06/22 12:52 Lymph # (Auto) 2.6 10^3/uL (0.8-4.8) 12/06/22 12:52 [place] # (Auto) 0.4 10^3/uL (0.2-0.9) 12/06/22 12:52 Eos # (Auto) 0.1 10^3/uL (0.0-0.8) 12/06/22 12:52 Baso # (Auto) 0.1 10^3/uL (0.0-0.1) 12/06/22 12:52 Nucleated RBC % (auto) 0 % 12/06/22 12:52 Nucleated RBCs # 0.0 /100WBC 12/06/22 12:52 Sodium 131 mmol/L (136-145) L 12/06/22 12:52 Potassium 3.9 mmol/L (3.5-5.1) 12/06/22 12:52 Chloride 96 mmol/L (98-107) L 12/06/22 12:52 Carbon Dioxide 22 mmol/L (22-29) 12/06/22 12:52 Anion Gap 16.9 (5-19) 12/06/22 12:52 BUN 13 mg/dL (6-20) 12/06/22 12:52 Creatinine 0.6 mg/dL (0.5-0.9) 12/06/22 12:52 GFR Calculation 107.2 mL/min (90-130) 12/06/22 12:52 Glucose 305 mg/dL (65-115) H 12/06/22 12:52 Calculated Osmolality 284 mOsm/kg (285-295) L 12/06/22 12:52 Calcium 9.0 mg/dL (8.5-10.5) 12/06/22 12:52 Total Bilirubin 0.5 mg/dL (0.15-1.2) 12/06/22 12:52 AST 14 U/L (0-32) 12/06/22 12:52 ALT 23 U/L (0-33) 12/06/22 12:52 Alkaline Phosphatase 95 U/L (35-105) 12/06/22 12:52 Troponin T Baseline 8 ng/L (0-10) 12/06/22 12:52 Troponin T 120 Minute 8.49 ng/L (0-10) 12/06/22 15:00 Delta Troponin T 0.49 ABS# (0-10) 12/06/22 15:00 NT-Pro-B Natriuret Pep 55 pg/mL (0-125) 12/06/22 12:52 Total Protein 6.9 g/dL (6.6-8.7) 12/06/22 12:52 Albumin 4.3 g/dL (3.5-5.2) 12/06/22 12:52 Globulin 2.6 g/dL (1.3-4.6) 12/06/22 12:52 HCG, Qual Negative (Negative) 12/06/22 13:59 Urine Color Straw (Yellow) 12/06/22 13:59 Urine Appearance Sl hazy (CLEAR) A 12/06/22 13:59 Urine pH 5 (5-7) 12/06/22 13:59 Ur Specific [place] 1.010 (1.005-1.030) 12/06/22 13:59 Urine Protein Neg (Negative) 12/06/22 13:59 Urine Glucose (UA) 4+ (Normal) H 12/06/22 13:59 Urine Ketones Negative (Negative) 12/06/22 13:59 Urine Blood Neg (Negative) 12/06/22 13:59 Urine Nitrate Negative (Negative) 12/06/22 13:59 Urine Bilirubin Neg (Negative) 12/06/22 13:59 Urine Urobilinogen Norm mg/dL (Negative) 12/06/22 13:59 Ur Leukocyte Esterase Trace (Negative) H 12/06/22 13:59 Urine RBC None /hpf (0-2) 12/06/22 13:59 Urine WBC 5-10 /hpf (0-5) H 12/06/22 13:59 Ur Squamous Epith Cells 5-10 /hpf (0-5) H 12/06/22 13:59 Amorphous Sediment Not Reportable 12/06/22 13:59 Urine Bacteria 1+ /hpf (NONE) H 12/06/22 13:59 Discharge Plan Discharge Patient Disposition: Home Clinical Impression: Chest pain, History of atherosclerotic heart disease Condition: Stable Prescriptions: No Action acetaminophen 325 mg tablet 325 mg PO QID PRN (Reason: Pain) (DME) blood-glucose meter [FreeStyle Lite Meter] Kit See Rx Instructions .Route Qty: 1 0RF Rx Instructions: As directed (DME) FreeStyle Lite Strips Strip See Rx Instructions .Route Qty: 100 3RF Rx Instructions: once daily check (DME) 3 Inserts See Rx Instructions .Route .MEDSUPPLY Qty: 1 0RF Rx Instructions: As directed HOME aspirin 81 mg tablet,delayed release (DR/EC) 81 mg PO DAILY Qty: 90 3RF atorvastatin 80 mg tablet 80 mg PO DAILY Qty: 90 3RF clopidogrel 75 mg tablet 75 mg PO DAILY Qty: 90 3RF cyclobenzaprine 10 mg tablet 10 mg PO TID PRN (Reason: Muscle Spasm) Qty: 30 2RF (DME) Diabetic shoes with 3 inserts See Rx Instructions .Route .MEDSUPPLY Qty: 1 0RF Rx Instructions: DIRECTED Jardiance 25 mg tablet 25 mg PO DAILY Qty: 90 3RF EpiPen 2-Jonel 0.3 mg/0.3 mL auto-injector See Rx Instructions .ROUTE .COMPLEX Qty: 2 2RF Rx Instructions: as directed as needed Narcan 4 mg/actuation spray,non-aerosol 4 mg INTRANASAL Q2M PRN (Reason: overdose) Qty: 2 0RF Rx Instructions: spray 1 dose into ONE nostril; alternate nostrils w each dose until help arrives methocarbamol 750 mg tablet 750 mg PO Q8H PRN (Reason: Back muscle spasms and pain) Qty: 20 0RF Vitamin B12 Gummy 2 gummy PO DAILY Discharge Orders: Discharge ED (Routine); Ordered 12/06/22 Ordered By: Deidre Mendoza Referrals: Jorge Prakash DO [Primary Care Provider] - Malik Gr MD [Physician] - Patient Instructions: Opioid Safety, Pain Management Activity Restrictions/Additional Instructions: Continue your regular medications, follow up with Dr. Gr on Thursday. Coding Level of Care Code ED [place] Operator for Ramírez Rausch
[2022-12-06 12:56] VITALS: BP 120/84; PULSE 94; RESP 14; O2SAT 97
[2022-12-06] MEDS: nitroglycerin 0.4 mg sublingual Tablet SUBLINGUAL (13:04)
[2022-12-06] MEDS: aspirin 325 mg Tablet PO (13:04)
[2022-12-06 13:05] LABS: Basophils # 0.1 10^3/uL (0.0-0.1); Basophils % 0.6 %; Eosinophils # 0.1 10^3/uL (0.0-0.8); Eosinophils % 0.9 %; Hematocrit 44.7 % (37.0-47.0); Hemoglobin 15.7 g/dL (11.5-15.3); Lymphocytes # 2.6 10^3/uL (0.8-4.8); Lymphocytes % 31.5 %; Mean Corpuscular HGB Conc 35.1 g/dL (30.0-36.0); Mean Corpuscular Hemoglobin 28.8 pg (28.0-34.0); Mean Corpuscular Volume 81.9 fl (81-99); Mean Platelet Volume 8.5 fL (7.4-10.4); Monocytes # 0.4 10^3/uL (0.2-0.9); Monocytes % 5.4 %; Neutrophils # 4.97 10^3/uL (1.8-7.7); Neutrophils % 61.4 %; Nucleated Red Blood Cells % 0 %; Platelet Count 229 10^3/cmm (130-400); Red Blood Count 5.46 10^6/uL (4.1-5.3); Red Cell Distribution Width 13.5 % (12.1-15.1); White Blood Count 8.1 10^3/uL (4.0-10.0)
[2022-12-06] MEDS: sodium chloride 0.9% 1,000 ML 999 ML IV (13:05)
[2022-12-06 13:08] VITALS: BP 131/80; PULSE 103; RESP 21; O2SAT 93
[2022-12-06 13:25] LABS: Troponin(5th) Baseline 8 ng/L (0-10)
[2022-12-06 13:32] LABS: Alanine Aminotransferase 23 U/L (0-33); Albumin Level 4.3 g/dL (3.5-5.2); Alkaline Phosphatase 95 U/L (35-105); Anion Gap 16.9 (5-19); Aspartate Amino Transferase 14 U/L (0-32); Blood Urea Nitrogen 13 mg/dL (6-20); Carbon Dioxide 22 mmol/L (22-29); Chloride 96 mmol/L (98-107); Globulin 2.6 g/dL (1.3-4.6); Glomerular Filtration Rate 107.2 mL/min (90-130); Glucose 305 mg/dL (65-115); NT Pro B Type Natriuretic Pept 55 pg/mL (0-125); Osmolality Calculated 284 mOsm/kg (285-295); Potassium 3.9 mmol/L (3.5-5.1); Sodium 131 mmol/L (136-145); Total Bilirubin 0.5 mg/dL (0.15-1.2); Total Protein 6.9 g/dL (6.6-8.7)
[2022-12-06 14:08] LABS: HCG Qualitative Urine. Negative (Negative)
[2022-12-06 14:24] VITALS: BP 139/77; PULSE 89; RESP 20; O2SAT 94
[2022-12-06 14:40] LABS: Urine Appearance SL Hazy (CLEAR); Urine Color Straw (Yellow); pH Urine 5 (5-7)
[2022-12-06 14:41] LABS: Add Urine Culture? No; Add Urine Microscopic? YES; Bacteria Urine 1+ /hpf; Bilirubin Urine Neg (Negative); Blood Urine Neg (Negative); Glucose Urine UA 4+ (Normal); Ketones Urine Negative (Negative); Leukocyte Esterase Urine Trace (Negative); Nitrate Urine Negative (Negative); Protein Urine Neg (Negative); Urobilinogen Urine Norm (Negative)
--- NOTE | 2022-12-06 14:50 | ECG_ITS ---
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 Measurements Intervals [place] Rate: 81 P: 55 MN: 160 QRS: -21 QRSD: 112 T: 19 QT: 417 QTc: 486 Interpretive Statements SINUS RHYTHM WITH OCCASIONAL SUPRAVENTRICULAR PREMATURE COMPLEXES POSSIBLE LEFT ATRIAL ENLARGEMENT [-0.1mV P-WAVE IN V1/V2] BORDERLINE LEFT AXIS DEVIATION [QRS AXIS < -20] INCOMPLETE RIGHT BUNDLE BRANCH BLOCK [90+ ms QRS DURATION, TERMINAL R IN V1/V2, 40+ ms S IN I/aVL/V4/V5/V6] Compared to ECG 12/06/2022 12:33:19 Sinus tachycardia no longer present T-wave abnormality no longer present Electronically Signed On 12-07-2022 9:46:46 CDT by Malik Gr M.D. [id number]
[2022-12-06 15:03] VITALS: BP 168/90; PULSE 82; RESP 21; O2SAT 94
[2022-12-06 15:41] LABS: Troponin 5 2HR 8.49 ng/L (0-10)
[2022-12-06 16:37] LABS: Troponin 5 2HR Delta 0.49 ABS# (0-10)
[2022-12-06 17:42] VITALS: BP 131/87; PULSE 83; RESP 20; O2SAT 95
== END 2022-12-06 18:35 | disposition home or self-care (01) ==
PROVIDERS: Emergency Provider Emergency Medicine; PCP Family Medicine
DX: R07.9 Chest pain, unspecified (principal); E11.9 Type 2 diabetes mellitus without complications; I10 Essential (primary) hypertension; I25.10 Atherosclerotic heart disease of native coronary artery without angina pectoris; I25.2 Old myocardial infarction; Z79.82 Long term (current) use of aspirin; Z79.84 Long term (current) use of oral hypoglycemic drugs; Z95.5 Presence of coronary angioplasty implant and graft
CPT/HCPCS: 36415; 71045; 80053; 81001; 81025; 83880; 84484; 85025; 93005; 96360; 99285; J7030

== ENCOUNTER → 2022-12-09 09:39 | Outpatient (BNVA) | payer MEDICAID, SELFPAY | PROVIDERS: PCP Family Medicine; Visit Provider Internal Medicine Cardiovascular Disease | DX: R07.9 Chest pain, unspecified (principal); F41.9 Anxiety disorder, unspecified; E78.5 Hyperlipidemia, unspecified; I10 Essential (primary) hypertension; E78.2 Mixed hyperlipidemia; I25.10 Atherosclerotic heart disease of native coronary artery without angina pectoris; I25.2 Old myocardial infarction | CPT/HCPCS: 99213 ==

== ENCOUNTER 2022-12-11 12:23 | Day surgery (SDC) | payer MEDICAID, SELFPAY ==
[2022-12-11] VITALS (9 sets, daily range): BP systolic 122–157; BP diastolic 75–110; PULSE 88–109; RESP 13–18; TEMP 35.3–36.4; O2SAT 92–97; BMI 29.4
[2022-12-11] MEDS: sodium chloride 0.9% 1,000 ML 30 ML IV (13:10)
--- NOTE | 2022-12-11 13:14 | ANES.PREANE2 ---
Pre-Anesthetic Assessment Height/Weight: Height 1.7 m Weight 85.275 kg Temp Pulse Resp BP Pulse Ox O2 Del Method 95.5 F L 109 H 16 140/110 97 Room Air 12/11/22 12:27 12/11/22 12:27 12/11/22 12:27 12/11/22 12:27 12/11/22 12:27 12/11/22 12:44 Preop Diagnosis: abnormal uterine bleeding Operation Date: 12/11/22 14:10 Proposed Procedures p Hysteroscopy, endometrial sampling 89776, Possible endometrial polypectomy with Myosure 87390,N93.9,Z98.890(Not Applicable) - Douglas Ram MD s Poylpectomy(Not Applicable) - Douglas Ram MD Familial anesthetic complications: None Was Beta Brian taken within 24 hours: N/A Was Clonidine taken within 24 hours: N/A Last intake: Intake Last Liquid Date 12/10/22 Last Liquid Time 23:50 Last Solid Date 12/10/22 Last Solid Time 21:00 Social Tobacco and No alcohol Exam alert, oriented x 3, clear to auscultation bilaterally and regular rate & rhythm Airway Mallampati: Class III Dentition: chipped and full CV/HEM Stable Angina, Coronary Artery Disease, Congestive Heart Failure, Hypertension, Myocardial Infarction and Peripheral Vascular Disease GI Gastroesophageal Reflux Disease Anesthetic Plan ASA status: 4 Anesthesia: General Risk of > 500 ml blood loss (7ml/kg in children): No Medications/Allergies Home Medications Medication Instructions Recorded Confirmed Last Taken Type blood sugar diagnostic (FreeStyle #100 02/24/22 12/09/22 Unknown Rx Lite Strips) blood-glucose meter (FreeStyle #1 ea 02/24/22 12/09/22 Unknown Rx Lite Meter kit) 3 Inserts #1 ea 06/06/22 12/08/22 Unknown Rx acetaminophen 325 mg tablet 325 mg PO QID PRN Pain 07/08/22 12/11/22 12/10/22 History Diabetic shoes #1 ea 09/15/22 12/08/22 Unknown Rx aspirin 81 mg tablet,delayed 81 mg PO DAILY #90 tabs 09/15/22 12/10/22 12/10/22 Rx release atorvastatin 80 mg tablet 80 mg PO DAILY #90 tabs 09/15/22 12/10/22 12/10/22 Rx clopidogrel 75 mg tablet 75 mg PO DAILY #90 tabs 09/15/22 12/10/22 12/10/22 Rx cyclobenzaprine 10 mg tablet 10 mg PO TID PRN Muscle Spasm #30 09/15/22 12/10/22 12/10/22 Rx tabs empagliflozin 25 mg tablet 25 mg PO DAILY #90 tabs 09/15/22 12/10/22 12/10/22 Rx (Jardiance) epinephrine 0.3 mg/0.3 mL See Rx Instructions .Route 09/15/22 12/10/22 Unknown Rx injection, auto-injector (EpiPen .COMPLEX #2 ea 2-Jonel) methocarbamol 750 mg tablet 750 mg PO Q8H PRN Back muscle 10/04/22 12/11/22 12/10/22 Rx spasms and pain #20 tabs Vitamin B12 Gummy 2 gummy PO DAILY 12/06/22 12/10/22 12/10/22 History Allergies Allergy/AdvReac Type Severity Reaction Status Date / Time clindamycin Allergy Severe ADR-Nausea Verified 12/09/22 08:41 diphenhydramine Allergy Severe Unknown Verified 12/09/22 08:41 [From Benadryl] linezolid [From Zyvox] Allergy Severe ALGY-Anaphy Verified 12/09/22 08:41 laxis nitrofurantoin Allergy Severe ALGY-Rash Verified 12/09/22 08:41 [From Macrobid] Penicillins Allergy Severe Unknown Verified 12/09/22 08:41 Sulfa (Sulfonamide Allergy Severe Unknown Verified 12/09/22 08:41 Antibiotics) sulfamethoxazole Allergy Severe ALGY-Anaphy Verified 12/09/22 08:41 [From Bactrim] laxis bee venom protein (honey bee) Allergy Unknown Verified 12/09/22 08:41 egg Allergy Unknown Verified 12/09/22 08:41 erythromycin base Allergy Unknown Verified 12/09/22 08:41 trimethoprim [From Bactrim] Allergy ALGY-Anaphy Verified 12/09/22 08:41 laxis Current Medications Generic Name Dose Route Start Last Admin Trade Name Freq PRN Reason Stop Dose Admin Sodium Chloride 1,000 mls @ 30 mls/hr 12/11/22 12:30 12/11/22 13:10 Sodium Chloride 0.9% IV 12/12/22 12:29 30 mls/hr .Q24H KATHLEEN Administration PFSH Anesthesia Medical History Chronic ulcer of right foot Diabetes History of myocardial infarction Hypertension No pertinent family history Positive cardiac stress test Surgical History S/P section S/P coronary angiogram S/P tubal ligation Status post amputation of toe Social History Smoking and tobacco status: never smoked Alcohol intake: current Alcohol intake frequency: holidays/special occasions only Substance/Drug Use: never Female Reproductive History Spontaneous abortions: No Data Anesthesia Cardiac Studies: Echocardiogram 08/06/22 Sestamibi Stress Test (Cardiology) 08/06/22
[2022-12-11 13:18] LABS: Glucose Point of Care 170 mg/dL (70-110)
[2022-12-11 13:22] LABS: OR HCG Qualitative Urine Negative (Negative)
--- NOTE | 2022-12-11 13:33 | W.PM.OPSUD ---
Surgery/Procedure H&P Update DATE OF PROCEDURE: December 11, 2022 DATE H&P PERFORMED: 12/10/22 H&P UPDATE INFORMATION: I have reviewed H&P completed within last 30 days, I have examined patient prior to procedure and No changes to prior documentation PREOP DIAGNOSIS: abnormal uterine bleeding PLANNED PROCEDURE: Operation Date: 12/11/22 14:10 Proposed Procedures p Hysteroscopy, endometrial sampling 44559, Possible endometrial polypectomy with Myosure 42750,N93.9,Z98.890(Not Applicable) - Douglas Ram MD s Poylpectomy(Not Applicable) - Douglas Ram MD
--- NOTE | 2022-12-11 14:00 | PM.OBGYHP ---
Providers/Chief Complaint Admitting Physician: Douglas Ram MD Primary HOME HEALTH CARE WORKER: Douglas Ram MD Primary Care Provider: Jorge Prakash DO Chief Complaint: [id number] N93.9 Z98.890 HPI HOME HEALTH CARE WORKER History of Present Illness Carolyn Alaniz is a 47 year old female h/o BTL History of endometrial ablation in 2017 in [place], [place] Bleeding stopped until 2019 when bleeding started again, heavier than before Usually 4-5 days of bleeding but unpredictable Now scheduled for hysteroscopy, endometrial sampling, possible endometrial polypectomy Medications/Allergies Home Medications Medication Instructions Recorded Confirmed Last Taken Type blood sugar diagnostic (FreeStyle #100 ea 02/24/22 12/17/22 Unknown Rx Lite Strips) blood-glucose meter (FreeStyle #1 ea 02/24/22 12/17/22 Unknown Rx Lite Meter kit) 3 Inserts #1 ea 06/06/22 12/17/22 Unknown Rx acetaminophen 325 mg tablet 325 mg PO QID PRN Pain 07/08/22 12/17/22 12/10/22 History Diabetic shoes #1 ea 09/15/22 12/17/22 Unknown Rx aspirin 81 mg tablet,delayed 81 mg PO DAILY #90 tabs 09/15/22 12/17/22 12/10/22 Rx release atorvastatin 80 mg tablet 80 mg PO DAILY #90 tabs 09/15/22 12/17/22 12/10/22 Rx clopidogrel 75 mg tablet 75 mg PO DAILY #90 tabs 09/15/22 12/17/22 12/10/22 Rx cyclobenzaprine 10 mg tablet 10 mg PO TID PRN Muscle Spasm #30 09/15/22 12/17/22 12/10/22 Rx tabs empagliflozin 25 mg tablet 25 mg PO DAILY #90 tabs 09/15/22 12/17/22 12/10/22 Rx (Jardiance) epinephrine 0.3 mg/0.3 mL See Rx Instructions .Route 09/15/22 12/17/22 Unknown Rx injection, auto-injector (EpiPen .COMPLEX #2 ea 2-Jonel) methocarbamol 750 mg tablet 750 mg PO Q8H PRN Back muscle 10/04/22 12/17/22 12/10/22 Rx spasms and pain #20 tabs Vitamin B12 Gummy 2 gummy PO DAILY 07/01/2112/17/22 12/10/22 History Allergies Allergy/AdvReac Type Severity Reaction Status Date / Time clindamycin Allergy Severe ADR-Nausea Verified 12/17/22 10:14 diphenhydramine Allergy Severe Unknown Verified 12/17/22 10:14 [From Benadryl] linezolid [From Zyvox] Allergy Severe ALGY-Anaphy Verified 12/17/22 10:14 laxis nitrofurantoin Allergy Severe ALGY-Rash Verified 12/17/22 10:14 [From Macrobid] Penicillins Allergy Severe Unknown Verified 12/17/22 10:14 Sulfa (Sulfonamide Allergy Severe Unknown Verified 12/17/22 10:14 Antibiotics) sulfamethoxazole Allergy Severe ALGY-Anaphy Verified 12/17/22 10:14 [From Bactrim] laxis bee venom protein (honey bee) Allergy Unknown Verified 12/17/22 10:14 egg Allergy Unknown Verified 12/17/22 10:14 erythromycin base Allergy Unknown Verified 12/17/22 10:14 trimethoprim [From Bactrim] Allergy ALGY-Anaphy Verified 12/17/22 10:14 laxis 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 PFSH: Medical History Chronic ulcer of right foot Diabetes History of myocardial infarction Hypertension No pertinent family history Positive cardiac stress test Surgical History S/P section S/P coronary angiogram S/P tubal ligation Status post amputation of toe Social History Smoking and tobacco status: never smoked Alcohol intake: current Alcohol intake frequency: holidays/special occasions only Substance/Drug Use: never Vitals/I&O/Wt Last Vital Signs Temp 97.5 F L 12/11/22 15:07 Pulse 88 12/11/22 15:27 Resp 17 12/11/22 15:27 BP 135/103 12/11/22 15:27 Pulse Ox 95 12/11/22 15:27 O2 Del Method Room Air 12/11/22 15:27 Physical Exam Narrative: Weight? 193? lbs;? 5?7? Lungs:? clear Cor:? RRR Abd:? soft, nontender Results PAP Pap? -11-21? 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 10-22-22? 3 cm fibroid ?Right ovarian calcifications A&P Assessment and plan (1) Abnormal uterine bleeding: h/o endometrial ablation abnormal uterine bleeding plan hysteroscopy, endometrial sampling, possible endometrial polypectomy Procedures and risks explained to patient, including risks of infection, bleeding, injury to internal organs, anesthesia, blood transfusions Patient understands and wants to proceed Medical clearance obtained Attestations Medical Necessity Statement*: patient with abnormal uterine bleeding, now scheduled for hysteroscopy, endometrial sampling Coding Level of Care Code Acute Code for Chg Fwd Diagnoses Abnormal uterine bleeding N93.9 Time Spent (min) 30
--- NOTE | 2022-12-11 15:19 | ANE.PACU2 ---
Inpatient post-anesthesia follow up: Airway intact: Yes Vital signs: Temperature 97.5 F Pulse Rate 88 Respiratory Rate 17 Blood Pressure 130/86 Pulse Oximetry 96 Oxygen Delivery Me thod Room Air Oxygen Flow Rate Fraction of Inspir ed Oxygen Hydration adequate: Yes Nausea and vomiting: No Pain level: 1 Mental status: Baseline
--- NOTE | 2022-12-11 20:54 | PM.OP ---
Operative Report Date of procedure: December 11, 2022 Pre-op diagnosis: Preop Diagnosis abnormal uterine bleeding Post-op diagnosis: same Post-op findings: uterus sounded to 9 cm Elongated, constricted endometrial cavity Moderate endometrial tissue Procedure done: hysteroscopy Endometrial sampling with Myosure Curettage of uterus Specimens removed/disposition: endometrial tissue, sent to pathology Surgeon: Douglas Ram MD Anesthesia: General Estimated blood loss (mL): 5 Complications: none Condition: stable Disposition: PACU Brief History: 47 y.o., history of endometrial ablation, with abnormal uterine bleeding Procedure: Informed consent signed. Patient taken to the operating room. Anesthesia induced. Patient was placed in dorsolithotomy position, prepped and draped for hysteroscopy. A bivalve speculum was placed in the vagina. The anterior lip of the cervix was grasped with a sharp-toothed tenaculum. The cervix was serially dilated with Hegar dilators. . A hysteroscope was placed into the endometrial cavity. The endometrial cavity was seen to be elongated and constricted, most likely due to previous endometrial ablation. There were no polyps or fibroids. There was moderate endometrial tissue. A Myosure device was used to obtain endometrial sampling. Then the hysteroscope and Myosure device were removed. Endometrial curettage was done with a sharp curette. Endometrial tissue was sent to pathology. The sharp-toothed tenaculum was removed. There was no bleeding from the endometrial cavity or cervix. The patient was then placed supine and awakened and taken to the PACU. Postop condition: stable EBL: none Sponge and instruments counts were normal x 2 Complications: none
== END 2022-12-11 16:59 | disposition home or self-care (01) ==
PROVIDERS: PCP Family Medicine; Visit Provider Obstetrics & Gynecology
PROC: 0UDB8ZZ Extraction of Endometrium, Via Natural or Artificial Opening Endoscopic (ICD-10-PCS; CPT 58558; principal; 2022-12-11 14:00)
PROC: (CPT 58558; 2022-12-11 14:00)
DX: N93.9 Abnormal uterine and vaginal bleeding, unspecified (principal); I11.0 Hypertensive heart disease with heart failure; I50.9 Heart failure, unspecified; I73.9 Peripheral vascular disease, unspecified; I25.10 Atherosclerotic heart disease of native coronary artery without angina pectoris; K21.9 Gastro-esophageal reflux disease without esophagitis; Z79.82 Long term (current) use of aspirin; Z79.02 Long term (current) use of antithrombotics/antiplatelets
CPT/HCPCS: 58558; 36416; 82962; 84703; 88305; J1100; J1885; J2250; J2405; J2704; J3010; J7030

== ENCOUNTER 2022-12-13 16:16 | Emergency (ER) | payer MEDICAID, SELFPAY ==
[2022-12-13] VITALS (8 sets, daily range): BP systolic 105–170; BP diastolic 70–95; PULSE 72–103; RESP 18; TEMP 36.7; O2SAT 96–100
--- NOTE | 2022-12-13 17:25 | ECG_ITS ---
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 Measurements Intervals [place] Rate: 93 P: 0 CO: 0 QRS: 181 QRSD: 124 T: 56 QT: 384 QTc: 480 Interpretive Statements supraventricular rhythm INDETERMINATE AXIS POSSIBLE RIGHT VENTRICULAR CONDUCTION DELAY [RSR (QR) IN V1/V2] NONSPECIFIC ST ELEVATION [0.05+ mV ST ELEVATION] Compared to ECG 12/06/2022 14:52:54 Aberrant conduction of supraventricular beat(s) now present Indeterminate axis now present ST (T wave) deviation now present Sinus rhythm no longer present Incomplete right bundle-branch block no longer present Heavy baseline artifact, defective EKG Electronically Signed On 12-14-2022 21:08:21 CDT by Khadijah Schaffer M.D. [id number]
[2022-12-13 17:57] LABS: Basophils # 0.1 10^3/uL (0.0-0.1); Basophils % 0.9 %; Eosinophils % 0.4 %; Hematocrit 43.2 % (37.0-47.0); Hemoglobin 15.1 g/dL (11.5-15.3); Lymphocytes # 2.6 10^3/uL (0.8-4.8); Mean Corpuscular Hemoglobin 28.9 pg (28.0-34.0); Mean Corpuscular Volume 82.6 fl (81-99); Mean Platelet Volume 8.4 fL (7.4-10.4); Monocytes # 0.4 10^3/uL (0.2-0.9); Monocytes % 4.5 %; Neutrophils # 4.83 10^3/uL (1.8-7.7); Neutrophils % 60.7 %; Nucleated Red Blood Cells % 0 %; Platelet Count 246 10^3/cmm (130-400); Red Blood Count 5.23 10^6/uL (4.1-5.3); Red Cell Distribution Width 13.5 % (12.1-15.1)
[2022-12-13 18:03] LABS: Alanine Aminotransferase 20 U/L (0-33); Albumin Level 4.5 g/dL (3.5-5.2); Alkaline Phosphatase 92 U/L (35-105); Anion Gap 21.8 (5-19); Aspartate Amino Transferase 15 U/L (0-32); Blood Urea Nitrogen 16 mg/dL (6-20); Calcium 9.4 mg/dL (8.5-10.5); Carbon Dioxide 19 mmol/L (22-29); Chloride 100 mmol/L (98-107); Creatine Phosphokinase 62 U/L (26-192); Globulin 2.6 g/dL (1.3-4.6); Glomerular Filtration Rate 76.9 mL/min (90-130); Glucose 419 mg/dL (65-115); Magnesium 1.8 mg/dL (1.7-2.3); Osmolality Calculated 303 mOsm/kg (285-295); Potassium 3.8 mmol/L (3.5-5.1); Sodium 137 mmol/L (136-145); Total Bilirubin 0.5 mg/dL (0.15-1.2); Total Protein 7.1 g/dL (6.6-8.7)
[2022-12-13 18:04] LABS: Troponin(5th) Baseline 7 ng/L (0-10)
[2022-12-13] MEDS: sodium chloride 0.9% 1,000 ML 999 ML IV ×2 (18:12→19:19)
[2022-12-13] MEDS: insulin regular-human 100 units/1 mL 10 UNIT IVP (19:14)
[2022-12-13 19:28] LABS: HCG Qualitative Urine. Negative (Negative)
[2022-12-13 19:38] LABS: Urine Appearance Hazy (CLEAR); Urine Color Colorless (Yellow)
[2022-12-13 19:39] LABS: Add Urine Microscopic? YES; Bilirubin Urine Neg (Negative); Blood Urine 3+ (Negative); Glucose Urine UA 4+ (Normal); Ketones Urine 1+ (Negative); Leukocyte Esterase Urine 1+ (Negative); Nitrate Urine Negative (Negative); Protein Urine Trace (Negative); Urobilinogen Urine Norm (Negative); pH Urine 5 (5-7)
[2022-12-13 19:41] LABS: Bacteria Urine 1+ /hpf
[2022-12-13 19:42] LABS: Troponin 5 2HR 6.23 ng/L (0-10)
[2022-12-13 19:44] LABS: Troponin 5 2HR Delta -0.77 ABS# (0-10)
--- NOTE | 2022-12-13 19:45 | ED_ITS ---
HPI - Chest Pain General: Chief Complaint: Chest Pain Stated Complaint: arms and legs numb, chest pain Time Seen by Provider: 12/13/22 16:27 History of Present Illness: 7-year-old female with complex medical history including coronary disease, hypertension and diabetes. Presents emergency room with complaints of diffuse body weakness and achiness. She also complained of chest pain and described the pain as aching sensation with severity of 5 out of 10 for about 4 to 5 days. Pain is radiating to mid back. Denies shortness of breath, cough, coughing up blood or vomiting blood. No nausea, vomiting diarrhea or bloody stool. No known sick contact or recent foreign travel Associated symptoms: Deny palpitations or syncope Review of Systems General: Reports: 10 or more systems reviewed and unremarkable except in HPI and below Card: Reports: chest pain; Denies: palpitations, irregular heart rhythm, edema, swelling of feet/ankles, lightheadedness, syncope or pre-syncope Musc: Reports: other (Body aches) [facility] ED PFSH: Medical History Chronic ulcer of right foot Diabetes History of myocardial infarction Hypertension No pertinent family history Positive cardiac stress test Surgical History S/P section S/P coronary angiogram S/P tubal ligation Status post amputation of toe Social History Smoking and tobacco status: never smoked Alcohol intake: current Alcohol intake frequency: holidays/special occasions only Substance/Drug Use: never Female Reproductive History: Spontaneous abortions: No Physical Exam Const: COMMON NORMALS: no acute distress, average body habitus, patient o riented x3, no limitations, healthy appearing, alert and well nourished HENMT: COMMON NORMALS: normocephalic, atraumatic, hearing grossly normal b ilaterally, external ears normal, EAC's normal, TM's normal bilaterally, Normal external nose present, Normal nasal mucous membranes and turbinates present, moist oral mucous membranes, oropharynx normal, dentition normal and gingiva normal HEAD & SCALP: normocephalic and atraumatic NOSE: Normal external nose present and Normal nasal mucous membranes and turbinates present EXTERNAL EAR: Yes external ears normal EXTERNAL AUDITORY CANAL: EAC's normal TYMPANIC MEMBRANE: TM's normal bilaterally Neck/C-Spine: COMMON NORMALS: no meningeal signs and no JVD Chest: COMMONS NORMALS: normal inspection of the chest, normal palpation of entire chest wall, normal inspection of the breasts and normal palpation of the breasts Breast/axilla inspection: Yes normal inspection of the breasts BREAST/AXILLA PALPATION: Yes normal palpation of the breasts Cardio: COMMON NORMALS: no JVD, regular rate, regular rhythm, S1 normal heart sound present, S2 normal heart sound present, No gallops present (Cardio), No clicks present (Cardio), No murmurs present (Cardio), No rub (Cardio) and Peripheral pulses 2+ throughout RATE: regular rate RHYTHM: regular rhythm HEART SOUNDS: S1 normal heart sound present and S2 normal heart sound present PERIPHERAL PULSES: Peripheral pulses 2+ throughout Neuro: VI COMA SCALE: document GCS findings Vi coma scale eye opening: Spontaneous Tinnie coma scale verbal response: None COMMON NORMALS: patient oriented x3 SENSORIUM/ORIENTATION: Yes alert MENINGEAL SIGNS: Yes no meningeal signs, No nuccal rigidity, No Brudzinski's sign present and No Kernig's sign presnet SPEECH: speech normal GAIT: Yes Normal gait present Course Vital Signs: Vital signs: Vital Signs Temperature 98.1 F 12/13/22 16:38 Pulse Rate 88 12/13/22 21:00 Respiratory Rate 18 12/13/22 19:00 Blood Pressure 170/70 12/13/22 21:46 Pulse Oximetry 97 12/13/22 21:00 Oxygen Delivery Me thod Room Air 12/13/22 21:00 MDM - Chest Pain Medical Decision Making Patient was made comfortable emergency room. Patient had blood work done. Patient was given IV fluid, patient has serial cardiac enzymes. EKG was reviewed and discussed with patient. Patient be discharged home per assessment blood sugar has improved significantly. Differential Diagnosis Likely acute massive pulmonary embolism, acute respiratory failure, acute myocardial infarction, cardiac arrest and sudden cardiac Lab Data 12/13/22 16:40 12/13/22 16:40 Laboratory Results WBC 8.0 10^3/uL (4.0-10.0) 12/13/22 16:40 RBC 5.23 10^6/uL (4.1-5.3) 12/13/22 16:40 Hgb 15.1 g/dL (11.5-15.3) 12/13/22 16:40 Hct 43.2 % (37.0-47.0) 12/13/22 16:40 MCV 82.6 fl (81-99) 12/13/22 16:40 MCH 28.9 pg (28.0-34.0) 12/13/22 16:40 MCHC 35.0 g/dL (30.0-36.0) 12/13/22 16:40 RDW 13.5 % (12.1-15.1) 12/13/22 16:40 Plt Count 246 10^3/cmm (130-400) 12/13/22 16:40 MPV 8.4 fL (7.4-10.4) 12/13/22 16:40 Neut % (Auto) 60.7 % 12/13/22 16:40 Lymph % (Auto) 33.0 % 12/13/22 16:40 [place] % (Auto) 4.5 % 12/13/22 16:40 Eos % (Auto) 0.4 % 12/13/22 16:40 Baso % (Auto) 0.9 % 12/13/22 16:40 Neut # (Auto) 4.83 10^3/uL (1.8-7.7) 12/13/22 16:40 Lymph # (Auto) 2.6 10^3/uL (0.8-4.8) 12/13/22 16:40 [place] # (Auto) 0.4 10^3/uL (0.2-0.9) 12/13/22 16:40 Eos # (Auto) 0.0 10^3/uL (0.0-0.8) 12/13/22 16:40 Baso # (Auto) 0.1 10^3/uL (0.0-0.1) 12/13/22 16:40 Nucleated RBC % (auto) 0 % 12/13/22 16:40 Nucleated RBCs # 0.0 /100WBC 12/13/22 16:40 Sodium 137 mmol/L (136-145) 12/13/22 16:40 Potassium 3.8 mmol/L (3.5-5.1) 12/13/22 16:40 Chloride 100 mmol/L (98-107) 12/13/22 16:40 Carbon Dioxide 19 mmol/L (22-29) L 12/13/22 16:40 Anion Gap 21.8 (5-19) H 12/13/22 16:40 BUN 16 mg/dL (6-20) 12/13/22 16:40 Creatinine 0.8 mg/dL (0.5-0.9) 12/13/22 16:40 GFR Calculation 76.9 mL/min (90-130) L 12/13/22 16:40 Glucose 419 mg/dL (65-115) H 12/13/22 16:40 POC Glucose 131 mg/dL (70-110) H 12/13/22 21:01 Calculated Osmolality 303 mOsm/kg (285-295) H 12/13/22 16:40 Calcium 9.4 mg/dL (8.5-10.5) 12/13/22 16:40 Magnesium 1.8 mg/dL (1.7-2.3) 12/13/22 16:40 Total Bilirubin 0.5 mg/dL (0.15-1.2) 12/13/22 16:40 AST 15 U/L (0-32) 12/13/22 16:40 ALT 20 U/L (0-33) 12/13/22 16:40 Alkaline Phosphatase 92 U/L (35-105) 12/13/22 16:40 Creatine Kinase 62 U/L (26-192) 12/13/22 16:40 Troponin T Baseline 7 ng/L (0-10) 12/13/22 16:40 Troponin T 120 Minute 6.23 ng/L (0-10) 12/13/22 19:05 Delta Troponin T -0.77 ABS# (0-10) L 12/13/22 19:05 Total Protein 7.1 g/dL (6.6-8.7) 12/13/22 16:40 Albumin 4.5 g/dL (3.5-5.2) 12/13/22 16:40 Globulin 2.6 g/dL (1.3-4.6) 12/13/22 16:40 HCG, Qual Negative (Negative) 12/13/22 19:04 Urine Color Colorless (Yellow) 12/13/22 19:04 Urine Appearance Hazy (CLEAR) A 12/13/22 19:04 Urine pH 5 (5-7) 12/13/22 19:04 Ur Specific [place] 1.010 (1.005-1.030) 12/13/22 19:04 Urine Protein Trace (Negative) 12/13/22 19:04 Urine Glucose (UA) 4+ (Normal) H 12/13/22 19:04 Urine Ketones 1+ (Negative) H 12/13/22 19:04 Urine Blood 3+ (Negative) H 12/13/22 19:04 Urine Nitrate Negative (Negative) 12/13/22 19:04 Urine Bilirubin Neg (Negative) 12/13/22 19:04 Urine Urobilinogen Norm mg/dL (Negative) 12/13/22 19:04 Ur Leukocyte Esterase 1+ (Negative) H 12/13/22 19:04 Urine RBC 10-15 /hpf (0-2) H 12/13/22 19:04 Urine WBC 5-10 /hpf (0-5) H 12/13/22 19:04 Ur Squamous Epith Cells 10-15 /hpf (0-5) H 12/13/22 19:04 Amorphous Sediment Not Reportable 12/13/22 19:04 Urine Bacteria 1+ /hpf (NONE) H 12/13/22 19:04 EKG Data EKG 1: Interpretation: Rate of 92 sinus rhythm QT 384 RS duration [address] changes Critical Care Time Critical Care Time: Critical Care Time: Yes Total Critical Care Time: 45 Attestation: Patient was given IV fluid and IV insulin for blood sugar greater than 400. Time spent to recheck patient. Discharge Plan Discharge Patient Disposition: Home Clinical Impression: Atypical chest pain, Uncontrolled diabetes mellitus Condition: Stable Prescriptions: No Action acetaminophen 325 mg tablet 325 mg PO QID PRN (Reason: Pain) (DME) blood-glucose meter [FreeStyle Lite Meter] Kit See Rx Instructions .Route Qty: 1 0RF Rx Instructions: As directed (DME) FreeStyle Lite Strips Strip See Rx Instructions .Route Qty: 100 3RF Rx Instructions: once daily check (DME) 3 Inserts See Rx Instructions .Route .MEDSUPPLY Qty: 1 0RF Rx Instructions: As directed HOME aspirin 81 mg tablet,delayed release (DR/EC) 81 mg PO DAILY Qty: 90 3RF atorvastatin 80 mg tablet 80 mg PO DAILY Qty: 90 3RF clopidogrel 75 mg tablet 75 mg PO DAILY Qty: 90 3RF cyclobenzaprine 10 mg tablet 10 mg PO TID PRN (Reason: Muscle Spasm) Qty: 30 2RF (DME) Diabetic shoes with 3 inserts See Rx Instructions .Route .MEDSUPPLY Qty: 1 0RF Rx Instructions: DIRECTED Jardiance 25 mg tablet 25 mg PO DAILY Qty: 90 3RF EpiPen 2-Jonel 0.3 mg/0.3 mL auto-injector See Rx Instructions .ROUTE .COMPLEX Qty: 2 2RF Rx Instructions: as directed as needed methocarbamol 750 mg tablet 750 mg PO Q8H PRN (Reason: Back muscle spasms and pain) Qty: 20 0RF Vitamin B12 Gummy 2 gummy PO DAILY Discharge Orders: Discharge ED (Routine); Ordered 12/13/22 Ordered By: Aviva Acosta Referrals: Jorge Prakash DO [Primary Care Provider] - Patient Instructions: Opioid Safety, Pain Management Coding Level of Care Code ED Federal Aid Coordinator for [facility]
[2022-12-13 21:04] LABS: Glucose Point of Care 131 mg/dL (70-110)
[2022-12-21 01:50] LABS: Beta-Hydroxybutyrate 0.22 mmol/L
== END 2022-12-13 21:47 | disposition home or self-care (01) ==
PROVIDERS: Emergency Provider Family Medicine; PCP Family Medicine
DX: R07.89 Other chest pain (principal); E11.9 Type 2 diabetes mellitus without complications; Z79.82 Long term (current) use of aspirin; Z79.02 Long term (current) use of antithrombotics/antiplatelets; I25.2 Old myocardial infarction; I10 Essential (primary) hypertension
CPT/HCPCS: 36416; 80053; 81001; 81025; 82010; 82550; 82962; 83735; 84484; 85025; 93005; 96361; 96374; 99285; J1815; J7030